=== PATIENT | female | born 1985 | race Caucasian/White ===

== ENCOUNTER → 2018-02-03 07:47 | Outpatient (CLI) | payer OTHER, SELFPAY ==
--- NOTE | 2018-02-03 07:51 | US_ITS ---
STUDY: THYROID ULTRASOUND REASON FOR EXAM: Female, 32 years old. Thyroid nodule. TECHNIQUE: Ultrasound evaluation of the thyroid was performed with real-time and static arreguin-scale imaging. COMPARISON: Prior thyroid ultrasound of October 20, 2016 FINDINGS: RIGHT LOBE: The right lobe of the thyroid gland measures 5.2 x 2.1 x 2.0 cm. There is a homogeneous echotexture. There is a 2.3 x 2.0 x 2.2 cm complex nodule of the mid to lower pole of the right thyroid with internodular and perinodular vascularity. There is also a solid hypoechoic ovoid nodule measuring 3 x 3 x 2 mm in the upper pole. LEFT LOBE: The left lobe of the thyroid gland measures 4.4 x 1.6 x 1.5 cm. There is a homogeneous echotexture. There is a 4 x 3 x 3 hypoechoic solid nodule of the mid left thyroid with perinodular vascularity. ISTHMUS: The isthmus measures 0.2 centimeter. The regional lymph nodes are normal. US/Thyroid IMPRESSION: Enlargement of the right thyroid primarily secondary to a complex nodule of the mid and inferior pole measuring 2.3 x 2.0 x 2.2 cm which is not substantially changed in size or appearance on [id number] comparison. 3 x 3 x 2 mm ovoid solid hypoechoic nodule of the upper right thyroid not formerly visualized. 4 x 3 x 3 mm ovoid solid hypoechoic nodule of the mid left thyroid not formerly visualized. Electronically Signed: Radha Perez MD at 20:56 EDT , Service support ,
--- NOTE | 2018-02-03 07:51 | US_ITS ---
STUDY: ABDOMINAL ULTRASOUND - RIGHT UPPER QUADRANT REASON FOR VISIT: Female, 32 years old. Right upper quadrant pain. TECHNIQUE: Ultrasound evaluation of the right upper quadrant was performed with real-time and static arreguin-scale imaging. TECHNICAL QUALITY: Adequate. COMPARISON: Comparison is made with prior study dated January 09, 2011. FINDINGS: Liver: The liver measures 17.0 cm. There is normal echogenicity of the liver. The bile ducts are within normal limits. There is hepatic color flow. The direction of portal flow is hepatopetal. There is no demonstrated mass lesion. Gallbladder: Normal distended gallbladder. The gallbladder wall measures 2.6 mm. There is a negative sonographic Fernandes's sign. There is no pericholecystic fluid. There are no gallstones. Common Bile Duct (C.B.D.): The common bile duct measures 2.5 mm. Pancreas: Normal size of the head, body and tail of the pancreas. There is normal echogenicity of the pancreas. There is no demonstrated pancreatic mass or cyst. Right Kidney: Normal size of the right kidney. The right kidney measures 11.5 cm x 4.9 cm x 5.0 cm. Normal renal cortex. The right cortex measures 1.3 cm. There is no demonstrated renal mass or cyst. There is no right hydronephrosis. US/Gallbladder IMPRESSION: Normal right upper quadrant ultrasound examination. Electronically Signed: Walter Bejarano MD at 14:34 EDT Tel [phone], Service support ,
== END ==
PROVIDERS: Family Provider Internal Medicine; PCP Internal Medicine; Visit Provider Internal Medicine
DX: E04.1 Nontoxic single thyroid nodule (principal); R10.11 Right upper quadrant pain
CPT/HCPCS: 76536; 76705

== ENCOUNTER → 2018-06-09 08:42 | Outpatient (CLI) | payer OTHER, SELFPAY ==
[2018-06-09 12:59] LABS: Hematocrit 33.2 % (37-47); Hemoglobin 11.2 g/dl (12.0-15.0); Mean Corp Hgb Conc 33.7 g/gl (32-36); Mean Corpuscular Hgb 29.4 pg (27.0-32.0); Mean Corpuscular Volume 87.1 fL (81-99); Mean Platelet Vol. 10.2 fl (6.2-12.0); Platelet Count 287 K/mm3 (150-450); RBC Distribution Width CV 13.6 % (11.6-14.6); RBC Distribution Width SD 41.8 fl (35.1-43.9); Red Blood Count 3.81 M/mm3 (4.2-5.4)
[2018-06-09 13:00] LABS: Scan Indicated on CBC? Y/N NO
[2018-06-09 13:29] LABS: Glucose Challenge Gest 1H 50g 157 mg/dL (70-140)
== END ==
PROVIDERS: Family Provider Internal Medicine; PCP Internal Medicine; Visit Provider Obstetrics & Gynecology
DX: Z34.83 Encounter for supervision of other normal pregnancy, third trimester (principal)
CPT/HCPCS: 36415; 82950; 85027

== ENCOUNTER → 2018-06-30 06:45 | Outpatient (CLI) | payer OTHER, SELFPAY ==
[2018-06-30 07:33] LABS: Glucose GTT-Gestation. Fasting 84 mg/dL (<105)
[2018-06-30 08:41] LABS: Glucose GTT-Gestational 1 Hr 166 mg/dL (<190)
[2018-06-30 09:32] LABS: Glucose GTT-Gestational 2 Hr 174 mg/dL (<165)
[2018-06-30 10:41] LABS: Glucose GTT-Gestational 3 Hr 144 L (<145)
--- OUTSIDE RECORDS SUMMARY | 2018-08-25 06:43 | XMS RPT_ITS | Continuity of Care Document ---
:1985 Author Organization [facility] Address [address] [place] [address] Phone Care Team Providers Name Role Phone Evy Larios DO Unavailable Dr. Gagandeep Polanco Unavailable Mehran Patten Unavailable Dr. Zeus North Unavailable Dr. Tomi Meade MD Unavailable Juana Nguyễn Unavailable Sindy Metz Unavailable Unavailable Jojo Grace Unavailable Unavailable Unavailable Unavailable Problems Name Dates Details Acute sinusitis (J01.90, 461.9) Status: Active Anxiety (F41.9, 300.00) Comments: chronic stable-continue present regimen Status: Active BMI 40.0-44.9, adult (Z68.41, V85.41) Comments: 41.27 Status: Active Cervical radiculopathy, acute (Renamed from Acute cervical radiculopathy) (M54.12, 723.4) Status: Active Cervical radiculopathy, chronic (M54.12, 723.4) Comments: chronic stable-continue present regimen Status: Active Deliveries (Parity) Comments: 1. Status: Active Dysthymic (F34.1, 300.4) Status: Active Elevated hemoglobin A1c (R73.09, 790.29) Comments: great control Status: Active Encounter for gynecological examination with abnormal finding (Z01.411, V72.31) Status: Active FAMILY HISTORY OF DIABETES MELLITUS (Z83.3, V18.0) Status: Active FAMILY HISTORY OF ISCHEMIC HEART DISEASE (Renamed from Fam hx-ischem heart disease) (Z82.49, V17.3) Status: Active Family history of melanoma (Z80.8, V16.8) Status: Active Fatigue (R53.83, 780.79) Status: Active Frequent infections (Z86.19, V12.00) Status: Active Gastroesophageal reflux disease without esophagitis (K21.9, 530.81) Status: Active Hiatal hernia (K44.9, 553.3) Comments: by egd in past Status: Active Insomnia (Renamed from Cannot sleep) (G47.00, 780.52) Comments: better Status: Active Joint pain (M25.50, 719.40) Status: Active [facility] WELLNESS EXAM Status: Active [facility] WELLNESS EXAM Status: Active Migraine (G43.909, 346.90) Status: Active Nausea (R11.0, 787.02) Status: Active Other hyperlipidemia (E78.49, 272.4) Status: Active Positive urine test (Z32.01, V72.42) Status: Active Pregnancies () Comments: 1. Status: Active Rash (R21, 782.1) Status: Active Right upper quadrant pain (R10.11, 789.01) Status: Active Sinusitis, acute (J01.90, 461.9) Comments: patient called in with sinus sx at work- send in antiobiotic - told take probiotic and appt not better add atypical coverage because on ceftin and want not bacgteriostatic but cidial and with frequent i nfecton through life check immunoglobulins once at steady state Status: Active Smoker (F17.200, 305.1) Comments: not smoking during preg Status: Active Spasm of cervical paraspinous muscle (M62.838, 728.85) Status: Active Tachycardia (R00.0, 785.0) Comments: chronic stable-continue present regimen Status: Active Thyroid nodule (E04.1, 241.0) Status: Active Unspecified Diagnosis Status: Active Upper respiratory infection (J06.9, 465.9) Status: Active Vertigo (R42, 780.4) Comments: get mri Status: Active Vitamin D deficiency (E55.9, 268.9) Status: Active Wheezing (R06.2, 786.07) Status: Active Medications Name Dates Details Augmentin 875-125 MG Oral Tablet 1 (one) Tablet two times daily for 14 days Quantity: 28 {Tablet} Refills: 0 Ordered:01-Jun-2018 Ric DODaniela AFandrew DO, Evy A Start : 01-Jun-2018 Active BuPROPion HCl ER (XL) 150 MG Oral Tablet Extended Release 24 Hour 1 (one) Tablet ER 24HR qd for 0 days Quantity: 30 {Tablet} Refills: 3 Ordered:13-Oct-2017 Sindy Metz Start : 13-Oct-2017 Active Fiorinal 50-325-40 MG Oral Capsule uad (50-325-40 MG) Active Comments:Dr. Davis Labetalol HCl 100 MG Oral Tablet 1 (one) Tablet bid for 0 days Quantity: 60 {Tablet} Refills: 3 Ordered:22-Mar-2018 Ric NEALDaniela Salo NEAL Evy A Start : 22-Mar-2018 Active Pepcid 20 MG Oral Tablet 1 (one) Tablet bid for 0 days Quantity: 60 {Tablet} Refills: 6 Ordered:25-Apr-2018 Ric NEALEvy DO Evy A Start : 25-Apr-2018 Active /Folic Acid Oral Tablet 1 qd Active Rizatriptan Benzoate 10 MG Oral Tablet 1 (one) Tablet Tablet daily, prn for 30 days Quantity: 30 {Tablet} Refills: 1 Ordered:09-Aug-2017 Sindy Metz Start : 09-Aug-2017 Active Singulair 10 MG Oral Tablet 1 (one) Tablet qd for 30 days Quantity: 30 {Tablet} Refills: 6 Ordered:31-Jan-2018 Ric NEALEvy DO, Debra A Start : 31-Jan-2018 Active Symbicort 80-4.5 MCG/ACT Inhalation Aerosol 2 (two) puffs qd for 0 days Quantity: 1 {Inhaler} Refills: 3 Ordered:06-Jun-2018 Ric NEALEvy DO, Debra A Start : 06-Jun-2018 End : 13-Jan-2018 Active Vitamin D3 2000 UNIT Oral Tablet 2 (two) Tablet Tablet qd for 0 days Quantity: 60 {Tablet} Refills: 4 Ordered:02-May-2018 FernandoSindy baez Start : 17-Jan-2018 Active Zofran 4 MG Oral Tablet 1 (one) Tablet bid prn for 0 days Quantity: 30 {Tablet} Refills: 1 Ordered:06-Nov-2017 Evy Larios DO AFEvy morales DO Start : 06-Nov-2017 Active Amitriptyline HCl 10 MG Oral Tablet 3 (three) Tablet qhs prn for 0 days Quantity: 90 {Tablet} Refills: 3 Ordered:30-Jun-2017 Sindy Metz Start : 23-Apr-2017 End : 30-Jun-2017 Inactive CeleBREX 200 MG Oral Capsule qd (200 MG) Inactive Comments:pain management Cyclobenzaprine HCl 10 MG Oral Tablet 1 (one) Tablet prn for 30 days Quantity: 30 {Tablet} Refills: 1 Ordered:19-Apr-2017 Sindy Metz Start : 03-Feb-2017 End : 19-Apr-2017 Inactive DULoxetine HCl 20 MG Oral Capsule Delayed Release Particles 1 (one) Capsule qd for 0 days Quantity: 30 {Capsule} Refills: 3 Ordered:13-Jan-2018 Jeanine Judd LPN Start : 13-Sep-2017 End : 13-Jan-2018 Inactive Levaquin 500 MG Oral Tablet 1 (one) Tablet Tablet qd for 0 days Quantity: 14 {Tablet} Refills: 0 Ordered:11-Jan-2018 ITZ Welch Start : 22-Jul-2017 End : 11-Jan-2018 Inactive Comments:she is not pregant LORazepam 0.5 MG Oral Tablet 1 (one) Tablet Tablet daily, prn for 30 days Quantity: 30 {Tablet} Refills: 0 Ordered:13-Jan-2018 Jeanine Judd LPN Start : 29-Oct-2015 End : 13-Jan-2018 Inactive Neurontin 100 MG Oral Capsule 1 (one) Capsule daily as directed for 30 days Quantity: 180 {Capsule} Refills: 0 Ordered:30-Mar-2016 Jojo Grace Start : 30-Mar-2016 End : 29-Apr-2016 Inactive Comments:100mg tid x3days, then 200mg tid x3days then 300mg tid Percocet 5-325 MG Oral Tablet 1 (one) Tablet tid, prn for 0 days Quantity: 75 {Tablet} Refills: 0 Ordered:13-Jan-2018 Evy Larios DO, DO Evy A Start : 09-Dec-2016 End : 13-Jan-2018 Inactive Comments:seventy five PredniSONE 10 MG Oral Tablet 1 (one) Tablet 3 pills for 3 dayes 2 pills for 3 days 1 pill for 3 days for 1 days Quantity: 18 {Tablet} Refills: 0 Ordered:04-May-2018 Evy Larios DO, DO, Evy A Start : 04-May-2018 End : 05-May-2018 Inactive Comments:take with food in am Skelaxin 400 MG Oral Tablet tid (400 MG) Inactive NexIUM 24HR 20 MG Oral Capsule Delayed Release 1 (one) Capsule DR qd prn for 30 days Quantity: 30 {Capsule} Refills: 6 Ordered:13-Jan-2018 Evy Larios DO, DO Evy A Start : 13-Jan-2018 End : 13-Jan-2018 Discontinued [place] 7.5-325 MG Oral Tablet 1-2 Tablet bid for 0 days Quantity: 60 {Tablet} Refills: 0 Ordered:30-Mar-2016 Jojo Grace Start : 24-Mar-2016 End : 30-Mar-2016 Discontinued Comments:sixty Nortriptyline HCl 75 MG Oral Capsule 1 (one) Capsule Capsule daiy, prn for 30 days Quantity: 30 {Capsule} Refills: 0 Ordered:13-Oct-2016 Evy Larios DO, DO, Evy A Start : 13-Oct-2016 End : 13-Oct-2016 Discontinued POLYTRIM, 07039-9.1UNIT/ML-% (Ophthalmic Solution) 1 (one) Solution 1 gtt q4-6 hours affected eye for 0 days Quantity: 1 {Bottle} Refills: 0 Ordered:29-Oct-2015 Jojo Grace Start : 20-Aug-2015 End : 29-Oct-2015 Discontinued Propranolol HCl 80 MG Oral Tablet 1 (one) Tablet qd for 0 days Quantity: 30 {Tablet} Refills: 6 Ordered:13-Jan-2018 Evy Larios DO, DO Evy A Start : 13-Jan-2018 End : 13-Jan-2018 Discontinued SERTRALINE HCL, 100MG (Oral Tablet) 1 (one) Tablet daily for 30 days Quantity: 30 {Tablet} Refills: 3 Ordered:29-Apr-2015 Jojo Grace Start : 22-Feb-2015 End : 29-Apr-2015 Discontinued Allergies and Adverse Reactions Name Dates Details Nabumetone *ANALGESICS - ANTI-INFLAMMATORY* (Allergy) Status: Active Comments: anaphylaxis Sulfa Drugs (Allergy) Status: Active Comments: anaphylaxis Past Medical History Name Dates Details Acute pain of left shoulder (M25.512, 719.41) Status: Resolved as of 11-Jan-2018 Allergic rhinitis (J30.9, 477.9) Status: Inactive as of 22-Sep-2017 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, 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) Status: Inactive as of 29-Sep-2016 Chronic pain of left knee (M25.562, 719.46) Status: Inactive as of 22-Sep-2017 CLEANING (headache) (R51, 784.0) Status: Inactive as of 22-Sep-2017 Pain in unspecified joint (Renamed from Joint pain) (M25.50, 719.40) Status: Inactive as of 17-Jan-2018 Red eye (H57.8, 379.93) Status: Resolved as of 29-Oct-2015 Sinus infection (J32.9, 473.9) Status: Resolved as of 29-Oct-2015 Tension headache (G44.209, 307.81) Status: Inactive as of 22-Sep-2017 Procedures Procedure Dates Details Appendectomy Completed Delivery Completed colposcopy 2010 Completed Tonsillectomy Completed Date Value Details 03-Feb-2018 Gallbladder Result: Comments: See Note; NOTES: [facility] Imaging Services [address] [place] [address] Gallbladder MR#: [id number] Acct: [id number] Name: CAREY MURPHY Rep #: [id number] : 1985 F 32 From: Walter Bejarano MD PCP: Evy Larios DO Status: REG CLI Study: Gallbladder Date of Exam: 02/03/18 Exam# [id number] Ordering Dr: Evy Larios DO STUDY: ABDOMINAL ULTRASOUND - RIGH T UPPER QUADRANT REASON FOR VISIT: Female, 32 years old. Right upper quadrant pain. TECHNIQUE: Ultrasound evaluation of the right upper quadrant was performed with real-time and static arreguin-scale imag ing. TECHNICAL QUALITY: Adequate. COMPARISON: Comparison is made with prior study dated January 09, 2011. FINDINGS: Liver: The liver measures 17.0 cm. There is teresa l echogenicity of the liver. The bile ducts are within normal limits. There is hepatic color flow. The direction of portal flow is hepatopetal. There is no demonstrated mass lesion. Gallbladder: Normal distended gallbladder. The gallbladder wall measures 2.6 mm. There is a negative sonographic Fernandes's sign. There is no pericholecystic fluid. There are no gallstones. Common Bile Duct (C.B.D.): The c ommon bile duct measures 2.5 mm. Pancreas: Normal size of the head, body and tail of the pancreas. There is normal echogenicity of the pancreas. There is no demonstrated pancreatic mass or cyst. Right Kidney: Normal size of the right kidney. The right kidney measures 11.5 cm x 4.9 cm x 5.0 cm. Normal renal cortex. The right cortex measures 1.3 cm. There is no demonstrated renal mass or cyst. There i s no right hydronephrosis. 0002 US/Gallbladder IMPRESSION: Normal right upper quadrant ultrasound examination. 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 Thyroid nodule. TECHNIQUE: Ultrasound evaluation of the thyroid was performed with real-time and static arreguin-scale imaging. COMPARISON: Prior thyroid ultrasound of October 20, 2016 _ FINDINGS: RIGHT LOBE: The right lobe of the thyroid gland measures 5.2 x 2.1 x 2.0 cm. There is a homogeneous echotexture. There is a 2.3 x 2.0 x 2.2 cm complex nodu le of the mid to lower pole of the right thyroid with internodular and perinodular vascularity. There is also a solid hypoechoic ovoid nodule measuring 3 x 3 x 2 mm in the upper pole. LEFT LOBE: The le ft lobe of the thyroid gland measures 4.4 x 1.6 x 1.5 cm. There is a homogeneous echotexture. There is a 4 x 3 x 3 hypoechoic solid nodule of the mid left thyroid with perinodular vascularity. ISTHMUS: The isthmus measures 0.2 centimeter. The regional lymph nodes are normal. US/Thyroid IMPRESSION: Enlargement of the right thyroid primarily se condary to a complex nodule of the mid and inferior pole measuring 2.3 x 2.0 x 2.2 cm which is not substantially changed in size or appearance on eaem-ej-flqh comparison. 3 x 3 x 2 mm ovoid solid hypoe choic nodule of the upper right thyroid not formerly visualized. 4 x 3 x 3 mm ovoid solid hypoechoic nodule of the mid left thyroid not formerly visualized. Electronically Signed: Lorrie Laboy at 20:56 EDT , Service support , CC: Evy Larios DO Bus And Rail Operator: Signed 28-Apr-2017 Brain W/WO Contrast Result: Comments: See Note; NOTES: [facility] Imaging Services [address] [place] [address] Brain W/WO Contrast MR#: [id number] Acct: [id number] Name: CAREY MURPHY Rep #: [id number] : 1985 F 31 From: Luis Sales MD PCP: Evy Larios DO Status: REG CLI Study: Brain W/WO Contrast Date of Exam: 04/28/17 Exam# [id number] Ordering Dr: Evy Larios DO STUDY: MRI BRAIN WITH AND W ITHOUT CONTRAST REASON FOR EXAM: Female, 31 years old. Vertigo. Worsening by drain with new dizziness nausea and confusion. TECHNIQUE: Standardized multiplanar fat and water weighted pulse sequences w ere obtained. 10 ml of Gadavist contrast material was administered intravenously for the contrast portion of the examination. COMPARISON: CT head without contrast 12/08/2013. FINDINGS: No restricted diffusion to suspect acute or subacute ischemic infarct. No focal signal abnormalities throughout the brain parenchyma. All of the pulse sequences are normal. The arreguin matter, white matter, ventricles and cisterns are normal. Following IV contrast administration, there are no enhancing lesions intraaxially or extra-axially. Normal size of the ventricles and extra-a xial spaces for the patient's age. Normal white matter tracts of the supratentorial brain. Normal bilateral basal ganglia. Normal thalami. There is no extra-axial fluid accumulation. Normal flow voids within the major intracranial circulation suggesting patency by spin echo criteria. Normal venous enhancement. There is no enhancing intra-axial or extra-axial abnormality. Normal sella turcica, pitui tary gland, infundibular stalk, optic chiasm and hypothalamus. Normal tectal plate and pineal gland. Normal midbrain, quyen and medulla. Normal cerebellum. Normal basal cisterns. Normal bilateral tempor al bones. Normal bilateral internal auditory canals. No demonstrated orbital abnormality, within the constraints of a routine brain study. Normal visualized paranasal sinuses. Normal calvarium and skul l base. Normal visualized soft tissue structures. Normal visualized upper cervical spine. MRI/Brain W/WO Contrast IMPRESSION: Normal unenhanced a nd enhanced MRI of the brain. Electronically Signed: Luis Sales MD at 15:53 EDT , Service support , CC: Evy Larios DO Bus And Rail Operator: Signed 23-Apr-2017 Echocardiogram Complete Result: Comments: See Note; NOTES: [facility] [address] [place] [address] Echo Complete 04/22/17 1026 MR#: [id number] Acct: [id number] Name: CAREY MURPHY Rep #: [id number] : 1985 31 From: Juan Sellers MD Attending Dr: Evy Larios DO Status: REG CLI Ordering Dr: Evy Larios DO Date: 04/22/17 Location: [facility] Sex: F C Admitted: Reason For Study: Tachycardia Procedure This was a 2D Doppler, Color Flow transthoracic echocardiogram. Exam performed in department. Left Ventricle Normal size and thickness. The estimated ejection fraction is 65 %. Normal diastology for age. No regional wall motion abnormalities noted. Right Ventricle Normal size and thickness. Normal systolic function. Atria Normal left atrium. Normal right atrium. Normal atria l septum. Mitral Valve The mitral valve is structurally normal. No prolapse or stenosis seen. Tricuspid Valve Normal tricuspid valve. Unable to estimate RV systolic pressure/pulmonary artery pressure due to technically difficult study. Aortic Valve Normal aortic valve. Trisinus/trileaflet aortic valve. Pulmonic Valve Normal pulmonic valve. Great Vessels Normal aortic root. Normal arch. Normal infe rior vena cava. Inferior vena cava collapse with sniff. Pericardium/Pleural No pericardial effusion. MMode/2D Measurements AND Calculations LVIDd: 4.1 cm IVSd: 1.1 cm LVOT diam: 2.0 cm LVIDs: 2.5 cm L VPWd: 0.91 cm LVOT area: 3.0 cm2 FS: 39.1 % Ao root diam: 2.9 cm LAV(MOD-bp): 34.5 ml LVAd ap4: 27.3 cm2 LAV(MOD-bp) Ind exed: 16.9 ml/m2 EDV(MOD-sp4): 75.2 ml LAV(MOD-sp2): 38.8 ml EDV(sp4-el): 76.0 ml LAV(MOD-sp4): 26.0 ml LVAs ap4: 15.5 cm2 ESV(MOD-sp4): 30.5 ml ESV(sp4-el): 29.4 ml EF(MOD-sp4): 59.4 % EF(sp4-el): 61.3 % SV(MOD-sp4): 44.7 ml SV(sp4-el): 46.6 ml LA A4 area: 13.6 cm2 RA A4 area: 13.1 cm2 Time Measurements MV dec time: 0.22 sec Doppler Measurements AND Calculations MV E max lucila: 81.5 cm/sec Lat Peak E' Lucila: 11.4 cm/sec Med Peak E' Lucila: 13 .3 cm/sec MV A max lucila: 63.4 cm/sec E/E' lat: 7.1 E/E' med: 6.1 MV E/A: 1.3 MV V2 max: 87.4 cm/sec MV P1/2t max lucila: 86. 8 cm/sec Ao V2 max: 130.0 cm/sec MV max P.1 mmHg MV P1/2t: 77.7 msec Ao max P.8 mmHg MV V2 mean: 58.3 cm/sec MV dec slope: 327.2 cm/sec2 MADAY(V,D): 2.7 cm2 MV mean P.5 mmHg MVA(P1/2t): 2.8 cm 2 MV V2 VTI: 17.6 cm LV V1 max: 115.6 cm/sec PA V2 max: 95.4 cm/sec LV V1 max P.3 mmHg Interpretation Summary The e stimated ejection fraction is 65 %. Normal diastology for age. Unable to estimate RV systolic pressure/pulmonary artery pressure due to technically difficult study. There is no comparison study availabl e. Ordering Physician: Evy Larios Referring Physician: Evy Larios, DhavalO. Performed By: Christi LIN, KRISTIN, Ivone and Student 04/23/17 1632 Date Juan Sellers MD CC: Evy Padilla O Date Dictated: 04/22/17 1026 Date Transcribed: 04/23/17 1632 Bus And Rail Operator: Signed 20-Oct-2016 Knee 4 or More Views Result: Comments: See Note; NOTES: [facility] Imaging Services [address] [place] [address] Verdana 4d Knee 4 or More Views MR#: [id number] Acct: [id number] Name: CAREY EVANS p #: [id number] : 1985 F 30 From: Walter Bejarano MD PCP: Evy Larios DO Status: REG CLI Study: Knee 4 or More Views Date of Exam: 10/20/16 Exam# [id number] Ordering Dr: Evy Larios DO STUDY : X-RAY - LEFT KNEE REASON FOR EXAM: Female, 30 years old. Chronic knee pain. TECHNIQUE: 4 view(s) of the knee. COMPARISON: None. FINDINGS: Normal visualized dist al femur. Normal visualized proximal tibia and fibula. Normal proximal tibiofibular articulation. Normal medial femorotibial compartment. Normal lateral femorotibial compartment. Normal patellofemoral articulation. The soft tissue structures are unremarkable. RAD/Knee 4 or More Views IMPRESSION: Normal x-ray examination of the knee. Electroni kristie Signed: Walter Bejarano MD at 9:10 EDT Tel [phone], Service support [phone], CC: Evy Larios DO Bus And Rail Operator: Signed 20-Oct-2016 Thyroid Result: Comments: See Note; NOTES: [facility] Imaging Services [address] [place] [address] Gabidaronan 4d Thyroid MR#: [id number] Acct: [id number] Name: CAREY EVANS Rep #: [id number] : 1985 F 30 From: Walter Bejarano MD PCP: Evy Larios DO Status: REG CLI Study: Thyroid Date of Exam: 10/20/16 Exam# [id number] Ordering Dr: Evy Larios DO STUDY: THYROID ULTRASOUND REAS ON FOR EXAM: Female, 30 years old. History of thyroid nodule. TECHNIQUE: Ultrasound evaluation of the thyroid was performed with real-time and static arreguin-scale imaging. COMPARISON: None. FINDINGS: RIGHT LOBE: The right lobe of the thyroid gland measures 5.5 cm x 1.8 cm x 2.5 cm. There is a homogeneous echotexture. There is a 2.2 cm x 2.1 cm x 2.3 cm complex rosa id and cystic nodule in the inferior pole of the right lobe of the thyroid. A biopsy is recommended for further evaluation. LEFT LOBE: The left lobe of the thyroid gland measures 4.8 cm x 1.4 cm x 1.2 cm. There is a homogeneous echotexture. There are no demonstrated solid, cystic or complex lesions. ISTHMUS: The isthmus measures 2.0 mm. The regional lymph nodes are normal. US/Thyroid IMPRESSION: 2.2 cm x 2.1 cm x 2.3 cm complex nodule in the lower pole of the right lobe of the thyroid as described. A biopsy is recommended. Electronically Signed: Walter Bejarano MD at 9:08 EDT Tel [phone], Service support [phone], CC: Evy Larios DO Bus And Rail Operator: Signed 01-Oct-2016 Spine Cervical (Routine) Result: Comments: See Note; NOTES: [facility] Imaging Services [address] [place] [address] Verdana 4d Spine Cervical (Routine) MR#: [id number] Acct: [id number] Name: CAREY EVANS Rep #: [id number] : 1985 F 30 From: Kamran Anderson MD PCP: Evy Larios DO Status: REG CLI Study: Spine Cervical (Routine) Date of Exam: 10/01/16 Exam# [id number] Ordering Dr: Evy Larios DO STUDY: MRI CERVICAL SPINE WITHOUT CONTRAST REASON FOR EXAM: Female, 30 years old. Radiculopathy TECHNIQUE: Standardized fat and water weighted pulse sequences were obtained in the sagittal and axial p lanes. COMPARISON: X-ray cervical spine 03/24/16 FINDINGS: Normal foramen magnum and brainstem-cervical cord junction. Normal craniovertebral junction. Normal anteri or atlantoaxial articulation. Normal odontoid process. Normal cervical lordosis. Normal vertebral bodies and posterior osseous elements. C2-3: Normal endplates. Normal disc height, signal and morpholo gy. Normal central canal and intervertebral neural foramina. C3-4: There is disc bulge with posterior annular tear (image 8/15, 9 sagittal T2, inversion recovery). C4-5: Normal endplates. Normal disc height, signal and morphology. Normal central canal and intervertebral neural foramina. C5-6: Normal endplates. Normal disc height, signal and morphology. Normal central canal and intervertebral neural foramina. C6-7: Normal endplates. Normal disc height, signal and morphology. Normal central canal and intervertebral neural foramina. C7-T1: Normal endplates. Normal disc height, signal and morpholog y. Normal central canal and intervertebral neural foramina. Normal cervical cord. There is mucoperiosteal thickening at the sphenoid sinus (image 9/15 sagittal T2). MRI/Spine Cervical (Routine) IMPRESSION: No disc herniation or spinal stenosis Disc bulge with posterior annular tear, C3-C4 Evidence of sphenoid sinusitis Electronically Signed : Kamran Anderson MD at 22:22 EST Tel , Service support [phone], CC: Evy Larios DO Bus And Rail Operator: Signed 21-May-2016 PT D/C of Non Returning Pt (1) Result: Comments: See Note; NOTES: [facility] [address] [place], [place] [address] Fax REHABILITATION SERVICES DISCHA RGE SUMMARY MR#: [id number] Acct: [id number] Name: CAREY EVANS Rep #: [id number] : 1985 30 From: Tate Pennington PT, Cert. T, OCS Referring Dr.: Evy Larios DO Status: REG RCR Insurance : [facility] - Discharge Summary (1) - Patient Information CAREY EVANS was seen in my office for initial evaluation on 03/27/16. The following Plan of Care was established for this patient: Initial Frequency: 2x /Week Initial Duration: 6 Weeks - Anticipated Interventions Patient/Client Instruction: Educate patient on: Condition, Plan of Care For the Purpose of:: To reduce risk of recurre nce Therapeutic Exercise to Include: Strength training, Neuromotor development, Active ROM For the Purpose of:: To decrease pain, To decrease swelling/inflammation Manual Therapy Techniques to Include: Massage, Mobilization, Manipulation, Passive ROM For the Purpose of:: To decrease pain, To decrease swelling/inflammation Thermo therapy (hot pack): Yes Ultrasound (thermal/non thermal): Yes For the Pur pose of:: To improve nutrient delivery to tissue This patient was last seen in our office 04/17/16. Pertinent comments regarding their Physical therapy will appear below: Patient was seen for PT for sh oulder pain focusing on posture,strength which patient was showing improvement.Thus was not seen for follow -up for D/C . Patient is d/c from PT . At this point I will be discontinuing this patient fr om physical therapy. I would be happy to see this patient again in the future if found appropriate by the physician. Thank you! Tate Pennington, PT, <Electronically signed by Tate Dior, Cert. T, OCS> 05/21/1628 CC: Evy Larios DO ANANTH Signed 13-Apr-2016 Emergency Department Summary Result: Comments: See Note; NOTES: [facility] Medical Records Department [address] [place] [address] Emergency Department Summary MR#: [id number] Acct: [id number] Name: JULIAN EVANS Rep #: [id number] : 1985 30 From: Jojo Jack MD PCP: Evy Larios DO Status: DEP ER DATE OF SERVICE: 04/12/2016 CHIEF COMPLAINT: Migraine. LOCK HISTORY: The patient is a 30-year-old female who states she woke this morning with a migraine. She has had nausea and vomiting with this. She also has light sensitivity. She states her migraines are typically unilateral and does not have v omiting, so this is a different pattern for her. She did try her Maxalt this morning without improvement. She denies any recent head trauma, no URI symptoms. PHYSICAL EXAMINATION: VITAL SIGNS: Unremark able. GENERAL: The patient is lying in a darkened room. She is in no acute distress. NECK: She has no meningismus. HEART: Regular. LUNGS: Clear. ABDOMEN: Soft, nontender. NEUROLOGIC: She has normal neur o exam. HOSPITAL COURSE: The patient was given IV fluids, Toradol, Reglan and Benadryl. On repeat evaluation, she is significantly improved. She will be discharged home with her family. DISPOSITION: D ischarge. IMPRESSION: Migraine, improved. Jojo Jack MD T: NTS JOB: [id number] 04/13/16 0803 <Electronically signed by Jojo Jack MD> Date Jojo Jack MD Cosigner Signature (If Indicated): Date CC: Evy Fast DO Date Dictated: 04/12/161734 Date Transcribed: 04/12/161734 Bus And Rail Operator: Signed 12-Apr-2016 Discharge Instruction Result: Comments: See Note; NOTES: [facility] Medical Records Department [address] [address] Discharge Instruction 04/12/16 1503 MR#: [id number] Acct: [id number] Name: CAREY EVANS Rep #: [id number] : 1985 30 From: Jojo Jack MD PCP: Evy Larios DO Status: REG ER ED Disposition - Plan for ED Patient: Disposition: Home or Assisted Living Chief Complaint: Nausea/Vomiting Instructions: ED Headache, Migraine (Classic) Referrals: Evy Larios DO [Primary Care Provider] - As Needed What to do if you have Problems For any increased pain, shortness of estrada th, bleeding, nausea or vomiting, chest pain, or any unexpected problems, contact your doctor. Call [facility] ([phone]) or report to the closest Emergency Room. Call 911 if necessary. 04/02 08/17 1503 <Electronically signed by Jojo Jack MD> Date Jojo Jack MD Cosigner Signature (If Indicated): Date ___ CC: Evy Fast DO 27-Mar-2016 Inital Evaluation (1) - PT Result: Comments: See Note; NOTES: [facility] [place] [address] [facility]. [address] [place] [address] Fax REHABILITATION SERVICES INITIA L EVALUATION MR#: [id number] Acct: [id number] Name: CAREY EVANS Rep #: [id number] : 1985 30 From: Tate Cat Referring Dr.: Evy Larios DO Status: REG RCR Insurance: LORNE Suzie ent's Visit Information CAREY EVANS is a 30 year old F referred to Physical Therapy by Evy Larios DO with a diagnosis of Left shoulder pain/tendinitis. Date of Evaluation: 03/27/16 Physical Thera pist: Tate Cat - Visit Plan Frequency: 2x /Week Duration: 6 Weeks - Subjective Subjective: Patient reports progressively increasing left sided neck and shoulder pain over the past several weeks. Patient states that she has been treated at [facility] for neck pain years ago, but now she is having occasional shooting pain and tingling down the LUE. Patient states that lifting a milk jug and tracey gutierrez overhead are the most aggravating activities with the LUE. - Pain Left Shoulder Pain Intensity (Out of 10): 6 Pain Intensity Range: 5, 7 Comment: Sharp pain from the left side of the neck down the LUE - Objective Observation: mild forward head and shoulders bilaterally, accentuated TL junction lordotic curve, mildly elevated left scapula. Palpation: moderate tenderness to palpation and incr eased tone in the left upper trapezius and levator scapulae. Tenderness to palpation along the left acromion and glenohumeral joint space. Cervical AROM: Flexion: WNL. Extension: 25% limitation. Rotatio n: 25% limitation bilaterally. Left shoulder strength on MMT: Flexion: 4/ 5. ER: 4+/5. IR: 4+/5. Scaption: 4-/5. Empty Can Test (+) for pain. Nursing Support Worker Dynamometer: L: 30 lbs. R: 62 lbs (patient is R handed) - Goals Goal 1:: Patient will achieve at least 4+/5 L shoulder strength on MMT in all planes of motion with minimal pain. Goal Time Frame: 2-4 Weeks Goal 2:: Patient will demonstrate normal cervical A ROM in all planes of motion. Goal Time Frame: 4-6 Weeks Goal 3:: Patient will tolerate ADLs involving LUE reaching and lifting objects with no more than 1/10 left shoulder discomfort. Goal Time Frame: 4 -6 Weeks - Rehabilitation Potential Physical Therapy Diagnosis: Left upper trapezius hypertonicitiy and postural abnormalities Rehabilitation Potential: Excellent - Anticipated Interventions Patient/C lient Instruction: Educate patient on: Condition, Plan of Care For the Purpose of:: To reduce risk of recurrence Therapeutic Exercise to Include: Strength training, Neuromotor development, Active ROM Fo r the Purpose of:: To decrease pain, To decrease swelling/inflammation Manual Therapy Techniques to Include: Massage, Mobilization, Manipulation, Passive ROM For the Purpose of:: To decrease pain, To de crease swelling/inflammation Thermo therapy (hot pack): Yes Ultrasound (thermal/non thermal): Yes For the Purpose of:: To improve nutrient delivery to tissue Thank you for the opportunity to evaluat e your patient. For Medicare and Medicare HMO plans, please review the plan of care and approve it. It will need to be FAXED BACK to us at [phone] for Medicare purposes. Please let me know if th ere are questions or concerns regarding this plan of care. Physician Signature: Date: <Electronically signed by Tate Cat &amp ;#62; 03/27/16 1702 CC: Evy Larios DO EMILIE Signed For Medicare only, by signing this I certify the plan of care. Physicians Signature Date 24-Mar-2016 Cerv Spine 4 or 5 Views Result: Comments: See Note; NOTES: [facility] Imaging Services [address] [place] [address] [place] 4d Cerv Spine 4 or 5 Views MR#: [id number] Acct: [id number] Name: CAREY EVANS Rep #: [id number] : 1985 F 30 From: Walter Bejarano MD PCP: Evy Larios DO Status: REG CLI Study: Cerv Spine 4 or 5 Views Date of Exam: 03/24/16 Exam# [id number] Ordering Dr: Evy Larios DO STUDY: X-RAY - CERVICAL SPINE REASON FOR EXAM: Female, 30 years old. Neck pain. TECHNIQUE: 6 view(s) of the cervical spine were obtained including oblique views. COMPARISON: None FINDINGS: Normal anterior atlantoaxial articulation. Normal odontoid process. There is straightening of the normal cervical lordosis. Normal vertebral bodies and endplates. Normal d isc space heights. Normal visualized intervertebral neuroforamina. The soft tissue structures are unremarkable. RAD/Cerv Spine 4 or 5 Views IMP RESSION: There is straightening of the normal cervical lordosis most likely secondary to muscle spasm. Electronically Signed: Walter Bejarano MD at 15:12 EDT Tel [phone], Service supp ort [phone], CC: Evy Larios DO Bus And Rail Operator: Signed 24-Mar-2016 Shoulder min 2 Views Result: Comments: See Note; NOTES: [facility] Imaging Services [address] [place] [address] [place] [address] Shoulder min 2 Views MR#: [id number] Acct: [id number] Name: CAREY EVANS Lorrie Zamora #: [id number] : 1985 F 30 From: Walter Bejarano MD PCP: Evy Larios DO Status: REG CLI Study: Shoulder min 2 Views Date of Exam: 03/24/16 Exam# [id number] Ordering Dr: Evy Larios DO ERNIE DY: X-RAY - LEFT SHOULDER REASON FOR EXAM: Female, 30 years old. Acute pain. No known injury. TECHNIQUE: 4 view(s) of the shoulder. COMPARISON: None. FINDINGS: No rmal glenohumeral articulation. Normal acromioclavicular joint. Normal acromion. Normal humeral head and visualized proximal humerus. The soft tissue structures are unremarkable. Normal visualized pu lmonary apex. RAD/Shoulder min 2 Views IMPRESSION: Normal x-ray examination of the shoulder. Electronically Signed: Walter Bejarano MD 2015 at 15:11 EDT Tel [phone], Service support [phone], CC: Evy Larios DO Bus And Rail Operator: Signed 23-Jul-2015 Chest PA and Lateral Result: Comments: See Note; NOTES: [facility] Imaging Services [address] [place] [address] [place] 4d Chest PA and Lateral MR#: [id number] Acct: [id number] Name: CAREY EVANS Lorrie Rep #: [id number] : 1985 F 29 From: Oscar Dickens MD PCP: Evy Larios DO Status: REG CLI Study: Chest PA and Lateral Date of Exam: 07/23/15 Exam# [id number] Ordering Dr: Kyle Romeo STUDY: X-RAY CHEST REASON FOR EXAM: Female, 29 years old. sinus infection Cough. TECHNIQUE: AP and lateral views of the chest. COMPARISON: CR - Chest - 09:51 FINDINGS: The lungs are clear and expanded. There is no demonstrated pleural abnormality. Normal size heart. Normal mediastinum and dustin. Normal visualized pulmonary arteries. Normal visualized aortic arch and descending thoracic aorta. Normal visualized thoracic spine. Normal visualized ribs, clavicles, and shoulders. There is no demonstrated abnormality of the visual ized soft tissue structures of the upper abdomen. IMPRESSION: Normal x-ray examination of the chest. Electronically Signed: Ansley Dickens MD at 11 :33 EST Tel , Service support [phone], RAD/Chest PA and Lateral IMPRESSION: Normal x-ray examination of the chest. Electronically Signed: Ansley Dickens MD at 11:33 EST Tel , Service support [phone], CC: Evy Larios DO; Rohan Romeo Bus And Rail Operator: Signed 23-Jul-2015 EKG ([id number]) Result: [MEASUREMENTS ANALYSIS] Date of Test: 07/23/2015 13:23:17; Heart Rate: 97; WA Interval: 122; QRS: 102; QT Interval: 344; Corrected QT Interval (QTc): 408; P Wave Kenner: 28; QRS Wave Kenner: 23; T Wave Kenner : 28; Blood Pressure: 128/78 [ECG DIAGNOSTIC STATEMENTS] Date of Test: 07/23/2015 13:23:17; Summary: Sinus Rhythm Low voltage in precordial leads. -Poor R-wave progression -may be secondary to pulmona ry disease. - Negative precordial T-waves. ABNORMAL Family History Unknown Family Member Name Dates Details Father Comments: htn and high chol Status: Active Maternal Grandfather Comments: prostate cancer- heart disease- quad bypass Status: Active moms sister with breast cancer- diagnosed age 56 Comments: age 58- triple negative breast cancer Status: Active Mother Comments: living - obesity and htn and mood disorder /anxiety Status: Active Sister 1 Comments: melanoma and anorexia Status: Active Social History Name Dates Details Alcohol Use: Occasional alcohol use. 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 Comments: 1-5 cigs daily for 10 years Status: Active Smoking Status Name Dates Details Light tobacco smoker Vital Signs Date Test Result Details [id number]:12 Temperature 97.3 f Pulse 88 /min Comments: Pattern: Regular Respiration Rate 16 /min Comments: Pattern: Unlabored O2 SAT 98 % Comments: Room air BP Systolic 126 mm[Hg] Comments: Patient Position: Sitting; Cuff Location: Left Arm; Cuff Size: Standard BP Diastolic 70 mm[Hg] Comments: Patient Position: Sitting; Cuff Location: Left Arm; Cuff Size: Standard Weight 227 lb Height 63 in Body Mass Index Calculated 40.21 kg/m2 Body Surface Area Calculated 2.04 m2 :50 Temperature 96.8 f Comments: Method: Axillary Pulse 109 /min Comments: Pattern: Regular Respiration Rate 16 /min Comments: Pattern: Unlabored O2 SAT 98 % Comments: Room air BP Systolic 122 mm[Hg] Comments: Patient Position: Sitting; Cuff Location: Left Arm; Cuff Size: Standard BP Diastolic 72 mm[Hg] Comments: Patient Position: Sitting; Cuff Location: Left Arm; Cuff Size: Standard Weight 227 lb Height 63 in Body Mass Index Calculated 40.21 kg/m2 Body Surface Area Calculated 2.04 m2 :23 Temperature 97.1 f Comments: Method: Temporal Pulse 109 /min Comments: Pattern: Regular Respiration Rate 16 /min Comments: Pattern: Unlabored BP Systolic 130 mm[Hg] Comments: Patient Position: Sitting; Cuff Location: Left Arm; Cuff Size: Standard BP Diastolic 68 mm[Hg] Comments: Patient Position: Sitting; Cuff Location: Left Arm; Cuff Size: Standard Weight 227 lb Height 63 in Body Mass Index Calculated 40.21 kg/m2 Body Surface Area Calculated 2.04 m2 :53 Temperature 98.5 f Comments: Method: Temporal Pulse 91 /min Comments: Pattern: Regular Respiration Rate 16 /min Comments: Pattern: Unlabored O2 SAT 98 % Comments: Room air BP Systolic 124 mm[Hg] Comments: Patient Position: Sitting; Cuff Location: Left Arm; Cuff Size: Standard BP Diastolic 72 mm[Hg] Comments: Patient Position: Sitting; Cuff Location: Left Arm; Cuff Size: Standard Weight 223 lb Height 63 in Body Mass Index Calculated 39.5 kg/m2 Body Surface Area Calculated 2.03 m2 :06 Temperature 96.6 f Comments: Method: Temporal Pulse 100 /min Comments: Pattern: Regular Respiration Rate 16 /min Comments: Pattern: Unlabored BP Systolic 122 mm[Hg] Comments: Patient Position: Sitting; Cuff Location: Left Arm; Cuff Size: Standard BP Diastolic 70 mm[Hg] Comments: Patient Position: Sitting; Cuff Location: Left Arm; Cuff Size: Standard Weight 233 lb Height 63 in Body Mass Index Calculated 41.27 kg/m2 Body Surface Area Calculated 2.06 m2 :57 Temperature 97.6 f Comments: Method: Temporal Pulse 99 /min Comments: Pattern: Regular Respiration Rate 20 /min Comments: Pattern: Unlabored O2 SAT 97 % Comments: Room air BP Systolic 120 mm[Hg] Comments: Patient Position: Sitting; Cuff Location: Left Arm; Cuff Size: Standard BP Diastolic 80 mm[Hg] Comments: Patient Position: Sitting; Cuff Location: Left Arm; Cuff Size: Standard Weight 233 lb Height 63 in Body Mass Index Calculated 41.27 kg/m2 Body Surface Area Calculated 2.06 m2 :29 Pulse 87 /min Comments: Pattern: Regular Respiration Rate 16 /min Comments: Pattern: Unlabored O2 SAT 98 % Comments: Room air BP Systolic 124 mm[Hg] Comments: Patient Position: Sitting; Cuff Location: Left Arm; Cuff Size: Standard BP Diastolic 74 mm[Hg] Comments: Patient Position: Sitting; Cuff Location: Left Arm; Cuff Size: Standard Weight 233 lb Height 63 in Body Mass Index Calculated 41.27 kg/m2 Body Surface Area Calculated 2.06 m2 :06 Temperature 97 f Comments: Method: Temporal Pulse 111 /min Comments: Pattern: Regular Respiration Rate 16 /min Comments: Pattern: Unlabored BP Systolic 136 mm[Hg] Comments: Patient Position: Sitting; Cuff Location: Left Arm; Cuff Size: Standard BP Diastolic 88 mm[Hg] Comments: Patient Position: Sitting; Cuff Location: Left Arm; Cuff Size: Standard Weight 228 lb Height 63 in Body Mass Index Calculated 40.39 kg/m2 Body Surface Area Calculated 2.04 m2 :28 Temperature 98.3 f Comments: Method: Temporal Pulse 110 /min Comments: Pattern: Regular Respiration Rate 16 /min Comments: Pattern: Unlabored BP Systolic 142 mm[Hg] Comments: Patient Position: Sitting; Cuff Location: Left Arm; Cuff Size: Standard BP Diastolic 82 mm[Hg] Comments: Patient Position: Sitting; Cuff Location: Left Arm; Cuff Size: Standard Weight 228 lb Height 63 in Body Mass Index Calculated 40.39 kg/m2 Body Surface Area Calculated 2.04 m2 :42 Temperature 96.8 f Comments: Method: Temporal Pulse 110 /min Comments: Pattern: Regular Respiration Rate 16 /min Comments: Pattern: Unlabored O2 SAT 97 % Comments: Room air BP Systolic 124 mm[Hg] Comments: Patient Position: Sitting; Cuff Location: Left Arm; Cuff Size: Large BP Diastolic 90 mm[Hg] Comments: Patient Position: Sitting; Cuff Location: Left Arm; Cuff Size: Large Weight 228 lb Height 63 in Body Mass Index Calculated 40.39 kg/m2 Body Surface Area Calculated 2.04 m2 :06 Temperature 98.2 f Comments: Method: Temporal Pulse 100 /min Comments: Pattern: Regular Respiration Rate 16 /min Comments: Pattern: Unlabored BP Systolic 118 mm[Hg] Comments: Patient Position: Sitting; Cuff Location: Left Arm; Cuff Size: Standard BP Diastolic 78 mm[Hg] Comments: Patient Position: Sitting; Cuff Location: Left Arm; Cuff Size: Standard Weight 233 lb Height 63 in Body Mass Index Calculated 41.27 kg/m2 Body Surface Area Calculated 2.06 m2 :32 Temperature 97.2 f Comments: Method: Temporal Pulse 112 /min Comments: Pattern: Regular Respiration Rate 16 /min Comments: Pattern: Unlabored O2 SAT 96 % Comments: Room air BP Systolic 136 mm[Hg] Comments: Patient Position: Sitting; Cuff Location: Left Arm; Cuff Size: Large BP Diastolic 86 mm[Hg] Comments: Patient Position: Sitting; Cuff Location: Left Arm; Cuff Size: Large Weight 234 lb Height 63 in Body Mass Index Calculated 41.45 kg/m2 Body Surface Area Calculated 2.07 m2 :39 Temperature 97.5 f Comments: Method: Temporal Pulse 112 /min Comments: Pattern: Regular Respiration Rate 16 /min Comments: Pattern: Unlabored O2 SAT 97 % Comments: Room air BP Systolic 132 mm[Hg] Comments: Patient Position: Sitting; Cuff Location: Right Arm; Cuff Size: Large BP Diastolic 72 mm[Hg] Comments: Patient Position: Sitting; Cuff Location: Right Arm; Cuff Size: Large Weight 234 lb Height 63 in Body Mass Index Calculated 41.45 kg/m2 Body Surface Area Calculated 2.07 m2 :10 Temperature 97.9 f Comments: Method: Temporal Pulse 108 /min Comments: Pattern: Regular Respiration Rate 15 /min Comments: Pattern: Unlabored O2 SAT 97 % Comments: Room air BP Systolic 124 mm[Hg] Comments: Patient Position: Sitting; Cuff Location: Left Arm; Cuff Size: Large BP Diastolic 82 mm[Hg] Comments: Patient Position: Sitting; Cuff Location: Left Arm; Cuff Size: Large Weight 221 lb Height 63 in Body Mass Index Calculated 39.15 kg/m2 Body Surface Area Calculated 2.02 m2 :55 Temperature 96.7 f Comments: Method: Tympanic Pulse 112 /min Comments: Pattern: Regular Respiration Rate 18 /min Comments: Pattern: Unlabored O2 SAT 97 % Comments: Room air BP Systolic 112 mm[Hg] Comments: Patient Position: Sitting; Cuff Location: Left Arm; Cuff Size: Standard BP Diastolic 78 mm[Hg] Comments: Patient Position: Sitting; Cuff Location: Left Arm; Cuff Size: Standard Weight 219.375 lb Height 63 in Body Mass Index Calculated 38.86 kg/m2 Body Surface Area Calculated 2.01 m2 :17 Temperature 98 f Comments: Method: Oral Pulse 106 /min Comments: Pattern: Regular Respiration Rate 16 /min O2 SAT 98 % Comments: Room air BP Systolic 128 mm[Hg] Comments: Patient Position: Sitting; Cuff Location: Left Arm; Cuff Size: Standard BP Diastolic 78 mm[Hg] Comments: Patient Position: Sitting; Cuff Location: Left Arm; Cuff Size: Standard Weight 224.375 lb Height 63 in Body Mass Index Calculated 39.75 kg/m2 Body Surface Area Calculated 2.03 m2 :58 Temperature 97.8 f Comments: Method: Temporal Pulse 110 /min Comments: Pattern: Regular Respiration Rate 16 /min Comments: Pattern: Unlabored O2 SAT 97 % Comments: Room air BP Systolic 120 mm[Hg] Comments: Patient Position: Sitting; Cuff Location: Left Arm; Cuff Size: Large BP Diastolic 80 mm[Hg] Comments: Patient Position: Sitting; Cuff Location: Left Arm; Cuff Size: Large Weight 216 lb Height 63 in Body Mass Index Calculated 38.26 kg/m2 Body Surface Area Calculated 2 m2 :49 Temperature 97.2 f Comments: Method: Temporal Pulse 92 /min Comments: Pattern: Regular Respiration Rate 16 /min Comments: Pattern: Unlabored BP Systolic 120 mm[Hg] Comments: Patient Position: Sitting; Cuff Location: Left Arm; Cuff Size: Large BP Diastolic 84 mm[Hg] Comments: Patient Position: Sitting; Cuff Location: Left Arm; Cuff Size: Large Weight 208 lb Height 63 in Body Mass Index Calculated 36.85 kg/m2 Body Surface Area Calculated 1.97 m2 Results Date Description Value Details :12 Vitamin D Hydroxy (50299) Comments: PATIENT WAS FASTINGPERFORMED BY: [facility] [id number] [facility] [place] [id number] Vitamin D, 25-Hydroxy 21.5 ng/mL (Abnormal) Range: 30.0-100.0 Comments: Vitamin D deficiency has been defined by the [place] of[facility] and an Endocrine Society practice guideline as alevel of serum 25-OH vitamin D less than 20 ng/mL (1,2).The Endocrine Society went on to further define vitamin Dinsufficiency as a level between 21 and 29 ng/mL (2).1. IOM ([place] of Medicine). 2010. Dietary reference intakes for calcium and D. [place]: The National Academies Press.2. Dave MF, Jil WU, Kaci CLEANING, et al. Evaluation, treatment, and prevention of vitamin D deficiency: an Endocrine Society clinical practice guideline. JCEM. 2010; 96(7):1911-30. :12 TSH (THYROID STIMULATING Comments: PATIENT WAS FASTINGPERFORMED BY: [facility] [id number] [facility] [place] [id number] HORMONE) (49589) TSH 1.490 {uIU/mL} (Normal) Range: 0.450-4.500 :12 METABOLIC PANEL, COMPREHENSIVE Comments: PATIENT WAS FASTINGPERFORMED BY: Contently [id number] [facility] [id number]; appt 06/01 (06511) ALT (SGPT) 13 [iU]/L (Normal) Range: 0-32 AST (SGOT) 12 [iU]/L (Normal) Range: 0-40 Alkaline Phosphatase 115 [iU]/L (Normal) Range: 39-117 Bilirubin, Total <0.2 mg/dL (Normal) Range: 0.0-1.2 A/G Ratio 1.3 (Normal) Range: 1.2-2.2 Globulin, Total 2.8 g/dL (Normal) Range: 1.5-4.5 Albumin 3.6 g/dL (Normal) Range: 3.5-5.5 Protein, Total 6.4 g/dL (Normal) Range: 6.0-8.5 Calcium 8.9 mg/dL (Normal) Range: 8.7-10.2 Carbon Dioxide, Total 21 mmol/L (Normal) Range: 20-29 Chloride 104 mmol/L (Normal) Range: 96-106 Potassium 4.8 mmol/L (Normal) Range: 3.5-5.2 Sodium 139 mmol/L (Normal) Range: 134-144 BUN/Creatinine Ratio 9 (Normal) Range: 9-23 eGFR If Africn Am 139 mL/min/1.73 (Normal) eGFR If NonAfricn Am 121 mL/min/1.73 (Normal) Creatinine 0.58 mg/dL (Normal) Range: 0.57-1.00 BUN 5 mg/dL (Abnormal) Range: 6-20 Glucose 76 mg/dL (Normal) Range: 65-99 31-Fjr-28640:12 HGB A1C (85167) Comments: PATIENT WAS FASTINGPERFORMED BY: [employer] [facility] [id number] Hemoglobin A1c 5.2 % (Normal) Range: 4.8-5.6 Comments: . Prediabetes: 5.7 - 6.4 Diabetes: >6.4 Glycemic control for adults with diabetes: <7.0 46-Hdd-627116:02 hCG,Beta Subunit, Qnt, Serum Comments: PATIENT NOT FASTINGPERFORMED BY: [facility] [id number] hCG,Beta Subunit,Qnt,Serum 27479 m[iU]/mL (Normal) Comments: Female (Non-) 0 - 5 (Postmenopausal) 0 - 8 . Female () Weeks of Gestation 3 6 - 71 4 10 - 750 5 852 - 1170 6 385 - 51478 7 1107 -596427 8 89546 -724379 9 82673 -081326 10 25679 -962430 12 89349 -424395 14 35383 - 63948 15 62635 - 70306 16 3670 - 25552 17 9183 - 05994 18 6088 - 91876Wsfnr ECLIA methodology 21-Kcj-025598:02 FERRITIN (89138) Comments: PATIENT NOT FASTINGPERFORMED BY: [employer] [facility] [place] [id number] Ferritin, Serum 58 ng/mL (Normal) Range: 15-150 93-Epb-312414:02 IRON (87593) Comments: PATIENT NOT FASTINGPERFORMED BY: [facility] [id number] Iron 93 ug/dL (Normal) Range: 27-159 98-Uhc-924249:02 CBC W/AUTO DIFF WBC (15958) Comments: PATIENT NOT FASTINGPERFORMED BY: [facility] [id number] Immature Grans (Abs) 0.0 {x10E3/uL} (Normal) Range: 0.0-0.1 Immature Granulocytes 0 % (Normal) Baso (Absolute) 0.0 {x10E3/uL} (Normal) Range: 0.0-0.2 Eos (Absolute) 0.1 {x10E3/uL} (Normal) Range: 0.0-0.4 Monocytes(Absolute) 0.5 {x10E3/uL} (Normal) Range: 0.1-0.9 Lymphs (Absolute) 2.1 {x10E3/uL} (Normal) Range: 0.7-3.1 Neutrophils (Absolute) 6.7 {x10E3/uL} (Normal) Range: 1.4-7.0 Basos 0 % (Normal) Eos 1 % (Normal) Monocytes 6 % (Normal) Lymphs 22 % (Normal) Neutrophils 71 % (Normal) Platelets 286 {x10E3/uL} (Normal) Range: 150-379 RDW 13.8 % (Normal) Range: 12.3-15.4 MCHC 33.6 g/dL (Normal) Range: 31.5-35.7 MCH 29.3 pg (Normal) Range: 26.6-33.0 MCV 87 fL (Normal) Range: 79-97 Hematocrit 38.4 % (Normal) Range: 34.0-46.6 Hemoglobin 12.9 g/dL (Normal) Range: 11.1-15.9 RBC 4.40 {x10E6/uL} (Normal) Range: 3.77-5.28 WBC 9.4 {x10E3/uL} (Normal) Range: 3.4-10.8 10-Xbz-017293:41 MICROALBUMIN: CREATININE RATIO Comments: PATIENT NOT FASTINGPERFORMED BY: [employer] USACoPalisades Medical CenterEmihzv9443 [facility] [id number]; can review on 01/07 (10329) AND (70884) Alb/Creat Ratio 2.7 {mg/g_creat} (Normal) Range: 0.0-30.0 Albumin, Urine 3.5 ug/mL (Normal) Creatinine, Urine 130.7 mg/dL (Normal) 73-Khk-272436:41 CBC W/AUTO DIFF WBC (63213) Comments: PATIENT NOT FASTINGPERFORMED BY: [facility] Ktgumb0926 [facility] [id number] Immature Grans (Abs) 0.0 {x10E3/uL} (Normal) Range: 0.0-0.1 Immature Granulocytes 0 % (Normal) Baso (Absolute) 0.0 {x10E3/uL} (Normal) Range: 0.0-0.2 Eos (Absolute) 0.1 {x10E3/uL} (Normal) Range: 0.0-0.4 Monocytes(Absolute) 0.3 {x10E3/uL} (Normal) Range: 0.1-0.9 Lymphs (Absolute) 1.9 {x10E3/uL} (Normal) Range: 0.7-3.1 Neutrophils (Absolute) 2.2 {x10E3/uL} (Normal) Range: 1.4-7.0 Basos 0 % (Normal) Eos 1 % (Normal) Monocytes 7 % (Normal) Lymphs 43 % (Normal) Neutrophils 49 % (Normal) Platelets 286 {x10E3/uL} (Normal) Range: 150-379 RDW 14.1 % (Normal) Range: 12.3-15.4 MCHC 33.8 g/dL (Normal) Range: 31.5-35.7 MCH 29.1 pg (Normal) Range: 26.6-33.0 MCV 86 fL (Normal) Range: 79-97 Hematocrit 36.7 % (Normal) Range: 34.0-46.6 Hemoglobin 12.4 g/dL (Normal) Range: 11.1-15.9 RBC 4.26 {x10E6/uL} (Normal) Range: 3.77-5.28 WBC 4.5 {x10E3/uL} (Normal) Range: 3.4-10.8 61-Zoq-710249:41 METABOLIC PANEL, COMPREHENSIVE Comments: PATIENT NOT FASTINGPERFORMED BY: ContentlyDavid Ville 6777870 [facility] [id number] ([id number]) ALT (SGPT) 27 [iU]/L (Normal) Range: 0-32 AST (SGOT) 29 [iU]/L (Normal) Range: 0-40 Alkaline Phosphatase 49 [iU]/L (Normal) Range: 39-117 Bilirubin, Total 0.2 mg/dL (Normal) Range: 0.0-1.2 A/G Ratio 1.8 (Normal) Range: 1.2-2.2 Globulin, Total 2.4 g/dL (Normal) Range: 1.5-4.5 Albumin 4.2 g/dL (Normal) Range: 3.5-5.5 Protein, Total 6.6 g/dL (Normal) Range: 6.0-8.5 Calcium 9.3 mg/dL (Normal) Range: 8.7-10.2 Carbon Dioxide, Total 22 mmol/L (Normal) Range: 18-29 Chloride 104 mmol/L (Normal) Range: 96-106 Potassium 4.3 mmol/L (Normal) Range: 3.5-5.2 Sodium 143 mmol/L (Normal) Range: 134-144 BUN/Creatinine Ratio 10 (Normal) Range: 9-23 eGFR If Africn Am 105 mL/min/1.73 (Normal) eGFR If NonAfricn Am 91 mL/min/1.73 (Normal) Creatinine 0.84 mg/dL (Normal) Range: 0.57-1.00 BUN 8 mg/dL (Normal) Range: 6-20 Glucose 81 mg/dL (Normal) Range: 65-99 38-Qmz-044047:51 COXSACKIE A AB PROFILE Comments: PATIENT NOT FASTINGPERFORMED BY: [facility]Formerly [facility]6370 [facility] [id number] BY: [address] [id number] ([id number]) [place] A24 IgM Negative {titer} (Normal) [place] A16 IgM Negative {titer} (Normal) [place] A9 IgM Negative {titer} (Normal) [place] A7 IgM Negative {titer} (Normal) [place] A24 IgG 1:1600 {titer} (Abnormal) [place] A16 IgG 1:1600 {titer} (Abnormal) [place] A9 IgG 1:1600 {titer} (Abnormal) [place] A7 IgG 1:1600 {titer} (Abnormal) 48-Uti-603472:51 CMV ANTIBODY (59618) Comments: PATIENT NOT FASTINGPERFORMED BY: [place] [facility] [place]6370 [facility] [id number] BY: [employer] [id number] Cytomegalovirus (CMV) Ab, IgG >10.00 U/mL (Abnormal) Range: 0.00-0.59 Comments: Negative <0.60 Equivocal 0.60 - 0.69 Positive >0.69 65-Hhk-810597:51 CMV IGM ANTBDY (64638) Comments: PATIENT NOT FASTINGPERFORMED BY: Systems Integrationlin6370 [facility] [id number] BY: [employer] [address] [id number] Cytomegalovirus (CMV) Ab, IgM 36.0 AU/mL (Abnormal) Range: 0.0-29.9 Comments: Negative <30.0 Equivocal 30.0 - 34.9 Positive >34.9 A positive result is generally indicative of acute infection, reactivation or persistent IgM production. 59-Dfx-236510:51 URINALYSIS (28870) Comments: PATIENT NOT FASTINGPERFORMED BY: [employer] [address] [id number] BY: Contently[address] [id number] Microscopic Examination MICNIP (Normal) Comments: Microscopic not indicated and not performed. Nitrite, Urine Negative (Normal) Urobilinogen,Semi-Qn 0.2 mg/dL (Normal) Range: 0.2-1.0 Bilirubin Negative (Normal) Occult Blood Negative (Normal) Ketones Negative (Normal) Glucose Negative (Normal) Protein Negative (Normal) WBC Esterase Negative (Normal) Appearance Turbid (Abnormal) Urine-Color Yellow (Normal) pH 5.0 (Normal) Range: 5.0-7.5 Specific [place] 1.022 (Normal) Range: 1.005-1.030 64-Sdk-665097:51 EBV Panel (66985) Comments: PATIENT NOT FASTINGPERFORMED BY: ContentlyPalisades Medical CenterSclgbn14[address] [place] [address] [id number] BY: [employer] [place] [id number] Interpretation: SPRCS (Normal) Comments: EBV Interpretation Chart . Interpretation EBV-IgM EA(D)-IgG VCA-IgG EBNA-IgG . EBV Seronegative - - - - Early Phase + - - - Acute Primary + +or- + - Infection Convalescence/Past - +or- + + Infection Reactivated +or- + + + Infection + Antibody Present - Antibody Absent EBV Nuclear Antigen Ab, IgG 69.7 U/mL (Abnormal) Range: 0.0-17.9 Comments: Negative <18.0 Equivocal 18.0 - 21.9 Positive >21.9 EBV Ab VCA, IgG 77.5 U/mL (Abnormal) Range: 0.0-17.9 Comments: Negative <18.0 Equivocal 18.0 - 21.9 Positive >21.9 EBV Early Antigen Ab, IgG 34.2 U/mL (Abnormal) Range: 0.0-8.9 Comments: Hepatitis A, Hepatitis C and HIV antibodies may cross-reactwith this assay. Negative < 9.0 Equivoc al 9.0 - 10.9 Positive >10.9 EBV Ab VCA, IgM 103.0 U/mL (Abnormal) Range: 0.0-35.9 Comments: Negative <36.0 Equivocal 36.0 - 43.9 Positive >43.9 66-Nei-313162:51 URINE PAPI CULTURE-SELENA COL Comments: PATIENT NOT FASTINGPERFORMED BY: [employer] USA[address] [id number] BY: [address] [id number] ([id number]) Result 1 MUG (Normal) Comments: Mixed urogenital flora10,000-25,000 colony forming units per mL Urine Final report (Normal) Culture,Comprehensive :51 CBC WITH MANUAL DIFF Comments: PATIENT NOT FASTINGPERFORMED BY: CB [facility] Xapndj2561 [place] [id number] BY: BN [facility] Hsfyamiqok0001 [facility] [id number] Inf ormation: SRC:KAREN (98198) Hematology Comments: Note: (Normal) Comments: Verified by microscopic examination. Immature Grans (Abs) 0.0 {x10E3/uL} (Normal) Range: 0.0-0.1 Immature Granulocytes 0 % (Normal) Baso (Absolute) 0.1 {x10E3/uL} (Normal) Range: 0.0-0.2 Eos (Absolute) 0.2 {x10E3/uL} (Normal) Range: 0.0-0.4 Monocytes(Absolute) 0.4 {x10E3/uL} (Normal) Range: 0.1-0.9 Lymphs (Absolute) 1.6 {x10E3/uL} (Normal) Range: 0.7-3.1 Neutrophils (Absolute) 3.7 {x10E3/uL} (Normal) Range: 1.4-7.0 Basos 1 % (Normal) Eos 3 % (Normal) Monocytes 7 % (Normal) Lymphs 27 % (Normal) Neutrophils 62 % (Normal) Platelets 365 {x10E3/uL} (Normal) Range: 150-379 RDW 13.4 % (Normal) Range: 12.3-15.4 MCHC 33.3 g/dL (Normal) Range: 31.5-35.7 MCH 28.1 pg (Normal) Range: 26.6-33.0 MCV 84 fL (Normal) Range: 79-97 Hematocrit 36.9 % (Normal) Range: 34.0-46.6 Hemoglobin 12.3 g/dL (Normal) Range: 11.1-15.9 RBC 4.37 {x10E6/uL} (Normal) Range: 3.77-5.28 WBC 6.0 {x10E3/uL} (Normal) Range: 3.4-10.8 06-Vot-988939:51 ANGTENSIN 1-CONVRT ENZYM Comments: PATIENT NOT FASTINGPERFORMED BY: [address] [id number] BY: [address] [id number] ([id number]) CLEO 35 U/L (Normal) Range: 14-82 91-Lvm-944425:51 Lyme Disease Antibody W/ Comments: PATIENT NOT FASTINGPERFORMED BY: [address] [id number] BY: [address] [id number] Reflex (61480) Lyme IgG/IgM Ab <0.91 {ISR} (Normal) Range: 0.00-0.90 Comments: Negative <0.91 Equivocal 0.91 - 1.09 Positive >1.09 :51 CCP ANTIBODY (94976) Comments: PATIENT NOT FASTINGPERFORMED BY: [address] [id number] BY: [address] [id number] CCP Antibodies IgG/IgA 5 {units} (Normal) Range: 0-19 Comments: Negative <20 Weak positive 20 - 39 Moderate positive 40 - 59 Strong positive >59 :51 SED RATE ERYTHROCYTE Comments: PATIENT NOT FASTINGPERFORMED BY: [address] [id number] BY: [address] [id number] (80114) Sedimentation Rate-Westergren 21 mm/h (Normal) Range: 0-32 :51 C-REACTIVE PROTEIN Comments: PATIENT NOT FASTINGPERFORMED BY: [address] [id number] BY: [address] [id number] (72614) C-Reactive Protein, Quant 15.3 mg/L (Abnormal) Range: 0.0-4.9 :51 RHEUMATOID FACTOR-QUANT Comments: PATIENT NOT FASTINGPERFORMED BY: [employer] USARachel [place] 8587970 [facility] [id number] BY: [address] [id number] (31511) RA Latex Turbid. <10.0 {IU/mL} (Normal) Range: 0.0-13.9 :51 KAYLEEN (ANTINUCLEAR ANTIBODY) Comments: PATIENT NOT FASTINGPERFORMED BY: ContentlyDavid [place] 6777870 [facility] [id number] BY: [address] [id number] (66060) KAYLEEN Direct Negative (Normal) :51 METABOLIC PANEL, Comments: PATIENT NOT FASTINGPERFORMED BY: Contently[address] [id number] BY: [address] [id number] COMPREHENSIVE (69733) ALT (SGPT) 43 [iU]/L (Abnormal) Range: 0-32 AST (SGOT) 24 [iU]/L (Normal) Range: 0-40 Alkaline Phosphatase, S 51 [iU]/L (Normal) Range: 39-117 Bilirubin, Total <0.2 mg/dL (Normal) Range: 0.0-1.2 A/G Ratio 1.4 (Normal) Range: 1.2-2.2 Globulin, Total 2.8 g/dL (Normal) Range: 1.5-4.5 Albumin, Serum 3.9 g/dL (Normal) Range: 3.5-5.5 Protein, Total, Serum 6.7 g/dL (Normal) Range: 6.0-8.5 Calcium, Serum 9.1 mg/dL (Normal) Range: 8.7-10.2 Carbon Dioxide, Total 24 mmol/L (Normal) Range: 18-29 Chloride, Serum 102 mmol/L (Normal) Range: 96-106 Potassium, Serum 4.3 mmol/L (Normal) Range: 3.5-5.2 Sodium, Serum 141 mmol/L (Normal) Range: 134-144 BUN/Creatinine Ratio 13 (Normal) Range: 9-23 eGFR If Africn Am 112 mL/min/1.73 (Normal) eGFR If NonAfricn Am 97 mL/min/1.73 (Normal) Creatinine, Serum 0.80 mg/dL (Normal) Range: 0.57-1.00 BUN 10 mg/dL (Normal) Range: 6-20 Glucose, Serum 77 mg/dL (Normal) Range: 65-99 :39 MICROALBUMIN: CREATININE RATIO Comments: PATIENT WAS FASTINGPERFORMED BY: [facility] Medical DevicesAt[facility] Health University City [id number] (25885) AND (54802) Microalb/Creat Ratio 4.2 {mg/g_creat} (Normal) Range: 0.0-30.0 Microalbumin, Urine 8.7 ug/mL (Normal) Creatinine, Urine 206.4 mg/dL (Normal) :39 HGB A1C (23513) Comments: PATIENT WAS FASTINGPERFORMED BY: [employer] [facility] [id number] Hemoglobin A1c 5.9 % (Abnormal) Range: 4.8-5.6 Comments: . Pre-diabetes: 5.7 - 6.4 Diabetes: >6.4 Glycemic control for adults with diabetes: <7.0 :39 CBC W/AUTO DIFF WBC (65160) Comments: PATIENT WAS FASTINGPERFORMED BY: [employer] [facility] PharmaceuticalAt[facility] [id number] Immature Grans (Abs) 0.0 {x10E3/uL} (Normal) Range: 0.0-0.1 Immature Granulocytes 0 % (Normal) Baso (Absolute) 0.0 {x10E3/uL} (Normal) Range: 0.0-0.2 Eos (Absolute) 0.2 {x10E3/uL} (Normal) Range: 0.0-0.4 Monocytes(Absolute) 0.6 {x10E3/uL} (Normal) Range: 0.1-0.9 Lymphs (Absolute) 3.3 {x10E3/uL} (Abnormal) Range: 0.7-3.1 Neutrophils (Absolute) 5.9 {x10E3/uL} (Normal) Range: 1.4-7.0 Basos 0 % (Normal) Eos 2 % (Normal) Monocytes 6 % (Normal) Lymphs 33 % (Normal) Neutrophils 59 % (Normal) Platelets 310 {x10E3/uL} (Normal) Range: 150-379 RDW 14.1 % (Normal) Range: 12.3-15.4 MCHC 33.1 g/dL (Normal) Range: 31.5-35.7 MCH 28.4 pg (Normal) Range: 26.6-33.0 MCV 86 fL (Normal) Range: 79-97 Hematocrit 39.6 % (Normal) Range: 34.0-46.6 Hemoglobin 13.1 g/dL (Normal) Range: 11.1-15.9 RBC 4.62 {x10E6/uL} (Normal) Range: 3.77-5.28 WBC 10.0 {x10E3/uL} (Normal) Range: 3.4-10.8 8-Ttg-358834:39 METABOLIC PANEL, COMPREHENSIVE Comments: PATIENT WAS FASTINGPERFORMED BY: LabCoPalisades Medical CenterSjkoft6952 [facility] [id number] (25779) ALT (SGPT) 18 [iU]/L (Normal) Range: 0-32 AST (SGOT) 17 [iU]/L (Normal) Range: 0-40 Alkaline Phosphatase, S 69 [iU]/L (Normal) Range: 39-117 Bilirubin, Total <0.2 mg/dL (Normal) Range: 0.0-1.2 A/G Ratio 1.4 (Normal) Range: 1.2-2.2 Globulin, Total 2.7 g/dL (Normal) Range: 1.5-4.5 Albumin, Serum 3.9 g/dL (Normal) Range: 3.5-5.5 Protein, Total, Serum 6.6 g/dL (Normal) Range: 6.0-8.5 Calcium, Serum 9.1 mg/dL (Normal) Range: 8.7-10.2 Carbon Dioxide, Total 26 mmol/L (Normal) Range: 18-29 Chloride, Serum 100 mmol/L (Normal) Range: 96-106 Potassium, Serum 4.5 mmol/L (Normal) Range: 3.5-5.2 Sodium, Serum 142 mmol/L (Normal) Range: 134-144 BUN/Creatinine Ratio 13 (Normal) Range: 9-23 eGFR If Africn Am 109 mL/min/1.73 (Normal) eGFR If NonAfricn Am 94 mL/min/1.73 (Normal) Creatinine, Serum 0.82 mg/dL (Normal) Range: 0.57-1.00 BUN 11 mg/dL (Normal) Range: 6-20 Glucose, Serum 69 mg/dL (Normal) Range: 65-99 6-Etq-102037:39 LIPID PANEL (37159) Comments: PATIENT WAS FASTINGPERFORMED BY: [employer] Dbfqet0483 [facility] [id number] LDL/HDL Ratio 2.7 {ratio_units} (Normal) Range: 0.0-3.2 Comments: LDL/HDL Ratio Men Women 1/2 Avg.Risk 1.0 1.5 Av g.Risk 3.6 3.2 2X Avg.Risk 6.2 5.0 3X Avg.Risk 8.0 6.1 LDL Cholesterol Calc 114 mg/dL (Abnormal) Range: 0-99 VLDL Cholesterol Cesar 26 mg/dL (Normal) Range: 5-40 HDL Cholesterol 43 mg/dL (Normal) Triglycerides 130 mg/dL (Normal) Range: 0-149 Cholesterol, Total 183 mg/dL (Normal) Range: 100-199 :39 TSH (61561) Comments: PATIENT WAS FASTINGPERFORMED BY: LabNaiku Tddnbk5955 [facility] [id number] TSH 2.320 {uIU/mL} Range: 0.450-4.500 (Normal) :1 ASPIRATION (SLIDES ONLY) See Note (Normal) Comments: [facility] Dbiesnwtpr[address] [place], [place], [id number] 5 Comments: Patient: CAREY EVANS : 1985 (31/F) Acct Num: [id number] Phys: Juan Brown MD Unit Num: [id number] Loc: LABSPEC Specimen: [id number] Received: 11/12/16 - 1602 Spec Typ e: ASPIRATION TISSUES TISSUES: COMMENT Correlation with clinical, radiologic findings and appropriate follow up are necessary. CYTOLOGY GROSS Received are 12 smears labeled with the patient's name and designated per the requisition as fine needle aspiration right thyroid. Submitted for staining. / 11/13/16 TC:5 CPT: 28115 CYTOLOGY STUDY Slides are reviewed. The sp ecimen is adequate for evaluation. The specimen consists of abundant colloid, benign follicular cells and macrophages. DIAGNOSIS CYTOLOGY Right thyroid, ultrasound-guided FNA (smears): Con sistent with benign colloid nodule. See cytology study and comment. SJ:mile 11/16/16 HEADER OPERATION: Ultrasound-guided fine needle aspiration, right thyroid PRE-OP DIAGNOSIS: Uninodul ar goiter E04.1 TISSUE SUBMITTED: Fine needle aspiration right thyroid (12 slides) Signed Quentin Davis 11/16/16 <signature on file> 04-Nja-272555:49 CBC with auto diff Comments: PATIENT NOT FASTINGPERFORMED BY: [facility] Gztyvs0178 [facility] [id number] Information: NURSE DRAW (73285) Immature Grans (Abs) 0.0 {x10E3/uL} (Normal) Range: 0.0-0.1 Immature Granulocytes 0 % (Normal) Baso (Absolute) 0.1 {x10E3/uL} (Normal) Range: 0.0-0.2 Eos (Absolute) 0.5 {x10E3/uL} (Abnormal) Range: 0.0-0.4 Monocytes(Absolute) 0.6 {x10E3/uL} (Normal) Range: 0.1-0.9 Lymphs (Absolute) 3.7 {x10E3/uL} (Abnormal) Range: 0.7-3.1 Neutrophils (Absolute) 5.1 {x10E3/uL} (Normal) Range: 1.4-7.0 Basos 1 % (Normal) Eos 5 % (Normal) Monocytes 6 % (Normal) Lymphs 37 % (Normal) Neutrophils 51 % (Normal) Platelets 317 {x10E3/uL} (Normal) Range: 150-379 RDW 13.8 % (Normal) Range: 12.3-15.4 MCHC 33.6 g/dL (Normal) Range: 31.5-35.7 MCH 28.7 pg (Normal) Range: 26.6-33.0 MCV 86 fL (Normal) Range: 79-97 Hematocrit 42.0 % (Normal) Range: 34.0-46.6 Hemoglobin 14.1 g/dL (Normal) Range: 11.1-15.9 RBC 4.91 {x10E6/uL} (Normal) Range: 3.77-5.28 WBC 9.9 {x10E3/uL} (Normal) Range: 3.4-10.8 73-Pod-922269:49 METABOLIC PANEL, COMPREHENSIVE Comments: PATIENT NOT FASTINGPERFORMED BY: LabCoPalisades Medical CenterIlorop3582 [facility] [id number] ([id number]) ALT (SGPT) 51 [iU]/L (Abnormal) Range: 0-32 AST (SGOT) 29 [iU]/L (Normal) Range: 0-40 Alkaline Phosphatase, S 60 [iU]/L (Normal) Range: 39-117 Bilirubin, Total 0.2 mg/dL (Normal) Range: 0.0-1.2 A/G Ratio 1.4 (Normal) Range: 1.1-2.5 Comments: Effective October 12, 2016 the reference interval for A/G Ratio will be changing to: Age Male Female 0 - 7 d ays 1.1 - 2.3 1.1 - 2.3 8 - 30 days 1.2 - 2.8 1.2 - 2.8 1 - 6 months 1.3 - 3.6 1.3 - 3.6 7 months - 5 years 1.5 - 2.6 1.5 - 2.6 > 5 years 1.2 - 2.2 1.2 - 2.2 Globulin, Total 2.8 g/dL (Normal) Range: 1.5-4.5 Albumin, Serum 3.8 g/dL (Normal) Range: 3.5-5.5 Protein, Total, Serum 6.6 g/dL (Normal) Range: 6.0-8.5 Calcium, Serum 9.1 mg/dL (Normal) Range: 8.7-10.2 Carbon Dioxide, Total 24 mmol/L (Normal) Range: 18-29 Chloride, Serum 100 mmol/L (Normal) Range: 96-106 Potassium, Serum 4.0 mmol/L (Normal) Range: 3.5-5.2 Sodium, Serum 139 mmol/L (Normal) Range: 134-144 BUN/Creatinine Ratio 8 (Normal) Range: 8-20 eGFR If Africn Am 120 mL/min/1.73 (Normal) eGFR If NonAfricn Am 104 mL/min/1.73 (Normal) Creatinine, Serum 0.76 mg/dL (Normal) Range: 0.57-1.00 BUN 6 mg/dL (Normal) Range: 6-20 Glucose, Serum 86 mg/dL (Normal) Range: 65-99 72-Stm-34905:32 CBC W/AUTO DIFF WBC Comments: PATIENT WAS FASTINGPERFORMED BY: LabCoPalisades Medical CenterCyslsd9491 [facility] [id number] Information: [id number] (00765) Immature Grans (Abs) 0.0 {x10E3/uL} (Normal) Range: 0.0-0.1 Immature Granulocytes 0 % (Normal) Baso (Absolute) 0.0 {x10E3/uL} (Normal) Range: 0.0-0.2 Eos (Absolute) 0.1 {x10E3/uL} (Normal) Range: 0.0-0.4 Monocytes(Absolute) 0.5 {x10E3/uL} (Normal) Range: 0.1-0.9 Lymphs (Absolute) 2.9 {x10E3/uL} (Normal) Range: 0.7-3.1 Neutrophils (Absolute) 5.1 {x10E3/uL} (Normal) Range: 1.4-7.0 Basos 0 % (Normal) Eos 2 % (Normal) Monocytes 5 % (Normal) Lymphs 34 % (Normal) Neutrophils 59 % (Normal) Platelets 331 {x10E3/uL} (Normal) Range: 150-379 RDW 14.5 % (Normal) Range: 12.3-15.4 MCHC 33.1 g/dL (Normal) Range: 31.5-35.7 MCH 27.2 pg (Normal) Range: 26.6-33.0 MCV 82 fL (Normal) Range: 79-97 Hematocrit 41.1 % (Normal) Range: 34.0-46.6 Hemoglobin 13.6 g/dL (Normal) Range: 11.1-15.9 RBC 5.00 {x10E6/uL} (Normal) Range: 3.77-5.28 WBC 8.7 {x10E3/uL} (Normal) Range: 3.4-10.8 :32 TSH (64310) Comments: PATIENT WAS FASTINGPERFORMED BY: ContentlyPalisades Medical CenterVwubxy8923 [facility] [id number] TSH 1.350 {uIU/mL} (Normal) Range: 0.450-4.500 :32 METABOLIC PANEL, COMPREHENSIVE Comments: PATIENT WAS FASTINGPERFORMED BY: ContentlyPalisades Medical CenterCnhark8830 [facility] [id number] ([id number]) ALT (SGPT) 20 [iU]/L (Normal) Range: 0-32 AST (SGOT) 17 [iU]/L (Normal) Range: 0-40 Alkaline Phosphatase, S 59 [iU]/L (Normal) Range: 39-117 Bilirubin, Total 0.4 mg/dL (Normal) Range: 0.0-1.2 A/G Ratio 1.6 (Normal) Range: 1.1-2.5 Globulin, Total 2.9 g/dL (Normal) Range: 1.5-4.5 Albumin, Serum 4.6 g/dL (Normal) Range: 3.5-5.5 Protein, Total, Serum 7.5 g/dL (Normal) Range: 6.0-8.5 Calcium, Serum 9.5 mg/dL (Normal) Range: 8.7-10.2 Carbon Dioxide, Total 24 mmol/L (Normal) Range: 18-29 Chloride, Serum 98 mmol/L (Normal) Range: 97-108 Potassium, Serum 4.7 mmol/L (Normal) Range: 3.5-5.2 Sodium, Serum 139 mmol/L (Normal) Range: 134-144 BUN/Creatinine Ratio 13 (Normal) Range: 8-20 eGFR If Africn Am 95 mL/min/1.73 (Normal) eGFR If NonAfricn Am 82 mL/min/1.73 (Normal) Creatinine, Serum 0.93 mg/dL (Normal) Range: 0.57-1.00 BUN 12 mg/dL (Normal) Range: 6-20 Glucose, Serum 81 mg/dL (Normal) Range: 65-99 52-Boi-94480:32 LIPID PANEL (36821) Comments: PATIENT WAS FASTINGPERFORMED BY: CAMMIE [facility] Uubwkm8725 [facility] [id number]; non-emergent till apt LDL/HDL Ratio 3.5 {ratio_units} (Abnormal) Range: 0.0-3.2 Comments: LDL/HDL Ratio Men Women 1/2 Avg.Risk 1.0 1.5 Av g.Risk 3.6 3.2 2X Avg.Risk 6.2 5.0 3X Avg.Risk 8.0 6.1 LDL Cholesterol Calc 144 mg/dL (Abnormal) Range: 0-99 VLDL Cholesterol Cesar 27 mg/dL (Normal) Range: 5-40 HDL Cholesterol 41 mg/dL (Normal) Comments: According to ATP-III Guidelines, HDL-C >59 mg/dL is considered anegative risk factor for CHD. Triglycerides 137 mg/dL (Normal) Range: 0-149 Cholesterol, Total 212 mg/dL (Abnormal) Range: 100-199 Plan of Care Name Dates Details Instructions Upper respiratory infection : Eprescribed prescriptions (G8553) Indication: Upper respiratory infection BMI 40.0-44.9, adult : Eprescribed prescriptions (G8553) Indication: BMI 40.0-44.9, adult Positive urine test : Eprescribed prescriptions (G8553) Indication: Positive urine test BMI 40.0-44.9, adult : Eprescribed prescriptions (G8553) Indication: BMI 40.0-44.9, adult Elevated hemoglobin A1c : Eprescribed prescriptions (G8553) Indication: Elevated hemoglobin A1c CLEANING (headache) : Eprescribed prescriptions (G8553) Indication: CLEANING (headache) BMI 40.0-44.9, adult : Eprescribed prescriptions (G8553) Indication: BMI 40.0-44.9, adult Dysthymic : Eprescribed prescriptions (G8553) Indication: Dysthymic [facility] WELLNESS EXAM : Eprescribed prescriptions (G8553) Indication: [facility] WELLNESS EXAM Acute pain of left shoulder : Eprescribed prescriptions (G8553) Indication: Acute pain of left shoulder Cervical radiculopathy, acute (Renamed from Acute cervical radiculopathy) : Eprescribed prescriptions (G8553) Indication: Cervical radiculopathy, acute (Renamed from Acute cervical radiculopathy) Dysthymic : Eprescribed prescriptions (G8553) Indication: Dysthymic Sinus infection : Eprescribed prescriptions (G8553) Indication: Sinus infection Sinus infection : *URI Treatment Indication: Sinus infection Sinus infection : *URI Symptoms Indication: Sinus infection Sinus infection : *Antibiotic Usage Education - Female Indication: Sinus infection Sinus infection : Eprescribed prescriptions (G8553) Indication: Sinus infection Sinus infection : Sinusitis *: sinus infection Indication: Sinus infection Other hyperlipidemia : Diet, Exercise, and Wt loss Indication: Other hyperlipidemia Dysthymic : Anxiety: anxiety Indication: Dysthymic Planned Observations CBC W/AUTO DIFF WBC ([id number])Indication: Elevated hemoglobin A1c On: 07-Xto-931392:52 Request METABOLIC PANEL, COMPREHENSIVE (84783)Indication: Elevated hemoglobin A1c On: 47-Mes-958305:52 Request LIPID PANEL ([id number])Indication: Other hyperlipidemia On: 82-Sqr-948881:51 Request Vitamin D Hydroxy (56489)Indication: Vitamin D deficiency On: 55-Eoj-660245:51 Request HGB A1C (65100)Indication: Elevated hemoglobin A1c On: 85-Eyz-331855:50 Request TEST - SERUM QUANTITATIVE (HCG) (77575)Indication: Positive urine test On: 46-Czt-651167:31 Request CBC, Platelets & Auto Diff (42132)Indication: Sinusitis, acute On: 68-Ysx-725646:34 Request IGA/IGD/IGG/IGM-EACH (03998)Indication: Frequent infections On: 21-Urh-553817:29 Request HGB A1C (25749)Indication: Elevated hemoglobin A1c On: 23-Nee-561461:33 Request CBC W/AUTO DIFF WBC (25457)Indication: Elevated hemoglobin A1c On: :06 Request METABOLIC PANEL, COMPREHENSIVE (23535)Indication: Elevated hemoglobin A1c On: 6-Thq-097179:06 Request LIPID PANEL (70386)Indication: Other hyperlipidemia On: : Request HGB A1C (19207)Indication: Elevated hemoglobin A1c On: 0-Jvt-731689:06 Request TSH (32458)Indication: Dysthymic On: 1-Ree-478574:20 Request LIPID PANEL (24234)Indication: Other hyperlipidemia On: 9-Brv-964186:20 Request HEPATIC FUNCTION PANEL (81065)Indication: Other hyperlipidemia On: 66-Stg-062532:33 Request LIPID PANEL ([id number])Indication: Other hyperlipidemia On: 08-Dif-165577:30 Request Planned Encounters Medical; [facility] 3 Month FU - On: 27-Sep-2018 13:30 [facility] Fast DO, Evy A Fast DO, Evy A Planned Procedures Ultrasound - GallbladderBy: Fast DO, On: 17-Jan-2018 Intent Evy A Fast DO, Evy A ELECTROCARDIOGRAM, COMPLETE (ECG) On: 17-Jan-2018 Intent ([id number])By: Fast DO, Evy A Fast DO, Comments: sinus/atrial tach no acute st twave changes old anterior t wave inv no change Evy A Ultrasound - ThyroidBy: Fast DO, On: 17-Jan-2018 Intent Evy A Fast DO, Evy A MRI OF BRAIN WITH AND WITHOUT On: 19-Apr-2017 Intent CONTRAST ([id number])By: Fast DO, Evy A Comments: headache and vertigo attention- cerebellum Fast DO, Evy A Holter Monitor 24 hrsBy: Fast DO, On: 07-Apr-2017 Intent Evy A Fast DO, Evy A Echo CompleteBy: Fast DO, Evy A On: 07-Apr-2017 Intent Fast DO, Evy A Nerve ConductionBy: Fast DO, Evy A On: 24-Nov-2016 Intent Fast DO, Evy A Comments: left arm EMGBy: Fast DO, Evy A Fast DO, On: 24-Nov-2016 Intent Evy A Comments: left arm Radiology - Knee - Left - Weight On: 13-Oct-2016 Intent BearingBy: Fast DO, Evy A Fast DO, Comments: with sunrise view Evy A Ultrasound - ThyroidBy: Fast DO, On: 13-Oct-2016 Intent Evy A Fast DO, Evy A ELECTROCARDIOGRAM, COMPLETE (ECG) On: 13-Oct-2016 Intent ([id number])By: Fast DO, Evy A Fast DO, Evy A MRI OF CERVICAL SPINE WITHOUT On: 29-Sep-2016 Intent CONTRAST ([id number])By: Fast DO, Evy A Fast DO, Evy A Radiology - Cervical SpineBy: Fast On: 24-Mar-2016 Intent DO, Evy A Fast DO, Evy A Radiology - Shoulder - LeftBy: Fast On: 24-Mar-2016 Intent DO, Evy A Fast DO, Evy A CHEST XRAY, PA & LATERAL ([id number])By: On: 23-Jul-2015 Intent Ousmane GAGE, Rohan Instructions Name Dates Details Upper respiratory infection : How to access health information online Indication: Upper respiratory infection Upper respiratory infection : How to access health information online - Detail Indication: Upper respiratory infection Upper respiratory infection : Patient Instructions Indication: Upper respiratory infection BMI 40.0-44.9, adult : How to access health information online Indication: BMI 40.0-44.9, adult BMI 40.0-44.9, adult : How to access health information online - Detail Indication: BMI 40.0-44.9, adult BMI 40.0-44.9, adult : Patient Instructions Indication: BMI 40.0-44.9, adult Thyroid nodule : How to access health information online Indication: Thyroid nodule Thyroid nodule : How to access health information online - Detail Indication: Thyroid nodule Thyroid nodule : Patient Instructions Indication: Thyroid nodule Positive urine test : How to access health information online Indication: Positive urine test Positive urine test : How to access health information online - Detail Indication: Positive urine test Positive urine test : Patient Instructions Indication: Positive urine test BMI 40.0-44.9, adult : How to access health information online Indication: BMI 40.0-44.9, adult BMI 40.0-44.9, adult : How to access health information online - Detail Indication: BMI 40.0-44.9, adult BMI 40.0-44.9, adult : Patient Instructions Indication: BMI 40.0-44.9, adult Sinusitis, acute : How to access health information online Indication: Sinusitis, acute Sinusitis, acute : How to access health information online - Detail Indication: Sinusitis, acute Sinusitis, acute : Patient Instructions Indication: Sinusitis, acute Elevated hemoglobin A1c : How to access health information online Indication: Elevated hemoglobin A1c Elevated hemoglobin A1c : How to access health information online - Detail Indication: Elevated hemoglobin A1c Elevated hemoglobin A1c : Patient Instructions Indication: Elevated hemoglobin A1c CLEANING (headache) : How to access health information online Indication: CLEANING (headache) CLEANING (headache) : How to access health information online - Detail Indication: CLEANING (headache) CLEANING (headache) : Patient Instructions Indication: CLEANING (headache) BMI 40.0-44.9, adult : How to access health information online Indication: BMI 40.0-44.9, adult BMI 40.0-44.9, adult : How to access health information online - Detail Indication: BMI 40.0-44.9, adult BMI 40.0-44.9, adult : Patient Instructions Indication: BMI 40.0-44.9, adult Dysthymic : How to access health information online Indication: Dysthymic Dysthymic : How to access health information online - Detail Indication: Dysthymic Dysthymic : Patient Instructions Indication: Dysthymic [facility] EX[facility] : How to access health information online Indication: [facility] EX[facility] EX[facility] : How to access health information online - Detail Indication: [facility] EXAM [facility] EX[facility] : Patient Instructions Indication: [facility] EXAM Acute pain of left shoulder : How to access health information online Indication: Acute pain of left shoulder Acute pain of left shoulder : How to access health information online - Detail Indication: Acute pain of left shoulder Acute pain of left shoulder : Patient Instructions Indication: Acute pain of left shoulder Cervical radiculopathy, acute (Renamed from Acute cervical radiculopathy) : How to access health information online Indication: Cervical radiculopathy, acute (Renamed from Acute cervical radiculopathy) Cervical radiculopathy, acute (Renamed from Acute cervical radiculopathy) : How to access health information online - Detail Indication: Cervical radiculopathy, acute (Renamed from Acute cervical radiculopathy) Cervical radiculopathy, acute (Renamed from Acute cervical radiculopathy) : Patient Instructions Indication: Cervical radiculopathy, acute (Renamed from Acute cervical radiculopathy) Dysthymic : How to access health information online Indication: Dysthymic Dysthymic : How to access health information online - Detail Indication: Dysthymic Dysthymic : Patient Instructions Indication: Dysthymic Sinus infection : How to access health information online Indication: Sinus infection Sinus infection : How to access health information online - Detail Indication: Sinus infection Sinus infection : Patient Instructions Indication: Sinus infection Sinus infection : Patient Instructions Indication: Sinus infection Dysthymic : How to access health information online Indication: Dysthymic Dysthymic : How to access health information online - Detail Indication: Dysthymic Dysthymic : Patient Instructions Indication: Dysthymic Dysthymic : Patient Instructions Indication: Dysthymic Dysthymic : How to access health information online Indication: Dysthymic Dysthymic : How to access health information online - Detail Indication: Dysthymic Encounters Office Visit On: 01-Jun-2018 10:09 Encounter Reason: Follow up tests - Date: (05/30 blood work)., [ADDITIONAL REASON] Follow up for chronic medical issues - The patient does not feel well (finished End: 01-Jun-2018 21:51 her antibiotic but still feels like she is sick...blowing out thick mucus. Still coughing, sinus pressure, burning.), has decreased energy level and is sleeping poorly. Patient has been compliant with i nstructions. Current medication use: no side effects and compliant with dosing regimen. Patient sleeps 7 hours per night. Impact of disease: emotional impact-moderate. Nutrition: inappropriate diet and supplemental vitamins. The medical issues the patient is following up for include All identified problems below, depression (anxiety), gastric reflux and other (migraines, insomnia). Note for Follow up for chronic medical issues: she is due sep 01- she hasnt gained weight they are ok with that- and she is doing better with headaches and bp is great-no right upper quad pain and joint pain ok and neck ok- not wheezing or chest tight now just blowing out gook in am she wonders if allergies but very thick Encounter Diagnosis: Smoker, BMI 40.0-44.9, adult, Upper respiratory infection, Vitamin D deficiency, Elevated hemoglobin A1c, Other hyperlipidemia, Cervical radiculopathy, chronic, Anxiety, Tachycardia [facility] Office Visit On: 04-May-2018 10:23 Encounter Diagnosis: Wheezing End: 04-May-2018 10:24 [facility] Office Visit On: 02-May-2018 12:48 Encounter Reason: Cold Symptoms - Symptoms include nasal congestion, postnasal drainage, scratchy throat, dry cough, facial pressure and headache. Onset was 11 day(s) ago. Associated symptoms include ear pain, shortness End: 02-May-2018 20:26 of breath and chills, while associated symptoms do not include wheezing, nausea, vomiting or fever. Current treatment includes non-prescription cold medication and oral decongestants. Note for Cold sym ptoms: no fever at home but feels feverish but chills highest temp 99- getting coughing fits- due sep 01Encounter Diagnosis: BMI 40.0-44.9, adult, Smoker, Acute sinusitis [facility] Office Visit On: 17-Jan-2018 8:22 Encounter Reason: Physical female exam - Last seen less than 1 month ago. General health: feels well with minor complaints (feels like the nodule on her thyroid is getting bigger. Has been having twinges on R side for End: 27-Feb-2018 22:15 e past 6 months that comes and goes randomly.), has decreased energy level and is sleeping well. The patient's appetite is normal. Nutrition: normal/adequate. Exercises 3 (walks) days per week. Sleeps o n average 5 hours per night. Elimination problems include urinary frequency (). Current emotional problems include depression. screening, colonoscopy (never), screening, mammography (never) and screening, Pap smear (Dr. Ojeda, july 2017). Note for Physical exam: had tetanus in last 10 years- SKIN CHECK IN OCTOBER AND wearing sunscreen rotunelyEncounter Diagnosis: BMI 40.0-44.9, adult, Smoker, Thyroid nodule, [facility] EX[facility], Right upper quadrant pain, Tachycardia, Vitamin D deficiency, Joint pain, Elevated hemoglobin A1c [facility] Office Visit On: 13-Jan-2018 9:51 Encounter Reason: Medication Review - pos test -- taking vitaminsHas not had a serial quant doneNon-smoker -- quit smokingno bleeding Encounter Diagnosis: Positive urine test, End: 13-Jan-2018 20:52 Gastroesophageal reflux disease without esophagitis, Migraine, Dysthymic [facility] Office Visit On: 22-Sep-2017 14:38 Encounter Reason: Rash - Symptoms include pain (felt like sunburn) and skin redness. The skin rash is located on the left arm, left leg and right arm. Onset was 3 day(s) ago. The patient describes this as improving. Note End: 23-Sep-2017 16:36 for Rash: the rash came wednesday morning then joint pain came yesterday- rash getting bit better- arms legs abdomen- little itch more felt like sunburn--shoulders elbows wrists and all fingers- knees a nkles toes and feel like bruised- feet and hands swollen and sore - was sick with stomach bug on wednesday and wednesday had temp 100.5 - no abdominal pain no blood in stool no cough no sob- ??no sinus sx no headache - no sore throat- more fatigue than usual- no travel- no hot tub- no tick bites- great grandma lupus- no new meds nothing otc, [ADDITIONAL REASON] Joint Pain - Symptoms include joint pain, joint redness, joint swelling, joint s tiffness and decreased range of motion, while symptoms do not include joint warmth. Symptoms are located in the left elbow, left wrist, left knee, left foot, right elbow, right wrist, right knee, right ankle and right foot. The patient describes the pain as aching. Onset was 1 day(s) ago. There is no known event that preceded symptom onset. The symptoms occur constantly. Associated symptoms include rash. Encounter Diagnosis: Smoker, BMI 40.0-44.9, adult, Pain in unspecified joint (Renamed from Joint pain), Fatigue, Rash [facility] Office Visit On: 22-Jul-2017 11:56 Encounter Reason: Follow up acute care visit - The patient does not feel well and worsening. Patient has been compliant with instructions. Current medication use: no side effects and compliant with dosing regimen. Patien End: 22-Jul-2017 12:46 t sleeps 7 hours per night. Impact of disease: emotional impact-mild. Nutrition: balanced diet and supplemental vitamins. The medical issues the patient is following up for include URI.Encounter Diagnosis: BMI 40.0-44.9, adult, Sinusitis, acute, Smoker, Frequent infections [facility] Office Visit On: 30-Jun-2017 11:26 Encounter Reason: Follow up for chronic medical issues - The patient feels well with no complaints, has good energy level and is sleeping well. Patient has been compliant with instructions. Current medication use: no corry End: 01-Jul-2017 22:36 e effects (weened self off of amitriptyline) and compliant with dosing regimen. Patient sleeps 7 hours per night. Impact of disease: emotional impact-moderate. Nutrition: inappropriate diet and suppleme ntal vitamins. The medical issues the patient is following up for include All identified problems below, depression (anxiety), gastric reflux and other (migraines, insomnia). Note for Follow up for chr onic medical issues: bp is great and pulse is good and off amitryptyline and migraines much improved- her neck has been pretty good- sheis doing pretty good on exercise and activity and working on diet - her energy better mood good too- sleeping good-she wants to have another child and getting iud out next month and so wants to try to wean off cymbaltaEncounter Diagnosis: Smoker, BMI 40.0-44.9, adult, Hiatal hernia, Tachycardia, Cervical radiculopathy, chronic, Elevated hemoglobin A1c, Other hyperlipidemia, Dysthymic, Migraine [facility] Office Visit On: 04-Jun-2017 10:18 Encounter Diagnosis: Sinusitis, acute End: 04-Jun-2017 10:21 [facility] Phone Encounter On: 30-Apr-2017 15:04 Encounter Diagnosis: Tachycardia End: 30-Apr-2017 15:07 [facility] Office Visit On: 23-Apr-2017 12:17 Encounter Diagnosis: Tension headache End: 23-Apr-2017 12:19 [facility] Office Visit On: 19-Apr-2017 7:59 Encounter Reason: Headache - Symptoms include different headache features. The aura is described as visual disturbance. The headache is located in the right frontal area, in the right temporal area and in the right parie End: 19-Apr-2017 8:34 arsenio area. Onset was year(s) ago. The patient describes this as worsening. Symptoms are exacerbated by movement and light. Symptoms are relieved by rest. Associated symptoms include vertigo. Note for He adache: Samuel said has cervicogenic headaches but migraines becoming more frequent- and now they have vertigo and nausea with them which is new - was so bad th am she almost went to er- took ma xalt and ibuprofen and took all day to make go away- and was calling her son her sisters name- no vision change with thtat cleaning- is having waving lines and will get black spots- no slurred speech and no weak or numbEncounter Diagnosis: Smoker, BMI 40.0-44.9, adult, CLEANING (headache), Vertigo [facility] Phone Encounter On: 12-Apr-2017 16:23 Encounter Diagnosis: Nausea End: 12-Apr-2017 16:24 [facility] Office Visit On: 07-Apr-2017 11:13 Encounter Reason: Follow up for chronic medical issues - The patient feels well with no complaints, has good energy level (about the same) and is sleeping well. Patient has been compliant with instructions. Current medic End: 07-Apr-2017 13:04 ation use: no side effects and compliant with dosing regimen. Patient sleeps 7 hours per night. Impact of disease: emotional impact-moderate. Nutrition: inappropriate diet and supplemental vitamins. The medical issues the patient is following up for include All identified problems below, depression (anxiety), gastric reflux and other (migraines, insomnia). 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 and has had several injections- the last epidural has stopped her daily headaches-only 2 migraines in last few months- she talked to Samuel about occipital nerve block- which is what Vijaya had suggested- she has not been great on diet and ex like was still not doing [place]w and not skipping meals like was - not back to feeling bad like she was other than the neck stuff- the welbutrin is helping moodEncounter Diagnosis: Smoker, BMI 40.0-44.9, adult, Cervical radiculopathy, chronic, Tension headache, Other hyperlipidemia, Tachycardia, Elevated hemoglobin A1c, Dysthymic [facility] Office Visit On: 24-Nov-2016 11:36 Encounter Reason: Follow up Meds - The patient feels well with minor complaints (little more anxiety than before but the depression is better), has good energy level and is sleeping poorly. Patient has been compliant wit End: 26-Nov-2016 21:03 h instructions. Current medication use: no side effects and compliant with dosing regimen. Patient sleeps 5 (wakes up a lot at hs) hours per night. Note for Follow up Meds: thyroid nodule benign ultra sound- recheck one year ultrasound=- she working on diet her weight down she off the pop- knee better never saw Samuel appt not made would like to not wanting to take more for anxietyknowsits workand c an manage and working on diet and feeling better- she cut out the pop completely and has more enrgy and not skipping meals like she was Encounter Diagnosis: Allergic rhinitis, Spasm of cervical paraspinous muscle, Dysthymic, Cervical radiculopathy, chronic, Tension headache, Other hyperlipidemia, Thyroid nodule, Elevated hemoglobin A1c [facility] Office Visit On: 13-Oct-2016 9:01 Encounter Reason: Physical female exam - Last seen less than 1 month ago. General health: feels well with minor complaints (shoulder), has decreased energy level and has good energy level. The patient's appetite is teresa End: 01-Nov-2016 20:14 l. Nutrition: normal/adequate. Exercises 0 (physical at work) days per week. Sleeps on average 5 hours per night. Normal bowel and bladder habits. Current emotional problems include depression. screenin g, colonoscopy (never), screening, mammography (never) and screening, Pap smear (Dr. Ojeda, roughly 1 yr ago). Note for Physical exam: no anxiety at this point but mood low no side effects with cymb hugh- no motivation- took allergy tests with sanur[facility] and had lots of allergies now on singulair and no sinus infections and taking symbicort for allergies as well - no asthma on pfts, [ADDITIONAL REASON] Follow up tests - Diagnostic tests include other (blood work). Note for Discuss procedure results: her pain not a whole lot better- less radicular pain- using one percocet at a time at work and managing- Encounter Diagnosis: BMI 40.0-44.9, adult, Smoker, Cervical radiculopathy, acute (Renamed from Acute cervical radiculopathy), [facility] EX[facility], Dysthymic, Gastroesophageal reflux disease without esophagitis, Other hyperlipidemia, Family history of melanoma, Allergic rhinitis, Thyroid nodule, Chronic pain of left knee [facility] Office Visit On: 29-Sep-2016 13:31 [facility] End: 29-Sep-2016 13:33 Office Visit On: 29-Sep-2016 12:53 Encounter Diagnosis: Cervical radiculopathy, acute (Renamed from Acute cervical radiculopathy) End: 29-Sep-2016 12:57 [facility] Office Visit On: 18-Sep-2016 10:28 Encounter Reason: Shoulder Problem - Symptoms include shoulder pain, tenderness and decreased range of motion, while symptoms do not include clicking or shoulder stiffness. Symptoms are located in the left shoulder. The End: 20-Sep-2016 16:27 pain radiates to the left upper arm and left neck. Onset was gradual month(s) ago. The symptoms occur constantly. The patient describes symptoms as moderate in severity (to severe) and worsening. Associ ated symptoms include numbness in the arm, pain in the arm and pain in the neck, while associated symptoms do not include weakness in the arm, chest pain or fever. Current treatment includes nonsteroida l anti-inflammatory drugs (and tried some flexeril which didnt work.). Note for Shoulder problem: worsended again since moved a [employer] couple ??weeks ago had really gotten much better- now wak ing her up and really bad again- elbow sore and going all the way to hand- sometimes weak and numbness comes and goes- trying to do pt exercises at home- prednisone helped in past Encounter Diagnosis: Acute pain of left shoulder, Smoker, BMI 40.0-44.9, adult, Cervical radiculopathy, acute (Renamed from Acute cervical radiculopathy) [facility] Office Visit On: 08-Jun-2016 10:19 Encounter Diagnosis: Other hyperlipidemia, Gastroesophageal reflux disease without esophagitis, Dysthymic End: 08-Jun-2016 10:20 [facility] Historical Summary On: 30-Mar-2016 9:01 Encounter Diagnosis: Cervical radiculopathy, acute (Renamed from Acute cervical radiculopathy) End: 30-Mar-2016 11:07 [facility] Office Visit On: 24-Mar-2016 11:29 Encounter Reason: Shoulder Problem - Symptoms include shoulder pain and decreased range of motion, while symptoms do not include shoulder stiffness. Symptoms are located in the left shoulder. The pain radiates to the lef End: 24-Mar-2016 12:41 t upper arm and left neck. Onset was sudden 4 day(s) ago. The symptoms occur constantly. The patient describes symptoms as moderate in severity (to severe) and worsening. Associated symptoms include wea kness in the arm, pain in the arm and pain in the neck, while associated symptoms do not include numbness in the arm, chest pain or fever. Current treatment includes nonsteroidal anti-inflammatory drugs (and tried some flexeril which didnt work.). Note for Shoulder problem: no trauma- right handed left side- getting worse- taking ibuprofen 800 mg and meloxicam and salonpas and nothing helps- pain ra diates to left elbow and left arm weak not numb- deep ache- radiates from neckEncounter Diagnosis: Acute pain of left shoulder, Cervical radiculopathy, acute (Renamed from Acute cervical radiculopathy) [facility] Office Visit On: 29-Oct-2015 9:56 Encounter Reason: Follow up for chronic medical issues - The patient feels well with minor complaints (a lot of anxiety issues which is flaring up her headaches and nerves), has good energy level and is sleeping well. Pa End: 29-Oct-2015 22:53 tietobi has been compliant with instructions. Current medication use: no side effects and compliant with dosing regimen. Patient sleeps 7 hours per night. Impact of disease: emotional impact-moderate. Nut rition: inappropriate diet and supplemental vitamins. The medical issues the patient is following up for include All identified problems below, depression (anxiety), gastric reflux and other (migraines, insomnia). 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 Onset was gradual month(s) ago. Symptoms are relieved by oral antibiotic (augmentin 875mg End: 20-Aug-2015 22:41 bid x14 days). Note for Sinusitis: no eye pain but goopy this am- blurring her vision as is irritated- got better with this augmnt then got sick again- last week sore throat- had sinus ct couple year s ago ok- always sinus in winter and never allergy testingEncounter Diagnosis: Sinus infection, Red eye [facility] Office Visit On: 23-Jul-2015 11:09 Encounter Reason: Sinusitis/ - The duration of the symptoms are 4 days The course has been worsening. The sinusitis/ has no relieving factors. Associated features include The symptoms have been associated with nasal disc End: 23-Jul-2015 17:47 harge/stuffy nose and sinus pain. No previous evaluations were reported. tobacco abuse.Encounter Diagnosis: Sinus infection, Tachycardia [facility] Office Visit On: 29-Apr-2015 14:58 Encounter Reason: Follow up Meds - The patient feels well with no complaints, has good energy level and is sleeping well. Patient has been compliant with instructions. Current medication use: no side effects and complian End: 29-Apr-2015 21:42 t with dosing regimen. Patient sleeps 7 hours per night. Note for Follow up Meds: Duloxitine is working as well as the sertraline was, no s/e from it either.- she is not noticing much changes in aches or pains is seeing vijaya for migraines in jun, [ADDITIONAL REASON] Follow up tests - Diagnostic tests include other (labs). Date: (04/18/15). Encounter Diagnosis: Depression/Anxiety (300.4), Migraine (346.80), Hyperlipidemia (272.4) [facility] Office Visit On: 22-Feb-2015 13:48 Encounter Reason: Transition into care - The patient is transitioning into care from another physician (Dr. brown) and a summary of care was reviewed ., End: 25-Feb-2015 20:45 [ADDITIONAL REASON] new patient female physical - Last seen between 1-3 months ago. General health: feels well with minor complaints (muscle pain/cramps), has good energy level and is sleeping well. e patient's appetite is normal. Nutrition: appropriate balanced diet. Exercises 0 days per week. Sleeps on average 6 hours per night. Normal bowel and bladder habits. Safety measures include appropriate use of safety belts and home smoke detectors. Current emotional problems include anxiety and depression. screening, Pap smear (december/2014) and screening, visual acuity (spring). Note for Physic al exam: on nortyrpytyline for 9 months for migraine prevention and maybe some help with mood and so does sertraline- gerd better molly did uppper and had hiatal hernia - she keepingup on female - pap , [ADDITIONAL REASON] Muscle pain - The onset of the muscle pain has been gradual and has been occurring in a persistent pattern for years. The course has been constant. The muscle pain is described as a moderate cramping. The muscle pain is located in the shoulder (right/ back and neck). The symptoms have been associated with fatigue, insomnia and muscle cramps, while the symptoms have not been associ ated with arthralgia, cough, fever or headache. Note for Muscle pain: neck and shoulders and in between shouldr blades gets alot of tension and knots and trigger cleaning - they did mri her neck and had bra in scan ok- vijaya wants her to have nerve shot- migraines better - ongoing for last year or more= on and off in high school- she has done her ergonomic look at work computer- she does massage once every 1-2 weeks- had pt in past and they said it was job related Encounter Diagnosis: Depression/Anxiety (300.4), GERD (530.81), FAMILY HISTORY OF DIABETES MELLITUS, FAMILY HISTORY OF ISCHEMIC HEART DISEASE (Renamed from Fam hx-ischem heart disease), Cervical Spasm (728.85), Atypical Nevus(238.2), Migraine (346.80) [facility] Payers [facility]OF[facility] MUR[facility]; a guarantor
--- OUTSIDE RECORDS SUMMARY | 2018-08-25 06:43 | XMS RPT_ITS | Continuity of Care Document ---
:1985 Author Organization [facility] Address [address] [place] [address] Phone Care Team Providers Name Role Phone Evy Larios DO Unavailable Dr. Gagandeep Polanco Unavailable Mehran Patten Unavailable Dr. Zeus North Unavailable Dr. Tomi Meade MD Unavailable Juana Nguyễn Unavailable Sindy Metz Unavailable Unavailable Jojo Grace Unavailable Unavailable Unavailable Unavailable Problems Name Dates Details Acute sinusitis (J01.90, 461.9) Status: Active Anxiety (F41.9, 300.00) Status: Active BMI 40.0-44.9, adult (Z68.41, V85.41) Comments: 41.27 Status: Active Cervical radiculopathy, acute (Renamed from Acute cervical radiculopathy) (M54.12, 723.4) Status: Active Cervical radiculopathy, chronic (M54.12, 723.4) Comments: doing well now Status: Active Deliveries (Parity) Comments: 1. Status: Active Dysthymic (F34.1, 300.4) Status: Active Elevated hemoglobin A1c (R73.09, 790.29) Status: Active Encounter for gynecological examination with [...] 787.02) Status: Active Other hyperlipidemia (E78.49, 272.4) Comments: improving Status: Active Positive urine test (Z32.01, V72.42) [...] (M62.838, 728.85) Status: Active Tachycardia (R00.0, 785.0) Status: Active Thyroid nodule (E04.1, 241.0) Status: Active Unspecified Diagnosis Status: Active Vertigo (R42, 780.4) Comments: get mri Status: Active Vitamin D deficiency (E55.9, 268.9) Status: Active Wheezing (R06.2, 786.07) Status: Active Medications Name Dates Details Augmentin 875-125 MG Oral Tablet 1 (one) Tablet two times daily for 14 days Quantity: 28 {Tablet} Refills: 0 Ordered:02-May-2018 DO, Evy AFandrew DO, Evy A Start : 02-May-2018 Active BuPROPion HCl ER (XL) 150 MG Oral Tablet Extended Release 24 Hour 1 (one) Tablet ER 24HR qd for 0 days Quantity: 30 {Tablet} Refills: 3 Ordered:13-Oct-2017 Sindy Metz Start : 13-Oct-2017 Active Labetalol HCl 100 MG Oral Tablet 1 (one) Tablet bid for 0 days Quantity: 60 {Tablet} Refills: 3 Ordered:22-Mar-2018 Evy AFandrew DO, Evy A Start : 22-Mar-2018 Active Pepcid 20 MG Oral Tablet 1 (one) Tablet bid for 0 days Quantity: 60 {Tablet} Refills: 6 Ordered:25-Apr-2018 Daniela AFandrew DO, Evy A Start : 25-Apr-2018 Active PredniSONE 10 MG Oral Tablet 1 (one) Tablet 3 pills for 3 dayes 2 pills for 3 days 1 pill for 3 days for 1 days Quantity: 18 {Tablet} Refills: 0 Ordered:04-May-2018 Evy AFandrew DO, Evy A Start : 04-May-2018 Active Comments:take with food in am /Folic Acid Oral Tablet 1 qd Active Rizatriptan Benzoate 10 MG Oral Tablet 1 (one) Tablet Tablet daily, prn for 30 days Quantity: 30 {Tablet} Refills: 1 Ordered:09-Aug-2017 Sindy Metz Start : 09-Aug-2017 Active Singulair 10 MG Oral Tablet 1 (one) Tablet qd for 30 days Quantity: 30 {Tablet} Refills: 6 Ordered:31-Jan-2018 Evy AFast DO, Evy A Start : 31-Jan-2018 Active Vitamin D3 2000 UNIT Oral Tablet 2 (two) Tablet Tablet qd for 0 days Quantity: 60 {Tablet} Refills: 4 Ordered:02-May-2018 Sindy Metz Start : 17-Jan-2018 Active Zofran 4 MG Oral Tablet 1 (one) Tablet bid prn for 0 days Quantity: 30 {Tablet} Refills: 1 Ordered:06-Nov-2017 Fast DO, Evy AFandrew DOEvy A Start : 06-Nov-2017 Active Amitriptyline HCl 10 [...] days Quantity: 75 {Tablet} Refills: 0 Ordered:13-Jan-2018 Fast DO, Evy AFast DO, Evy A Start : 09-Dec-2016 End : 13-Jan-2018 Inactive Comments:seventy five Skelaxin 400 MG Oral Tablet tid (400 MG) Inactive Symbicort 80-4.5 MCG/ACT Inhalation Aerosol 2 (two) Aerosol Aerosol puffs qd for 0 days Quantity: 1 {Inhaler} Refills: 0 Ordered:13-Jan-2018 Long [employer] SHAPER, Jeanine L Start : 13-Oct-2016 End : 13-Jan-2018 Inactive NexIUM 24HR 20 MG Oral Capsule Delayed Release 1 (one) Capsule DR qd prn for 30 days Quantity: 30 {Capsule} Refills: 6 Ordered:13-Jan-2018 DO, Evy AFast DO, Evy A Start : 13-Jan-2018 End : 13-Jan-2018 Discontinued Terry 7.5-325 MG Oral Tablet 1-2 Tablet bid for 0 days Quantity: 60 {Tablet} Refills: 0 Ordered:30-Mar-2016 Jojo Grace Start : 24-Mar-2016 End : 30-Mar-2016 Discontinued Comments:sixty Nortriptyline HCl 75 MG Oral Capsule 1 (one) Capsule Capsule daiy, prn for 30 days Quantity: 30 {Capsule} Refills: 0 Ordered:13-Oct-2016 DO, Evy AFast DO, Evy A Start : 13-Oct-2016 End : 13-Oct-2016 Discontinued POLYTRIM, 83487-0.1UNIT/ML-% (Ophthalmic Solution) 1 (one) Solution 1 gtt q4-6 hours affected eye for 0 days Quantity: 1 {Bottle} Refills: 0 Ordered:29-Oct-2015 Jojo Grace Start : 20-Aug-2015 End : 29-Oct-2015 Discontinued Propranolol HCl 80 MG Oral Tablet 1 (one) Tablet qd for 0 days Quantity: 30 {Tablet} Refills: 6 Ordered:13-Jan-2018 Fast DO, Evy AFast DO, Evy A Start : 13-Jan-2018 End : [...] 03-Feb-2018 Gallbladder Result: Comments: See Note; NOTES: [facility] Imaging Services [address] [place] [address] Gallbladder MR#: [id number] Acct: [id number] Name: CAREY MURPHY Rep #: [id number] : 1985 F 32 From: Walter Bejarano MD PCP: Evy Larios DO Status: REG CLI Study: Gallbladder Date of Exam: 02/03/18 Exam# [id number] Ordering Dr: Evy Larios DO STUDY: ABDOMINAL [...] Walter edward MD at 14:34 EDT Tel [phone], Service support , CC: Evy Larios DO Bluing Oven Tender: Signed 03-Feb-2018 Thyroid Result: Comments: See Note; NOTES: [facility] Imaging Services [address] [place] [address] Thyroid MR#: [id number] Acct: [id number] Name: JULIAN MURPHYSCOTT Andrew Rep #: [id number] : 12/1985 F 32 From: Radha Perez MD PCP: Evy Larios DO Status: REG CLI Study: Thyroid Date of Exam: 02/03/18 Exam# [id number] Ordering Dr: Evy Larios DO STUDY: THYROID [...] substantially changed in size or appearance on hwoa-jg-jwct comparison. 3 x 3 x 2 mm ovoid solid hypoe choic nodule of the upper right thyroid not formerly visualized. 4 x 3 x 3 mm ovoid solid hypoechoic nodule of the mid left thyroid not formerly visualized. Electronically Signed: Lorrie Laboy at 20:56 EDT , Service support , CC: Evy Larios DO Bluing Oven Tender: Signed 28-Apr-2017 Brain W/WO Contrast Result: Comments: See Note; NOTES: [facility] Imaging Services [address] [place] [address] Brain W/WO Contrast MR#: [id number] Acct: [id number] Name: CAREY MURPHY Rep #: [id number] : 1985 F 31 From: Luis Sales MD PCP: Evy Larios DO Status: REG CLI Study: Brain W/WO Contrast Date of Exam: 04/28/17 Exam# [id number] Ordering Dr: Evy Larios DO STUDY: MRI [...] MRI of the brain. Electronically Signed: Luis aSles MD at 15:53 EDT , Service support , CC: Evy Larios DO Bluing Oven Tender: Signed 23-Apr-2017 Echocardiogram Complete Result: Comments: See Note; NOTES: [facility] Cardiovascular Services [address] [place] [address] Echo Complete 04/22/17 1026 MR#: [id number] Acct: [id number] Name: CAREY MURPHY Rep #: [id number] : 1985 31 From: Juan Sellers MD Attending Dr: Evy Larios DO Status: REG CLI Ordering Dr: Evy Larios DO Date: 04/22/17 Location: [facility] Sex: F C Admitted: Reason For Study: [...] Doppler Measurements AND Calculations MV E max moe: 81.5 cm/sec Lat Peak E' Moe: 11.4 cm/sec Med Peak E' Moe: 13 .3 cm/sec MV A max moe: 63.4 cm/sec E/E' lat: 7.1 E/E' med: 6.1 MV E/A: 1.3 MV V2 max: 87.4 cm/sec MV P1/2t max moe: 86. 8 cm/sec Ao V2 max: 130.0 [...] Ordering Physician: Evy Larios Referring Physician: Evy Larios D.O. Performed By: Christi LIN, Ivone FOSTER and Student 04/23/17 1632 Date Juan Sellers MD CC: Evy Senior Date Dictated: 04/22/17 1026 Date Transcribed: 04/23/17 1632 Bluing Oven Tender: Signed 20-Oct-2016 Knee 4 or More Views Result: Comments: See Note; NOTES: [facility] Imaging Services [address] [place] [address] Verdana 4d Knee 4 or More Views MR#: [id number] Acct: [id number] Name: CAREY EVANS Re p #: [id number] : 1985 F 30 From: Walter Bejarano MD PCP: Evy Larios DO Status: REG CLI Study: Knee 4 or More Views Date of Exam: 10/20/16 Exam# [id number] Ordering Dr: Evy Larios DO STUDY : [...] IMPRESSION: Normal x-ray examination of the knee. Kristoferi kristie Signed: Walter Bejarano MD at 9:10 EDT Tel [phone], Service support [phone], CC: Evy Larios DO Bluing Oven Tender: Signed 20-Oct-2016 Thyroid Result: Comments: See Note; NOTES: [facility] Imaging Services [address] [place] [address] Verdana 4d Thyroid MR#: [id number] Acct: [id number] Name: CAREY EVANS Rep #: [id number] : 1985 F 30 From: Walter Bejarano MD PCP: Evy Larios DO Status: REG CLI Study: Thyroid Date of Exam: 10/20/16 Exam# [id number] Ordering Dr: Evy Larios DO STUDY: THYROID ULTRASOUND REAS ON FOR EXAM: Female, 30 years old. History of thyroid nodule. TECHNIQUE: Ultrasound evaluation of the thyroid was performed with real-time and static rareguin-scale imaging. COMPARISON: None. FINDINGS: RIGHT LOBE: The [...] Walter Bejarano MD at 9:08 EDT Tel [phone], Service support [phone], CC: Evy Larios DO Bluing Oven Tender: Signed 01-Oct-2016 Spine Cervical (Routine) Result: Comments: See Note; NOTES: [facility] Imaging Services [address] [place] [address] Verdana 4d Spine Cervical (Routine) MR#: [id number] Acct: [id number] Name: CAREY EVANS Lorrie Rep #: [id number] : 1985 F 30 From: Kamran Anderson MD PCP: Evy Larios DO Status: REG CLI Study: Spine Cervical (Routine) Date of Exam: 10/01/16 Exam# [id number] Ordering Dr: Evy Larios DO STUDY: MRI [...] at 22:22 EST Tel , Service support [phone], CC: Evy Larios DO Bluing Oven Tender: Signed 21-May-2016 PT D/C of Non Returning Pt (1) Result: Comments: See Note; NOTES: [facility] Physical Therapy [facility] [address] [place] [address] Fax REHABILITATION SERVICES DISCHA RGE SUMMARY MR#: [id number] Acct: [id number] Name: CAREY EVANS Rep #: [id number] : 1985 30 From: Tate Pennington PT, Cert. AVENDANO, OCS Referring Dr.: Evy Larios DO Status: REG RCR Insurance : [employer] - Discharge Summary (1) - Patient Information [...] you! Tate Pennington, PT, <Electronically signed by Cert. ROMANA Schwab, OCS> 05/21/16 0928 CC: Evy Larios DO ANANTH Signed 13-Apr-2016 Emergency Department Summary Result: Comments: See Note; NOTES: [facility] Medical Records Department [address] [place] [address] Emergency Department Summary MR#: [id number] Acct: [id number] Name: JULIAN EVANS Rep #: [id number] : 1985 30 From: Jojo Jack MD [...] improved. Jojo Jack MD T: NTS JOB: [id number] 04/13/16 0803 <Electronically signed by Jojo Jack MD> Date Jojo Jack MD Cosigner Signature (If Indicated): Date CC: Evy Larios DO Date Dictated: 04/12/16 1735 Date Transcribed: 04/12/161734 Bluing Oven Tender: Signed 12-Apr-2016 Discharge Instruction Result: Comments: See Note; NOTES: [facility] Medical Records Department [address] [place] [address] Discharge Instruction 04/12/16 1503 MR#: [id number] Acct: [id number] Name: CAREY EVANS Rep #: [id number] : 1985 30 From: Jojo Jack MD [...] problems, contact your doctor. Call [facility] ([phone]) or report to the closest Emergency Room. Call 911 if necessary. 04/02 08/17 1503 <Electronically signed by Jojo Jack MD> Date Jojo Jack MD Cosigner Signature (If Indicated): Date ___ CC: Evy Larios DO 27-Mar-2016 Inital Evaluation (1) - PT Result: Comments: See Note; NOTES: [facility] Physical Therapy [address] [place] [address] Fax REHABILITATION SERVICES INITIA L EVALUATION MR#: [id number] Acct: [id number] Name: CAREY EVANS Rep #: [id number] : 1985 30 From: Tate Cat Referring DrHayder: Evy Larios DO Status: REG R Insurance: LORNE Larsen ent's Visit Information CAREY EVANS is a 30 year old F referred to Physical Therapy by Evy Larios DO with a diagnosis of Left shoulder pain/tendinitis. Date of Evaluation: 08/26/16 Physical Thera pist: Tate Cat - Visit Plan Frequency: 2x /Week Duration: 6 Weeks - Subjective Subjective: Patient reports progressively increasing left sided neck and shoulder pain over the past several weeks. Patient states that she has been treated at [facility] for neck pain years ago, but now [...] 4-/5. Empty Can Test (+) for pain. [employer] Dynamometer: L: 30 lbs. R: 62 lbs [...] to be FAXED BACK to us at [phone] for Medicare purposes. Please let me know if th ere are questions or concerns regarding this plan of care. Physician Signature: Date: <Electronically signed by Tate Cat &amp ;#62; 03/27/16 1702 CC: Evy Larios DO JSKimberly Signed For Medicare only, by signing this I certify the plan of care. Physicians Signature Date 24-Mar-2016 Cerv Spine 4 or 5 Views Result: Comments: See Note; NOTES: [facility] Imaging Services [address] [place] [address] Verdana 4d Cerv Spine 4 or 5 Views MR#: [id number] Acct: [id number] Name: CAREY EVANS Rep #: [id number] : 1985 F 30 From: Walter Bejarano MD PCP: Evy Larios DO Status: REG CLI Study: Cerv Spine 4 or 5 Views Date of Exam: 03/24/16 Exam# [id number] Ordering Dr: Evy Larios DO STUDY: X-RAY [...] Walter Bejarano MD at 15:12 EDT Tel [phone], Service supp ort [phone], CC: Evy Larios DO Bluing Oven Tender: Signed 24-Mar-2016 Shoulder min 2 Views Result: Comments: See Note; NOTES: [facility] Imaging Services [address] [place] [address] Verda 4d Shoulder min 2 Views MR#: [id number] Acct: [id number] Name: CAREY EVANS Lorrie Zamora #: [id number] : 1985 F 30 From: Walter Bejarano MD PCP: Evy Larios DO Status: REG CLI Study: Shoulder min 2 Views Date of Exam: 03/24/16 Exam# [id number] Ordering Dr: Evy Larios DO ERNIE DY: [...] Bejarano MD 2015 at 15:11 EDT Tel [phone], Service support [phone], CC: Evy Larios DO Bluing Oven Tender: Signed 23-Jul-2015 Chest PA and Lateral Result: Comments: See Note; NOTES: [facility] Imaging Services [address] [place] [address] Verdana 4d Chest PA and Lateral MR#: [id number] Acct: [id number] Name: CAREY EVANS Rep #: [id number] : 1985 F 29 From: Oscar Dickens MD PCP: Evy Larios DO Status: REG CLI Study: Chest PA and Lateral Date of Exam: 07/23/15 Exam# [id number] Ordering Dr: Kyle Romeo STUDY: X-RAY CHEST [...] 11 :33 EST Tel , Service support [phone], RAD/Chest PA and Lateral IMPRESSION: Normal x-ray examination of the chest. 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 Comments: 1-5 cigs daily for 10 years Status: Active Smoking Status Name Dates Details Light tobacco smoker Vital Signs Date Test Result Details 8-Qhs-717725:50 Temperature 96.8 f Comments: Method: Axillary Pulse [...] kg/m2 Body Surface Area Calculated 2.04 m2 15-Ttc-76737:23 Temperature 97.1 f Comments: Method: Temporal Pulse [...] 1.97 m2 Results Date Description Value Details 45-Uqq-169397:02 hCG,Beta Subunit, Qnt, Serum Comments: PATIENT NOT FASTINGPERFORMED BY: LabCoSaint James HospitalEucphg5331 [facility] [id number] hCG,Beta Subunit,Qnt,Serum 17694 m[iU]/mL (Normal) Comments: Female (Non-) 0 - 5 (Postmenopausal) 0 - 8 . Female () Weeks of Gestation 3 6 - 71 4 10 - 750 5 339 - 0926 6 486 - 60048 7 4152 -344771 8 62349 -319215 9 34318 -678730 10 64634 -309730 12 40388 -341612 14 54395 - 19422 15 96091 - 88696 16 0044 - 74839 17 7944 - 23970 18 7262 - 67845Roche ECLIA methodology 48-Vbn-950985:02 FERRITIN (48386) Comments: PATIENT NOT FASTINGPERFORMED BY: LabCoSaint James HospitalTlxxru9555 [facility] [id number] Ferritin, Serum 58 ng/mL (Normal) Range: 15-150 90-Ljh-426528:02 IRON (53411) Comments: PATIENT NOT FASTINGPERFORMED BY: LabCoSaint James HospitalHblcfl3873 [facility] [id number] Iron 93 ug/dL (Normal) Range: 27-159 83-Gdi-809067:02 CBC W/AUTO DIFF WBC (45331) Comments: PATIENT NOT FASTINGPERFORMED BY: LabCoSaint James HospitalAekbnk6365 [facility] [id number] Immature Grans (Abs) 0.0 {x10E3/uL} (Normal) Range: [...] 3.77-5.28 WBC 9.4 {x10E3/uL} (Normal) Range: 3.4-10.8 64-Fkr-426921:41 MICROALBUMIN: CREATININE RATIO Comments: PATIENT NOT FASTINGPERFORMED BY: [employer] Software ProductionsSaint James HospitalFuvvgc1350 [facility] [id number]; can review on 01/07 (49927) AND (55172) Alb/Creat Ratio 2.7 {mg/g_creat} (Normal) Range: 0.0-30.0 Albumin, Urine 3.5 ug/mL (Normal) Creatinine, Urine 130.7 mg/dL (Normal) 63-Gbl-559591:41 CBC W/AUTO DIFF WBC (57756) Comments: PATIENT NOT FASTINGPERFORMED BY: LabCoSaint James HospitalTkmeiy7835 [facility] [id number] Immature Grans (Abs) 0.0 {x10E3/uL} (Normal) Range: [...] 3.77-5.28 WBC 4.5 {x10E3/uL} (Normal) Range: 3.4-10.8 02-Eeo-267143:41 METABOLIC PANEL, COMPREHENSIVE Comments: PATIENT NOT FASTINGPERFORMED BY: [employer] Qitqmm2899 [facility] [id number] (18923) ALT (SGPT) 27 [iU]/L (Normal) Range: 0-32 [...] 6-20 Glucose 81 mg/dL (Normal) Range: 65-99 05-Lcv-878299:51 [place] A AB PROFILE Comments: PATIENT NOT FASTINGPERFORMED BY: [employer] ProductionsGallup Indian Medical CenterSeereb1913 [facility] [id number] BY: BN LabCo[address] [id number] (32393) [place] A24 IgM Negative {titer} (Normal) [place] A16 IgM Negative {titer} (Normal) [place] A9 IgM Negative {titer} (Normal) [place] A7 IgM Negative {titer} (Normal) [place] A24 IgG 1:1600 {titer} (Abnormal) [place] A16 IgG 1:1600 {titer} (Abnormal) [place] A9 IgG 1:1600 {titer} (Abnormal) [place] A7 IgG 1:1600 {titer} (Abnormal) 26-Xqe-048340:51 CMV ANTIBODY (69751) Comments: PATIENT NOT FASTINGPERFORMED BY: LAFASOlin6370 [facility] [id number] BY: [employer] [address] [id number] Cytomegalovirus (CMV) Ab, IgG >10.00 U/mL (Abnormal) Range: 0.00-0.59 Comments: Negative <0.60 Equivocal 0.60 - 0.69 Positive >0.69 68-Udg-248553:51 CMV IGM ANTBDY (82167) Comments: PATIENT NOT FASTINGPERFORMED BY: MultiplicomSaint James HospitalUmmiph0626 [facility] [id number] BY: [employer] [id number] Cytomegalovirus (CMV) Ab, IgM 36.0 AU/mL (Abnormal) Range: 0.0-29.9 Comments: Negative <30.0 Equivocal 30.0 - 34.9 Positive >34.9 A positive result is generally indicative of acute infection, reactivation or persistent IgM production. 60-Fha-629367:51 URINALYSIS (59402) Comments: PATIENT NOT FASTINGPERFORMED BY: MultiplicomStephanie V[place] 8764470 [facility] [id number] BY: [employer] [id number] Microscopic Examination MICNIP (Normal) Comments: Microscopic not indicated and not performed. Nitrite, Urine Negative (Normal) Urobilinogen,Semi-Qn 0.2 mg/dL (Normal) Range: 0.2-1.0 Bilirubin Negative (Normal) Occult Blood Negative (Normal) Ketones Negative (Normal) Glucose Negative (Normal) Protein Negative (Normal) WBC Esterase Negative (Normal) Appearance Turbid (Abnormal) Urine-Color Yellow (Normal) pH 5.0 (Normal) Range: 5.0-7.5 Specific [place] 1.022 (Normal) Range: 1.005-1.030 22-Bmv-693990:51 EBV Panel (22233) Comments: PATIENT NOT FASTINGPERFORMED BY: [employer] [facility] [id number] BY: [employer] [address] [id number] Interpretation: SPRCS (Normal) Comments: EBV Interpretation Chart [...] <36.0 Equivocal 36.0 - 43.9 Positive >43.9 :51 URINE PAPI CULTURE-SELENA COL Comments: PATIENT NOT FASTINGPERFORMED BY: [employer] Ihueis8162 [facility] [id number] BY: Sconce SolutionsSaint Clare's Hospital at DenvilleTnadcxdnck4902 [facility] [id number] COUNT (76010) Result 1 MUG (Normal) Comments: Mixed urogenital flora10,000-25,000 colony forming units per mL Urine Final report (Normal) Culture,Comprehensive 50-Jkp-784919:51 CBC WITH MANUAL DIFF Comments: PATIENT NOT FASTINGPERFORMED BY: [facility] Hyltos9284 Thorne RoadDublin [place] [id number] BY: LabCoPamela Ville 665997 [facility] [id number] Inf ormation: SRC:KAREN (51922) Hematology Comments: Note: (Normal) Comments: Verified by [...] 3.77-5.28 WBC 6.0 {x10E3/uL} (Normal) Range: 3.4-10.8 :51 ANGTENSIN 1-CONVRT ENZYM Comments: PATIENT NOT FASTINGPERFORMED BY: LabNational Technical Institute for the DeafStephanie [place] 8764470 [facility] [id number] BY: [address] [id number] (07130) CLEO 35 U/L (Normal) Range: 14-82 13-Dyw-641942:51 Lyme Disease Antibody W/ Comments: PATIENT NOT FASTINGPERFORMED BY: [employer] [id number] BY: [address] [id number] Reflex (51035) Lyme IgG/IgM Ab <0.91 {ISR} (Normal) Range: 0.00-0.90 Comments: Negative <0.91 Equivocal 0.91 - 1.09 Positive >1.09 :51 CCP ANTIBODY (52286) Comments: PATIENT NOT FASTINGPERFORMED BY: [employer] Software ProductionsStephanie Ville 8764470 [facility] [id number] BY: [address] [id number] CCP Antibodies IgG/IgA 5 {units} (Normal) Range: 0-19 Comments: Negative <20 Weak positive 20 - 39 Moderate positive 40 - 59 Strong positive >59 :51 SED RATE ERYTHROCYTE Comments: PATIENT NOT FASTINGPERFORMED BY: GlycoVaxynScott V[place] 7567070 [facility] [id number] BY: [address] [id number] (18851) Sedimentation Rate-Westergren 21 mm/h (Normal) Range: 0-32 :51 C-REACTIVE PROTEIN Comments: PATIENT NOT FASTINGPERFORMED BY: [place] 0970470 [facility] [id number] BY: [address] [id number] (34291) C-Reactive Protein, Quant 15.3 mg/L (Abnormal) Range: 0.0-4.9 :51 RHEUMATOID FACTOR-QUANT Comments: PATIENT NOT FASTINGPERFORMED BY: [address] [id number] BY: [address] [id number] (21057) RA Latex Turbid. <10.0 {IU/mL} (Normal) Range: 0.0-13.9 :51 KAYLEEN (ANTINUCLEAR ANTIBODY) Comments: PATIENT NOT FASTINGPERFORMED BY: [address] [id number] BY: [address] [id number] (09946) KAYLEEN Direct Negative (Normal) :51 METABOLIC PANEL, Comments: PATIENT NOT FASTINGPERFORMED BY: [address] [id number] BY: [address] [id number] COMPREHENSIVE (65972) ALT (SGPT) 43 [iU]/L (Abnormal) Range: 0-32 [...] CREATININE RATIO Comments: PATIENT WAS FASTINGPERFORMED BY: [facility] [id number] (98656) AND (72901) Microalb/Creat Ratio 4.2 {mg/g_creat} (Normal) Range: 0.0-30.0 Microalbumin, Urine 8.7 ug/mL (Normal) Creatinine, Urine 206.4 mg/dL (Normal) :39 HGB A1C (35882) Comments: PATIENT WAS FASTINGPERFORMED BY: [employer] [facility] [id number] Hemoglobin A1c 5.9 % (Abnormal) Range: 4.8-5.6 Comments: . Pre-diabetes: 5.7 - 6.4 Diabetes: >6.4 Glycemic control for adults with diabetes: <7.0 :39 CBC W/AUTO DIFF WBC (67868) Comments: PATIENT WAS FASTINGPERFORMED BY: [employer]70 [facility] [id number] Immature Grans (Abs) 0.0 {x10E3/uL} (Normal) Range: [...] 3.77-5.28 WBC 10.0 {x10E3/uL} (Normal) Range: 3.4-10.8 5-Ryl-950841:39 METABOLIC PANEL, COMPREHENSIVE Comments: PATIENT WAS FASTINGPERFORMED BY: LabCoSaint James HospitalVdebvg7918 [facility] [id number] (25125) ALT (SGPT) 18 [iU]/L (Normal) Range: 0-32 [...] Glucose, Serum 69 mg/dL (Normal) Range: 65-99 1-Hva-065196:39 LIPID PANEL ([id number]) Comments: PATIENT WAS FASTINGPERFORMED BY: [employer] [employer] Ndtqna1357 [facility] [id number] LDL/HDL Ratio 2.7 {ratio_units} (Normal) Range: 0.0-3.2 Comments: LDL/HDL Ratio Men Women 1/2 Avg.Risk 1.0 1.5 Av g.Risk 3.6 3.2 2X Avg.Risk 6.2 5.0 3X Avg.Risk 8.0 6.1 LDL Cholesterol Calc 114 mg/dL (Abnormal) Range: 0-99 VLDL Cholesterol Cesar 26 mg/dL (Normal) Range: 5-40 HDL Cholesterol 43 mg/dL (Normal) Triglycerides 130 mg/dL (Normal) Range: 0-149 Cholesterol, Total 183 mg/dL (Normal) Range: 100-199 8-Puj-422822:39 TSH ([id number]) Comments: PATIENT WAS FASTINGPERFORMED BY: [facility] Vvpibf5422 [facility] [id number] TSH 2.320 {uIU/mL} Range: 0.450-4.500 (Normal) :1 ASPIRATION (SLIDES ONLY) See Note (Normal) Comments: [facility] [address] [place], [address] 5 Comments: Patient: CAREY EVANS : 1985 (31/F) Acct Num: [id number] Phys: Stephanie GAGE,Juan Unit Num: [id number] Loc: LABSPEC Specimen: [id number] Received: 11/12/16 - 1602 Spec Typ e: ASPIRATION TISSUES TISSUES: COMMENT Correlation with clinical, radiologic findings and appropriate follow up are necessary. CYTOLOGY GROSS Received are 12 smears labeled with the patient's name and designated per the requisition as fine needle aspiration right thyroid. Submitted for staining. / 11/13/16 TC:5 CPT: 18334 CYTOLOGY STUDY Slides are reviewed. The sp [...] Signed Quentin Davis 11/16/16 <signature on file> 75-Iud-630082:49 CBC with auto diff Comments: PATIENT NOT FASTINGPERFORMED BY: [facility] Ducxnf6938 [facility] [id number] Information: NURSE DRAW ([id number]) Immature Grans (Abs) 0.0 {x10E3/uL} (Normal) Range: [...] 3.77-5.28 WBC 9.9 {x10E3/uL} (Normal) Range: 3.4-10.8 67-Fhj-655714:49 METABOLIC PANEL, COMPREHENSIVE Comments: PATIENT NOT FASTINGPERFORMED BY: [facility]CoSaint [facility] HospitalTotgib7335 [facility] [id number] ([id number]) ALT (SGPT) 51 [iU]/L (Abnormal) Range: 0-32 [...] Glucose, Serum 86 mg/dL (Normal) Range: 65-99 40-Ovk-48392:32 CBC W/AUTO DIFF WBC Comments: PATIENT WAS FASTINGPERFORMED BY: [facility]6370 [facility] [id number] Information: [id number] ([id number]) Immature Grans (Abs) 0.0 {x10E3/uL} (Normal) Range: [...] 8.7 {x10E3/uL} (Normal) Range: 3.4-10.8 :32 TSH ([id number]) Comments: PATIENT WAS FASTINGPERFORMED BY: [employer] ProductionsGallup Indian Medical CenterJgwlil9046 [facility] [id number] TSH 1.350 {uIU/mL} (Normal) Range: 0.450-4.500 :32 METABOLIC PANEL, COMPREHENSIVE Comments: PATIENT WAS FASTINGPERFORMED BY: [employer] ProductionsSaint James HospitalVdwjod3711 [facility] [id number] ([id number]) ALT (SGPT) 20 [iU]/L (Normal) Range: 0-32 [...] Glucose, Serum 81 mg/dL (Normal) Range: 65-99 05-Pld-51396:32 LIPID PANEL (11744) Comments: PATIENT WAS FASTINGPERFORMED BY: [facility] Fqzper1181 [facility] [id number]; non-emergent till apt LDL/HDL Ratio 3.5 {ratio_units} [...] Plan of Care Name Dates Details Instructions BMI 40.0-44.9, adult : Eprescribed prescriptions (G8553) [...] : Anxiety: anxiety Indication: Dysthymic Planned Observations Vitamin D Hydroxy (86406)Indication: Vitamin D deficiency On: 16-Jpq-791342:11 Request TSH (THYROID STIMULATING HORMONE) (82981)Indication: Tachycardia On: 21-Vjl-113533:11 Request METABOLIC PANEL, COMPREHENSIVE (42402)Indication: Elevated hemoglobin A1c On: 48-Utq-621716:10 Request HGB A1C (94000)Indication: Elevated hemoglobin A1c On: 85-Iqo-398162:10 Request TEST - SERUM QUANTITATIVE (HCG) (21587)Indication: Positive urine test On: 72-Iac-520701:31 Request CBC, Platelets & Auto Diff (04092)Indication: Sinusitis, acute On: 90-Dcz-752291:34 Request IGA/IGD/IGG/IGM-EACH (78692)Indication: Frequent infections On: 05-Mbx-678026:29 Request HGB A1C (99002)Indication: Elevated hemoglobin A1c On: 84-Vdr-418290:33 Request CBC W/AUTO DIFF WBC (96687)Indication: Elevated hemoglobin A1c On: 5-Yfd-279645:06 Request METABOLIC PANEL, COMPREHENSIVE (45548)Indication: Elevated hemoglobin A1c On: 4-Daz-081926:06 Request LIPID PANEL (14717)Indication: Other hyperlipidemia On: 1-Daj-050222:06 Request HGB A1C (45157)Indication: Elevated hemoglobin A1c On: 9-Tns-238493:06 Request TSH (50966)Indication: Dysthymic On: 9-Ymw-810214:20 Request LIPID PANEL (26038)Indication: Other hyperlipidemia On: 2-Pas-067322:20 Request HEPATIC FUNCTION PANEL (44528)Indication: Other hyperlipidemia On: 41-Mdm-682694:33 Request LIPID PANEL (78916)Indication: Other hyperlipidemia On: 25-Uvl-303296:30 Request Planned Encounters Medical; [facility] 3 Month FU - On: 11-May-2018 9:15 [facility] Fast DO, Evy A Fast DO, Evy A Planned Procedures Ultrasound - GallbladderBy: Fast DO, On: 17-Jan-2018 Intent Evy A Fast DO, Evy A ELECTROCARDIOGRAM, COMPLETE (ECG) On: 17-Jan-2018 Intent (66420)By: Fast DO, Evy A Fast DO, Comments: sinus/atrial tach no acute st twave changes old anterior t wave inv no change Evy A Ultrasound - ThyroidBy: Fast DO, On: 17-Jan-2018 Intent Evy A Fast DO, Evy A MRI OF BRAIN WITH AND WITHOUT On: 19-Apr-2017 Intent CONTRAST (80979)By: Fast DO, Evy A Comments: headache and [...] A ELECTROCARDIOGRAM, COMPLETE (ECG) On: 13-Oct-2016 Intent (62700)By: Fast DO, Evy A Fast DO, Evy A MRI OF CERVICAL SPINE WITHOUT On: 29-Sep-2016 Intent CONTRAST (04459)By: Fast DO, Evy A Fast DO, Evy A Radiology - Cervical SpineBy: Fast On: 24-Mar-2016 Intent DO, Evy A Fast DO, Evy A Radiology - Shoulder - LeftBy: Fast On: 24-Mar-2016 Intent DO, Evy A Fast DO, Evy A CHEST XRAY, PA & LATERAL ([id number])By: On: 23-Jul-2015 Intent Ousmane GAGE, Rohan Instructions Name Dates Details BMI 40.0-44.9, adult : How to access [...] Detail Indication: Dysthymic Encounters Office Visit On: 04-May-2018 10:23 Encounter Diagnosis: [...] been having twinges on R side for th End: 27-Feb-2018 22:15 e past 6 months [...] medical issue s: she is still see Knitting Inspector at Dr Grayson office and has had several injections- the last epidural has stopped her daily headaches-only 2 migraines in last few months- she talked to Samuel about occipital nerve block- which is what Jose L had suggested- she has not been great [...] Shoulder problem: worsended again since moved a bunch of books couple ??weeks ago had really [...] is sleeping well. Pa End: 29-Oct-2015 22:53 stephanie has been compliant with instructions. 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- getting tension cleaning above ba ck of neck- tramadol has helped- binge eating from stress getting nausea - she has appt in october with Dr Lilly and [facility] Encounter Diagnosis: Dysthymic, Anxiety, Other hyperlipidemia, [...] changes in aches or pains [facility], [ADDITIONAL REASON] Follow up tests - Diagnostic [...] neck and had bra in scan ok- jose l wants her to have nerve shot- migraines [...] Nevus(238.2), Migraine (346.80) [facility] Payers [facility] HospitalCAREY MURPHY; a guarantor
--- OUTSIDE RECORDS SUMMARY | 2018-08-25 06:44 | XMS RPT_ITS | Continuity of Care Document ---
:1985 Author Organization [facility] Address [address] [place] [address] Phone Care Team Providers Name Role Phone [...] Quantity: 28 {Tablet} Refills: 0 Ordered:01-Jun-2018 Ric NEALDaniela Salo NEAL, Evy A Start : 01-Jun-2018 Active BuPROPion [...] Quantity: 60 {Tablet} Refills: 3 Ordered:22-Mar-2018 Ric NEAL Evy PALMandrew NEAL, Evy A Start : 22-Mar-2018 Active Pepcid 20 MG Oral Tablet 1 (one) Tablet bid for 0 days Quantity: 60 {Tablet} Refills: 6 Ordered:25-Apr-2018 Ric NEAL Evy PALMandrew NEAL, Evy A Start : 25-Apr-2018 Active /Folic Acid Oral Tablet 1 qd Active Rizatriptan Benzoate 10 MG Oral Tablet 1 (one) Tablet Tablet daily, prn for 30 days Quantity: 30 {Tablet} Refills: 1 Ordered:09-Aug-2017 Sindy Metz Start : 09-Aug-2017 Active Singulair 10 MG Oral Tablet 1 (one) Tablet qd for 30 days Quantity: 30 {Tablet} Refills: 6 Ordered:31-Jan-2018 Ric NEALDanielelijah PALMandrew NEAL, Evy A Start : 31-Jan-2018 Active Vitamin D3 2000 UNIT Oral Tablet 2 (two) Tablet Tablet qd for 0 days Quantity: 60 {Tablet} Refills: 4 Ordered:02-May-2018 Sindy Metz Start : 17-Jan-2018 Active Zofran 4 MG Oral Tablet 1 (one) Tablet bid prn for 0 days Quantity: 30 {Tablet} Refills: 1 Ordered:06-Nov-2017 Fast DO, Evy AFandrew DO, Evy A Start : 06-Nov-2017 Active Amitriptyline HCl 10 MG Oral Tablet 3 (three) Tablet qhs prn for 0 days Quantity: 90 {Tablet} Refills: 3 Ordered:30-Jun-2017 FernandoSindy baez Start : 23-Apr-2017 End : 30-Jun-2017 Inactive [...] days Quantity: 18 {Tablet} Refills: 0 Ordered:04-May-2018 Ric NEALEvy ARPITAandrew NEAL, Evy A Start : 04-May-2018 End : 05-May-2018 Inactive Comments:take with food in am Skelaxin 400 MG Oral Tablet tid (400 MG) Inactive Symbicort 80-4.5 MCG/ACT Inhalation Aerosol 2 (two) Aerosol Aerosol puffs qd for 0 days Quantity: 1 {Inhaler} Refills: 0 Ordered:13-Jan-2018 Long Jeanine STEPHENS Start : 13-Oct-2016 End : 13-Jan-2018 Inactive NexIUM 24HR 20 MG Oral Capsule Delayed Release 1 (one) Capsule DR qd prn for 30 days Quantity: 30 {Capsule} Refills: 6 Ordered:13-Jan-2018 Evy ARPITADaniel morales DOa A Start : 13-Jan-2018 End : 13-Jan-2018 Discontinued Kemp 7.5-325 MG Oral Tablet 1-2 Tablet bid for 0 days Quantity: 60 {Tablet} Refills: 0 Ordered:30-Mar-2016 Jojo Grace Start : 24-Mar-2016 End : 30-Mar-2016 Discontinued Comments:sixty Nortriptyline HCl 75 MG Oral Capsule 1 (one) Capsule Capsule rylee, prn for 30 days Quantity: 30 {Capsule} Refills: 0 Ordered:13-Oct-2016 Danielelijah PALMDaniel morales DOa A Start : 13-Oct-2016 End : 13-Oct-2016 Discontinued POLYTRIM, 58286-1.1UNIT/ML-% (Ophthalmic Solution) 1 (one) Solution 1 gtt q4-6 hours affected eye for 0 days Quantity: 1 {Bottle} Refills: 0 Ordered:29-Oct-2015 Jojo Grace Start : 20-Aug-2015 End : 29-Oct-2015 Discontinued Propranolol HCl 80 MG Oral Tablet 1 (one) Tablet qd for 0 days Quantity: 30 {Tablet} Refills: 6 Ordered:13-Jan-2018 Evy ARPITAandrew NEAL Evy A Start : 13-Jan-2018 End : [...] 03-Feb-2018 Gallbladder Result: Comments: See Note; NOTES: [facility] Imaging Services [address] [place] [address] Gallbladder MR#: [id number] Acct: [id number] Name: CAREY MURPHY Rep #: [id number] : 1985 F 32 From: Walter Bejarano MD PCP: Evy Larios DO Status: REG CLI Study: Gallbladder Date of Exam: 02/03/18 Exam# [id number] Ordering Dr: Evy Larios DO STUDY: ABDOMINAL [...] Walter edward MD at 14:34 EDT Tel [phone], Service support , CC: Evy Larios DO Wad Printing Machine Operator: Signed 03-Feb-2018 Thyroid Result: Comments: See Note; NOTES: [facility] Imaging Services [address] [place] [address] Thyroid MR#: [id number] Acct: [id number] Name: CAREY MURPHY Rep #: [id number] : 12/1985 F 32 From: Radha Perez MD PCP: Evy Larios DO Status: REG CLI Study: Thyroid Date of Exam: 02/03/18 Exam# [id number] Ordering Dr: Evy Larios DO STUDY: THYROID [...] substantially changed in size or appearance on bnny-kh-zhws comparison. 3 x 3 x 2 mm ovoid solid hypoe choic nodule of the upper right thyroid not formerly visualized. 4 x 3 x 3 mm ovoid solid hypoechoic nodule of the mid left thyroid not formerly visualized. Electronically Signed: Lorrie Laboy at 20:56 EDT , Service support , CC: Evy Larios DO W[employer] Printing Machine Operator: Signed 28-Apr-2017 Brain W/WO Contrast Result: Comments: See Note; NOTES: [facility] Imaging Services [address] [place] [address] Brain W/WO Contrast MR#: [id number] Acct: [id number] Name: CAREY MURPHY Rep #: [id number] : 1985 F 31 From: Luis Sales MD PCP: Evy Larios DO Status: REG CLI Study: Brain W/WO Contrast Date of Exam: 04/28/17 Exam# [id number] Ordering Dr: Evy Larios DO STUDY: MRI [...] Service support , CC: Evy Larios DO Wad Printing Machine Operator: Signed 23-Apr-2017 Echocardiogram Complete Result: Comments: See Note; NOTES: [facility] Cardiovascular Services [address] [place] [address] Echo Complete 04/22/17 1026 MR#: [id number] Acct: [id number] Name: CAREY MURPHY Rep #: [id number] : 1985 31 From: Juan Sellers MD Attending Dr: Evy Larios DO Status: REG CLI Ordering Dr: Evy Larios DO Date: 04/22/17 Location: [facility] Sex: F C Admitted: Reason For [...] Evy Larios D.O. Performed By: Christi LIN, KRISTIN, Ivone and Student 04/23/17 1632 Date Juan Sellers MD CC: Evy Senior Date Dictated: 04/22/17 1026 Date Transcribed: 04/23/17 1632 [employer] Printing Machine Operator: Signed 20-Oct-2016 Knee 4 or More Views Result: Comments: See Note; NOTES: [facility] Imaging Services [address] [place] [address] Verdana 4d Knee 4 or More Views MR#: [id number] Acct: [id number] Name: CAREY EVANS Lorrie Nuñez p #: [id number] : 1985 F 30 From: Walter Bejarano MD PCP: Evy Larios DO Status: REG CLI Study: Knee 4 or More Views Date of Exam: 10/20/16 Exam# [id number] Ordering Dr: Evy Larios DO STUDY : [...] Walter Bejarano MD at 9:10 EDT Tel [phone], Service support [phone], CC: Evy Larios DO Wad Printing Machine Operator: Signed 20-Oct-2016 Thyroid Result: Comments: See Note; NOTES: [facility] Imaging Services [address] [place] [address] Verdana 4d Thyroid MR#: [id number] Acct: [id number] Name: CAREY EVANS Rep #: [id number] : 1985 F 30 From: Walter Bejarano MD PCP: Evy Larios DO Status: REG CLI Study: Thyroid Date of Exam: 10/20/16 Exam# [id number] Ordering Dr: Evy Larios DO STUDY: THYROID [...] Walter Bejarano MD at 9:08 EDT Tel [phone], Service support [phone], CC: Evy Larios DO Wad Printing Machine Operator: Signed 01-Oct-2016 Spine Cervical (Routine) Result: Comments: See Note; NOTES: [facility] Imaging Services [address] [place] [address] Verdana 4d Spine Cervical (Routine) MR#: [id number] Acct: [id number] Name: CAREY EVANS Rep #: [id number] : 1985 F 30 From: Kamran Anderson MD PCP: Evy Larios DO Status: REG CLI Study: Spine Cervical (Routine) Date of Exam: 10/01/16 Exam# [id number] Ordering Dr: Evy Larios DO STUDY: MRI [...] at 22:22 EST Tel , Service support [phone], CC: Evy Larios DO Wad Printing Machine Operator: Signed 21-May-2016 PT D/C of Non Returning Pt (1) Result: Comments: See Note; NOTES: [facility] Physical Therapy [facility] [address] [place] [address] Fax REHABILITATION SERVICES DISCHA RGE SUMMARY MR#: [id number] Acct: [id number] Name: CAREY EVANS Rep #: [id number] : 1985 30 From: Tate Pennington PT, Cert. MDT, OCS Referring Dr.: Evy Larios DO Status: REG RCR Insurance : [facility] - Discharge Summary (1) - Patient [...] appropriate by the physician. Thank you! Tate Androsik, PT, <Electronically signed by Tate Dior Cert. T, OCS> 05/21/1628 CC: Evy Larios DO ANANTH Signed 13-Apr-2016 Emergency Department Summary Result: Comments: See Note; NOTES: [facility] Medical Records Department [address] [place] [address] Emergency Department Summary MR#: [id number] Acct: [id number] Name: JULIAN EVANS Rep #: [id number] : 1985 30 From: Jojo Jack MD [...] improved. Jojo Jack MD T: NTS JOB: [id number] 04/13/16 0803 <Electronically signed by Jojo Jack MD> Date Jojo Jack MD Cosigner Signature (If Indicated): Date CC: Evy Fast DO Date Dictated: 04/12/161734 Date Transcribed: 04/12/161734 W[employer] Printing Machine Operator: Signed 12-Apr-2016 Discharge Instruction Result: Comments: See Note; NOTES: [facility] Medical Records Department [address] [place] [address] Discharge Instruction 04/12/16 1503 MR#: [id number] Acct: [id number] Name: CAREY EVANS Rep #: [id number] : 1985 30 From: Jojo Jack MD [...] problems, contact your doctor. Call [facility] ([phone]) or report to the closest Emergency Room. Call 911 if necessary. 04/02 08/17 1503 <Electronically signed by Jojo Jack MD> Date Jojo Jack MD Cosigner Signature (If Indicated): Date ___ CC: Evy Fast DO 27-Mar-2016 Inital Evaluation (1) - PT Result: Comments: See Note; NOTES: [facility] [place] [address] [place] [address] Fax REHABILITATION SERVICES INITIA L EVALUATION MR#: [id number] Acct: [id number] Name: CAREY EVANS Rep #: [id number] : 1985 30 From: Tate Cat Referring Dr.: Evy Larios DO Status: REG RCR Insurance: LORNE Larsen ent's Visit Information CAREY [...] states that she has been treated at [facility] for neck pain years ago, but now [...] 4-/5. Empty Can Test (+) for pain. Claim Benefit Specialist Dynamometer: L: 30 lbs. R: 62 lbs [...] to be FAXED BACK to us at [phone] for Medicare purposes. Please let me know if th ere are questions or concerns regarding this plan of care. Physician Signature: Date: <Electronically signed by Tate Cat &amp ;#62; 03/27/16 1702 CC: vEy Larios DO EMILIE Signed For Medicare only, by signing this I certify the plan of care. Physicians Signature Date 24-Mar-2016 Cerv Spine 4 or 5 Views Result: Comments: See Note; NOTES: [facility] Imaging Services [address] [place] [address] Verdana 4d Cerv Spine 4 or 5 Views MR#: [id number] Acct: [id number] Name: CAREY EVANS Lorrie Rep #: [id number] : 1985 F 30 From: Walter Bejarano MD PCP: Evy Larios DO Status: REG CLI Study: Cerv Spine 4 or 5 Views Date of Exam: 03/24/16 Exam# [id number] Ordering Dr: Evy Larios DO STUDY: X-RAY [...] Walter Bejarano MD at 15:12 EDT Tel [phone], Service supp ort [phone], CC: Evy Larios DO Wad Printing Machine Operator: Signed 24-Mar-2016 Shoulder min 2 Views Result: Comments: See Note; NOTES: [facility] Imaging Services [address] [place] [address] [place] [address] 4d Shoulder min 2 Views MR#: [id number] Acct: [id number] Name: CAREY EVANS Noah #: [id number] : 1985 F 30 From: Walter Bejarano MD PCP: Evy Larios DO Status: REG CLI Study: Shoulder min 2 Views Date of Exam: 03/24/16 Exam# [id number] Ordering Dr: Evy Larios DO ERNIE DY: [...] Bejarano MD 2015 at 15:11 EDT Tel [phone], Service support [phone], CC: Evy Larios DO Wad Printing Machine Operator: Signed 23-Jul-2015 Chest PA and Lateral Result: Comments: See Note; NOTES: [facility] Imaging Services [address] [place] [address] Verdana 4d Chest PA and Lateral MR#: [id number] Acct: [id number] Name: CAREY EVANS Rep #: [id number] : 1985 F 29 From: Oscar Dickens MD PCP: Evy Larios DO Status: REG CLI Study: Chest PA and Lateral Date of Exam: 07/23/15 Exam# [id number] Ordering Dr: Kyle Romeo STUDY: X-RAY CHEST [...] 11 :33 EST Tel , Service support [phone], RAD/Chest PA and Lateral IMPRESSION: Normal x-ray examination of the chest. 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 Comments: 1-5 cigs daily for 10 years Status: Active Smoking Status Name Dates Details Light tobacco smoker Vital Signs Date Test Result Details 97-Lrf-099536:12 Temperature 97.3 f Pulse 88 /min Comments: [...] 1.97 m2 Results Date Description Value Details 10-Pzp-29876:12 Vitamin D Hydroxy (92641) Comments: PATIENT WAS FASTINGPERFORMED BY: [employer] Innlgi0112 [facility] [id number] Vitamin D, 25-Hydroxy 21.5 ng/mL (Abnormal) Range: 30.0-100.0 Comments: Vitamin D deficiency has been defined by the [place] ofMedicine and an Endocrine Society practice guideline as alevel of serum 25-OH vitamin D less than 20 ng/mL (1,2).The Endocrine Society went on to further define vitamin Dinsufficiency as a level between 21 and 29 ng/mL (2).1. IOM ([place] of Medicine). 2010. Dietary reference intakes for calcium and D. [place]: The National Academies Press.2. Dave MF, Jil WU, Kaci CLEANING, et al. Evaluation, treatment, and prevention of vitamin D deficiency: an Endocrine Society clinical practice guideline. JCEM. 2010; 96(7):1911-30. :12 TSH (THYROID STIMULATING Comments: PATIENT WAS FASTINGPERFORMED BY: [employer] Jhpaod7181 [facility] [id number] HORMONE) (84312) TSH 1.490 {uIU/mL} (Normal) Range: 0.450-4.500 :12 METABOLIC PANEL, COMPREHENSIVE Comments: PATIENT WAS FASTINGPERFORMED BY: LabReaMetrixRobert Wood [facility] SomersetQibfrw1660 [facility] [id number]; appt 06/01 (87011) ALT (SGPT) 13 [iU]/L (Normal) Range: 0-32 [...] 6-20 Glucose 76 mg/dL (Normal) Range: 65-99 74-Kyp-41008:12 HGB A1C (41100) Comments: PATIENT WAS FASTINGPERFORMED BY: [employer] [facility] [id number] Hemoglobin A1c 5.2 % (Normal) Range: 4.8-5.6 Comments: . Prediabetes: 5.7 - 6.4 Diabetes: >6.4 Glycemic control for adults with diabetes: <7.0 65-Mdp-052759:02 hCG,Beta Subunit, Qnt, Serum Comments: PATIENT NOT FASTINGPERFORMED BY: [employer]70 [facility] [id number] hCG,Beta Subunit,Qnt,Serum 20395 m[iU]/mL (Normal) Comments: Female (Non-) 0 - 5 (Postmenopausal) 0 - 8 . Female () Weeks of Gestation 3 6 - 71 4 10 - 750 5 078 - 6625 6 691 - 02923 7 3122 -683957 8 30848 -121786 9 01027 -858568 10 62889 -762770 12 08364 -507240 14 86383 - 49470 15 97288 - 84499 16 7801 - 81286 17 5792 - 26381 18 2515 - 36538Roche ECLIA methodology 51-Aar-130661:02 FERRITIN (32511) Comments: PATIENT NOT FASTINGPERFORMED BY: [employer] [facility] [id number] Ferritin, Serum 58 ng/mL (Normal) Range: 15-150 94-Jlm-190387:02 IRON (35703) Comments: PATIENT NOT FASTINGPERFORMED BY: LabCoRobert Wood Johnson [facility] Hospital SomersetMorfqa9276 [facility] [id number] Iron 93 ug/dL (Normal) Range: 27-159 59-Nmf-036165:02 CBC W/AUTO DIFF WBC (16713) Comments: PATIENT NOT FASTINGPERFORMED BY: LabCoRobert Wood Johnson [facility] Hospital SomersetDcfthi7365 [facility] [id number] Immature Grans (Abs) 0.0 {x10E3/uL} (Normal) Range: [...] 3.77-5.28 WBC 9.4 {x10E3/uL} (Normal) Range: 3.4-10.8 27-Pwu-286250:41 MICROALBUMIN: CREATININE RATIO Comments: PATIENT NOT FASTINGPERFORMED BY: LabCoRobert [facility] Hospital SomersetFtzaoq6538 [facility] [id number]; can review on 01/07 (64597) AND (55477) Alb/Creat Ratio 2.7 {mg/g_creat} (Normal) Range: 0.0-30.0 Albumin, Urine 3.5 ug/mL (Normal) Creatinine, Urine 130.7 mg/dL (Normal) 24-Xfr-014903:41 CBC W/AUTO DIFF WBC (21954) Comments: PATIENT NOT FASTINGPERFORMED BY: LabCoRobert [facility] SomersetBwfvhh7786 [facility] [id number] Immature Grans (Abs) 0.0 {x10E3/uL} (Normal) Range: [...] 3.77-5.28 WBC 4.5 {x10E3/uL} (Normal) Range: 3.4-10.8 80-Qph-772995:41 METABOLIC PANEL, COMPREHENSIVE Comments: PATIENT NOT FASTINGPERFORMED BY: AnavexRobert Wood Johnson [facility] Hospital SomersetDkusnu2285 [facility] [id number] (08217) ALT (SGPT) 27 [iU]/L (Normal) Range: 0-32 [...] 6-20 Glucose 81 mg/dL (Normal) Range: 65-99 66-Xuc-811530:51 [place] A AB PROFILE Comments: PATIENT NOT FASTINGPERFORMED BY: LabCorewell [facility]6370 [facility] [id number] BY: Lab[address] [id number] (00095) [place] A24 IgM Negative {titer} (Normal) [place] A16 IgM Negative {titer} (Normal) [place] A9 IgM Negative {titer} (Normal) [place] A7 IgM Negative {titer} (Normal) [place] A24 IgG 1:1600 {titer} (Abnormal) [place] A16 IgG 1:1600 {titer} (Abnormal) [place] A9 IgG 1:1600 {titer} (Abnormal) [place] A7 IgG 1:1600 {titer} (Abnormal) 89-Tpu-286792:51 CMV ANTIBODY (80077) Comments: PATIENT NOT FASTINGPERFORMED BY: [employer] Lxnmbd8767 [facility] [id number] BY: [employer] [id number] Cytomegalovirus (CMV) Ab, IgG >10.00 U/mL (Abnormal) Range: 0.00-0.59 Comments: Negative <0.60 Equivocal 0.60 - 0.69 Positive >0.69 11-Xgh-273228:51 CMV IGM ANTBDY (46396) Comments: PATIENT NOT FASTINGPERFORMED BY: [employer] Athcgy1712 [facility] [id number] BY: [employer] [id number] Cytomegalovirus (CMV) Ab, IgM 36.0 AU/mL (Abnormal) Range: 0.0-29.9 Comments: Negative <30.0 Equivocal 30.0 - 34.9 Positive >34.9 A positive result is generally indicative of acute infection, reactivation or persistent IgM production. 04-Wio-020382:51 URINALYSIS (19975) Comments: PATIENT NOT FASTINGPERFORMED BY: [employer] Icjjdz2428 [facility] [id number] BY: [employer] [id number] Microscopic Examination MICNIP (Normal) Comments: Microscopic not indicated and not performed. Nitrite, Urine Negative (Normal) Urobilinogen,Semi-Qn 0.2 mg/dL (Normal) Range: 0.2-1.0 Bilirubin Negative (Normal) Occult Blood Negative (Normal) Ketones Negative (Normal) Glucose Negative (Normal) Protein Negative (Normal) WBC Esterase Negative (Normal) Appearance Turbid (Abnormal) Urine-Color Yellow (Normal) pH 5.0 (Normal) Range: 5.0-7.5 Specific [place] 1.022 (Normal) Range: 1.005-1.030 81-Mlo-973482:51 EBV Panel (72940) Comments: PATIENT NOT FASTINGPERFORMED BY: [employer] Yvwwsk[address] [place] [address] [id number] BY: Trip[employer]real[address] [id number] Interpretation: SPRCS (Normal) Comments: EBV Interpretation Chart [...] <36.0 Equivocal 36.0 - 43.9 Positive >43.9 59-Khq-341774:51 URINE PAPI CULTURE-SELENA COL Comments: PATIENT NOT FASTINGPERFORMED BY: Anavex[address] [id number] BY: [address] [id number] COUNT (23314) Result 1 MUG (Normal) Comments: Mixed urogenital flora10,000-25,000 colony forming units per mL Urine Final report (Normal) Culture,Comprehensive :51 CBC WITH MANUAL DIFF Comments: PATIENT NOT FASTINGPERFORMED BY: CAMMIE [facility] Kqpqsi4709 [place] [id number] BY: AVTAR [facility] Xycxbetoyk2391 [facility] [id number] Inf ormation: SRC:KAREN (21225) Hematology Comments: Note: (Normal) Comments: Verified by [...] 3.77-5.28 WBC 6.0 {x10E3/uL} (Normal) Range: 3.4-10.8 37-Hos-656666:51 ANGTENSIN 1-CONVRT ENZYM Comments: PATIENT NOT FASTINGPERFORMED BY: [place] 0380970 [facility] [id number] BY: [address] [id number] (98025) CLEO 35 U/L (Normal) Range: 14-82 00-Dwj-039579:51 Lyme Disease Antibody W/ Comments: PATIENT NOT FASTINGPERFORMED BY: [address] [id number] BY: [address] [id number] Reflex (71899) Lyme IgG/IgM Ab <0.91 {ISR} (Normal) Range: 0.00-0.90 Comments: Negative <0.91 Equivocal 0.91 - 1.09 Positive >1.09 :51 CCP ANTIBODY (82912) Comments: PATIENT NOT FASTINGPERFORMED BY: [place] [id number] [facility] [id number] BY: [address] [id number] CCP Antibodies IgG/IgA 5 {units} (Normal) Range: 0-19 Comments: Negative <20 Weak positive 20 - 39 Moderate positive 40 - 59 Strong positive >59 :51 SED RATE ERYTHROCYTE Comments: PATIENT NOT FASTINGPERFORMED BY: [place] [id number] [facility] [id number] BY: [address] [id number] (52628) Sedimentation Rate-Westergren 21 mm/h (Normal) Range: 0-32 :51 C-REACTIVE PROTEIN Comments: PATIENT NOT FASTINGPERFORMED BY: [address] [id number] BY: [address] [id number] (81142) C-Reactive Protein, Quant 15.3 mg/L (Abnormal) Range: 0.0-4.9 :51 RHEUMATOID FACTOR-QUANT Comments: PATIENT NOT FASTINGPERFORMED BY: [place] [id number] [facility] [id number] BY: [address] [id number] (53721) RA Latex Turbid. <10.0 {IU/mL} (Normal) Range: 0.0-13.9 :51 KAYLEEN (ANTINUCLEAR ANTIBODY) Comments: PATIENT NOT FASTINGPERFORMED BY: [place] [id number] [facility] [id number] BY: [address] [id number] (10928) KAYLEEN Direct Negative (Normal) :51 METABOLIC PANEL, Comments: PATIENT NOT FASTINGPERFORMED BY: [address] [id number] BY: [address] [id number] COMPREHENSIVE (59178) ALT (SGPT) 43 [iU]/L (Abnormal) Range: 0-32 [...] CREATININE RATIO Comments: PATIENT WAS FASTINGPERFORMED BY: [employer] [facility] [id number] (43901) AND (15425) Microalb/Creat Ratio 4.2 {mg/g_creat} (Normal) Range: 0.0-30.0 Microalbumin, Urine 8.7 ug/mL (Normal) Creatinine, Urine 206.4 mg/dL (Normal) :39 HGB A1C (50199) Comments: PATIENT WAS FASTINGPERFORMED BY: [employer]70 [facility] [id number] Hemoglobin A1c 5.9 % (Abnormal) Range: 4.8-5.6 Comments: . Pre-diabetes: 5.7 - 6.4 Diabetes: >6.4 Glycemic control for adults with diabetes: <7.0 :39 CBC W/AUTO DIFF WBC (99374) Comments: PATIENT WAS FASTINGPERFORMED BY: [employer] [facility] [id number] Immature Grans (Abs) 0.0 {x10E3/uL} (Normal) Range: [...] 3.77-5.28 WBC 10.0 {x10E3/uL} (Normal) Range: 3.4-10.8 9-Uno-706722:39 METABOLIC PANEL, COMPREHENSIVE Comments: PATIENT WAS FASTINGPERFORMED BY: [facility] Bzscvf3115 [facility] [id number] (89496) ALT (SGPT) 18 [iU]/L (Normal) Range: 0-32 [...] Glucose, Serum 69 mg/dL (Normal) Range: 65-99 2-Kdr-428624:39 LIPID PANEL (74901) Comments: PATIENT WAS FASTINGPERFORMED BY: Trip4realCorewell [facility]6370 [facility] [id number] LDL/HDL Ratio 2.7 {ratio_units} (Normal) Range: 0.0-3.2 [...] 183 mg/dL (Normal) Range: 100-199 :39 TSH (51431) Comments: PATIENT WAS FASTINGPERFORMED BY: [facility]xRobert [facility] SomersetTsdzrm8876 [facility] [id number] TSH 2.320 {uIU/mL} Range: 0.450-4.500 (Normal) :1 ASPIRATION (SLIDES ONLY) See Note (Normal) Comments: [facility] Fbegdpzvbh[address] [place], [place], [address] 5 Comments: Patient: CAREY EVANS : 1985 (31/F) Acct Num: [id number] Phys: Juan Brown MD Unit Num: [id number] Loc: LABSPEC Specimen: [id number] Received: 11/12/161601 Spec Typ e: ASPIRATION TISSUES TISSUES: COMMENT Correlation with clinical, radiologic findings and appropriate follow up are necessary. CYTOLOGY GROSS Received are 12 smears labeled with the patient's name and designated per the requisition as fine needle aspiration right thyroid. Submitted for staining. / 11/13/16 TC:5 CPT: 35002 CYTOLOGY STUDY Slides are reviewed. The sp [...] Signed Quentin Davis 11/16/16 <signature on file> 45-Qik-041180:49 CBC with auto diff Comments: PATIENT NOT FASTINGPERFORMED BY: [facility] [id number] [facility] [id number] Information: NURSE DRAW ([id number]) Immature Grans (Abs) 0.0 {x10E3/uL} (Normal) Range: [...] 3.77-5.28 WBC 9.9 {x10E3/uL} (Normal) Range: 3.4-10.8 16-Izt-539909:49 METABOLIC PANEL, COMPREHENSIVE Comments: PATIENT NOT FASTINGPERFORMED BY: [facility] [id number] [facility] [id number] ([id number]) ALT (SGPT) 51 [iU]/L (Abnormal) Range: 0-32 [...] Glucose, Serum 86 mg/dL (Normal) Range: 65-99 95-Slx-88527:32 CBC W/AUTO DIFF WBC Comments: PATIENT WAS FASTINGPERFORMED BY: [facility] SomersetYolkbu1872 [facility] [id number] Information: [id number] ([id number]) Immature Grans (Abs) 0.0 {x10E3/uL} (Normal) Range: [...] 8.7 {x10E3/uL} (Normal) Range: 3.4-10.8 :32 TSH ([id number]) Comments: PATIENT WAS FASTINGPERFORMED BY: [facility]aMetrixRobert [facility] [id number] [facility] [id number] TSH 1.350 {uIU/mL} (Normal) Range: 0.450-4.500 :32 METABOLIC PANEL, COMPREHENSIVE Comments: PATIENT WAS FASTINGPERFORMED BY: [facility]MetrixRobert [facility] [id number] [facility] [id number] ([id number]) ALT (SGPT) 20 [iU]/L (Normal) Range: 0-32 [...] Glucose, Serum 81 mg/dL (Normal) Range: 65-99 19-Xqj-65923:32 LIPID PANEL ([id number]) Comments: PATIENT WAS FASTINGPERFORMED BY: CAMMIE [facility] [id number] [facility] [id number]; non-emergent till apt LDL/HDL Ratio 3.5 {ratio_units} [...] Dysthymic Planned Observations CBC W/AUTO DIFF WBC ([id number])Indication: Elevated hemoglobin A1c On: 77-Fxs-158916:52 Request METABOLIC PANEL, COMPREHENSIVE ([id number])Indication: Elevated hemoglobin A1c On: 71-Qmk-689439:52 Request LIPID PANEL ([id number])Indication: Other hyperlipidemia On: 80-Tmf-885082:51 Request Vitamin D Hydroxy (04209)Indication: Vitamin D deficiency On: 17-Fbs-797457:51 Request HGB A1C (39590)Indication: Elevated hemoglobin A1c On: 32-Tdn-427267:50 Request TEST - SERUM QUANTITATIVE (HCG) ([id number])Indication: Positive urine test On: 12-Cdx-058072:31 Request CBC, Platelets & Auto Diff ([id number])Indication: Sinusitis, acute On: 63-Ppb-882965:34 Request IGA/IGD/IGG/IGM-EACH (12054)Indication: Frequent infections On: 39-Npl-579400:29 Request HGB A1C (86376)Indication: Elevated hemoglobin A1c On: 05-Upu-497770:33 Request CBC W/AUTO DIFF WBC ([id number])Indication: Elevated hemoglobin A1c On: :06 Request METABOLIC PANEL, COMPREHENSIVE ([id number])Indication: Elevated hemoglobin A1c On: 0-Mvl-710478:06 Request LIPID PANEL ([id number])Indication: Other hyperlipidemia On: 0-Rmi-634729: Request HGB A1C (04653)Indication: Elevated hemoglobin A1c On: 2-Iyu-463327:06 Request TSH ([id number])Indication: Dysthymic On: 9-Ixe-086452:20 Request LIPID PANEL ([id number])Indication: Other hyperlipidemia On: 7-Tae-732670:20 Request HEPATIC FUNCTION PANEL (01249)Indication: Other hyperlipidemia On: 69-Rop-471927:33 Request LIPID PANEL ([id number])Indication: Other hyperlipidemia On: 55-Ivn-432986:30 Request Planned Encounters Medical; [facility] 3 Month FU - On: 27-Sep-2018 13:30 [facility] Fast DO, Evy A Fast DO, Evy A Planned Procedures Ultrasound - GallbladderBy: Fast DO, On: 17-Jan-2018 Intent Evy A Fast DO, Evy A ELECTROCARDIOGRAM, COMPLETE (ECG) On: 17-Jan-2018 Intent ([id number])By: Fast DO, Evy A Fast DO, Comments: sinus/atrial tach no acute st twave changes old anterior t wave inv no change Evy A Ultrasound - ThyroidBy: Fast DO, On: 17-Jan-2018 Intent Evy A Fast DO, Evy A MRI OF BRAIN WITH AND WITHOUT On: 19-Apr-2017 Intent CONTRAST ([id number])By: Fast DO, Evy A Comments: headache and [...] A ELECTROCARDIOGRAM, COMPLETE (ECG) On: 13-Oct-2016 Intent ([id number])By: Fast DO, Evy A Fast DO, Evy A MRI OF CERVICAL SPINE WITHOUT On: 29-Sep-2016 Intent CONTRAST ([id number])By: Fast DO, Evy A Fast DO, Evy A Radiology - Cervical SpineBy: Fast On: 24-Mar-2016 Intent DO, Evy A Fast DO, Evy A Radiology - Shoulder - LeftBy: Fast On: 24-Mar-2016 Intent DO, Evy A Fast DO, Evy A CHEST XRAY, PA & LATERAL ([id number])By: On: 23-Jul-2015 Intent Ousmane GAGE, Rohan Instructions [...] medical issue s: she is still see Machine Etcher at Dr Grayson office and has had [...] Shoulder problem: worsended again since moved a [place] couple ??weeks ago had really [...] is sleeping well. Pa End: 29-Oct-2015 22:53 tient has been compliant with instructions. 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 yet Encounter Diagnosis: Dysthymic, Anxiety, Other hyperlipidemia, [...] Nevus(238.2), Migraine (346.80) [facility] Payers [facility] Seton HospitalCANOFELIA MURPHY; a guarantor
--- OUTSIDE RECORDS SUMMARY | 2018-08-25 06:44 | XMS RPT_ITS | Continuity of Care Document ---
:1985 Author Organization [facility] Address [address] [place] [address] Phone Care Team Providers Name Role Phone [...] Start : 13-Jan-2018 End : 13-Jan-2018 Discontinued [place] 7.5-325 MG Oral Tablet 1-2 Tablet bid for 0 days Quantity: 60 {Tablet} Refills: 0 Ordered:30-Mar-2016 Jojo Grace Start : 24-Mar-2016 End : 30-Mar-2016 Discontinued Comments:sixty Nortriptyline HCl 75 MG Oral Capsule 1 (one) Capsule Capsule daiy, prn for 30 days Quantity: 30 {Capsule} Refills: 0 Ordered:13-Oct-2016 Evy Larios DO, DO, Evy A Start : 13-Oct-2016 End : 13-Oct-2016 Discontinued POLYTRIM, 91654-4.1UNIT/ML-% (Ophthalmic Solution) 1 (one) Solution 1 gtt [...] 03-Feb-2018 Gallbladder Result: Comments: See Note; NOTES: [facility] Imaging Services [address] [place] [address] Gallbladder MR#: [id number] Acct: [id number] Name: CAREY MURPHY Rep #: [id number] : 1985 F 32 From: Walter Bejarano MD PCP: Evy Larios DO Status: REG CLI Study: Gallbladder Date of Exam: 02/03/18 Exam# [id number] Ordering Dr: Evy Larios DO STUDY: ABDOMINAL [...] Walter edward MD at 14:34 EDT Tel [phone], Service support , CC: Evy Larios DO Drive Worker: Signed 03-Feb-2018 Thyroid Result: Comments: See Note; NOTES: [facility] Imaging Services [address] [place] [address] Thyroid MR#: [id number] Acct: [id number] Name: CAREY MURPHY Rep #: [id number] : 12/1985 F 32 From: Radha Perez MD PCP: Evy Larios DO Status: REG CLI Study: Thyroid Date of Exam: 02/03/18 Exam# [id number] Ordering Dr: Evy Larios DO STUDY: THYROID [...] substantially changed in size or appearance on kyzj-ne-ewck comparison. 3 x 3 x 2 mm ovoid solid hypoe choic nodule of the upper right thyroid not formerly visualized. 4 x 3 x 3 mm ovoid solid hypoechoic nodule of the mid left thyroid not formerly visualized. Electronically Signed: Lorrie Laboy at 20:56 EDT , Service support , CC: Evy Larios DO Drive Worker: Signed 28-Apr-2017 Brain W/WO Contrast Result: Comments: See Note; NOTES: [facility] Imaging Services [address] [place] [address] Brain W/WO Contrast MR#: [id number] Acct: [id number] Name: CAREY MURPHY Rep #: [id number] : 1985 F 31 From: Luis Sales MD PCP: Evy Larios DO Status: REG CLI Study: Brain W/WO Contrast Date of Exam: 04/28/17 Exam# [id number] Ordering Dr: Evy Larios DO STUDY: MRI [...] Service support , CC: Evy Larios DO Drive Worker: Signed 23-Apr-2017 Echocardiogram Complete Result: Comments: See Note; NOTES: [facility] Cardiovascular Services [address] [place] [address] Echo Complete 04/22/17 1026 MR#: [id number] Acct: [id number] Name: CAREY MURPHY Rep #: [id number] : 1985 31 From: Juan Sellers MD Attending Dr: Evy Larios DO Status: REG CLI Ordering Dr: Evy Larios DO Date: 04/22/17 Location: [facility] Sex: F C Admitted: Reason For Study: [...] Dictated: 04/22/17 1026 Date Transcribed: 04/23/[address] Worker: Signed 20-Oct-2016 Knee 4 or More Views Result: Comments: See Note; NOTES: [facility] Imaging Services [address] [place] [address] Verdana 4d Knee 4 or More Views MR#: [id number] Acct: [id number] Name: CAREY EVANS p #: [id number] : 1985 F 30 From: Walter Bejarano MD PCP: Evy Larios DO Status: REG CLI Study: Knee 4 or More Views Date of Exam: 10/20/16 Exam# [id number] Ordering Dr: Evy Larios DO STUDY : [...] Walter Bejarano MD at 9:10 EDT Tel [phone], Service support [phone], CC: Evy Larios DO Drive Worker: Signed 20-Oct-2016 Thyroid Result: Comments: See Note; NOTES: [facility] Imaging Services [address] [facility] [address] Gabidaronan 4d Thyroid MR#: [id number] Acct: [id number] Name: CAREY EVANS Rep #: [id number] : 1985 F 30 From: Walter Bejarano MD PCP: Evy Larios DO Status: REG CLI Study: Thyroid Date of Exam: 10/20/16 Exam# [id number] Ordering Dr: Evy Larios DO STUDY: THYROID [...] Walter Bejarano MD at 9:08 EDT Tel [phone], Service support [phone], CC: Evy Larios DO Drive Worker: Signed 01-Oct-2016 Spine Cervical (Routine) Result: Comments: See Note; NOTES: [facility] Imaging Services [address] [place] [address] Verdana 4d Spine Cervical (Routine) MR#: [id number] Acct: [id number] Name: CAREY EVANS Rep #: [id number] : 1985 F 30 From: Kamran Anderson MD PCP: Evy Larios DO Status: REG CLI Study: Spine Cervical (Routine) Date of Exam: 10/01/16 Exam# [id number] Ordering Dr: Evy Larios DO STUDY: MRI [...] at 22:22 EST Tel , Service support [phone], CC: Evy Larios DO Drive Worker: Signed 21-May-2016 PT D/C of Non Returning Pt (1) Result: Comments: See Note; NOTES: [facility] Physical Therapy [facility] [address] [place], [place] [address] Fax REHABILITATION SERVICES DISCHA RGE SUMMARY MR#: [id number] Acct: [id number] Name: CAREY EVANS Rep #: [id number] : 1985 30 From: Tate Pennington PT, Cert. T, OCS Referring Dr.: Evy Larios DO Status: REG RCR Insurance : [facility] - Discharge Summary (1) - Patient [...] Department Summary Result: Comments: See Note; NOTES: [facility] Medical Records Department [address] [place] [address] Emergency Department Summary MR#: [id number] Acct: [id number] Name: JULIAN EVANS Rep #: [id number] : 1985 30 From: Jojo Jack MD [...] improved. Jojo Jack MD T: NTS JOB: [id number] 04/13/16 0803 <Electronically signed by Jojo Jack MD> Date Jojo Jack MD Cosigner Signature (If Indicated): Date CC: Evy Fast DO Date Dictated: 04/12/161734 Date Transcribed: 04/12/161734 Drive Worker: Signed 12-Apr-2016 Discharge Instruction Result: Comments: See Note; NOTES: [facility] Medical Records Department [address] [place] [place] [address] Discharge Instruction 04/12/16 1503 MR#: [id number] Acct: [id number] Name: CAREY EVANS Rep #: [id number] : 1985 30 From: Jojo Jack MD [...] problems, contact your doctor. Call [facility] ([phone]) or report to the closest Emergency Room. Call 911 if necessary. 04/02 08/17 1503 <Electronically signed by Jojo Jack MD> Date Jojo Jack MD Cosigner Signature (If Indicated): Date ___ CC: Evy Fast DO 27-Mar-2016 Inital Evaluation (1) - PT Result: Comments: See Note; NOTES: [facility] [place] [address] [facility] [place] [address] Fax REHABILITATION SERVICES INITIA L EVALUATION MR#: [id number] Acct: [id number] Name: CAREY EVANS Rep #: [id number] : 1985 30 From: Tate Cat Referring [...] states that she has been treated at [facility] for neck pain years ago, but now [...] 4-/5. Empty Can Test (+) for pain. 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 R: 62 lbs [...] to be FAXED BACK to us at [phone] for Medicare purposes. Please let me know [...] 5 Views Result: Comments: See Note; NOTES: [facility] Imaging Services [address] [place] [address] Verdana 4d Cerv Spine 4 or 5 Views MR#: [id number] Acct: [id number] Name: CAREY EVANS Rep #: [id number] : 1985 F 30 From: Walter Bejarano MD PCP: Evy Larios DO Status: REG CLI Study: Cerv Spine 4 or 5 Views Date of Exam: 03/24/16 Exam# [id number] Ordering Dr: Evy Larios DO STUDY: X-RAY [...] Walter Bejarano MD at 15:12 EDT Tel [phone], Service supp ort [phone], CC: Evy Larios DO Drive Worker: Signed 24-Mar-2016 Shoulder min 2 Views Result: Comments: See Note; NOTES: [facility] Imaging Services [address] [place] [address] [place] 4d Shoulder min 2 Views MR#: [id number] Acct: [id number] Name: CAREY EVANS Lorrie Zamora #: [id number] : 1985 F 30 From: Walter Bejarano MD PCP: Evy Larios DO Status: REG CLI Study: Shoulder min 2 Views Date of Exam: 03/24/16 Exam# [id number] Ordering Dr: Evy Larios DO ERNIE DY: [...] Bejarano MD 2015 at 15:11 EDT Tel [phone], Service support [phone], CC: Evy Larios DO Drive Worker: Signed 23-Jul-2015 Chest PA and Lateral Result: Comments: See Note; NOTES: [facility] Imaging Services [address] [place] [address] Verdana 4d Chest PA and Lateral MR#: [id number] Acct: [id number] Name: CAREY EVANS Lorrie Rep #: [id number] : 1985 F 29 From: Oscar Dickens MD PCP: Evy Larios DO Status: REG CLI Study: Chest PA and Lateral Date of Exam: 07/23/15 Exam# [id number] Ordering Dr: Kyle Romeo STUDY: X-RAY CHEST [...] 11 :33 EST Tel , Service support [phone], RAD/Chest PA and Lateral IMPRESSION: Normal x-ray examination of the chest. 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 Comments: 1-5 cigs daily for 10 years Status: Active Smoking Status Name Dates Details Light tobacco smoker Vital Signs Date Test Result Details 24-Psp-144840:12 Temperature 97.3 f Pulse 88 /min Comments: [...] Description Value Details :12 Vitamin D Hydroxy (67119) Comments: PATIENT WAS FASTINGPERFORMED BY: [employer] Hueuwu2152 [facility] [place] [id number] Vitamin D, 25-Hydroxy 21.5 ng/mL (Abnormal) Range: 30.0-100.0 Comments: Vitamin D deficiency has been defined by the [place] [facility] and an Endocrine Society practice guideline as alevel of serum 25-OH vitamin D less than 20 ng/mL (1,2).The Endocrine Society went on to further define vitamin Dinsufficiency as a level between 21 and 29 ng/mL (2).1. IOM ([place] of Medicine). 2010. Dietary reference intakes for calcium and D. [place]: The National Academies Press.2. Dave MF, Jil WU, Kaci CLEANING, et al. Evaluation, treatment, and prevention of vitamin D deficiency: an Endocrine Society clinical practice guideline. JCEM. 2010; 96(7):1911-30. :12 TSH (THYROID STIMULATING Comments: PATIENT WAS FASTINGPERFORMED BY: [employer] Jafmdl1623 [facility] [place] [id number] HORMONE) (97824) TSH 1.490 {uIU/mL} (Normal) Range: 0.450-4.500 :12 METABOLIC PANEL, COMPREHENSIVE Comments: PATIENT WAS FASTINGPERFORMED BY: [employer] Srwvpn8682 [facility] [id number]; appt 06/01 (84209) ALT (SGPT) 13 [iU]/L (Normal) Range: 0-32 [...] 6-20 Glucose 76 mg/dL (Normal) Range: 65-99 98-Yjk-33045:12 HGB A1C (44325) Comments: PATIENT WAS FASTINGPERFORMED BY: Appier Thorne [facility] [id number] Hemoglobin A1c 5.2 % (Normal) Range: 4.8-5.6 Comments: . Prediabetes: 5.7 - 6.4 Diabetes: >6.4 Glycemic control for adults with diabetes: <7.0 80-Lbb-109505:02 hCG,Beta Subunit, Qnt, Serum Comments: PATIENT NOT FASTINGPERFORMED BY: [employer]70 [facility] [id number] hCG,Beta Subunit,Qnt,Serum 94192 m[iU]/mL (Normal) Comments: Female (Non-) 0 - 5 (Postmenopausal) 0 - 8 . Female () Weeks of Gestation 3 6 - 71 4 10 - 750 5 950 - 5833 6 026 - 23226 7 2083 -236060 8 15649 -412159 9 25836 -742177 10 69562 -130695 12 95850 -804966 14 05322 - 63724 15 83647 - 88555 16 9588 - 97219 17 1496 - 29474 18 3730 - 07491Mdbzt ECLIA methodology 47-Ssr-061889:02 FERRITIN (79569) Comments: PATIENT NOT FASTINGPERFORMED BY: [place] EXTEND[employer] [facility] HospitalFloorPrep Solutionsin [place] [id number] Ferritin, Serum 58 ng/mL (Normal) Range: 15-150 41-Rok-416943:02 IRON (51044) Comments: PATIENT NOT FASTINGPERFORMED BY: [facility]6370 [facility] [id number] Iron 93 ug/dL (Normal) Range: 27-159 01-Kmo-786787:02 CBC W/AUTO DIFF WBC (62154) Comments: PATIENT NOT FASTINGPERFORMED BY: [facility]6370 [facility] [id number] Immature Grans (Abs) 0.0 {x10E3/uL} (Normal) Range: [...] 3.77-5.28 WBC 9.4 {x10E3/uL} (Normal) Range: 3.4-10.8 23-Ffs-771205:41 MICROALBUMIN: CREATININE RATIO Comments: PATIENT NOT FASTINGPERFORMED BY: Fashion MovementCoHealthSouth - Rehabilitation Hospital of Toms RiverUgbsfl1430 [facility] [id number]; can review on 01/07 (41013) AND (86395) Alb/Creat Ratio 2.7 {mg/g_creat} (Normal) Range: 0.0-30.0 Albumin, Urine 3.5 ug/mL (Normal) Creatinine, Urine 130.7 mg/dL (Normal) 61-Hjg-773850:41 CBC W/AUTO DIFF WBC (44233) Comments: PATIENT NOT FASTINGPERFORMED BY: [employer] Ldrqay2045 [facility] [id number] Immature Grans (Abs) 0.0 {x10E3/uL} (Normal) Range: [...] 3.77-5.28 WBC 4.5 {x10E3/uL} (Normal) Range: 3.4-10.8 87-Skk-819743:41 METABOLIC PANEL, COMPREHENSIVE Comments: PATIENT NOT FASTINGPERFORMED BY: [employer] [address] [facility] [id number] (20922) ALT (SGPT) 27 [iU]/L (Normal) Range: 0-32 [...] 6-20 Glucose 81 mg/dL (Normal) Range: 65-99 99-Tpr-422839:51 COX[place] A AB PROFILE Comments: PATIENT NOT FASTINGPERFORMED BY: [facility]6370 [facility] [id number] BY: [address] [id number] (67245) [place] A24 IgM Negative {titer} (Normal) [place] A16 IgM Negative {titer} (Normal) [place] A9 IgM Negative {titer} (Normal) [place] A7 IgM Negative {titer} (Normal) [place] A24 IgG 1:1600 {titer} (Abnormal) [place] A16 IgG 1:1600 {titer} (Abnormal) [place] A9 IgG 1:1600 {titer} (Abnormal) [place] A7 IgG 1:1600 {titer} (Abnormal) 45-Dmx-847263:51 CMV ANTIBODY (57263) Comments: PATIENT NOT FASTINGPERFORMED BY: [employer]6370 [facility] [id number] BY: CLARED[address] [id number] Cytomegalovirus (CMV) Ab, IgG >10.00 U/mL (Abnormal) Range: 0.00-0.59 Comments: Negative <0.60 Equivocal 0.60 - 0.69 Positive >0.69 50-Urn-252686:51 CMV IGM ANTBDY (93451) Comments: PATIENT NOT FASTINGPERFORMED BY: [employer]elin6370 [facility] [id number] BY: [employer] [address] [id number] Cytomegalovirus (CMV) Ab, IgM 36.0 AU/mL (Abnormal) Range: 0.0-29.9 Comments: Negative <30.0 Equivocal 30.0 - 34.9 Positive >34.9 A positive result is generally indicative of acute infection, reactivation or persistent IgM production. 45-Gfb-143184:51 URINALYSIS (32166) Comments: PATIENT NOT FASTINGPERFORMED BY: [employer] [address] [id number] BY: [employer] [id number] Microscopic Examination MICNIP (Normal) Comments: Microscopic not indicated and not performed. Nitrite, Urine Negative (Normal) Urobilinogen,Semi-Qn 0.2 mg/dL (Normal) Range: 0.2-1.0 Bilirubin Negative (Normal) Occult Blood Negative (Normal) Ketones Negative (Normal) Glucose Negative (Normal) Protein Negative (Normal) WBC Esterase Negative (Normal) Appearance Turbid (Abnormal) Urine-Color Yellow (Normal) pH 5.0 (Normal) Range: 5.0-7.5 Specific [place] 1.022 (Normal) Range: 1.005-1.030 20-Hfd-453477:51 EBV Panel (78162) Comments: PATIENT NOT FASTINGPERFORMED BY: [employer].[facility] Toms RiverOjlohd47[address] [place] [address] [id number] BY: [employer] [id number] Interpretation: SPRCS (Normal) Comments: EBV Interpretation Chart [...] <36.0 Equivocal 36.0 - 43.9 Positive >43.9 40-Mgs-388224:51 URINE PAPI CULTURE-SELENA COL Comments: PATIENT NOT FASTINGPERFORMED BY: [employer] [id number] BY: [address] [id number] COUNT (98586) Result 1 MUG (Normal) Comments: Mixed urogenital flora10,000-25,000 colony forming units per mL Urine Final report (Normal) Culture,Comprehensive :51 CBC WITH MANUAL DIFF Comments: PATIENT NOT FASTINGPERFORMED BY: CB [facility] Wlqugf6581 [place] [id number] BY: BN [facility] Dzrlfbqzhm3534 [facility] [id number] Inf ormation: SRC:KAREN (99677) Hematology Comments: Note: (Normal) Comments: Verified by [...] 3.77-5.28 WBC 6.0 {x10E3/uL} (Normal) Range: 3.4-10.8 63-Aja-266392:51 ANGTENSIN 1-CONVRT ENZYM Comments: PATIENT NOT FASTINGPERFORMED BY: [address] [id number] BY: [address] [id number] (69392) CLEO 35 U/L (Normal) Range: 14-82 38-Qmw-887447:51 Lyme Disease Antibody W/ Comments: PATIENT NOT FASTINGPERFORMED BY: [address] [id number] BY: [address] [id number] Reflex (73899) Lyme IgG/IgM Ab <0.91 {ISR} (Normal) Range: 0.00-0.90 Comments: Negative <0.91 Equivocal 0.91 - 1.09 Positive >1.09 :51 CCP ANTIBODY (20433) Comments: PATIENT NOT FASTINGPERFORMED BY: [address] [id number] BY: [address] [id number] CCP Antibodies IgG/IgA 5 {units} (Normal) Range: 0-19 Comments: Negative <20 Weak positive 20 - 39 Moderate positive 40 - 59 Strong positive >59 :51 SED RATE ERYTHROCYTE Comments: PATIENT NOT FASTINGPERFORMED BY: [address] [id number] BY: [address] [id number] (23619) Sedimentation Rate-Westergren 21 mm/h (Normal) Range: 0-32 :51 C-REACTIVE PROTEIN Comments: PATIENT NOT FASTINGPERFORMED BY: [address] [id number] BY: [address] [id number] (82119) C-Reactive Protein, Quant 15.3 mg/L (Abnormal) Range: 0.0-4.9 :51 RHEUMATOID FACTOR-QUANT Comments: PATIENT NOT FASTINGPERFORMED BY: Fashion MovementSav[place] 8480570 [facility] [id number] BY: [address] [id number] (33093) RA Latex Turbid. <10.0 {IU/mL} (Normal) Range: 0.0-13.9 :51 KAYLEEN (ANTINUCLEAR ANTIBODY) Comments: PATIENT NOT FASTINGPERFORMED BY: [employer] [address] [facility] [id number] BY: [address] [id number] (85931) KAYLEEN Direct Negative (Normal) :51 METABOLIC PANEL, Comments: PATIENT NOT FASTINGPERFORMED BY: [employer] [id number] BY: [address] [id number] COMPREHENSIVE (82694) ALT (SGPT) 43 [iU]/L (Abnormal) Range: 0-32 [...] CREATININE RATIO Comments: PATIENT WAS FASTINGPERFORMED BY: [facility]onationAt[facility]son [id number] (25464) AND (77405) Microalb/Creat Ratio 4.2 {mg/g_creat} (Normal) Range: 0.0-30.0 Microalbumin, Urine 8.7 ug/mL (Normal) Creatinine, Urine 206.4 mg/dL (Normal) :39 HGB A1C (83252) Comments: PATIENT WAS FASTINGPERFORMED BY: [employer]70 [facility] [id number] Hemoglobin A1c 5.9 % (Abnormal) Range: 4.8-5.6 Comments: . Pre-diabetes: 5.7 - 6.4 Diabetes: >6.4 Glycemic control for adults with diabetes: <7.0 :39 CBC W/AUTO DIFF WBC (60156) Comments: PATIENT WAS FASTINGPERFORMED BY: Appier Thorne FetchBackCounts include 234 beds at the [facility] [id number] Immature Grans (Abs) 0.0 {x10E3/uL} (Normal) Range: [...] 3.77-5.28 WBC 10.0 {x10E3/uL} (Normal) Range: 3.4-10.8 9-Kee-736766:39 METABOLIC PANEL, COMPREHENSIVE Comments: PATIENT WAS FASTINGPERFORMED BY: LabCoHealthSouth - Rehabilitation Hospital of Toms RiverSnmyjq1732 [facility] [id number] (41555) ALT (SGPT) 18 [iU]/L (Normal) Range: 0-32 [...] Glucose, Serum 69 mg/dL (Normal) Range: 65-99 7-Uvs-126394:39 LIPID PANEL (18655) Comments: PATIENT WAS FASTINGPERFORMED BY: [employer] Jkkspv1051 [facility] [id number] LDL/HDL Ratio 2.7 {ratio_units} (Normal) Range: 0.0-3.2 [...] 183 mg/dL (Normal) Range: 100-199 :39 TSH (76533) Comments: PATIENT WAS FASTINGPERFORMED BY: [employer] Pxgepi6074 [facility] [id number] TSH 2.320 {uIU/mL} Range: 0.450-4.500 (Normal) :1 ASPIRATION (SLIDES ONLY) See Note (Normal) Comments: [facility] Omwxfznaov[address] [place], [place], [address] 5 Comments: Patient: CAREY EVANS : 1985 (31/F) Acct Num: [id number] Phys: Juan Brown MD Unit Num: [id number] Loc: [facility] Specimen: [id number] Received: 11/12/16 - 1602 Spec Typ e: ASPIRATION TISSUES TISSUES: COMMENT Correlation with clinical, radiologic findings and appropriate follow up are necessary. CYTOLOGY GROSS Received are 12 smears labeled with the patient's name and designated per the requisition as fine needle aspiration right thyroid. Submitted for staining. / 11/13/16 TC:5 CPT: 48927 CYTOLOGY STUDY Slides are reviewed. The sp [...] Signed Quentin Davis 11/16/16 <signature on file> 24-Pfi-579429:49 CBC with auto diff Comments: PATIENT NOT FASTINGPERFORMED BY: [facility] Wnfmbv8077 [facility] [id number] Information: NURSE DRAW (15226) Immature Grans (Abs) 0.0 {x10E3/uL} (Normal) Range: [...] 3.77-5.28 WBC 9.9 {x10E3/uL} (Normal) Range: 3.4-10.8 04-Npc-278650:49 METABOLIC PANEL, COMPREHENSIVE Comments: PATIENT NOT FASTINGPERFORMED BY: LabCoHealthSouth - [facility] Hospital of Toms RiverEmhbxz7077 [facility] [id number] (67813) ALT (SGPT) 51 [iU]/L (Abnormal) Range: 0-32 [...] Glucose, Serum 86 mg/dL (Normal) Range: 65-99 40-Mnc-55576:32 CBC W/AUTO DIFF WBC Comments: PATIENT WAS FASTINGPERFORMED BY: LabCoHealthSouth - [facility] of Toms RiverZyoxfc1417 [facility] [id number] Information: 134376,R68389 (38534) Immature Grans (Abs) 0.0 {x10E3/uL} (Normal) Range: [...] 8.7 {x10E3/uL} (Normal) Range: 3.4-10.8 :32 TSH (62493) Comments: PATIENT WAS FASTINGPERFORMED BY: [employer] Toms RiverWbnjxi8104 [facility] [id number] TSH 1.350 {uIU/mL} (Normal) Range: 0.450-4.500 :32 METABOLIC PANEL, COMPREHENSIVE Comments: PATIENT WAS FASTINGPERFORMED BY: [employer] Toms RiverQotumr0109 [facility] [id number] (55226) ALT (SGPT) 20 [iU]/L (Normal) Range: 0-32 [...] Glucose, Serum 81 mg/dL (Normal) Range: 65-99 77-Qxl-64597:32 LIPID PANEL (98847) Comments: PATIENT WAS FASTINGPERFORMED BY: CAMMIE [facility] Vfgcwf5868 [facility] [id number]; non-emergent till apt LDL/HDL Ratio 3.5 {ratio_units} [...] Dysthymic Planned Observations CBC W/AUTO DIFF WBC (24523)Indication: Elevated hemoglobin A1c On: 66-Nfy-938713:52 Request METABOLIC PANEL, COMPREHENSIVE (01960)Indication: Elevated hemoglobin A1c On: 46-Fqb-428982:52 Request LIPID PANEL (07087)Indication: Other hyperlipidemia On: 65-Vvq-897369:51 Request Vitamin D Hydroxy (07907)Indication: Vitamin D deficiency On: 56-Xgg-216502:51 Request HGB A1C (53905)Indication: Elevated hemoglobin A1c On: 28-Vjm-236844:50 Request TEST - SERUM QUANTITATIVE (HCG) (54137)Indication: Positive urine test On: 20-Rxc-469319:31 Request CBC, Platelets & Auto Diff (79489)Indication: Sinusitis, acute On: 16-Aed-675805:34 Request IGA/IGD/IGG/IGM-EACH (77874)Indication: Frequent infections On: 30-Mfq-083221:29 Request HGB A1C (73380)Indication: Elevated hemoglobin A1c On: 69-Hwr-846259:33 Request CBC W/AUTO DIFF WBC (57976)Indication: Elevated hemoglobin A1c On: :06 Request METABOLIC PANEL, COMPREHENSIVE (08932)Indication: Elevated hemoglobin A1c On: 5-Lkm-904081:06 Request LIPID PANEL (07892)Indication: Other hyperlipidemia On: : Request HGB A1C (22052)Indication: Elevated hemoglobin A1c On: 6-Whs-531167:06 Request TSH (82265)Indication: Dysthymic On: 2-Awu-153861:20 Request LIPID PANEL (41444)Indication: Other hyperlipidemia On: 8-Cfa-187525:20 Request HEPATIC FUNCTION PANEL (37502)Indication: Other hyperlipidemia On: 04-Bvp-592942:33 Request LIPID PANEL (84643)Indication: Other hyperlipidemia On: 67-Yzx-611792:30 Request Planned Encounters Medical; [facility] 3 Month FU - On: 27-Sep-2018 13:30 Comprehensive Internal Medicine Fast DO, Evy A Fast DO, Evy A Planned Procedures Ultrasound - GallbladderBy: Fast DO, On: 17-Jan-2018 Intent Evy A Fast DO, Evy A ELECTROCARDIOGRAM, COMPLETE (ECG) On: 17-Jan-2018 Intent ([id number])By: Fast DO, Evy A Fast DO, Comments: sinus/atrial tach no acute st twave changes old anterior t wave inv no change Evy A Ultrasound - ThyroidBy: Fast DO, On: 17-Jan-2018 Intent Evy A Fast DO, Evy A MRI OF BRAIN WITH AND WITHOUT On: 19-Apr-2017 Intent CONTRAST ([id number])By: Fast DO, Evy A Comments: headache and [...] A ELECTROCARDIOGRAM, COMPLETE (ECG) On: 13-Oct-2016 Intent ([id number])By: Fast DO, Evy A Fast DO, Evy A MRI OF CERVICAL SPINE WITHOUT On: 29-Sep-2016 Intent CONTRAST ([id number])By: Fast DO, Evy A Fast DO, Evy A Radiology - Cervical SpineBy: Fast On: 24-Mar-2016 Intent DO, Evy A Fast DO, Evy A Radiology - Shoulder - LeftBy: Fast On: 24-Mar-2016 Intent DO, Evy A Fast DO, Evy A CHEST XRAY, PA & LATERAL ([id number])By: On: 23-Jul-2015 Intent Ousmane GAGE, Rohan Instructions [...] medical issue s: she is still see Absorption Plant Operator at Dr Grayson office and has [...] Shoulder problem: worsended again since moved a [place] of books couple ??weeks ago had really [...] issues: having panic attacks at 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 PartnersCANOFELIA MURPHY; a guarantor
--- OUTSIDE RECORDS SUMMARY | 2018-08-25 06:45 | XMS RPT_ITS | Continuity of Care Document ---
:1985 Author Organization [facility] Address [address] [place] [address] Phone Care Team Providers Name Role Phone [...] 0 Ordered:13-Jan-2018 Fast DO, Evy AFast DO, Vey A Start : 09-Dec-2016 End : 13-Jan-2018 [...] Start : 13-Jan-2018 End : 13-Jan-2018 Discontinued Gustine 7.5-325 MG Oral Tablet 1-2 Tablet bid for 0 days Quantity: 60 {Tablet} Refills: 0 Ordered:30-Mar-2016 Jojo Grace Start : 24-Mar-2016 End : 30-Mar-2016 Discontinued Comments:sixty Nortriptyline HCl 75 MG Oral Capsule 1 (one) Capsule Capsule rylee, prn for 30 days Quantity: 30 {Capsule} Refills: 0 Ordered:13-Oct-2016 Danielelijah PALMDaniel morales DOa A Start : 13-Oct-2016 End : 13-Oct-2016 Discontinued POLYTRIM, 92077-3.1UNIT/ML-% (Ophthalmic Solution) 1 (one) Solution 1 gtt [...] 03-Feb-2018 Gallbladder Result: Comments: See Note; NOTES: [facility] Imaging Services [address] [place] [address] Gallbladder MR#: [id number] Acct: [id number] Name: CAREY MURPHY Rep #: [id number] : 1985 F 32 From: Walter Bejarano MD PCP: Evy Larios DO Status: REG CLI Study: Gallbladder Date of Exam: 02/03/18 Exam# [id number] Ordering Dr: Evy Larios DO STUDY: ABDOMINAL [...] Walter edward MD at 14:34 EDT Tel [phone], Service support , CC: Evy Larios DO Mechanical Meter Tester: Signed 03-Feb-2018 Thyroid Result: Comments: See Note; NOTES: [facility] Imaging Services [address] [place] [address] Thyroid MR#: [id number] Acct: [id number] Name: CAREY MURPHY Rep #: [id number] : 12/1985 F 32 From: Radha Perez MD PCP: Evy Larios DO Status: REG CLI Study: Thyroid Date of Exam: 02/03/18 Exam# [id number] Ordering Dr: Evy Larios DO STUDY: THYROID [...] substantially changed in size or appearance on qbsl-tj-spmz comparison. 3 x 3 x 2 mm ovoid solid hypoe choic nodule of the upper right thyroid not formerly visualized. 4 x 3 x 3 mm ovoid solid hypoechoic nodule of the mid left thyroid not formerly visualized. Electronically Signed: Lorrie Laboy at 20:56 EDT , Service support , CC: Evy Larios DO Mechanical Meter Tester: Signed 28-Apr-2017 Brain W/WO Contrast Result: Comments: See Note; NOTES: [facility] Imaging Services [address] [place] [address] Brain W/WO Contrast MR#: [id number] Acct: [id number] Name: CAREY MURPHY Rep #: [id number] : 1985 F 31 From: Luis Sales MD PCP: Evy Larios DO Status: REG CLI Study: Brain W/WO Contrast Date of Exam: 04/28/17 Exam# [id number] Ordering Dr: Evy Larios DO STUDY: MRI [...] Service support , CC: Evy Larios DO Mechanical Meter Tester: Signed 23-Apr-2017 Echocardiogram Complete Result: Comments: See Note; NOTES: [facility] Cardiovascular Services [address] [place] [address] Echo Complete 04/22/17 1026 MR#: [id number] Acct: [id number] Name: CAREY MURPHY Rep #: [id number] : 1985 31 From: Juan Sellers MD Attending Dr: Evy Larios DO Status: REG CLI Ordering Dr: Evy Larios DO Date: 04/22/17 Location: [facility] Sex: F C Admitted: Reason For Study: [...] Dictated: 04/22/17 1026 Date Transcribed: 04/23/17 1632 Mechanical Meter Tester: Signed 20-Oct-2016 Knee 4 or More Views Result: Comments: See Note; NOTES: [facility] Imaging Services [address] [place] [address] Verdana 4d Knee 4 or More Views MR#: [id number] Acct: [id number] Name: CAREY EVANS Lorrie Nuñez p #: [id number] : 1985 F 30 From: Walter Bejarano MD PCP: Evy Larios DO Status: REG CLI Study: Knee 4 or More Views Date of Exam: 10/20/16 Exam# [id number] Ordering Dr: Evy Larios DO STUDY : [...] Walter Bejarano MD at 9:10 EDT Tel [phone], Service support [phone], CC: Evy Larios DO Mechanical Meter Tester: Signed 20-Oct-2016 Thyroid Result: Comments: See Note; NOTES: [facility] Imaging Services [address] [place] [address] Verdana 4d Thyroid MR#: [id number] Acct: [id number] Name: CAREY EVANS Rep #: [id number] : 1985 F 30 From: Walter Bejarano MD PCP: Evy Larios DO Status: REG CLI Study: Thyroid Date of Exam: 10/20/16 Exam# [id number] Ordering Dr: Evy Larios DO STUDY: THYROID [...] Walter Bejarano MD at 9:08 EDT Tel [phone], Service support [phone], CC: Evy Larios DO Mechanical Meter Tester: Signed 01-Oct-2016 Spine Cervical (Routine) Result: Comments: See Note; NOTES: [facility] Imaging Services [address] [place] [address] Verdana 4d Spine Cervical (Routine) MR#: [id number] Acct: [id number] Name: CAREY EVANS Rep #: [id number] : 1985 F 30 From: Kamran Anderson MD PCP: Evy Larios DO Status: REG CLI Study: Spine Cervical (Routine) Date of Exam: 10/01/16 Exam# [id number] Ordering Dr: Evy Larios DO STUDY: MRI [...] at 22:22 EST Tel , Service support [phone], CC: Evy Larios DO Mechanical Meter Tester: Signed 21-May-2016 PT D/C of Non Returning Pt (1) Result: Comments: See Note; NOTES: [facility] Physical Therapy [facility] [address] [place] [address] Fax REHABILITATION SERVICES DISCHA RGE SUMMARY MR#: [id number] Acct: [id number] Name: CAREY EVANS Rep #: [id number] : 1985 30 From: Tate Pennington PT, Cert. MDT, OCS Referring Dr.: Evy Larios DO Status: REG RCR Insurance : [facility] - Discharge Summary (1) - [...] Department Summary Result: Comments: See Note; NOTES: [facility] Medical Records Department [address] [place] [address] Emergency Department Summary MR#: [id number] Acct: [id number] Name: JULIAN EVANS Rep #: [id number] : 1985 30 From: Jojo Jack MD [...] improved. Jojo Jack MD T: NTS JOB: [id number] 04/13/16 0803 <Electronically signed by Jojo Jack MD> Date Jojo Jack MD Cosigner Signature (If Indicated): Date CC: Evy Fast DO Date Dictated: 04/12/161734 Date Transcribed: 04/12/161734 Mechanical Meter Tester: Signed 12-Apr-2016 Discharge Instruction Result: Comments: See Note; NOTES: [facility] Medical Records Department [address] [place] [address] Discharge Instruction 04/12/16 1503 MR#: [id number] Acct: [id number] Name: CAREY EVANS Rep #: [id number] : 1985 30 From: Jojo Jack MD [...] problems, contact your doctor. Call [facility] ([phone]) or report to the closest Emergency Room. Call 911 if necessary. 04/02 08/17 1503 <Electronically signed by Jojo Jack MD> Date Jojo Jack MD Cosigner Signature (If Indicated): Date ___ CC: Evy Fast DO 27-Mar-2016 Inital Evaluation (1) - PT Result: Comments: See Note; NOTES: [facility] Physical [place] [address] [place] [address] Fax REHABILITATION SERVICES INITIA L EVALUATION MR#: [id number] Acct: [id number] Name: CAREY EVANS Rep #: [id number] : 1985 30 From: Tate Cat Referring [...] that she has been treated at [facility] for neck pain years ago, but now [...] 4-/5. Empty Can Test (+) for pain. Counter Maker Dynamometer: L: 30 lbs. R: 62 lbs [...] to be FAXED BACK to us at [phone] for Medicare purposes. Please let me know [...] 5 Views Result: Comments: See Note; NOTES: [facility] Imaging Services [address] [place] [address] Verdana 4d Cerv Spine 4 or 5 Views MR#: [id number] Acct: [id number] Name: CAREY EVANS Lorrie Rep #: [id number] : 1985 F 30 From: Walter Bejarano MD PCP: Evy Larios DO Status: REG CLI Study: Cerv Spine 4 or 5 Views Date of Exam: 03/24/16 Exam# [id number] Ordering Dr: Evy Larios DO STUDY: X-RAY [...] Walter Bejarano MD at 15:12 EDT Tel [phone], Service supp ort [phone], CC: Evy Larios DO Mechanical Meter Tester: Signed 24-Mar-2016 Shoulder min 2 Views Result: Comments: See Note; NOTES: [facility] Imaging Services [address] [place] [id number] [place] [address] 4d Shoulder min 2 Views MR#: [id number] Acct: [id number] Name: CAREY EVANS Noah #: [id number] : 1985 F 30 From: Walter Bejarano MD PCP: Evy Larios DO Status: REG CLI Study: Shoulder min 2 Views Date of Exam: 03/24/16 Exam# [id number] Ordering Dr: Evy Larios DO ERNIE DY: [...] Bejarano MD 2015 at 15:11 EDT Tel [phone], Service support [phone], CC: Evy Larios DO Mechanical Meter Tester: Signed 23-Jul-2015 Chest PA and Lateral Result: Comments: See Note; NOTES: [facility] Imaging Services [address] [place] [address] Verdana 4d Chest PA and Lateral MR#: [id number] Acct: [id number] Name: CAREY EVANS Rep #: [id number] : 1985 F 29 From: Oscar Dickens MD PCP: Evy Larios DO Status: REG CLI Study: Chest PA and Lateral Date of Exam: 07/23/15 Exam# [id number] Ordering Dr: Kyle Romeo STUDY: X-RAY CHEST [...] 11 :33 EST Tel , Service support [phone], RAD/Chest PA and Lateral IMPRESSION: Normal x-ray examination of the chest. 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 Comments: 1-5 cigs daily for 10 years Status: Active Smoking Status Name Dates Details Light tobacco smoker Vital Signs Date Test Result Details 08-Bpf-619052:12 Temperature 97.3 f Pulse 88 /min Comments: [...] 1.97 m2 Results Date Description Value Details 49-Mxo-46718:12 Vitamin D Hydroxy (92380) Comments: PATIENT WAS FASTINGPERFORMED BY: [employer] Qrrgjc9562 [facility] [id number] Vitamin D, 25-Hydroxy 21.5 ng/mL (Abnormal) Range: 30.0-100.0 Comments: Vitamin D deficiency has been defined by the Nichols ofMedicine and an Endocrine Society practice guideline as alevel of serum 25-OH vitamin D less than 20 ng/mL (1,2).The Endocrine Society went on to further define vitamin Dinsufficiency as a level between 21 and 29 ng/mL (2).1. IOM ([place]ichols of Medicine). 2010. Dietary reference intakes for calcium and D. [place]: The National Academies Press.2. Dave MF, Jil WU, Kaci CLEANING, et al. Evaluation, treatment, and prevention of vitamin D deficiency: an Endocrine Society clinical practice guideline. JCEM. 2010; 96(7):1911-30. :12 TSH (THYROID STIMULATING Comments: PATIENT WAS FASTINGPERFORMED BY: [employer] Fookly1270 [facility] [id number] HORMONE) (79055) TSH 1.490 {uIU/mL} (Normal) Range: 0.450-4.500 :12 METABOLIC PANEL, COMPREHENSIVE Comments: PATIENT WAS FASTINGPERFORMED BY: LabAdesto TechnologiesMatheny Medical and Educational CenterZprgwf9048 [facility] [id number]; appt 06/01 (73434) ALT (SGPT) 13 [iU]/L (Normal) Range: 0-32 [...] 6-20 Glucose 76 mg/dL (Normal) Range: 65-99 93-Cjy-49471:12 HGB A1C (19096) Comments: PATIENT WAS FASTINGPERFORMED BY: [employer] [facility] [id number] Hemoglobin A1c 5.2 % (Normal) Range: 4.8-5.6 Comments: . Prediabetes: 5.7 - 6.4 Diabetes: >6.4 Glycemic control for adults with diabetes: <7.0 58-Hqm-909482:02 hCG,Beta Subunit, Qnt, Serum Comments: PATIENT NOT FASTINGPERFORMED BY: [employer]70 [facility] [id number] hCG,Beta Subunit,Qnt,Serum 02642 m[iU]/mL (Normal) Comments: Female (Non-) 0 - 5 (Postmenopausal) 0 - 8 . Female () Weeks of Gestation 3 6 - 71 4 10 - 750 5 257 - 6202 6 794 - 96121 7 7253 -521386 8 99828 -456507 9 01098 -386558 10 85173 -346905 12 31224 -230719 14 38732 - 52235 15 75989 - 92300 16 5014 - 80675 17 2545 - 44512 18 4797 - 45261Roche ECLIA methodology 37-Wvz-509801:02 FERRITIN (65889) Comments: PATIENT NOT FASTINGPERFORMED BY: [employer] [facility] [id number] Ferritin, Serum 58 ng/mL (Normal) Range: 15-150 94-Jpc-472332:02 IRON (51475) Comments: PATIENT NOT FASTINGPERFORMED BY: LabCoMatheny Medical and Educational CenterSkhjxu5069 [facility] [id number] Iron 93 ug/dL (Normal) Range: 27-159 61-Cvx-235287:02 CBC W/AUTO DIFF WBC (60413) Comments: PATIENT NOT FASTINGPERFORMED BY: LabCoMatheny Medical and Educational CenterCrtcbi5309 [facility] [id number] Immature Grans (Abs) 0.0 {x10E3/uL} (Normal) Range: [...] 3.77-5.28 WBC 9.4 {x10E3/uL} (Normal) Range: 3.4-10.8 28-Cjd-462780:41 MICROALBUMIN: CREATININE RATIO Comments: PATIENT NOT FASTINGPERFORMED BY: LabCoMatheny Medical and Educational CenterNjuich1102 [facility] [id number]; can review on 01/07 (15901) AND (54189) Alb/Creat Ratio 2.7 {mg/g_creat} (Normal) Range: 0.0-30.0 Albumin, Urine 3.5 ug/mL (Normal) Creatinine, Urine 130.7 mg/dL (Normal) 94-Xam-240674:41 CBC W/AUTO DIFF WBC (62610) Comments: PATIENT NOT FASTINGPERFORMED BY: LabCoMatheny Medical and Educational CenterHnvpxs7468 [facility] [id number] Immature Grans (Abs) 0.0 {x10E3/uL} (Normal) Range: [...] 3.77-5.28 WBC 4.5 {x10E3/uL} (Normal) Range: 3.4-10.8 85-Uru-080387:41 METABOLIC PANEL, COMPREHENSIVE Comments: PATIENT NOT FASTINGPERFORMED BY: On The Run TechMatheny Medical and Educational CenterTozvha9910 [facility] [id number] (91823) ALT (SGPT) 27 [iU]/L (Normal) Range: 0-32 [...] 6-20 Glucose 81 mg/dL (Normal) Range: 65-99 71-Knn-218164:51 [place] A AB PROFILE Comments: PATIENT NOT FASTINGPERFORMED BY: LabSturgis Hospital6370 [facility] [id number] BY: Lab[address] [id number] (26097) [place] A24 IgM Negative {titer} (Normal) [place] A16 IgM Negative {titer} (Normal) [place] A9 IgM Negative {titer} (Normal) [place] A7 IgM Negative {titer} (Normal) [place] A24 IgG 1:1600 {titer} (Abnormal) [place] A16 IgG 1:1600 {titer} (Abnormal) [place] A9 IgG 1:1600 {titer} (Abnormal) [place] A7 IgG 1:1600 {titer} (Abnormal) 91-Whh-652833:51 CMV ANTIBODY (19369) Comments: PATIENT NOT FASTINGPERFORMED BY: [employer]ura[employer] Nhimgo1976 [facility] [id number] BY: MaxCDN[address] [id number] Cytomegalovirus (CMV) Ab, IgG >10.00 U/mL (Abnormal) Range: 0.00-0.59 Comments: Negative <0.60 Equivocal 0.60 - 0.69 Positive >0.69 09-Jwn-706643:51 CMV IGM ANTBDY (20100) Comments: PATIENT NOT FASTINGPERFORMED BY: D[employer]eper Qfzovs6475 [facility] [id number] BY: MaxCDN[address] [id number] Cytomegalovirus (CMV) Ab, IgM 36.0 AU/mL (Abnormal) Range: 0.0-29.9 Comments: Negative <30.0 Equivocal 30.0 - 34.9 Positive >34.9 A positive result is generally indicative of acute infection, reactivation or persistent IgM production. 97-Vgn-880612:51 URINALYSIS (07218) Comments: PATIENT NOT FASTINGPERFORMED BY: D[employer]eper Nftdcf3529 [facility] [id number] BY: [employer] Tech[address] [id number] Microscopic Examination MICNIP (Normal) Comments: Microscopic not indicated and not performed. Nitrite, Urine Negative (Normal) Urobilinogen,Semi-Qn 0.2 mg/dL (Normal) Range: 0.2-1.0 Bilirubin Negative (Normal) Occult Blood Negative (Normal) Ketones Negative (Normal) Glucose Negative (Normal) Protein Negative (Normal) WBC Esterase Negative (Normal) Appearance Turbid (Abnormal) Urine-Color Yellow (Normal) pH 5.0 (Normal) Range: 5.0-7.5 Specific [place] 1.022 (Normal) Range: 1.005-1.030 38-Vag-571262:51 EBV Panel (69071) Comments: PATIENT NOT FASTINGPERFORMED BY: [employer] [address] [place] [address] [id number] BY: [employer] [id number] Interpretation: SPRCS (Normal) Comments: EBV Interpretation Chart [...] <36.0 Equivocal 36.0 - 43.9 Positive >43.9 22-Kjk-198445:51 URINE PAPI CULTURE-SELENA COL Comments: PATIENT NOT FASTINGPERFORMED BY: [employer] Tech[address] [id number] BY: [address] [id number] COUNT (25439) Result 1 MUG (Normal) Comments: Mixed urogenital flora10,000-25,000 colony forming units per mL Urine Final report (Normal) Culture,Comprehensive :51 CBC WITH MANUAL DIFF Comments: PATIENT NOT FASTINGPERFORMED BY: CAMMIE [facility] Cpkgda7497 [place] [place] [id number] BY: AVTAR [facility] Jqyachqeob4238 [facility] [id number] Inf ormation: SRC:KAREN (84995) Hematology Comments: Note: (Normal) Comments: Verified by [...] 3.77-5.28 WBC 6.0 {x10E3/uL} (Normal) Range: 3.4-10.8 28-Kri-888741:51 ANGTENSIN 1-CONVRT ENZYM Comments: PATIENT NOT FASTINGPERFORMED BY: [place] 9094870 [facility] [id number] BY: [address] [id number] (04516) CLEO 35 U/L (Normal) Range: 14-82 79-Pet-171961:51 Lyme Disease Antibody W/ Comments: PATIENT NOT FASTINGPERFORMED BY: [address] [id number] BY: [address] [id number] Reflex (68022) Lyme IgG/IgM Ab <0.91 {ISR} (Normal) Range: 0.00-0.90 Comments: Negative <0.91 Equivocal 0.91 - 1.09 Positive >1.09 :51 CCP ANTIBODY (80767) Comments: PATIENT NOT FASTINGPERFORMED BY: [place] 9094870 [facility] [id number] BY: [address] [id number] CCP Antibodies IgG/IgA 5 {units} (Normal) Range: 0-19 Comments: Negative <20 Weak positive 20 - 39 Moderate positive 40 - 59 Strong positive >59 :51 SED RATE ERYTHROCYTE Comments: PATIENT NOT FASTINGPERFORMED BY: [place] 9094870 [facility] [id number] BY: [address] [id number] (65145) Sedimentation Rate-Westergren 21 mm/h (Normal) Range: 0-32 :51 C-REACTIVE PROTEIN Comments: PATIENT NOT FASTINGPERFORMED BY: [address] [id number] BY: [address] [id number] (73061) C-Reactive Protein, Quant 15.3 mg/L (Abnormal) Range: 0.0-4.9 :51 RHEUMATOID FACTOR-QUANT Comments: PATIENT NOT FASTINGPERFORMED BY: [place] 9094870 [facility] [id number] BY: [address] [id number] (04494) RA Latex Turbid. <10.0 {IU/mL} (Normal) Range: 0.0-13.9 :51 KAYLEEN (ANTINUCLEAR ANTIBODY) Comments: PATIENT NOT FASTINGPERFORMED BY: [place] 9094870 [facility] [id number] BY: [address] [id number] (09341) KAYLEEN Direct Negative (Normal) :51 METABOLIC PANEL, Comments: PATIENT NOT FASTINGPERFORMED BY: [address] [id number] BY: [address] [id number] COMPREHENSIVE (27405) ALT (SGPT) 43 [iU]/L (Abnormal) Range: 0-32 [...] CREATININE RATIO Comments: PATIENT WAS FASTINGPERFORMED BY: [employer] [facility] [id number] (42129) AND (54809) Microalb/Creat Ratio 4.2 {mg/g_creat} (Normal) Range: 0.0-30.0 Microalbumin, Urine 8.7 ug/mL (Normal) Creatinine, Urine 206.4 mg/dL (Normal) :39 HGB A1C (22290) Comments: PATIENT WAS FASTINGPERFORMED BY: [employer]70 [facility] [id number] Hemoglobin A1c 5.9 % (Abnormal) Range: 4.8-5.6 Comments: . Pre-diabetes: 5.7 - 6.4 Diabetes: >6.4 Glycemic control for adults with diabetes: <7.0 :39 CBC W/AUTO DIFF WBC (95725) Comments: PATIENT WAS FASTINGPERFORMED BY: [employer] [facility] [id number] Immature Grans (Abs) 0.0 {x10E3/uL} (Normal) Range: [...] 3.77-5.28 WBC 10.0 {x10E3/uL} (Normal) Range: 3.4-10.8 3-Gze-883807:39 METABOLIC PANEL, COMPREHENSIVE Comments: PATIENT WAS FASTINGPERFORMED BY: [facility] Osiydh1812 [facility] [id number] (78518) ALT (SGPT) 18 [iU]/L (Normal) Range: 0-32 [...] Glucose, Serum 69 mg/dL (Normal) Range: 65-99 2-Ayj-910432:39 LIPID PANEL (79992) Comments: PATIENT WAS FASTINGPERFORMED BY: Sent[facility] EnergySturgis Hospital6370 [facility] [id number] LDL/HDL Ratio 2.7 {ratio_units} (Normal) Range: 0.0-3.2 [...] 183 mg/dL (Normal) Range: 100-199 :39 TSH (22855) Comments: PATIENT WAS FASTINGPERFORMED BY: On The Run TechMatheny Medical and Educational CenterFaspmb7522 [facility] [id number] TSH 2.320 {uIU/mL} Range: 0.450-4.500 (Normal) :1 ASPIRATION (SLIDES ONLY) See Note (Normal) Comments: [facility] Kavismbzxe[address] [place], [place], [address] 5 Comments: Patient: CAREY EVANS : 1985 (31/F) Acct Num: [id number] Phys: Juan Brown MD Unit Num: [id number] Loc: [facility] Specimen: [id number] Received: 11/12/161601 Spec Typ e: ASPIRATION TISSUES TISSUES: COMMENT Correlation with clinical, radiologic findings and appropriate follow up are necessary. CYTOLOGY GROSS Received are 12 smears labeled with the patient's name and designated per the requisition as fine needle aspiration right thyroid. Submitted for staining. / 11/13/16 TC:5 CPT: 50671 CYTOLOGY STUDY Slides are reviewed. The sp [...] Signed Quentin Davis 11/16/16 <signature on file> 82-Zdn-473608:49 CBC with auto diff Comments: PATIENT NOT FASTINGPERFORMED BY: [facility] Azbuti3234 [facility] [id number] Information: NURSE DRAW (49906) Immature Grans (Abs) 0.0 {x10E3/uL} (Normal) Range: [...] 3.77-5.28 WBC 9.9 {x10E3/uL} (Normal) Range: 3.4-10.8 68-Cae-768054:49 METABOLIC PANEL, COMPREHENSIVE Comments: PATIENT NOT FASTINGPERFORMED BY: [facility] Uabuns4616 [facility] [id number] (55716) ALT (SGPT) 51 [iU]/L (Abnormal) Range: 0-32 [...] Glucose, Serum 86 mg/dL (Normal) Range: 65-99 68-Pnu-04411:32 CBC W/AUTO DIFF WBC Comments: PATIENT WAS FASTINGPERFORMED BY: LabCoMatheny Medical and Educational CenterYhycnw6071 [facility] [id number] Information: 404324,K67748 (62553) Immature Grans (Abs) 0.0 {x10E3/uL} (Normal) Range: [...] 8.7 {x10E3/uL} (Normal) Range: 3.4-10.8 :32 TSH (95883) Comments: PATIENT WAS FASTINGPERFORMED BY: LabAdesto TechnologiesMatheny Medical and Educational CenterMmlbjk4450 [facility] [id number] TSH 1.350 {uIU/mL} (Normal) Range: 0.450-4.500 :32 METABOLIC PANEL, COMPREHENSIVE Comments: PATIENT WAS FASTINGPERFORMED BY: LabAdesto TechnologiesMatheny Medical and Educational CenterMjklzu9825 [facility] [id number] (94638) ALT (SGPT) 20 [iU]/L (Normal) Range: 0-32 [...] Glucose, Serum 81 mg/dL (Normal) Range: 65-99 70-Bkh-98473:32 LIPID PANEL (19296) Comments: PATIENT WAS FASTINGPERFORMED BY: CAMMIE [facility] Aculyf3828 [facility] [id number]; non-emergent till apt LDL/HDL Ratio 3.5 {ratio_units} [...] Dysthymic Planned Observations CBC W/AUTO DIFF WBC (09413)Indication: Elevated hemoglobin A1c On: 70-Jfd-768111:52 Request METABOLIC PANEL, COMPREHENSIVE (95814)Indication: Elevated hemoglobin A1c On: 22-Tzw-041586:52 Request LIPID PANEL (65881)Indication: Other hyperlipidemia On: 74-Fic-298224:51 Request Vitamin D Hydroxy (10598)Indication: Vitamin D deficiency On: 31-Qkb-159817:51 Request HGB A1C (14144)Indication: Elevated hemoglobin A1c On: 03-Ydp-996985:50 Request TEST - SERUM QUANTITATIVE (HCG) (55290)Indication: Positive urine test On: 14-Tlg-525900:31 Request CBC, Platelets & Auto Diff (22063)Indication: Sinusitis, acute On: 11-Bbq-203102:34 Request IGA/IGD/IGG/IGM-EACH (74557)Indication: Frequent infections On: 09-Xqw-120167:29 Request HGB A1C (98314)Indication: Elevated hemoglobin A1c On: 39-Gbq-[id number] Request CBC W/AUTO DIFF WBC ([id number])Indication: Elevated hemoglobin A1c On: :06 Request METABOLIC PANEL, COMPREHENSIVE ([id number])Indication: Elevated hemoglobin A1c On: 5-Anl-377628:06 Request LIPID PANEL ([id number])Indication: Other hyperlipidemia On: 1-Edo-708098: Request HGB A1C ([id number])Indication: Elevated hemoglobin A1c On: 5-Xwj-871755:06 Request TSH ([id number])Indication: Dysthymic On: 2-Pjy-142771:20 Request LIPID PANEL ([id number])Indication: Other hyperlipidemia On: 1-Ezm-944606:20 Request HEPATIC FUNCTION PANEL ([id number])Indication: Other hyperlipidemia On: 84-Wmz-547865:33 Request LIPID PANEL ([id number])Indication: Other hyperlipidemia On: 56-Cvd-387663:30 Request Planned Encounters Medical; [facility] 3 Month FU - On: 27-Sep-2018 13:30 [facility] Fast DO, Evy A Fast DO, Evy A Planned Procedures Ultrasound - GallbladderBy: Fast DO, On: 17-Jan-2018 Intent Evy A Fast DO, Evy A ELECTROCARDIOGRAM, COMPLETE (ECG) On: 17-Jan-2018 Intent ([id number])By: Fast DO, Evy A Fast DO, Comments: sinus/atrial tach no acute st twave changes old anterior t wave inv no change Evy A Ultrasound - ThyroidBy: Fast DO, On: 17-Jan-2018 Intent Evy A Fast DO, Evy A MRI OF BRAIN WITH AND WITHOUT On: 19-Apr-2017 Intent CONTRAST ([id number])By: Fast DO, Evy A Comments: headache and vertigo attention- cerebellum Fast DO, Evy A Holter Monitor 24 hrsBy: Fast DO, On: 07-Apr-2017 Intent Eyv A Fast DO, Evy A Echo CompleteBy: [...] A ELECTROCARDIOGRAM, COMPLETE (ECG) On: 13-Oct-2016 Intent ([id number])By: Fast DO, Evy A Fast DO, Evy A MRI OF CERVICAL SPINE WITHOUT On: 29-Sep-2016 Intent CONTRAST ([id number])By: Fast DO, Evy A Fast DO, Evy A Radiology - Cervical SpineBy: Fast On: 24-Mar-2016 Intent DO, Evy A Fast DO, Evy A Radiology - Shoulder - LeftBy: Fast On: 24-Mar-2016 Intent DO, Evy A Fast DO, Evy A CHEST XRAY, PA & LATERAL ([id number])By: On: 23-Jul-2015 Intent Ousmane GAGE, Rohan Instructions [...] medical issue s: she is still see [employer] Operator at Dr Grayson office and has [...] Shoulder problem: worsended again since moved a [employer] of books couple ??weeks ago had really [...] issues: having panic attacks at work- 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 yet Encounter Diagnosis: Dysthymic, Anxiety, Other hyperlipidemia, [...] Nevus(238.2), Migraine (346.80) [facility]ayers [facility] CenterCANOFELIA MURPHY; a guarantor
--- OUTSIDE RECORDS SUMMARY | 2018-08-25 06:45 | XMS RPT_ITS | Continuity of Care Document ---
:1985 Author Organization [facility] Address [address] [place] [address] Phone Care Team Providers Name Role Phone [...] Vitamin D deficiency (E55.9, 268.9) Status: Active Medications Name Dates Details Augmentin 875-125 MG Oral Tablet 1 (one) Tablet two times daily for 14 days Quantity: 28 {Tablet} Refills: 0 Ordered:02-May-2018 Ric NEALEvy DO, Debra A Start : 02-May-2018 Active BuPROPion HCl ER (XL) 150 MG Oral Tablet Extended Release 24 Hour 1 (one) Tablet ER 24HR qd for 0 days Quantity: 30 {Tablet} Refills: 3 Ordered:13-Oct-2017 Sindy Metz Start : 13-Oct-2017 Active Labetalol HCl 100 MG Oral Tablet 1 (one) Tablet bid for 0 days Quantity: 60 {Tablet} Refills: 3 Ordered:22-Mar-2018 Ric NEALEvy DO, Debra A Start : 22-Mar-2018 Active Pepcid 20 MG Oral Tablet 1 (one) Tablet bid for 0 days Quantity: 60 {Tablet} Refills: 6 Ordered:25-Apr-2018 Ric NEALEvy DO, Debra A Start : 25-Apr-2018 Active /Folic Acid [...] DO, Debra A Start : 31-Jan-2018 Active Vitamin D3 2000 UNIT Oral Tablet 2 (two) Tablet Tablet qd for 0 days Quantity: 60 {Tablet} Refills: 4 Ordered:02-May-2018 Sindy Metz Start : 17-Jan-2018 Active Zofran 4 MG Oral Tablet 1 (one) Tablet bid prn for 0 days Quantity: 30 {Tablet} Refills: 1 Ordered:06-Nov-2017 Ric NEALDaniela Daniel Leong DOa A Start : 06-Nov-2017 Active Amitriptyline HCl [...] days Quantity: 30 {Capsule} Refills: 3 Ordered:13-Jan-2018 Long BURIAL AGENTJonan L Start : 13-Sep-2017 End : 13-Jan-2018 Inactive Levaquin 500 MG Oral Tablet 1 (one) Tablet Tablet qd for 0 days Quantity: 14 {Tablet} Refills: 0 Ordered:11-Jan-2018 TIZ Welch Start : 22-Jul-2017 End : 11-Jan-2018 Inactive Comments:she is not pregant LORazepam 0.5 MG Oral Tablet 1 (one) Tablet Tablet daily, prn for 30 days Quantity: 30 {Tablet} Refills: 0 Ordered:13-Jan-2018 Long BURIAL AGENT, Jeanine L Start : 29-Oct-2015 End : 13-Jan-2018 Inactive [...] Quantity: 75 {Tablet} Refills: 0 Ordered:13-Jan-2018 Fast Evy NEAL DO, Debra A Start : 09-Dec-2016 End : 13-Jan-2018 Inactive Comments:seventy five PredniSONE 10 MG Oral Tablet 1 (one) Tablet 4 pills x 3 days 3 pills x 3 days 2 pills x3 days 1 pill x 3 days for 1 days Quantity: 30 {Tablet} Refills: 0 Ordered:29-Sep-2016 Fast Evy NEAL DO, Debra A Start : 29-Sep-2016 End : 30-Sep-2016 Inactive Comments:take with food in am Skelaxin 400 MG Oral Tablet tid (400 MG) Inactive Symbicort 80-4.5 MCG/ACT Inhalation Aerosol 2 (two) Aerosol Aerosol puffs qd for 0 days Quantity: 1 {Inhaler} Refills: 0 Ordered:13-Jan-2018 Long BURIAL AGENT, Jeanine L Start : 13-Oct-2016 End : 13-Jan-2018 Inactive NexIUM 24HR 20 MG Oral Capsule Delayed Release 1 (one) Capsule DR qd prn for 30 days Quantity: 30 {Capsule} Refills: 6 Ordered:13-Jan-2018 Ric NEALEvy DO, Debra A Start : 13-Jan-2018 End : 13-Jan-2018 Discontinued [place] 7.5-325 MG Oral Tablet 1-2 Tablet bid for 0 days Quantity: 60 {Tablet} Refills: 0 Ordered:30-Mar-2016 Jojo Grace Start : 24-Mar-2016 End : 30-Mar-2016 Discontinued Comments:sixty Nortriptyline HCl 75 MG Oral Capsule 1 (one) Capsule Capsule daiaarti, prn for 30 days Quantity: 30 {Capsule} Refills: 0 Ordered:13-Oct-2016 Ric NEALEvy DO, Debra A Start : 13-Oct-2016 End : 13-Oct-2016 Discontinued POLYTRIM, 59887-6.1UNIT/ML-% (Ophthalmic Solution) 1 (one) Solution 1 gtt q4-6 hours affected eye for 0 days Quantity: 1 {Bottle} Refills: 0 Ordered:29-Oct-2015 Jojo Grace Start : 20-Aug-2015 End : 29-Oct-2015 Discontinued Propranolol HCl 80 MG Oral Tablet 1 (one) Tablet qd for 0 days Quantity: 30 {Tablet} Refills: 6 Ordered:13-Jan-2018 Ric NEALEvy DO, Debra A Start : 13-Jan-2018 End : 13-Jan-2018 [...] 03-Feb-2018 Gallbladder Result: Comments: See Note; NOTES: [facility] Imaging Services [address] [place] [address] Gallbladder MR#: [id number] Acct: [id number] Name: PUJACAREY M Rep #: [id number] : 1985 F 32 From: Walter Bejarano MD PCP: Evy Larios DO Status: REG CLI Study: Gallbladder Date of Exam: 02/03/18 Exam# [id number] Ordering Dr: Evy Larios DO STUDY: ABDOMINAL [...] Walter edward MD at 14:34 EDT Tel [phone], Service support , CC: Evy Larios DO Boiler Out: Signed 03-Feb-2018 Thyroid Result: Comments: See Note; NOTES: [facility] Imaging Services [address] [place] [address] Thyroid MR#: [id number] Acct: [id number] Name: CAREY MURPHY Lorrie Rep #: [id number] : 12/1985 F 32 From: Radha Perez MD PCP: Evy Larios DO Status: REG CLI Study: Thyroid Date of Exam: 02/03/18 Exam# [id number] Ordering Dr: Evy Larios DO STUDY: THYROID [...] substantially changed in size or appearance on ubon-cz-lbbn comparison. 3 x 3 x 2 mm ovoid solid hypoe choic nodule of the upper right thyroid not formerly visualized. 4 x 3 x 3 mm ovoid solid hypoechoic nodule of the mid left thyroid not formerly visualized. Electronically Signed: Lorrie Laboy at 20:56 EDT , Service support , CC: Evy Larios DO Boiler Out: Signed 28-Apr-2017 Brain W/WO Contrast Result: Comments: See Note; NOTES: [facility] Imaging Services [address] [place] [address] Brain W/WO Contrast MR#: [id number] Acct: [id number] Name: CAREY MURPHY Rep #: [id number] : 1985 F 31 From: Luis Sales MD PCP: Evy Larios DO Status: REG CLI Study: Brain W/WO Contrast Date of Exam: 04/28/17 Exam# [id number] Ordering Dr: Evy Larios DO STUDY: MRI [...] Service support , CC: Evy Larios DO Boiler Out: Signed 23-Apr-2017 Echocardiogram Complete Result: Comments: See Note; NOTES: [facility] Cardiovascular Services [address] [place] [address] Echo Complete 04/22/17 1026 MR#: [id number] Acct: [id number] Name: CAREY MURPHY Rep #: [id number] : 1985 31 From: Juan Sellers MD Attending Dr: Evy Larios DO Status: REG CLI Ordering Dr: Evy Larios DO Date: 04/22/17 Location: [facility] Sex: F C Admitted: Reason For [...] Dictated: 04/22/17 1026 Date Transcribed: 04/23/17 1632 Boiler Out: Signed 20-Oct-2016 Knee 4 or More Views Result: Comments: See Note; NOTES: [facility] Imaging Services [address] [place] [address] Verdana 4d Knee 4 or More Views MR#: [id number] Acct: [id number] Name: JULIAN EVANSICE Lorrie Re p #: [id number] : 1985 F 30 From: Walter Bejarano MD PCP: Evy Larios DO Status: REG CLI Study: Knee 4 or More Views Date of Exam: 10/20/16 Exam# [id number] Ordering Dr: Evy Larios DO STUDY : [...] Walter Bejarano MD at 9:10 EDT Tel [phone], Service support [phone], CC: Evy Larios DO Boiler Out: Signed 20-Oct-2016 Thyroid Result: Comments: See Note; NOTES: [facility] Imaging Services [address] [place] [address] Verdana 4d Thyroid MR#: [id number] Acct: [id number] Name: CAREY EVANS Rep #: [id number] : 1985 F 30 From: Walter Bejarano MD PCP: Evy Larios DO Status: REG CLI Study: Thyroid Date of Exam: 10/20/16 Exam# [id number] Ordering Dr: Evy Larios DO STUDY: THYROID [...] Walter Bejarano MD at 9:08 EDT Tel [phone], Service support [phone], CC: Evy Larios DO Boiler Out: Signed 01-Oct-2016 Spine Cervical (Routine) Result: Comments: See Note; NOTES: [facility] Imaging Services [address] [place] [address] Verdana 4d Spine Cervical (Routine) MR#: [id number] Acct: [id number] Name: CAREY EVANS Rep #: [id number] : 1985 F 30 From: Kamran Anderson MD PCP: Evy Larios DO Status: REG CLI Study: Spine Cervical (Routine) Date of Exam: 10/01/16 Exam# [id number] Ordering Dr: Evy Larios DO STUDY: MRI [...] at 22:22 EST Tel , Service support [phone], CC: Evy Larios DO Boiler Out: Signed 21-May-2016 PT D/C of Non Returning Pt (1) Result: Comments: See Note; NOTES: [facility] Physical Therapy [facility] [address] [place] [address] Fax REHABILITATION SERVICES DISCHA RGE SUMMARY MR#: [id number] Acct: [id number] Name: CAREY EVANS Rep #: [id number] : 1985 30 From: Tate Pennington PT, Cert. AVENDANO, OCS Referring Dr.: Evy Larios DO Status: REG RCR Insurance : [employer] - Discharge Summary (1) - Patient Information [...] appropriate by the physician. Thank you! Tate Pennington PT, <Electronically signed by Cert. ROMANA Schwab, OCS> 05/21/16 0928 CC: Evy Larios DO ANANTH Signed 13-Apr-2016 Emergency Department Summary Result: Comments: See Note; NOTES: [facility] Medical Records Department [address] [place] [address] Emergency Department Summary MR#: [id number] Acct: [id number] Name: JULIAN EVANS Rep #: [id number] : 1985 30 From: Jojo Jack MD [...] improved. Jojo Jack MD T: NTS JOB: [id number] 04/13/16 0803 <Electronically signed by Jojo Jack MD> Date Jojo Jack MD Cosigner Signature (If Indicated): Date CC: Evy Larios DO Date Dictated: 04/12/16 1735 Date Transcribed: 04/12/161734 Boiler Out: Signed 12-Apr-2016 Discharge Instruction Result: Comments: See Note; NOTES: [facility] Medical Records Department [address] [place] [address] Discharge Instruction 04/12/16 1503 MR#: [id number] Acct: [id number] Name: CAREY EVANS Rep #: [id number] : 1985 30 From: Jojo Jack MD [...] problems, contact your doctor. Call [facility] ([phone]) or report to the closest Emergency Room. Call 911 if necessary. 04/02 08/17 1503 <Electronically signed by Jojo Jack MD> Date Jojo Jack MD Cosigner Signature (If Indicated): Date ___ CC: Evy Larios DO 27-Mar-2016 Inital Evaluation (1) - PT Result: Comments: See Note; NOTES: [facility] Physical Therapy [address] [place] [address] Fax REHABILITATION SERVICES INITIA L EVALUATION MR#: [id number] Acct: [id number] Name: CAREY EVANS Rep #: [id number] : 1985 30 From: Tate Cat Referring [...] that she has been treated at [facility] for neck pain years ago, but now [...] 4-/5. Empty Can Test (+) for pain. 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 R: 62 lbs [...] to be FAXED BACK to us at [phone] for Medicare purposes. Please let me know if th ere are questions or concerns regarding this plan of care. Physician Signature: Date: <Electronically signed by Tate Cat &amp ;#62; 03/27/16 1702 CC: Evy Larios DO JSAarti Signed For Medicare only, by signing this I certify the plan of care. Physicians Signature Date 24-Mar-2016 Cerv Spine 4 or 5 Views Result: Comments: See Note; NOTES: [facility] Imaging Services [address] [place] [address] Verdana 4d Cerv Spine 4 or 5 Views MR#: [id number] Acct: [id number] Name: CAREY EVANS Rep #: [id number] : 1985 F 30 From: Walter Bejarano MD PCP: Evy Larios DO Status: REG CLI Study: Cerv Spine 4 or 5 Views Date of Exam: 03/24/16 Exam# [id number] Ordering Dr: Evy Larios DO STUDY: X-RAY [...] Walter Bejarano MD at 15:12 EDT Tel [phone], Service supp ort [phone], CC: Evy Larios DO Boiler Out: Signed 24-Mar-2016 Shoulder min 2 Views Result: Comments: See Note; NOTES: [facility] Imaging Services [address] [place] [address] Verda 4d Shoulder min 2 Views MR#: [id number] Acct: [id number] Name: CAREY EVANS Lorrie Zamora #: [id number] : 1985 F 30 From: Walter Bejarano MD PCP: Evy Larios DO Status: REG CLI Study: Shoulder min 2 Views Date of Exam: 03/24/16 Exam# [id number] Ordering Dr: Evy Larios DO ERNIE DY: [...] Bejarano MD 2015 at 15:11 EDT Tel [phone], Service support [phone], CC: Evy Larios DO Boiler Out: Signed 23-Jul-2015 Chest PA and Lateral Result: Comments: See Note; NOTES: [facility] Imaging Services [address] [place] [address] Verdana 4d Chest PA and Lateral MR#: [id number] Acct: [id number] Name: CAREY EVANS Rep #: [id number] : 1985 F 29 From: Oscar Dickens MD PCP: Evy Larios DO Status: REG CLI Study: Chest PA and Lateral Date of Exam: 07/23/15 Exam# [id number] Ordering Dr: Kyle Romeo STUDY: X-RAY CHEST [...] 11 :33 EST Tel , Service support [phone], RAD/Chest PA and Lateral IMPRESSION: Normal x-ray examination of the chest. 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 Comments: 1-5 cigs daily for 10 years Status: Active Smoking Status Name Dates Details Light tobacco smoker Vital Signs Date Test Result Details 2-Xih-977954:50 Temperature 96.8 f Comments: Method: Axillary Pulse [...] kg/m2 Body Surface Area Calculated 2.04 m2 08-Xfu-94941:23 Temperature 97.1 f Comments: Method: Temporal Pulse [...] kg/m2 Body Surface Area Calculated 2.04 m2 74-Wgs-536391:42 Temperature 96.8 f Comments: Method: Temporal Pulse [...] 1.97 m2 Results Date Description Value Details 64-Idu-980464:02 hCG,Beta Subunit, Qnt, Serum Comments: PATIENT NOT FASTINGPERFORMED BY: [facility]CoTrenton Psychiatric HospitalOusvdc3762 [facility] [id number] hCG,Beta Subunit,Qnt,Serum 30306 m[iU]/mL (Normal) Comments: Female (Non-) 0 - 5 (Postmenopausal) 0 - 8 . Female () Weeks of Gestation 3 6 - 71 4 10 - 750 5 480 - 5253 6 734 - 84857 7 4675 -785975 8 68334 -125751 9 01577 -885676 10 02331 -727647 12 91736 -560351 14 29738 - 41895 15 66111 - 81436 16 5293 - 07078 17 3513 - 39854 18 7955 - 52217Roche ECLIA methodology 73-Ptf-451264:02 FERRITIN (08020) Comments: PATIENT NOT FASTINGPERFORMED BY: LabCoT[facility] Psych[facility] HospitalPwoicv6398 [facility] [id number] Ferritin, Serum 58 ng/mL (Normal) Range: 15-150 21-Oef-307797:02 IRON (70780) Comments: PATIENT NOT FASTINGPERFORMED BY: [facility] Djczod9847 [facility] [id number] Iron 93 ug/dL (Normal) Range: 27-159 90-Liu-078947:02 CBC W/AUTO DIFF WBC (32500) Comments: PATIENT NOT FASTINGPERFORMED BY: [facility] Jxlyzp5512 [facility] [id number] Immature Grans (Abs) 0.0 {x10E3/uL} (Normal) Range: [...] 3.77-5.28 WBC 9.4 {x10E3/uL} (Normal) Range: 3.4-10.8 49-Luk-602399:41 MICROALBUMIN: CREATININE RATIO Comments: PATIENT NOT FASTINGPERFORMED BY: [employer] Football Social ClubCoTrenton Psychiatric HospitalXpwdtc1050 [facility] [id number]; can review on 01/07 (03031) AND (13960) Alb/Creat Ratio 2.7 {mg/g_creat} (Normal) Range: 0.0-30.0 Albumin, Urine 3.5 ug/mL (Normal) Creatinine, Urine 130.7 mg/dL (Normal) 67-Slb-869600:41 CBC W/AUTO DIFF WBC (74874) Comments: PATIENT NOT FASTINGPERFORMED BY: LabCoT[facility] Psych[facility] HospitalRztuvb2328 [facility] [id number] Immature Grans (Abs) 0.0 {x10E3/uL} (Normal) Range: [...] 3.77-5.28 WBC 4.5 {x10E3/uL} (Normal) Range: 3.4-10.8 65-Jzg-183467:41 METABOLIC PANEL, COMPREHENSIVE Comments: PATIENT NOT FASTINGPERFORMED BY: [employer] Xbnqeg0342 [facility] [id number] (59442) ALT (SGPT) 27 [iU]/L (Normal) Range: 0-32 [...] 6-20 Glucose 81 mg/dL (Normal) Range: 65-99 05-Nxp-902790:51 [place] Charlie AB PROFILE Comments: PATIENT NOT FASTINGPERFORMED BY: Digital VaultTrenton Psychiatric HospitalIpgplv1495 [facility] [id number] BY: BN LabCo[address] [id number] (00604) [place] A24 IgM Negative {titer} (Normal) [place] A16 IgM Negative {titer} (Normal) [place] A9 IgM Negative {titer} (Normal) [place] A7 IgM Negative {titer} (Normal) [place] A24 IgG 1:1600 {titer} (Abnormal) [place] A16 IgG 1:1600 {titer} (Abnormal) [place] A9 IgG 1:1600 {titer} (Abnormal) [place] A7 IgG 1:1600 {titer} (Abnormal) 69-Rlz-187155:51 CMV ANTIBODY (33184) Comments: PATIENT NOT FASTINGPERFORMED BY: [employer]6370 [facility] [id number] BY: Food [employer] [address] [id number] Cytomegalovirus (CMV) Ab, IgG >10.00 U/mL (Abnormal) Range: 0.00-0.59 Comments: Negative <0.60 Equivocal 0.60 - 0.69 Positive >0.69 00-Xfk-017732:51 CMV IGM ANTBDY (55831) Comments: PATIENT NOT FASTINGPERFORMED BY: BuzzFeedAdam [place] [address] [facility] [id number] BY: [employer] [id number] Cytomegalovirus (CMV) Ab, IgM 36.0 AU/mL (Abnormal) Range: 0.0-29.9 Comments: Negative <30.0 Equivocal 30.0 - 34.9 Positive >34.9 A positive result is generally indicative of acute infection, reactivation or persistent IgM production. 82-Cgs-041025:51 URINALYSIS (60483) Comments: PATIENT NOT FASTINGPERFORMED BY: [employer] Ftoooc2423 [facility] [id number] BY: [employer] [id number] Microscopic Examination MICNIP (Normal) Comments: Microscopic not indicated and not performed. Nitrite, Urine Negative (Normal) Urobilinogen,Semi-Qn 0.2 mg/dL (Normal) Range: 0.2-1.0 Bilirubin Negative (Normal) Occult Blood Negative (Normal) Ketones Negative (Normal) Glucose Negative (Normal) Protein Negative (Normal) WBC Esterase Negative (Normal) Appearance Turbid (Abnormal) Urine-Color Yellow (Normal) pH 5.0 (Normal) Range: 5.0-7.5 Specific [place] 1.022 (Normal) Range: 1.005-1.030 39-Ghf-355684:51 EBV Panel (40554) Comments: PATIENT NOT FASTINGPERFORMED BY: [employer] PartnershipUNC Health App[facility] [id number] BY: [employer] [id number] Interpretation: SPRCS (Normal) Comments: EBV Interpretation Chart [...] - 43.9 Positive >43.9 :51 URINE PAPI CULTURE-SELNEA COL Comments: PATIENT NOT FASTINGPERFORMED BY: [employer] [facility] [id number] BY: CircuitLabton1447 [facility] [id number] COUNT (91266) Result 1 MUG (Normal) Comments: Mixed urogenital flora10,000-25,000 colony forming units per mL Urine Final report (Normal) Culture,Comprehensive 04-How-835482:51 CBC WITH MANUAL DIFF Comments: PATIENT NOT FASTINGPERFORMED BY: [facility] Jemkbx5479 Thorne RoadDublin [place] [id number] BY: LabCoDan [place] 797577 [facility] [id number] Inf ormation: SRC:KAREN (39177) Hematology Comments: Note: (Normal) Comments: Verified by [...] 1-CONVRT ENZYM Comments: PATIENT NOT FASTINGPERFORMED BY: [place] [address]2270 [facility] [id number] BY: [address] [id number] (10060) CLEO 35 U/L (Normal) Range: 14-82 89-Pph-927894:51 Lyme Disease Antibody W/ Comments: PATIENT NOT FASTINGPERFORMED BY: The Football Social ClubFrank Ville 8[address]3270 [facility] [id number] BY: [address] [id number] Reflex (97564) Lyme IgG/IgM Ab <0.91 {ISR} (Normal) Range: 0.00-0.90 Comments: Negative <0.91 Equivocal 0.91 - 1.09 Positive >1.09 :51 CCP ANTIBODY (72464) Comments: PATIENT NOT FASTINGPERFORMED BY: The Football Social ClubFrank [place] 8[address]3270 [facility] [id number] BY: [address] [id number] CCP Antibodies IgG/IgA 5 {units} (Normal) Range: 0-19 Comments: Negative <20 Weak positive 20 - 39 Moderate positive 40 - 59 Strong positive >59 :51 SED RATE ERYTHROCYTE Comments: PATIENT NOT FASTINGPERFORMED BY: The Football Social ClubFrank [place] 8[address]3270 [facility] [id number] BY: [address] [id number] (20653) Sedimentation Rate-Westergren 21 mm/h (Normal) Range: 0-32 :51 C-REACTIVE PROTEIN Comments: PATIENT NOT FASTINGPERFORMED BY: [place] [address]2270 [facility] [id number] BY: [address] [id number] (95589) C-Reactive Protein, Quant 15.3 mg/L (Abnormal) Range: 0.0-4.9 :51 RHEUMATOID FACTOR-QUANT Comments: PATIENT NOT FASTINGPERFORMED BY: [address] [id number] BY: [address] [id number] (32060) RA Latex Turbid. <10.0 {IU/mL} (Normal) Range: 0.0-13.9 :51 KAYLEEN (ANTINUCLEAR ANTIBODY) Comments: PATIENT NOT FASTINGPERFORMED BY: [address] [id number] BY: [address] [id number] (01984) KAYLEEN Direct Negative (Normal) :51 METABOLIC PANEL, Comments: PATIENT NOT FASTINGPERFORMED BY: [address] [id number] BY: [address] [id number] COMPREHENSIVE (87836) ALT (SGPT) 43 [iU]/L (Abnormal) Range: 0-32 [...] CREATININE RATIO Comments: PATIENT WAS FASTINGPERFORMED BY: [employer] [facility] [id number] (90354) AND (14484) Microalb/Creat Ratio 4.2 {mg/g_creat} (Normal) Range: 0.0-30.0 Microalbumin, Urine 8.7 ug/mL (Normal) Creatinine, Urine 206.4 mg/dL (Normal) :39 HGB A1C (60109) Comments: PATIENT WAS FASTINGPERFORMED BY: [employer] [facility] [id number] Hemoglobin A1c 5.9 % (Abnormal) Range: 4.8-5.6 Comments: . Pre-diabetes: 5.7 - 6.4 Diabetes: >6.4 Glycemic control for adults with diabetes: <7.0 :39 CBC W/AUTO DIFF WBC (26047) Comments: PATIENT WAS FASTINGPERFORMED BY: [employer] [facility] [id number] Immature Grans (Abs) 0.0 {x10E3/uL} (Normal) Range: [...] 3.77-5.28 WBC 10.0 {x10E3/uL} (Normal) Range: 3.4-10.8 7-Sqf-935898:39 METABOLIC PANEL, COMPREHENSIVE Comments: PATIENT WAS FASTINGPERFORMED BY: LabCoTrenton Psychiatric HospitalRsycph4921 [facility] [id number] (83682) ALT (SGPT) 18 [iU]/L (Normal) Range: 0-32 [...] Glucose, Serum 69 mg/dL (Normal) Range: 65-99 3-Iux-890393:39 LIPID PANEL (04136) Comments: PATIENT WAS FASTINGPERFORMED BY: [employer] LabCoSPIRIT Navigation Vvdkxe8594 [facility] [id number] LDL/HDL Ratio 2.7 {ratio_units} (Normal) Range: 0.0-3.2 Comments: LDL/HDL Ratio Men Women 1/2 Avg.Risk 1.0 1.5 Av g.Risk 3.6 3.2 2X Avg.Risk 6.2 5.0 3X Avg.Risk 8.0 6.1 LDL Cholesterol Calc 114 mg/dL (Abnormal) Range: 0-99 VLDL Cholesterol Cesar 26 mg/dL (Normal) Range: 5-40 HDL Cholesterol 43 mg/dL (Normal) Triglycerides 130 mg/dL (Normal) Range: 0-149 Cholesterol, Total 183 mg/dL (Normal) Range: 100-199 8-Lme-301795:39 TSH (14237) Comments: PATIENT WAS FASTINGPERFORMED BY: [facility] Ychgwz3433 [facility] [id number] TSH 2.320 {uIU/mL} Range: 0.450-4.500 (Normal) :1 ASPIRATION (SLIDES ONLY) See Note (Normal) Comments: [facility] [address] [place], [place], [address] 5 Comments: Patient: CAREY EVANS : 1985 (31/F) Acct Num: [id number] Phys: Stephanie GAGE,Juan Unit Num: [id number] Loc: [facility] Specimen: [id number] Received: 11/12/16 - 1602 Spec Typ e: ASPIRATION TISSUES TISSUES: COMMENT Correlation with clinical, radiologic findings and appropriate follow up are necessary. CYTOLOGY GROSS Received are 12 smears labeled with the patient's name and designated per the requisition as fine needle aspiration right thyroid. Submitted for staining. / 11/13/16 TC:5 CPT: 93295 CYTOLOGY STUDY Slides are reviewed. The sp [...] Signed Quentin Davis 11/16/16 <signature on file> 57-Vyg-280822:49 CBC with auto diff Comments: PATIENT NOT FASTINGPERFORMED BY: [facility] Qobjij7946 [facility] [id number] Information: NURSE DRAW (81001) Immature Grans (Abs) 0.0 {x10E3/uL} (Normal) Range: [...] 3.77-5.28 WBC 9.9 {x10E3/uL} (Normal) Range: 3.4-10.8 39-Fwp-254632:49 METABOLIC PANEL, COMPREHENSIVE Comments: PATIENT NOT FASTINGPERFORMED BY: [facility] [id number] (00277) ALT (SGPT) 51 [iU]/L (Abnormal) Range: 0-32 [...] Glucose, Serum 86 mg/dL (Normal) Range: 65-99 45-Pcs-84398:32 CBC W/AUTO DIFF WBC Comments: PATIENT WAS FASTINGPERFORMED BY: [facility] [id number] Information: [id number] (85980) Immature Grans (Abs) 0.0 {x10E3/uL} (Normal) Range: [...] 8.7 {x10E3/uL} (Normal) Range: 3.4-10.8 :32 TSH (61600) Comments: PATIENT WAS FASTINGPERFORMED BY: Digital VaultEastern New Mexico Medical CenterZpdbdn2895 [facility] [facility] [id number] TSH 1.350 {uIU/mL} (Normal) Range: 0.450-4.500 :32 METABOLIC PANEL, COMPREHENSIVE Comments: PATIENT WAS FASTINGPERFORMED BY: [id number] [facility] [id number] ([id number]) ALT (SGPT) 20 [iU]/L (Normal) Range: 0-32 [...] Glucose, Serum 81 mg/dL (Normal) Range: 65-99 80-Xbg-17800:32 LIPID PANEL (81304) Comments: PATIENT WAS FASTINGPERFORMED BY: [facility] [id number] [facility] [id number]; non-emergent till apt LDL/HDL Ratio 3.5 {ratio_units} [...] Indication: Dysthymic Planned Observations Vitamin D Hydroxy (66517)Indication: Vitamin D deficiency On: 66-Nij-801340:11 Request TSH (THYROID STIMULATING HORMONE) (77226)Indication: Tachycardia On: 09-Baa-512877:11 Request METABOLIC PANEL, COMPREHENSIVE (68053)Indication: Elevated hemoglobin A1c On: 84-Vbd-601011:10 Request HGB A1C (61594)Indication: Elevated hemoglobin A1c On: 38-Ush-529272:10 Request TEST - SERUM QUANTITATIVE (HCG) (84602)Indication: Positive urine test On: 79-Ffn-876570:31 Request CBC, Platelets & Auto Diff (98418)Indication: Sinusitis, acute On: 78-Rfw-730373:34 Request IGA/IGD/IGG/IGM-EACH (41694)Indication: Frequent infections On: 02-Jhp-487563:29 Request HGB A1C (56713)Indication: Elevated hemoglobin A1c On: 92-Mgf-508207:33 Request CBC W/AUTO DIFF WBC (37044)Indication: Elevated hemoglobin A1c On: 6-Fwx-355068:06 Request METABOLIC PANEL, COMPREHENSIVE (03024)Indication: Elevated hemoglobin A1c On: 9-Qqe-255830:06 Request LIPID PANEL (36178)Indication: Other hyperlipidemia On: 6-Bno-735696:06 Request HGB A1C (75143)Indication: Elevated hemoglobin A1c On: 6-Kba-507784:06 Request TSH (70287)Indication: Dysthymic On: 6-Sov-064158:20 Request LIPID PANEL (75488)Indication: Other hyperlipidemia On: 0-Xpn-978317:20 Request HEPATIC FUNCTION PANEL (07138)Indication: Other hyperlipidemia On: 06-Nue-729488:33 Request LIPID PANEL (07182)Indication: Other hyperlipidemia On: 50-Dte-383730:30 Request Planned Encounters Medical; [facility] 3 Month FU - On: 11-May-2018 9:15 [facility] Fast DO, Evy A Fast DO, Evy A Planned Procedures Ultrasound - GallbladderBy: Fast DO, On: 17-Jan-2018 Intent Evy A Fast DO, Evy A ELECTROCARDIOGRAM, COMPLETE (ECG) On: 17-Jan-2018 Intent ([id number])By: Fast DO, Evy A Fast DO, Comments: sinus/atrial tach no acute st twave changes old anterior t wave inv no change Evy A Ultrasound - ThyroidBy: Fast DO, On: 17-Jan-2018 Intent Evy A Fast DO, Evy A MRI OF BRAIN WITH AND WITHOUT On: 19-Apr-2017 Intent CONTRAST ([id number])By: Fast DO, Evy A Comments: headache and [...] A ELECTROCARDIOGRAM, COMPLETE (ECG) On: 13-Oct-2016 Intent (21834)By: Fast DO, Evy A Fast DO, Evy A MRI OF CERVICAL SPINE WITHOUT On: 29-Sep-2016 Intent CONTRAST ([id number])By: Fast DO, Evy A Fast DO, Evy A Radiology - Cervical SpineBy: Fast On: 24-Mar-2016 Intent DO, Evy A Fast DO, Evy A Radiology - Shoulder - LeftBy: Fast On: 24-Mar-2016 Intent DO, Evy A Fast DO, Evy A CHEST XRAY, PA & LATERAL (76338)By: On: 23-Jul-2015 Intent Rohan Romeo MD Instructions Name Dates Details BMI 40.0-44.9, adult [...] Detail Indication: Dysthymic Encounters Office Visit On: 02-May-2018 12:48 Encounter Reason: [...] side effects and compliant with dosing regimen. 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 Th e patient's appetite is normal. Nutrition: appropriate [...] Nevus(238.2), Migraine (346.80) [facility] Payers [facility] CenterCANOFELIA MURPHY; a guarantor
--- OUTSIDE RECORDS SUMMARY | 2018-08-25 06:46 | XMS RPT_ITS ---
:1985 Author Organization OHIP Care Team Providers Name Role Phone Gavi Davis Attending Unavailable Gavi Davis Referring Unavailable Fast, Evy Primary Care Unavailable Fast, Evy Attending Unavailable Fast, Evy Referring Unavailable Fast, Evy Primary Care Unavailable Fast, Evy Primary Care Unavailable Gavi Davis Attending Unavailable Gavi Davis Attending Unavailable Fast, Evy Referring Unavailable Fast, Evy Primary Care Unavailable PROBLEMS PROBLEMS No Problem Records FoundPROCEDURES PROCEDURES No Procedure Records FoundRESULTS RESULTS BEDSIDE GLUCOSE Collected: 07/15/2018 Status: F Source: YANNA 2:15 PM [facility] REPOSITORY TYPE CODE TESTS RESULT OUT OF REFERENCE UNITS RANGE LAB L501.080 70-110 mg/dL High BEDSIDE GLU 144 Result Comment: MANAGEMENT OF PATIENT CARE PER NURSING PROTOCOL Performed By: #### L501.080 #### [facility] Point of Care [address] [place] [address] URINALYSIS, COMPLETE Collected: 07/15/2018 Status: F Source: YANNA 2:00 PM [facility] REPOSITORY Order Comment: How was Urine Obtained? DENTAL HYGIENE TEACHER TO SPECIFY TYPE CODE TESTS RESULT OUT OF RANGE REFERENCE UNITS LAB L400.3000 Yellow COLOR Normal Yellow LAB L400.3050 Clear Normal CLARITY Clear LAB L400.3200 Normal mg/dl Normal GLUCOSE, UR Normal LAB L400.3300 Negative mg/dL Normal BILIRUBIN URINE Negative LAB L400.3400 Negative mg/dl Normal KETONE UR Negative LAB L400.3465 1.002-1.030 Normal SP.GR. DIPSTX 1.015 LAB L400.3550 5.0 - 8.0 pH UR Normal 6.0 LAB L400.3600 Negative mg/dl PROT Normal DIPSTX Negative LAB L400.3700 Normal mg/dl Normal UROBILI Normal LAB L400.3750 Negative Normal NITRITE UR Negative LAB L400.3780 Negative /ul Normal OCCULT BLOOD-UR Negative LAB L400.3800 Negative /ul LEUK Normal ESTERASE Negative LAB L400.4050 0-5 /hpf WBC 0 Normal SEEN LAB L400.4100 0-5 /hpf 0 Normal RBC-UA SEEN LAB L400.4150 5-10 /hpf SQUAM Normal EPI 0-5 SEEN LAB L400.4300 None Seen /hpf 0 Normal BACTERIA SEEN LAB L400.4350 <or=2+ /hpf 0 Normal MUCUS, URINE SEEN Performed By: #### L400.0001 #### [facility] [address] [place], [place], [id number] CBC-COMPLETE BLOOD CNT Collected: 07/15/2018 Status: F Source: YANNA NO DIFF 2:00 PM [facility] REPOSITORY TYPE CODE TESTS RESULT OUT OF RANGE REFERENCE UNITS LAB L100.1000 4.4-11.0 K/mm3 Normal WBC 8.9 LAB L100.1200 4.2-5.4 M/mm3 Low RBC 4.14 LAB L100.1300 12.0-15.0 g/dl Low HGB 11.6 LAB L100.1400 37-47 % Low HCT 34.7 LAB L100.1500 81-99 fL Normal MCV 83.8 LAB L100.1600 27.0-32.0 pg Normal MCH 28.0 LAB L100.1700 32-36 g/gl Normal MCHC 33.4 LAB L100.1810 11.6-14.6 % Normal RDW CV 13.5 LAB L100.1820 35.1-43.9 fl Normal RDW SD 40.8 LAB L100.1900 150-450 K/mm3 Normal PLT 287 LAB L100.2000 6.2-12.0 fl Normal MPV 9.7 Performed By: #### L100.0500 #### [facility] [address] [facility] [place], [place], [id number] GESTATIONAL GTT 3HR Collected: 06/30/2018 Status: F Source: YANNA 100G 7:00 AM [facility] REPOSITORY Order Comment: Is Patient Fasting? Y TYPE CODE TESTS RESULT OUT OF RANGE REFERENCE UNITS LAB L501.0650 <105 mg/dL Normal GLU 84 GTT-FASTING Result Comment: GLUCOSE TOLERANCE TEST FOR Reference Interval GESTATIONAL DIABETES Fasting <105 mg/dL 1 hour <190 mg/dl 2 hour <165 mg/dl 3 hour <145 mg/dl LAB L501.0660 <190 mg/dL Normal GLU GTT- 1HR 166 LAB L501.0670 <165 mg/dL High GLU GTT- 2HR 174 LAB L501.0680 <145 L Normal GLU GTT- 3HR 144 Performed By: #### L500.4710 #### [facility] [address] [place], [place], [id number] CBC-COMPLETE BLOOD CNT Collected: 06/09/2018 Status: F Source: YANNA NO DIFF 8:46 AM [facility] REPOSITORY TYPE CODE TESTS RESULT OUT OF RANGE REFERENCE UNITS LAB L100.1000 4.4-11.0 K/mm3 Normal WBC 7.0 LAB L100.1200 4.2-5.4 M/mm3 Low RBC 3.81 LAB L100.1300 12.0-15.0 g/dl Low HGB 11.2 LAB L100.1400 37-47 % Low HCT 33.2 LAB L100.1500 81-99 fL Normal MCV 87.1 LAB L100.1600 27.0-32.0 pg Normal MCH 29.4 LAB L100.1700 32-36 g/gl Normal MCHC 33.7 LAB L100.1810 11.6-14.6 % Normal RDW CV 13.6 LAB L100.1820 35.1-43.9 fl Normal RDW SD 41.8 LAB L100.1900 150-450 K/mm3 Normal PLT 287 LAB L100.2000 6.2-12.0 fl Normal MPV 10.2 Performed By: #### L100.0500 #### [facility] [address] [place], [address] GLUCOSE CHALLENGE GEST Collected: 06/09/2018 Status: F Source: YANNA 1H 50G 8:46 AM [facility] REPOSITORY TYPE CODE TESTS RESULT OUT OF RANGE REFERENCE UNITS LAB L501.0250 70-140 mg/dL High GLU GEST 157 50g 1H Performed By: #### L501.0250 #### [facility] [address] [facility] [place], [address] GALLBLADDER Observed: 02/03/2018 Status: F Source: YANNA 7:51 AM [facility] REPOSITORY [facility] Services [address] [place] [address] Gallbladder MR#: [id number] Acct: [id number] Name: REBEKAH LUO Rep #: [id number] : 1985 F 32 From: Walter Bejarano MD PCP: Evy Larios DO Status: REG CLI Study: Gallbladder Date of Exam: 02/03/18 Exam# [id number] Ordering Dr: Evy Larios DO STUDY: ABDOMINAL ULTRASOUND - RIGHT UPPER QUADRANT REASON FOR VISIT: Female, 32 years old. Right upper quadrant pain. TECHNIQUE: Ultrasound evaluation of the right upper quadrant was performed with real-time and static arreguin-scale imaging. TECHNICAL QUALITY: Adequate. COMPARISON: Comparison is made with prior study dated January 09, 2011. FINDINGS: Liver: The liver measures 17.0 cm. There is normal echogenicity of the liver. The bile ducts are within normal limits. There is hepatic color flow. The direction of portal flow is hepatopetal. There is no demonstrated mass lesion. Gallbladder: Normal distended gallbladder. The gallbladder wall measures 2.6 mm. There is a negative sonographic Fernandes's sign. There is no pericholecystic fluid. There are no gallstones. Common Bile Duct (C.B.D.): The common bile duct measures 2.5 mm. Pancreas: Normal [...] no demonstrated renal mass or cyst. There is no right hydronephrosis. US/Gallbladder IMPRESSION: Normal right upper quadrant ultrasound examination. Electronically Signed: Walter Bejarano MD at 14:34 EDT Tel [phone], Service support , CC: Evy Larios DO Workforce Management Manager: Signed THYROID Observed: 02/03/2018 Status: F Source: [place] 7:51 AM [facility] REPOSITORY [facility] Imaging Services [address] [place] [address] Thyroid MR#: [id number] Acct: [id number] Name: REBEKAH LUO Rep #: [id number] : 1985 F 32 From: Radha Perez MD PCP: Evy Larios DO Status: REG CLI Study: Thyroid Date of Exam: 02/03/18 Exam# [id number] Ordering Dr: Evy Larios DO STUDY: THYROID ULTRASOUND REASON FOR EXAM: Female, 32 years old. Thyroid nodule. TECHNIQUE: Ultrasound evaluation of the thyroid was performed with real-time and static arreguin-scale imaging. COMPARISON: Prior thyroid ultrasound of October 20, 2016 FINDINGS: RIGHT LOBE: The right lobe of the thyroid gland measures 5.2 x 2.1 x 2.0 cm. There is a homogeneous echotexture. There is a 2.3 x 2.0 x 2.2 cm complex nodule of the mid to lower pole of the right thyroid with internodular and perinodular vascularity. There is also a solid hypoechoic ovoid nodule measuring 3 x 3 x 2 mm in the upper pole. LEFT LOBE: The left lobe of the thyroid gland measures 4.4 x 1.6 x 1.5 cm. There is a homogeneous echotexture. There is a 4 x 3 x 3 hypoechoic solid nodule of the mid left thyroid with perinodular vascularity. ISTHMUS: The isthmus measures 0.2 centimeter. The regional lymph nodes are normal. US/Thyroid IMPRESSION: Enlargement of the right thyroid primarily secondary to a complex nodule of the mid and inferior pole measuring 2.3 x 2.0 x 2.2 cm which is not substantially changed in size or appearance on ftka-oa-[id number] comparison. 3 x 3 x 2 mm ovoid solid hypoechoic nodule of the upper right thyroid not formerly visualized. 4 x 3 x 3 mm ovoid solid hypoechoic nodule of the mid left thyroid not formerly visualized. Electronically Signed: Radha Perez MD at 20:56 EDT , Service support , CC: Evy Larios DO Workforce Management Manager: Signed ALLERGIES ALLERGIES DATE TYPE / CODE NAME / CODE REACTION SEVERITY SOURCE 04/12/2016 Drug Sulfa Hives Unknown [facility] Allergy/4160 (Sulfonamide [facility] 39033(SNOMED Antibiotics)/ Repository CT) [id number](RX NORM) 04/12/2016 Drug nabumetone/F0 Hives Unknown [facility] All[facility]/4160 93480211(RXNO [facility] 17977(SNOMED RM) Repository CT) ENCOUNTERS ENCOUNTERS ADMIT/DISCHARGE ACCOUNT ADMITTING ENCOUNTER LOCATION SOURCE NUMBER CLASS 07/15/2018/ [id number] Ambulatory [facility] 8 1 [facility] ing:WPOUTRoom Repository : [id number] 06/30/2018 [id number] Ambulatory [facility] 4 [facility] ing:LAB Repository 06/09/2018 [id number] Ambulatory Yanna Yanna 3 [facility] ing:WOBLAB Repository 02/03/2018 [id number] Ambulatory Yanna Yanna 9 [facility] ing:US Repository PAYERS PAYERS ENCOUNTER GUARANTOR PAYER SUBSCRIBER SOURCE 07/15/2018 REBEKAH Andrew Primary REBEKAH Andrew [facility] [id number] Insurance:[facility] [address] [place] [address] [id number] Number: Repository [id number]: 330 [id number] [phone] () Date:[id number] [address]GL: 07/15/2018 Secondary NOT GIVENUNK God[facility] Insurance:SELF PAY [facility] Number: Effective Repository Date:2018-07-15 06/30/2018 REBEKAH Andrew Primary REBEKAH [place] [id number] Insurance:[facility] KEENERDOB: [facility] [id number] Number: Repository [id number]: 330 [id number] [phone] () Date:[id number] [facility] [id number] [place] [address]BR: 06/30/2018 Secondary NOT GIVENUNK Yanna Insurance:SELF PAY [facility] Number: Effective Repository Date:2018-06-20 06/09/2018 Rebekah Andrew Primary REBEKAH [place] [id number] Insurance:[facility] KE[facility]DOB: [facility] [address] [place] [address] [id number] [place] Number: Repository [id number]: 330 [id number] [phone] () Date:[id number] [facility] [id number] [address]TD: 06/09/2018 Secondary NOT GIVENUNK Godfrey Insurance:SELF PAY [facility]: Effective Repository Date:2018-06-09 02/03/2018 Rebekah M Primary REBEKAH Andrew Yanna [id number] [facility] [place] [facility] [id number] Number: Repository [address]Wjn: 330 [id number] [phone] () Date:[id number] [facility] [address], [place] [address]SK: 02/03/2018 Secondary NOT GIVENUNK Yanna Insurance:SELF PAY [facility] Number: Effective Repository Date:2018-01-17
== END ==
PROVIDERS: Family Provider Internal Medicine; PCP Internal Medicine; Referring Provider Internal Medicine; Visit Provider Obstetrics & Gynecology
DX: O24.912 Unspecified diabetes mellitus in pregnancy, second trimester (principal)
CPT/HCPCS: 36415; 82951; 82952

== ENCOUNTER 2018-07-15 13:30 | Outpatient (CLI) | payer OTHER, SELFPAY ==
[2018-07-15 13:58] VITALS: BMI 38.4
[2018-07-15 14:21] LABS: Bedside Glucose 144 mg/dL (70-110)
[2018-07-15 14:23] LABS: Bacteria 0 SEEN /hpf (None Seen); Mucous, Urine 0 SEEN /hpf (<or=2+); Red Blood Cells-Urine 0 SEEN /hpf (0-5); White Blood Cells 0 SEEN /hpf (0-5)
[2018-07-15 14:24] LABS: Color, Urine Yellow (Yellow); Glucose, Dipstick Normal (Normal); Ketone-Dipstick Negative (Negative); Leukocyte Esterase-Dipstick Negative /ul (Negative); Nitrite-Dipstick Negative (Negative); Occult Blood-Urine Negative /ul (Negative); Protein-Dipstick Negative (Negative); Specific Gravity, Urine 1.015 (1.002-1.030); Urine Bilirubin Dipstick Negative (Negative); Urine Clarity Clear (Clear); Urine Urobilinogen Normal (Normal)
[2018-07-15 14:27] LABS: Hematocrit 34.7 % (37-47); Hemoglobin 11.6 g/dl (12.0-15.0); Mean Corp Hgb Conc 33.4 g/gl (32-36); Mean Corpuscular Volume 83.8 fL (81-99); Mean Platelet Vol. 9.7 fl (6.2-12.0); Platelet Count 287 K/mm3 (150-450); RBC Distribution Width CV 13.5 % (11.6-14.6); RBC Distribution Width SD 40.8 fl (35.1-43.9); Red Blood Count 4.14 M/mm3 (4.2-5.4); White Blood Count 8.9 K/mm3 (4.4-11.0)
[2018-07-15 14:38] LABS: Scan Indicated on CBC? Y/N NO
[2018-07-15 14:47] LABS: Squamous Epithelial Cells - UA 0-5 SEEN /hpf (5-10)
--- NOTE | 2018-07-18 07:38 | OB.TRI.NOTE ---
History of Present Illness Date of Service: 07/15/18 Was patient seen by the physician?: No Reason For Visit: GENERAL DISCOMFORT Date of Service: 07/15/18 Final CAITLIN: 09/01/18 Final CAITLIN Source: US <20 weeks Gestational age: 33 Weeks and 1 Days History of Present Illness: 32 yo female presents with CC of lighteheded, N/V, jittyery. She is borderline diabetes with abn glucola and ONE abnormal value on 3 hr GTT but one value JUST WITHIN the normal range. She has been counseled to avoid simple sugars and to eat right with this . Admits to RN that she had cookies and Mt Dew as food prior to presentation. Allergies nabumetone [From Relafen] Allergy (Verified 04/12/16 13:14) Hives Sulfa (Sulfonamide Antibiotics) Allergy (Verified 04/12/16 13:14) Hives Laboratory Studies: Laboratory Tests 07/15/18 07/15/18 07/15/18 Range/Units 14:15 14:00 14:00 WBC 8.9 (4.4-11.0) K/mm3 RBC 4.14 L (4.2-5.4) M/mm3 Hgb 11.6 L (12.0-15.0) g/dl Hct 34.7 L (37-47) % MCV 83.8 (81-99) fL MCH 28.0 (27.0-32.0) pg MCHC 33.4 (32-36) g/gl RDW 13.5 (11.6-14.6) % RDW Differential 40.8 (35.1-43.9) fl Plt Count 287 (150-450) K/mm3 MPV 9.7 (6.2-12.0) fl Urine Color Yellow (Yellow) Urine Clarity Clear (Clear) Urine pH 6.0 (5.0 - 8.0) Ur Specific Rochert 1.015 (1.002-1.030) Urine Protein Negative (Negative) mg/dl Urine Glucose (UA) Normal (Normal) mg/dl Urine Ketones Negative (Negative) mg/dl Urine Occult Blood Negative (Negative) /ul Urine Nitrite Negative (Negative) Urine Bilirubin Negative (Negative) mg/dL Urine Urobilinogen Normal (Normal) mg/dl Ur Leukocyte Esterase Negative (Negative) /ul Urine RBC 0 SEEN (0-5) /hpf Urine WBC 0 SEEN (0-5) /hpf Ur Squamous Epith Cells 0-5 SEEN (5-10) /hpf Urine Bacteria 0 SEEN (None Seen) /hpf Urine Mucus 0 SEEN (<or=2+) /hpf POC Glucose 144 H (70-110) mg/dL Review of Systems Constitutional: Reports: - - lightheaded, jittery. N/V Gastrointestinal: Reports: Nausea, Vomiting NST - FHR Rate Baby A Baseline: 120-130s with accels to 150s Variability:: Moderate Accelerations:: 15 x 15 Decelerations:: Variable - to 100 bpm with quick return, less than 10 sec duration NST Reactive:: Yes FHR Category:: Category I Uterine Activity:: No regular UCs Impression/Plan 33 1/7 wk borderline diabetes , with poor diet as cause of N/V/lightheaded/jittery Protein recommended Cut down on simple sugars as recommended prior. (3 hr with one abn value and one JUST within normal range-- she should not be eating a lot of sugar) RTO as scheduled for next pnv
--- OUTSIDE RECORDS SUMMARY | 2018-10-19 04:06 | XMS RPT_ITS ---
[...] 07/15/2018 Status: F Source: YANNA 2:15 PM [facility] REPOSITORY TYPE CODE TESTS RESULT OUT OF REFERENCE UNITS RANGE LAB L501.080 70-110 mg/dL High BEDSIDE GLU 144 Result Comment: MANAGEMENT OF PATIENT CARE PER NURSING PROTOCOL Performed By: #### L501.080 #### [facility] Point of Care [address] [place] [address] URINALYSIS, COMPLETE Collected: 07/15/2018 Status: F Source: YANNA 2:00 PM [facility] REPOSITORY Order Comment: How was Urine Obtained? MACHINE CLOTHING REPLACER TO SPECIFY TYPE CODE TESTS RESULT OUT [...] URINE SEEN Performed By: #### L400.0001 #### [facility] [address] [place], [place], [id number] CBC-COMPLETE BLOOD CNT Collected: 07/15/2018 Status: F Source: YANNA NO DIFF 2:00 PM [facility] REPOSITORY TYPE CODE TESTS RESULT OUT OF [...] MPV 9.7 Performed By: #### L100.0500 #### [facility] [address] [facility] [place], [place], [id number] GESTATIONAL GTT 3HR Collected: 06/30/2018 Status: F Source: YANNA 100G 7:00 AM [facility] REPOSITORY Order Comment: Is Patient Fasting? Y [...] 3HR 144 Performed By: #### L500.4710 #### [facility] [address] [place], [place], [id number] CBC-COMPLETE BLOOD CNT Collected: 06/09/2018 Status: F Source: YANNA NO DIFF 8:46 AM [facility] REPOSITORY TYPE CODE TESTS RESULT OUT OF [...] MPV 10.2 Performed By: #### L100.0500 #### [facility] [address] [facility], [address] GLUCOSE CHALLENGE GEST Collected: 06/09/2018 Status: F Source: YANNA 1H 50G 8:46 AM [facility] REPOSITORY TYPE CODE TESTS RESULT OUT OF RANGE REFERENCE UNITS LAB L501.0250 70-140 mg/dL High GLU GEST 157 50g 1H Performed By: #### L501.0250 #### [facility] [address] [facility] [place], [address] GALLBLADDER Observed: 02/03/2018 Status: F Source: YANNA 7:51 AM [facility] REPOSITORY [facility] [address] [place] [address] Gallbladder MR#: [id number] Acct: [id number] Name: REBEKAH LUO Rep #: [id number] : 1985 F 32 From: Walter Bejarano MD PCP: Evy Larios DO Status: REG CLI Study: Gallbladder Date of Exam: 02/03/18 Exam# [id number] Ordering Dr: Evy Larios DO STUDY: ABDOMINAL [...] Walter Bejarano MD at 14:34 EDT Tel [phone], Service support , CC: Evy Larios DO Retail Marketing Coordinator: Signed THYROID Observed: 02/03/2018 Status: F Source: [place] 7:51 AM [facility] REPOSITORY [facility] [address] [place] [address] Thyroid MR#: [id number] Acct: [id number] Name: REBEKAH LUO Rep #: [id number] : 1985 F 32 From: Radha Perez MD PCP: Evy Larios DO Status: REG CLI Study: Thyroid Date of Exam: 02/03/18 Exam# [id number] Ordering Dr: Evy Larios DO STUDY: THYROID [...] substantially changed in size or appearance on rhci-og-olxa comparison. 3 x 3 x 2 mm ovoid solid hypoechoic nodule of the upper right thyroid not formerly visualized. 4 x 3 x 3 mm ovoid solid hypoechoic nodule of the mid left thyroid not formerly visualized. Electronically Signed: Radha Perez MD at 20:56 EDT , Service support , CC: Evy Larios DO Retail Marketing Coordinator: Signed ALLERGIES ALLERGIES DATE TYPE / CODE NAME / CODE REACTION SEVERITY SOURCE 04/12/2016 Drug Sulfa Hives Unknown [facility] ([facility]ulf[facility] 00413(SNOMED Antibiotics)/ Repository CT) [id number](RX NORM) 04/12/2016 Drug nabumetone/F0 Hives Unknown [facility]4160 [id number](RXNO [facility] 34202(SNOMED RM) Repository CT) ENCOUNTERS ENCOUNTERS ADMIT/DISCHARGE ACCOUNT ADMITTING ENCOUNTER LOCATION SOURCE NUMBER CLASS 07/15/2018/ [id number] Ambulatory [facility] [place] 8 1 [facility] ing:WPOUTRoom Repository : [id number] 06/30/2018 [id number] [place] [facility] ing:LAB Repository 06/09/2018 [id number] Ambulatory [facility] [place] 3 [facility] ing:WOBLAB Repository 02/03/2018 [id number] Ambulatory [place] 9 [facility] ing:US Repository PAYERS PAYERS ENCOUNTER GUARANTOR PAYER SUBSCRIBER SOURCE 07/15/2018 REBEKAH [facility] Primary REBEKAH [place] [id number] Insurance:[facility] [address] [place] [address] [id number] Number: Repository [id number]: 330 [id number] [phone] () Date:[id number] [address]NI: 07/15/2018 Secondary NOT GIVENUNK [place] Insurance:SELF PAY [facility] Number: Effective Repository Date:2018-07-15 06/30/2018 REBEKAH Andrew Primary [place]BE[place] [id number] Insurance:[facility] KEENERDOB: [facility] [id number] Number: Repository [id number]: 330 [id number] [phone] () Date:[id number] [facility] [id number] [place] [id number]: 06/30/2018 Secondary NOT GIVENUNK [place] Insurance:SELF PAY [facility] Number: Effective Repository Date:2018-06-20 06/09/2018 Rebekah Andrew Primary REBEKAH [place] [id number] Insurance:[facility] KEENERDOB: [facility] PARMENTOR CARE [address] [place] [address] [id number] [place] Number: Repository [id number]: 330 [id number] [phone] () Date:[id number] [facility] [id number], [place] [address]GU: 06/09/2018 Secondary NOT GIVENUNK [place] Insurance:SELF PAY [facility] Effective Repository Date:2018-06-09 02/03/2018 Rebekah M Primary REBEKAH Andrew [place] [id number] Insurance:[facility] MANSFIELDB: [facility] PARCRAB [facility] [facility] [id number] [id number]: Repository [id number]: 330 [id number] [phone] () Date:3637-10-85SG [facility] [id number], [place] [address]VQ: 02/03/2018 Secondary NOT GIVENUNK [place] Insurance:SELF PAY [facility] Number: Effective Repository Date:2018-01-17
== END 2018-07-15 14:52 | disposition home or self-care (01) ==
LOC: WPOUT 13:37 → WP 13:38
PROVIDERS: Family Provider Internal Medicine; PCP Internal Medicine; Referring Provider Obstetrics & Gynecology; Visit Provider Obstetrics & Gynecology
DX: O99.814 Abnormal glucose complicating childbirth (principal); Z3A.33 33 weeks gestation of pregnancy
CPT/HCPCS: 36415; 59050; 81001; 82962; 85027; 99218; G0378

== ENCOUNTER 2018-08-25 05:00 | Inpatient (IN) | payer OTHER, SELFPAY ==
[2018-08-25] VITALS (23 sets, daily range): BP systolic 110–140; BP diastolic 63–90; PULSE 86–107; RESP 14–18; TEMP 36.1–36.4; O2SAT 92–99; BMI 39.1
[2018-08-25 05:56] LABS: Absolute Lymphocyte Count 2.23 X10^3/ul (0.83-4.51); Absolute Neutrophil Count 5.7 X10^3/uL (2.0-7.7); Basophil# 0.01 X10^3/uL; Basophil% 0.1 % (0-1); Eosinophil# 0.03 X10^3/uL; Eosinophils% 0.4 % (0-5); Hematocrit 36.1 % (37-47); Hemoglobin 11.8 g/dl (12.0-15.0); Lymphocyte # 2.23 X10^3/ul (4.0); Lymphocyte % 26.2 % (19-41); Mean Corp Hgb Conc 32.7 g/gl (32-36); Mean Corpuscular Hgb 27.5 pg (27.0-32.0); Mean Corpuscular Volume 84.1 fL (81-99); Monocyte# 0.53 X10^3/uL; Monocyte% 6.2 % (0-10); Neutrophil # 5.66 X10^3/uL (2.7-7.7); Neutrophil % 66.6 % (47-70); Platelet Count 252 K/mm3 (150-450); RBC Distribution Width SD 42.3 fl (35.1-43.9); Red Blood Count 4.29 M/mm3 (4.2-5.4); White Blood Count 8.5 K/mm3 (4.4-11.0)
[2018-08-25] MEDS: Lactated Ringers 1,000 ML 999 ML IV (06:00)
[2018-08-25 06:06] LABS: POSITIVE COUNT NO; POSITIVE DIFFERENTIAL NO; POSITIVE MORPHOLOGY NO
[2018-08-25 06:23] LABS: International Normalized Ratio 0.9; Partial Thromboplast Time 27.5 Seconds (24.1-36.2); Prothrombin Time (Protime)PT. 12.6 SECONDS (11.7-14.9)
[2018-08-25] MEDS: Lactated Ringers 1,000 ML 150 ML IV (06:54)
[2018-08-25] MEDS: Sodium Citrate/Citric Acid 30 ML UDC PO (06:54)
--- NOTE | 2018-08-25 07:22 | PCM.DCCSEC ---
Discharge Diet: No Restrictions Discharge Activity: May not drive while taking narcotic pain medications., May Shower, May Take a Tub Bath May resume sexual activity in: 4-6 weeks Lifting Restrictions: 20 pounds Additional Activity Instructions:: Nothing in the vagina for 4-6 weeks. You may return to work/school in 6 weeks. Additional Instructions: If you experience any of the following, contact your healthcare provider. Bleeding that soaks a pad every hour for 2 hours Fever 100.4 or higher Unrelieved incision or abdominal pain Swelling, redness, discharge or bleeding from your incision or episiotomy site Your incision begins to separate Problems urinating (including inability to urinate or burning while urinating). Visual changes Severe headache Flu-like symptoms Pain or redness in one of both of your breasts Pain, warmth, tenderness or swelling in your legs, especially the calf area Frequent nausea and vomiting Symptoms of depression or anxiety If you experience any of the following, call 911 or go to the nearest Emergency Room. Chest pain Problems breathing Seizure activity Partial or complete paralysis of a body part, slurred speech, weakness or drooping of the face, or a sudden inability to walk or hold your balance Allergies/Adverse Reactions: Allergies nabumetone [From Relafen] Allergy (Verified 08/25/18 05:34) Hives Sulfa (Sulfonamide Antibiotics) Allergy (Verified 08/25/18 05:34) Hives Medications to take at Discharge Docusate Sodium [Colace] 100 mg PO BID #30 capsule 08/25/18 Naproxen [Naprosyn] 250 - 500 mg PO TID PRN PRN #30 tablet 08/25/18 Oxycodone [Oxyir] 5 mg PO Q6H PRN PRN 7 Days #20 tablet 08/25/18 Polyethylene Glycol 3350 [Miralax] 17 gm PO DAILY PRN #14 packet 08/25/18 The following prescriptions were given: Oxycodone [Oxyir] 5 mg PO Q6H PRN PRN 7 Days #20 tablet PRN Reason: Mod-Severe Pain (4-1010) Naproxen [Naprosyn] 250 - 500 mg PO TID PRN PRN #30 tablet PRN Reason: Mild-Mod Pain (1-12/09) Polyethylene Glycol 3350 [Miralax] 17 gm PO DAILY PRN #14 packet PRN Reason: Constipation Docusate Sodium [Colace] 100 mg PO BID #30 capsule Follow-Up: Call to make an appointment with your doctor for an incision check in 1-2 weeks. You will also need a 6 week post- follow up appointment. Test results from this visit will be discussed in further detail at your follow-up appointment, if applicable. Please Follow Up With: Gavi Davis MD - [phone] When: Call to make an appointment for an incision check in 2 weeks. Primary Care Physician: Evy Larios DO [Primary Care Provider] - Proposed Discharge Date: 08/27/18
[2018-08-25] MEDS: Cefazolin 2 GM in 0.9% Normal Saline 100 ML IV (07:24)
--- NOTE | 2018-08-25 07:25 | DCINST_ITS ---
Discharge Diet: No Restrictions Discharge Activity: May not drive while taking narcotic pain medications., May Shower, May Take a Tub Bath May resume sexual activity in: 4-6 weeks Lifting Restrictions: 20 pounds Additional Activity Instructions:: Nothing in the vagina for 4-6 weeks. You may return to work/school in 6 weeks. Additional Instructions: If you experience any of the following, contact your healthcare provider. * Bleeding that soaks a pad every hour for 2 hours * Fever 100.4 or higher * Unrelieved incision or abdominal pain * Swelling, redness, discharge or bleeding from your incision or episiotomy site * Your incision begins to separate * Problems urinating (including inability to urinate or burning while urinating). * Visual changes * Severe headache * Flu-like symptoms * Pain or redness in one of both of your breasts * Pain, warmth, tenderness or swelling in your legs, especially the calf area * Frequent nausea and vomiting * Symptoms of depression or anxiety If you experience any of the following, call 911 or go to the nearest Emergency Room. * Chest pain * Problems breathing * Seizure activity * Partial or complete paralysis of a body part, slurred speech, weakness or drooping of the face, or a sudden inability to walk or hold your balance Allergies/Adverse Reactions: Allergies nabumetone [From Relafen] Allergy (Verified 08/25/18 05:34) Hives Sulfa (Sulfonamide Antibiotics) Allergy (Verified 08/25/18 05:34) Hives Medications to take at Discharge Docusate Sodium [Colace] 100 mg PO BID #30 capsule 08/25/18 Naproxen [Naprosyn] 250 - 500 mg PO TID PRN PRN #30 tablet 08/25/18 Oxycodone [Oxyir] 5 mg PO Q6H PRN PRN 7 Days #20 tablet 08/25/18 Polyethylene Glycol 3350 [Miralax] 17 gm PO DAILY PRN #14 packet 08/25/18 The following prescriptions were given: Oxycodone [Oxyir] 5 mg PO Q6H PRN PRN 7 Days #20 tablet PRN Reason: Mod-Severe Pain (4-10/10) Naproxen [Naprosyn] 250 - 500 mg PO TID PRN PRN #30 tablet PRN Reason: Mild-Mod Pain (1-5/10) Polyethylene Glycol 3350 [Miralax] 17 gm PO DAILY PRN #14 packet PRN Reason: Constipation Docusate Sodium [Colace] 100 mg PO BID #30 capsule Follow-Up: Call to make an appointment with your doctor for an incision check in 1-2 weeks. You will also need a 6 week post- follow up appointment. Test results from this visit will be discussed in further detail at your follow- up appointment, if applicable. Please Follow Up With: Gavi Davis MD - [phone] When: Call to make an appointment for an incision check in 2 weeks. Primary Care Physician: Evy Larios DO [Primary Care Provider] - Proposed Discharge Date: 08/27/18
[2018-08-25] MEDS: Oxytocin 30 units/NS 500 ml 30 UNITS/500 ML IV.SOLN 167 UNITS IV (07:58)
--- NOTE | 2018-08-25 08:21 | PCM.OP.BLANK ---
Operative Report Date of Procedure: 08/25/18 PROCEDURE: Repeat C section. Preoperative diagnosis: 39 wk EGA Prior C section, planned repeat C section Postop diagnosis: 39 wk EGA Prior C section, planned repeat C section Anesthesia: Spinal, Bunny De Los Santos MD Surgeon: Gavi Davis MD Photoengraving Etcher Apprentice: BRITTANY Craig EBL 600 cc Complications: none Drains: Berry draining clear yellow appearing urine Fluids: replacement LR Findings: At amniotomy, clear fluid was noted. Pena viable male in vertex presentation. Apgars 8/9, Baby weight: 8# 6 oz There was a normal appearing uterus, fallopian tubes and ovaries bilaterally. There were minimal filmy adhesions between the bladder and lower uterine segment. PATH: None Narrative account: After the risks, benefits and alternatives of the procedure were reviewed with the patient, informed consent was obtained. The patient was taken to the Operating room with an IV running, and placed in a seated position on the operating table for placement of the spinal. Once the spinal had been administered, she was briefly frog-legged for Berry catheter placement, and then repositioned to dorsal supine position with leftward displacement of the uterus, and prepped and draped in the usual sterile fashion. Once the spinal was deemed adequate, a Pfannenstiel skin incision was created using the knife (through the prior skin incision scar). The incision was carried down to the rectus fascia using the knife. The fascia was nicked in the midline. The fascial incision was extended bilaterally using curved Christopher scissors. The superior aspect of the fascial incision was grasped with Arsalan clamps and tented up and the underlying rectus abdominal muscles were dissected free. In a similar manner, the inferior aspect of the facial incision was grasped with Arsalan clamps tented up and the underlying rectus abdominal muscles were dissected free. The rectus abdominis muscles were in the midline and the peritoneum was identified and entered by blunt dissection high in the incision. The peritoneum was stretched laterally and a bladder blade was inserted. A bladder flap was created along the lower uterine segment with Metzenbaum scissors . The uterine incision was then created using Metzenbaum scissors. The operators fingertips were used to extend the uterine incision by blunt dissection in a caudad- cephalad orientation . Clear fluid was noted at amniotomy. The vertex was then delivered atraumatically through the incision with the aid of Kiwi vacuum extraction. The OP and nares were bulb suctioned on the abdomen. No nuchal cord was noted. The shoulders delivered easily. The cord clamped x two and cut. And the was handed off to the nurse awaiting delivery after briefly showing him to his parents. The baby had a spontaneous, vigorous cry. The placenta was then delivered. The uterus was exteriorized and cleared of clots and debris . The uterine incision was repaired with 1 Vicryl in a running locked fashion. A second imbricating layer was then placed, using 1 Monocryl in running nonlocked fashion. Bovie cautery was used to treat any bleeding areas . Excellent hemostasis was noted. At this point the uterus was returned to the abdominal cavity. The gutters were cleared of clots and debris and the incision at the uterus was inspected. Excellent hemostasis was noted. The peritoneal edges and rectus abdominis muscles were reapproximated in the midline with a series of vertical mattress stitches of 1 Vicryl. Excellent hemostasis was noted at the subfascial space The fascia was closed in a running nonlocked fashion with a Stratofix. The Subcutaneous fatty tissue was Bovie cauterized as needed for hemostasis. This layer was then reapproximated in a single layer closure of running 3-0 Vicryl to eliminate space. The skin edges were closed in a Subcuticular stitch of 4-0 Monocryl. The incision was cleansed. Cavilon, Steristrips, and Mepilex dressing were applied to the skin . The patient was then transferred to the recovery room bed in stable condition after tolerating the procedure well. Sponge, lap, needle and instrument counts correct times two. Medications given preop and intraoperatively included: Ancef 2 gm was given substation operator helper to the operating room. The patient also received Pitocin given IV after cord clamp, and Toradol 30 mg IV times one. For a complete listing of medications given preop and intraoperatively, please see the anesthesia record.
--- NOTE | 2018-08-25 08:25 | OP.PCM_ITS ---
Operative Report Date of Procedure: 08/25/18 PROCEDURE: Repeat C section. Preoperative diagnosis: 39 wk EGA Prior C section, planned repeat C section Postop diagnosis: 39 wk EGA Prior C section, planned repeat C section Anesthesia: Spinal, Bunny De Los Santos MD Surgeon: Gavi Davis MD Housekeeping Attendant: BRITTANY Craig EBL 600 cc Complications: none Drains: Berry draining clear yellow appearing urine Fluids: replacement LR Findings: At amniotomy, clear fluid was noted. Pena viable male in vertex presentati on. Apgars 8/9, Baby weight: 8# 6 oz There was a normal appearing uterus, fallopian tubes and ovaries bilaterally. There were minimal filmy adhesions between the bladder and lower uterine segment. PATH: None Narrative account: After the risks, benefits and alternatives of the procedure were reviewed with the patient, informed consent was obtained. The patient was taken to the Operating room with an IV running, and placed in a seated position on the operating table for placement of the spinal. Once the spinal had been administered, she was briefly frog-legged for Berry catheter placement, and then repositioned to dorsal supine position with leftward displacement of the uterus, and prepped and draped in the usual sterile fashion. Once the spinal was deemed adequate, a Pfannenstiel skin incision was created using the knife (through the prior skin incision scar). The incision was carried down to the rectus fascia using the knife. The fascia was nicked in the midline. The fascial incision was extended bilaterally using curved Christopher scissors. The superior aspect of the fascial incision was grasped with Arsalan clamps and tented up and the underlying rectus abdominal muscles were dissected free. In a similar manner, the inferior aspect of the facial incision was grasped with Arsalan clamps tented up and the underlying rectus abdominal muscles were dissected free. The rectus abdominis muscles were in the midline and the peritoneum was identified and entered by blunt dissection high in the incision. The peritoneum was stretched laterally and a bladder blade was inserted. A bladder flap was created along the lower uterine segment with Metzenbaum scissors . The uterine incision was then created using Metzenbaum scissors. The operators fingertips were used to extend the uterine incision by blunt dissection in a caudad- cephalad orientation . Clear fluid was noted at amniotomy. The vertex was then delivered atraumatically through the incision with the aid of Kiwi vacuum extraction. The OP and nares were bulb suctioned on the abdomen. No nuchal cord was noted. The shoulders delivered easily. The cord clamped x two and cut. And the infant was handed off to the nurse awaiting delivery after briefly showing him to his parents. The baby had a spontaneous, vigorous cry. The placenta was then delivered. The uterus was exteriorized and cleared of clots and debris . The uterine incision was repaired with 1 Vicryl in a running locked fashion. A second imbricating layer was then placed, using 1 Monocryl in running nonlocked fashion. Bovie cautery was used to treat any bleeding areas . Excellent hemostasis was noted. At this point the uterus was returned to the abdominal cavity. The gutters were cleared of clots and debris and the incision at the uterus was inspected. Excellent hemostasis was noted. The peritoneal edges and rectus abdominis muscles were reapproximated in the midline with a series of vertical mattress stitches of 1 Vicryl. Excellent hemostasis was noted at the subfascial space The fascia was closed in a running nonlocked fashion with a Stratofix. The Subcutaneous fatty tissue was Bovie cauterized as needed for hemostasis. This layer was then reapproximated in a single layer closure of running 3-0 Vicryl to eliminate space. The skin edges were closed in a Subcuticular stitch of 4-0 Monocryl. The incision was cleansed. Cavilon, Steristrips, and Mepilex dressing were applied to the skin . The patient was then transferred to the recovery room bed in stable condition after tolerating the procedure well. Sponge, lap, needle and instrument counts correct times two. Medications given preop and intraoperatively included: Ancef 2 gm was given management professional to the operating room. The patient also received Pitocin given IV after cord clamp, and Toradol 30 mg IV times one. For a complete listing of medications given preop and intraoperatively, please see the anesthesia record.
[2018-08-25] MEDS: Lactated Ringers 1,000 ML 100 ML IV ×2 (08:50→18:40)
[2018-08-25] MEDS: Ondansetron 4 MG/2 ML Vial IV (13:26)
[2018-08-25] MEDS: Nalbuphine 10 MG/ML Ampul 5 MG IV ×5 (13:26→21:12)
--- NOTE | 2018-08-25 13:43 | NURSING ---
1300 pt oob up to chair for 30 minutes; pt tolerated well
[2018-08-25] MEDS: Ketorolac 30 MG/ML Syringe IV ×2 (15:04→20:49)
--- NOTE | 2018-08-25 18:02 | NURSING ---
pt oob up to chair; tolerated well
[2018-08-26] VITALS (9 sets, daily range): BP systolic 95–129; BP diastolic 55–79; PULSE 78–105; RESP 16–18; TEMP 36.1–36.7; O2SAT 97–98
[2018-08-26] MEDS: 0.9% Saline Lock 10 ML Syringe IV ×6 (03:32→21:35)
[2018-08-26] MEDS: Ketorolac 30 MG/ML Syringe IV ×3 (03:32→14:47)
[2018-08-26] MEDS: Acetaminophen 500 MG Tablet 1000 MG PO ×2 (03:33→21:47)
[2018-08-26 06:22] LABS: Hemoglobin 9.6 g/dl (12.0-15.0); Mean Corp Hgb Conc 33.1 g/gl (32-36); Mean Corpuscular Hgb 27.8 pg (27.0-32.0); Mean Corpuscular Volume 84.1 fL (81-99); Mean Platelet Vol. 9.5 fl (6.2-12.0); Platelet Count 207 K/mm3 (150-450); RBC Distribution Width CV 13.9 % (11.6-14.6); RBC Distribution Width SD 42.7 fl (35.1-43.9); Red Blood Count 3.45 M/mm3 (4.2-5.4); White Blood Count 7.5 K/mm3 (4.4-11.0)
[2018-08-26 06:34] LABS: Scan Indicated on CBC? Y/N NO
--- NOTE | 2018-08-26 07:38 | PCM.PN.OB ---
Subjective: POD#1 Repeat C/S Doing well. Pain control adequate. Nursing. Berry out for voiding trial. SCDs off for now. Abdominal binder placed. Objective: Sitting up, semirecumbent in bed, holding sleeping baby. - Physical Exam General: Alert, Oriented x3, Cooperative, No apparent distress HEENT: Atraumatic Neck: Supple Abdomen: Soft - Fundus firm NT at 1-2 cm inferior to umbilicus Skin: Incision - CDI. Dressing in place, no shadow drainage noted Neurological: Cranial nerves II-XII grossly intact Psych/Mental Status: Normal Affect Vital Signs Temp Pulse Resp BP Pulse Ox 98.1 F 87 17 95/55 L 98 08/26/18 03:42 08/26/18 05:47 08/26/18 05:47 08/26/18 03:42 08/26/18 05:47 Oxygen Delivery Method Room Air Weight: 103.419 kg Body Mass Index (BMI) 39.1 Intake and Output for Last 24 Hours 08/24/18 08/25/18 08/26/18 23:59 23:59 23:59 Intake Total 6251 / 6251 850 / 850 Output Total 5300 / 5300 1250 / 1250 Balance 951 / 951 -400 / -400 Laboratory Tests Past 24 Hrs 08/25/18 08/26/18 05:30 05:46 WBC 7.5 RBC 3.45 L Hgb 9.6 L Hct 29.0 L MCV 84.1 MCH 27.8 MCHC 33.1 RDW 13.9 RDW Differential 42.7 Plt Count 207 MPV 9.5 Blood Type A POSITIVE Antibody Screen NEGATIVE Medical Necessity - Tobacco Use Smoking Status: Former smoker Assessment/Plan POD#1 Repeat C/S Stable postop Excellent urine output. Berry removed for voiding trial. Increase diet and activity as tolerated Begin po meds. Postop , acute blood loss anemia superimposed on mild anemia of ferrous sulfate 325 mg po daily for one month Continue care.
[2018-08-26] MEDS: Sertraline 50 MG Tablet PO (11:00)
[2018-08-26] MEDS: Famotidine 20 MG Tablet PO ×2 (11:00→21:35)
[2018-08-26] MEDS: Ferrous Sulfate 325 MG Tablet PO (11:02)
--- NOTE | 2018-08-26 13:38 | CASEMGMT ---
Social Work Assessment Labor and Delivery Unit Date of Referral: 08/26/18 Referred By: NURSE Date of Intervention: 08/26/18 Time of Intervention: 1:38P Reason for Referral: MOTHER OF BABY (MOB) WITH HX OF MENTAL HEALTH-DEPRESSION History obtained from: MOB AND MEDICAL CHART Living arrangements: MOB LIVES HOME WITH , GUILLERMINA LUO ( IS NOT BIOLOGICAL FATHER OF LYNDA) AND SON, LYNDA (7 Y/O) Educational Status: [employer] GRADUATED WITH HER DOCTORATE Financial Status: [employer] IS FINANCIALLY STABLE. Supplies: [employer] HAS ALL NEEDS MET FOR BABY. Childcare/Caregiver(s): [employer] WILL BE TAKING MATERNITY LEAVE AND HAS GOOD SUPPORT FROM FAMILY AND . Programs/Agencies Involved: [employer] HAS FOLLOWED WITH NATA PARSON AT [facility] FOR COUNSELING ON AND OFF FOR SEVERAL YEARS. Behavioral Health Issues: Mental Health History: MOB WITH HX OF MAJOR DEPRESSIVE DISORDER AND GENERALIZED ANXIETY. [employer] IS PRESCRIBED MEDICATION-ZOLOFT WHILE AND AND HOPES TO GO BACK ON WELLBUTRIN AND CYMBALTA AFTER DONE . Substance Use History: NONE Support Systems: [facility] REPORTS SUPPORT SYSTEM CONSISTS OF , FAMILY AND IN-LAWS. Depression/Shaken Baby/Safe Sleeping EDUCATION PROVIDED TO MOB AND FOB. PPD RESOURCES GIVEN. ASSESSMENT: MOB WITH HX OF DEPRESSION AND ANXIETY. MOB WAS OPEN TO SPEAKING WITH THIS WORKER AND WAS PLEASANT AND COOPERATIVE THROUGHOUT ASSESSMENT. [facility] STATES IS ALREADY CONNECTED WITH [facility] AND IF NEEDED WILL RETURN FOR COUNSELING SERVICES WITH COUNSELOR, NATA PARSON. MOB STATES RESUMED ZOLOFT THIS DAY SHE AND OBGYN DISCUSSED WEANING OFF DURING THE LAST 3-4 WEEKS OF . MOB DENIES ANY HX OF SUBSTANCE ABUSE. [employer] HAS ALL NEEDS MET FOR BABY. EDUCATION PROVIDED ON DEPRESSION AND PROVIDED MOB WITH INFORMATIVE PACKET. G[employer]IER[employer] STATES IS AND REPORTS NO ISSUES AT THIS TIME. PLAN: HOME WITH INFORMATION PROVIDED ON PPD. PT ALREADY ESTABLISHED WITH [facility]. No other services requested or indicated. -July Erickson, AGRICULTURAL EDUCATION PROFESSOR, WATER MECHANIC
[2018-08-26] MEDS: Ondansetron 4 MG/2 ML Vial IV (14:47)
[2018-08-26] MEDS: Senna/Docusate Sodium 1 Tablet PO (21:35)
[2018-08-26] MEDS: oxyCODONE 5 MG Tablet PO (21:46)
[2018-08-27 02:02] VITALS: BP 118/70; PULSE 83; RESP 16; TEMP 36.7; O2SAT 96
[2018-08-27] MEDS: Naproxen 250 MG Tablet PO ×3 (02:03→20:02)
[2018-08-27] MEDS: oxyCODONE 5 MG Tablet PO ×3 (04:47→15:40)
[2018-08-27 08:00] VITALS: BP 132/76; PULSE 79; RESP 18; TEMP 36.1
[2018-08-27] MEDS: Famotidine 20 MG Tablet PO ×2 (10:43→22:43)
[2018-08-27] MEDS: Sertraline 50 MG Tablet PO (10:44)
[2018-08-27] MEDS: Senna/Docusate Sodium 1 Tablet PO (10:44)
[2018-08-27] MEDS: Ferrous Sulfate 325 MG Tablet PO (10:46)
--- NOTE | 2018-08-27 12:59 | PCM.PN.OB ---
Subjective: POD#2 Repeat C/S Sleeping at rounding this am. More painful this am. Wants to stay. Also nauseated yesterday, thinks due to iron. Back on Pepcid BID yesterday as well as the Zoloft. Multiple family members / guests in rooms now for round, limited round performed. - Physical Exam General: Alert, Oriented x3, Cooperative, No apparent distress HEENT: Atraumatic Neck: Supple Abdomen: Soft - wearing over-sized abdominal binder. Fundus firm NT at 3 cm inferior to umbilicus Skin: Incision - mepilex CDI, no shadow drainage noted. Psych/Mental Status: Normal Affect Vital Signs Temp Pulse Resp BP Pulse Ox 97.0 F L 79 18 132/76 H 96 08/27/18 08:00 08/27/18 08:00 08/27/18 08:00 08/27/18 08:00 08/27/18 02:02 Oxygen Delivery Method Room Air Weight: 103.419 kg Body Mass Index (BMI) 39.1 Intake and Output for Last 24 Hours 08/25/18 08/26/18 08/27/18 23:59 23:59 23:59 Intake Total 6251 / 6251 850 / 850 Output Total 5300 / 5300 1900 / 1900 Balance 951 / 951 -1050 / -1050 Medical Necessity - Tobacco Use Smoking Status: Former smoker Assessment/Plan POD#2 Repeat C/S Stable postop Acute blood loss anemia superimposed on mild anemia of Unable to tolerate ferrous sulfate . Discontinue med. Continue care. Wants to stay.
[2018-08-27 14:00] VITALS: BP 139/90; PULSE 97; RESP 18; TEMP 36.1
[2018-08-27 15:50] VITALS: BP 123/67; PULSE 82; RESP 18
[2018-08-27 20:05] VITALS: BP 147/76; PULSE 88; RESP 16; TEMP 36.8; O2SAT 98
[2018-08-28 02:40] VITALS: BP 143/82; PULSE 72; RESP 16; TEMP 36.9; O2SAT 95
[2018-08-28] MEDS: oxyCODONE 5 MG Tablet PO ×2 (03:03→08:03)
[2018-08-28] MEDS: Naproxen 250 MG Tablet PO (06:32)
[2018-08-28 08:00] VITALS: BP 144/84; PULSE 83; RESP 18; TEMP 35.9
--- NOTE | 2018-08-28 08:14 | PCM.PN.OB ---
Subjective: POD#3 Doing well. Ready to go home today. Some concerns about baby spitting up but reassurance given by peds. Plans close f/u with Dr. Akins - Physical Exam General: Alert, Oriented x3, Cooperative, No apparent distress HEENT: Atraumatic Neck: Supple Abdomen: Soft - Fundus firm NT at 1-2 cm inferior to umbilicus Skin: Incision - CDI. Mepilex without shadow drainage Psych/Mental Status: Normal Affect Vital Signs Temp Pulse Resp BP Pulse Ox 98.4 F 72 16 143/82 H 95 08/28/18 02:40 08/28/18 02:40 08/28/18 02:40 08/28/18 02:40 08/28/18 02:40 Oxygen Delivery Method Room Air Weight: 103.419 kg Body Mass Index (BMI) 39.1 Intake and Output for Last 24 Hours 01//08/27/08/28/18 23:59 23:59 23:59 Intake Total 850 / 850 Output Total 1900 / 1900 Balance -1050 / -1050 Medical Necessity - Tobacco Use Smoking Status: Former smoker Assessment/Plan POD#3 Repeat C/S Stable postop Acute blood loss anemia superimposed on mild anemia of Unable to tolerate ferrous sulfate . Discontinue med. Dischg home today RTO in 2 wk for postop check.
[2018-08-28] MEDS: Famotidine 20 MG Tablet PO (10:30)
[2018-08-28] MEDS: Sertraline 50 MG Tablet PO (10:30)
[2018-08-28] MEDS: Senna/Docusate Sodium 1 Tablet PO (10:30)
[2018-08-28 13:08] VITALS: BP 156/81; PULSE 93; RESP 18; TEMP 36.2
== END 2018-08-28 13:00 | disposition home or self-care (01) | DRG 787 ==
PROVIDERS: Admitting Provider Obstetrics & Gynecology; Family Provider Internal Medicine; PCP Internal Medicine; Referring Provider Obstetrics & Gynecology; Visit Provider Obstetrics & Gynecology
PROC: 10D00Z1 Extraction of Products of Conception, Low, Open Approach (ICD-10-PCS; CPT 59514; principal; 2018-08-25 07:15)
DX: O34.219 Maternal care for unspecified type scar from previous cesarean delivery (principal); D62 Acute posthemorrhagic anemia; O99.354 Diseases of the nervous system complicating childbirth; O99.03 Anemia complicating the puerperium; O99.344 Other mental disorders complicating childbirth; F32.9 Major depressive disorder, single episode, unspecified; F41.9 Anxiety disorder, unspecified; Z87.891 Personal history of nicotine dependence; O99.613 Diseases of the digestive system complicating pregnancy, third trimester; K21.9 Gastro-esophageal reflux disease without esophagitis; G43.909 Migraine, unspecified, not intractable, without status migrainosus; O99.89 Other specified diseases and conditions complicating pregnancy, childbirth and the puerperium; M54.2 Cervicalgia; O99.283 Endocrine, nutritional and metabolic diseases complicating pregnancy, third trimester; E04.9 Nontoxic goiter, unspecified; Z3A.39 39 weeks gestation of pregnancy; Z37.0 Single live birth
CPT/HCPCS: 85025; 85027; 85610; 85730; 86850; 86900; 99218; J7120; A4216; G0378; J2405

== ENCOUNTER 2018-09-05 14:10 | Outpatient (CLI) | payer OTHER, SELFPAY ==
[2018-08-25 05:12] VITALS: BMI 39.1
== END 2018-09-05 14:25 | disposition home or self-care (01) ==
LOC: WPOUT 14:13 → WP 14:14
PROVIDERS: Family Provider Internal Medicine; PCP Internal Medicine; Referring Provider Obstetrics & Gynecology; Visit Provider Obstetrics & Gynecology
DX: Z39.1 Encounter for care and examination of lactating mother (principal)
CPT/HCPCS: 96152

== ENCOUNTER 2019-02-14 10:42 | Emergency (ER) | payer OTHER, SELFPAY ==
[2018-08-25 05:12] VITALS: BMI 39.1
[2019-02-14 10:43] VITALS: BP 156/88; PULSE 127; RESP 18; TEMP 37.1; O2SAT 96; BMI 38.6
[2019-02-14 10:51] VITALS: TEMP 37.1
--- NOTE | 2019-02-14 11:01 | EKG12_ITS ---
Test Reason : N/V Blood Pressure : / mmHG Vent. Rate : 112 BPM Atrial Rate : 112 BPM P-R Int : 144 ms QRS Dur : 084 ms QT Int : 320 ms P-R-T Axes : 051 028 026 degrees QTc Int : 436 ms Sinus tachycardia Nonspecific ST and T wave abnormality Abnormal ECG Confirmed by ELINOR GAGE, MEGHANA ([id number]), associate editor MARU VAZQUEZ ([id number]) on 02/16/2019 1:43:11 PM Referred By: JUANA Confirmed By:MEGHANA ALDRICH MD
--- NOTE | 2019-02-14 11:03 | ED.DCSUM_ITS ---
History of Present Illness Chief Complaint: General Illness Detail of Chief Complaint: vomiting Informant: Patient Onset: Hours - 2-3 Context: Gradual Onset Timing: Intermittent Quality: nausea, nonbilious nonbloody emesis Current Severity: Moderate Maximum Severity: Moderate Worsened by: nothing Relieved by: nothing Associated Symptoms: periumbilical cramping, arthralgias Narrative: Patient has had a couple hours of vomiting, communicated with her doctor this morning, was tachycardic and was advised to come to the ER. Patient states she had subjective fever this morning. She has had arthralgias for several months, she has seen her PCP Dr. peña and is having that worked up, she had an elevated CRP and as a result had some additional blood work drawn and has not received the results of any of that yet. She states those seem arthralgias, which never resolved, feel worse this morning since she has had subjective fever and vomiting. She has vomited 3 times. She had some diarrhea couple days ago but took some Imodium and has not had any more since. Some mild abdominal cramping but no serious abdominal pains. No recent travel out of the area or country. No suspicious food intake. Has been staying with 7 family members in a cabin in a different county of [place], none of the other family members are ill with any of the symptoms, she denies any recent mosquito or tick bites. Denies any headaches, hematemesis, vision changes, focal neurologic symptoms, chest discomfort, shortness of breath. She actually took 1 of her Celebrex this morning and kept it down for about an hour. 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 - Past Medical History (1) Depression Status: Chronic (2) Migraines Status: Chronic Past Medical History - Allergies and Home Meds Allergies/Adverse Reactions: Allergies nabumetone [From Relafen] Allergy (Verified 02/14/19 10:49) Hives Sulfa (Sulfonamide Antibiotics) Allergy (Verified 02/14/19 10:49) Willie Primary Care Physician: Evy Peña DO [Primary Care Provider] - Surgical History: appendectomy, - - c-sections Smoking Status: Former smoker Drugs: None Review of Systems General: Reports: Fever, Malaise, Subjective Eyes: Denies: Visual changes - bilaterally, Diplopia ENT: Denies: Rhinorrhea, Sore throat Cardiovascular: Denies: Chest pain, Palpitations Respiratory: Denies: Dyspnea, Cough, Dyspnea on exertion Gastrointestinal: Reports: Abdominal pain, Nausea, Vomiting. Denies: Diarrhea, Melena, Hematochezia Genitourinary: Denies: Dysuria, Hematuria, Frequency Musculoskeletal: Reports: Arthralgias. Denies: Myalgias, Back pain, Swelling, Extremity Pain Skin: Denies: Rash, Abscess, Wounds Neurological: Denies: Headache, Weakness, Numbness Physical Exam Vital Signs/Narrative: Vital Signs Temp Pulse Resp BP Pulse Ox 02/14/19 10:51 98.8 F 02/14/19 10:43 98.8 F 127 H 18 156/88 H 96 Inital Vital Signs reviewed: Yes General: Well nourished, Well developed, No Acute Distress - well-appearing Head: Normocephalic, Atraumatic Eyes: Perrl, EOMI ENT: Moist mucous membranes, No rhinorrhea. Negative for: Nasal congestion Neck: Supple, Nontender, No lymphadenopathy Cardiovascular: Regular rate, Regular rhythm, No murmurs, Tachycardia Respiratory: No distress, CTA bilaterally, Chest nontender Abdomen: Soft, Nontender, Nondistended, Normal bowel sounds Back: Nontender, Normal Inspection Extremities: Nontender, No edema. Negative for: Calf Tenderness Skin: Normal color, No rash, No Trauma Neurological: Alert, Oriented x3, Cranial nerves II-XII grossly intact, Normal Strength, Normal Sensation, Normal Gait Psychological: Normal affect, Normal Mood Diagnostic/Tx/Re-eval Laboratory Tests 02/14/19 02/14/19 Range/Units 11:11 11:11 WBC 10.4 (4.4-11.0) K/mm3 RBC 4.52 (4.2-5.4) M/mm3 Hgb 12.7 (12.0-15.0) g/dL Hct 37.9 (37-47) % MCV 83.8 (81-99) fL MCH 28.1 (27.0-32.0) pg MCHC 33.5 (32-36) g/dL RDW Std Deviation 41.1 (35.1-43.9) fl RDW Coeff of Jason 13.4 (11.6-14.6) % Plt Count 252 (150-450) K/mm3 MPV 9.3 (6.2-12.0) fl Immature Gran % (Auto) 0.400 (0.0-0.9) % Neut % (Auto) 87.6 H (47-70) % Lymph % (Auto) 6.5 L (19-41) % [place] % (Auto) 4.5 (0-10) % Eos % (Auto) 0.8 (0-5) % Baso % (Auto) 0.2 (0-1) % Absolute Neuts (auto) 9.1 H (2.0-7.7) X10^3/uL Absolute Lymphs (auto) 0.68 L (0.83-4.51) X10^3/uL Absolute Nucleated RBC 0.00 (0-5) 10^3/uL Nucleated RBC % 0 (0-5) % Sodium 135 L (136-145) mmol/L Potassium 3.8 (3.5-5.1) mmol/L Chloride 106 (98-107) mmol/L Carbon Dioxide 27.0 (21.0-32.0) mmol/L Anion Gap 2 L (5-15) BUN 12 (7-18) mg/dL Creatinine 0.73 (0.55-1.02) mg/dL Estim Creat Clear Calc 92.88 ml/min Est GFR (MDRD) Af Amer 117 (>60) mL/min Est GFR (MDRD) Non-Af 96 (>60) mL/min BUN/Creatinine Ratio 16.5 (10-20) RATIO Glucose 93 (74-106) mg/dL Calcium 8.7 (8.5-10.1) mg/dL Total Bilirubin 0.40 (0.20-1.00) mg/dL AST 16 (15-37) U/L ALT 35 (13-56) U/L Alkaline Phosphatase 56 (45-117) U/L Total Protein 7.4 (6.4-8.2) g/dL Albumin 3.7 (3.2-5.0) g/dL Globulin 3.7 (2.2-4.2) g/dL Albumin/Globulin Ratio 1.0 (0.9-2.4) RATIO - Rhythm Strip Rhythm Strip: Sinus Tach Rate: 112 Ectopy: None - EKG Initial EKG Interpretation: No Acute Injury Pattern - otherwise unremarkable EKG, Sinus Tachycardia Prior: No Prior - Medical Decision Making Patient was treated with fluids and Zofran and feels much better. Her cramping is resolved as well. Her labs are unremarkable. Liver enzymes and renal function are normal, no electrolyte imbalances, her white blood count is at the high end of normal with a slight leftward shift, which is nonspecific. Given the lack of a significant leukocytosis and her symptoms without any red flags, I do not think this is an acute bacterial illness. Certainly staphylococcal. Toxin ingestion is possible but again she has no red flags here and that would be self-limiting anyway and would not be detectable with blood cultures which I do not think we need at this time. After treatment her heart rate is improved. She is comfortable with discharge with symptomatic care, encouraged to return for worsening issues and she is comfortable with that. ED Disposition - Plan for ED Patient: Disposition: Home or Assisted Living Diagnosis: Viral gastritis Instructions: GASTRITIS (Adult) Prescriptions: Dicyclomine HCl [Bentyl] 20 mg PO Q6H PRN #20 cap PRN Reason: abdominal cramping Prescription Printed Ondansetron [Zofran] 8 mg PO Q8H PRN #12 tab PRN Reason: Nausea/Vomiting Prescription Printed Referrals: Fast,Evy, DO [Primary Care Provider] - 3-5 Days if not improving
[2019-02-14 11:19] LABS: Absolute Lymphocyte Count 0.68 X10^3/uL (0.83-4.51); Absolute Neutrophil Count 9.1 X10^3/uL (2.0-7.7); Basophil# 0.02 X10^3/uL; Basophil% 0.2 % (0-1); Eosinophil# 0.08 X10^3/uL; Eosinophils% 0.8 % (0-5); Hematocrit 37.9 % (37-47); Hemoglobin 12.7 g/dL (12.0-15.0); Lymphocyte # 0.68 X10^3/ul (4.0); Lymphocyte % 6.5 % (19-41); Mean Corp Hgb Conc 33.5 g/dL (32-36); Mean Corpuscular Hgb 28.1 pg (27.0-32.0); Mean Corpuscular Volume 83.8 fL (81-99); Mean Platelet Vol. 9.3 fl (6.2-12.0); Monocyte# 0.47 X10^3/uL; Monocyte% 4.5 % (0-10); NRBC Flagged by Analyzer 0 % (0-5); Neutrophil # 9.11 X10^3/uL (2.7-7.7); Neutrophil % 87.6 % (47-70); Platelet Count 252 K/mm3 (150-450); RBC Distribution Width CV 13.4 % (11.6-14.6); RBC Distribution Width SD 41.1 fl (35.1-43.9); Red Blood Count 4.52 M/mm3 (4.2-5.4); White Blood Count 10.4 K/mm3 (4.4-11.0)
[2019-02-14] MEDS: 0.9% Normal Saline 1,000 ML 999 ML IV (11:27)
[2019-02-14] MEDS: Ondansetron 4 MG/2 ML Vial IV (11:28)
[2019-02-14 11:35] LABS: AST(SGOT) 16 U/L (15-37); Alanine Aminotransfer ALT/SGPT 35 U/L (13-56); Albumin, Serum 3.7 g/dL (3.2-5.0); Alkaline Phosphatase 56 U/L (45-117); Anion Gap 2 (5-15); BUN 12 mg/dL (7-18); BUN/Creat Ratio 16.5 RATIO (10-20); Calcium,Total 8.7 mg/dL (8.5-10.1); Chloride 106 mmol/L (98-107); Creatinine, Serum 0.73 mg/dL (0.55-1.02); EST Glomerular Filtration Rate 96 mL/min (>60); Est Glom Filt Rate - Afr Amer 117 mL/min (>60); Estimated Creatinine Clearance 92.88 ml/min; Globulin 3.7 g/dL (2.2-4.2); Glucose 93 mg/dL (74-106); Potassium 3.8 mmol/L (3.5-5.1); Protein, Total 7.4 g/dL (6.4-8.2); Sodium Level 135 mmol/L (136-145)
[2019-02-14 12:12] VITALS: BP 127/72; PULSE 99; RESP 18; TEMP 36.6; O2SAT 99
== END 2019-02-14 12:14 | disposition home or self-care (01) ==
PROVIDERS: Emergency Provider Emergency Medicine; Family Provider Internal Medicine; PCP Internal Medicine
DX: A08.4 Viral intestinal infection, unspecified (principal); F32.9 Major depressive disorder, single episode, unspecified; G43.909 Migraine, unspecified, not intractable, without status migrainosus; Z79.899 Other long term (current) drug therapy; Z87.891 Personal history of nicotine dependence
CPT/HCPCS: 80053; 85025; 93005; 96361; 96374; 99283; J7030; A4216; J2405

== ENCOUNTER → 2019-02-20 07:55 | Outpatient (CLI) | payer OTHER, SELFPAY ==
[2018-08-25 05:12] VITALS: BMI 39.1
[2019-02-14 10:43] VITALS: BMI 38.6
--- NOTE | 2019-02-20 08:10 | US_ITS ---
STUDY: THYROID ULTRASOUND REASON FOR EXAM: Female, 33 years old. Nodule TECHNIQUE: Ultrasound evaluation of the thyroid was performed with real-time and static arreguin-scale imaging. COMPARISON: 02/03/2018 FINDINGS: RIGHT LOBE: The right lobe of the thyroid gland measures 5.4 x 2.3 x 2.4 cm. There is a homogeneous echotexture. Stable complex solid/cystic 2.2 x 2.4 x 2.3 cm nodule. Stable 0.3 x 0.4 x 2.2 cm solid nodule LEFT LOBE: The left lobe of the thyroid gland measures 4.7 x 1.8 x 1.5 cm. There is a homogeneous echotexture. Stable solid 0.5 cm nodules. ISTHMUS: The isthmus measures 3 mm. The regional lymph nodes are normal. US/Thyroid IMPRESSION: Large right thyroid lobe with stable solid/cystic 2.4 cm nodule Stable solid subcentimeter nodules in both lobes Findings again suggestive of goiter, yearly follow-up recommended to assure stability Electronically Signed: Bassam Cochran MD at 10:21 EDT , Service support ,
--- NOTE | 2019-02-20 08:11 | US_ITS ---
STUDY: SUPERFICIAL ULTRASOUND - AXILLARY FULLNESS REASON FOR EXAM: Female, 33 years old. TECHNIQUE: A superficial ultrasound was performed with real-time and static arreguin-scale imaging. COMPARISON: None. FINDINGS: Ultrasound evaluation of both axilla show bilateral benign-appearing lymph nodes. The largest on the right measures 2.0 x 1.3 x 1.0 cm, largest on the left measures 3 x 1 x 0.7 cm. No sonographic evidence of hyperemia. US/Ext Non Vasc Limited/Soft Tiss IMPRESSION: Bilateral axillary adenopathy, short axis dimension suggests benignity Electronically Signed: Bassam Cochran MD at 13:15 EDT , Service support ,
== END ==
LOC: US 07:57
PROVIDERS: Family Provider Internal Medicine; PCP Internal Medicine; Referring Provider Internal Medicine; Visit Provider Internal Medicine
DX: E04.1 Nontoxic single thyroid nodule (principal)
CPT/HCPCS: 76536; 76882

== ENCOUNTER → 2019-03-08 | Outpatient (CLI) | payer OTHER, SELFPAY ==
[2018-08-25 05:12] VITALS: BMI 39.1
== END | disposition home or self-care (01) ==
LOC: SL 22:10
PROVIDERS: Family Provider Internal Medicine; PCP Internal Medicine; Referring Provider Internal Medicine; Visit Provider Internal Medicine
DX: R06.83 Snoring (principal); R45.1 Restlessness and agitation; F32.9 Major depressive disorder, single episode, unspecified; F41.9 Anxiety disorder, unspecified; I10 Essential (primary) hypertension
CPT/HCPCS: 95810

== ENCOUNTER → 2019-08-18 08:36 | Outpatient (CLI) | payer OTHER, SELFPAY ==
[2019-08-18 08:11] VITALS: BMI 38.6
[2019-08-18 10:31] LABS: Free T3 2.3 pg/mL (2.18-3.98); T4 Free Direct 1.01 ng/dL (0.76-1.46); Thyroid Stim Hormone (TSH) 0.76 uIU/mL (0.358-3.74)
[2019-08-19 15:25] LABS: Thyroid Peroxidase AB 16 IU/mL (0-34)
== END ==
PROVIDERS: PCP Internal Medicine; Referring Provider Internal Medicine Endocrinology, Diabetes & Metabolism; Visit Provider Internal Medicine Endocrinology, Diabetes & Metabolism
DX: E05.20 Thyrotoxicosis with toxic multinodular goiter without thyrotoxic crisis or storm (principal)
CPT/HCPCS: 36415; 84439; 84443; 84481; 86376

== ENCOUNTER 2019-11-24 10:35 | Emergency (ER) | payer OTHER, SELFPAY ==
[2019-08-18 08:11] VITALS: BMI 38.6
[2019-11-24 10:36] VITALS: BP 154/84; PULSE 90; RESP 17; TEMP 36.8; BMI 41.8
--- NOTE | 2019-11-24 10:54 | MRI_ITS ---
STUDY: MRI BRAIN WITHOUT CONTRAST REASON FOR EXAM: Female, 34 years old. migraine with neuro sx x 2 days (bilat arm paresthesias, episodes of aphasia) resolved now TECHNIQUE: Standardized multiplanar fat and water weighted pulse sequences were obtained. COMPARISON: 04/28/2017 FINDINGS: Normal size of the ventricles and extra-axial spaces for the patient''s age. Normal white matter tracts of the supratentorial brain. There is no evidence for recent intracranial ischemia or other cause of cytotoxic edema on diffusion weighted imaging (DWI). Normal T2* images of the brain without demonstrated susceptibility artifact. There is no demonstrated hemosiderin stain. Normal bilateral basal ganglia. Normal thalami. There is no extra-axial fluid accumulation. Normal flow voids within the major intracranial circulation suggesting patency by spin echo criteria. Normal sella turcica, pituitary gland, infundibular stalk, optic chiasm and hypothalamus. Normal tectal plate and pineal gland. Normal midbrain, quyen and medulla. Normal cerebellum. Normal basal cisterns. Normal bilateral temporal bones. Normal bilateral internal auditory canals. No demonstrated orbital abnormality, within the constraints of a routine brain study. Normal visualized paranasal sinuses. Normal calvarium and skull base. Normal visualized soft tissue structures. Normal visualized upper cervical spine. MRI/Brain without Contrast IMPRESSION: Normal unenhanced MRI of the brain. Electronically Signed: Wilian Chavarria MD at 12:16 EDT Tel , Service support ,
--- NOTE | 2019-11-24 10:56 | ED.VIS.GEN ---
History of Present Illness Chief Complaint: Headache Informant: Patient Onset: Days - 3 days Context: Gradual Onset Timing: Waxes and wanes Current Severity: Moderate Maximum Severity: Severe Narrative: Patient presents secondary to migraine headache with transient neuro symptoms. Patient has a history of migraines. She states her typical migraine involves pain in the right occiput area that then radiates up across the top of her right head. This started 2 days ago. She also has problems with her neck and takes Percocet and Skelaxin for that. Yesterday she states the headache was worse than generalized all over. Around 130 or 2 PM in the afternoon she states that she had what she describes as a paralysis. She was sitting upright in a chair at the time and states that she could not move her arms. She did not have paresthesias. She was able to slightly turn her head side to side and blink. She was able to motor yes or no, but otherwise was unable to talk. Patient states this episode lasted approximately 30 minutes and then slowly improved. She was up doing housework later in the day. She called her PCP this morning and was advised to come to the emergency room. She denies fever or chills. She has not had cough or other URI symptoms. She denies any recent head injury. - Past Medical History (1) Anxiety Status: Chronic (2) Depression Status: Chronic (3) Migraines Status: Chronic Past Medical History - Allergies and Home Meds Allergies/Adverse Reactions: Allergies nabumetone [From Relafen] Allergy (Verified 11/24/19 10:36) Hives Sulfa (Sulfonamide Antibiotics) Allergy (Verified 11/24/19 10:36) Willie Primary Care Physician: Evy Larios DO [Primary Care Provider] - Prior records reviewed: Yes Surgical History: appendectomy, - - c-sections Smoking Status: Light Smoker (<10/day) Review of Systems General: Denies: Chills, Fever Eyes: Denies: Visual changes - bilaterally ENT: Denies: Bilateral ear pain Cardiovascular: Denies: Chest pain, Palpitations Respiratory: Denies: Dyspnea, Cough Gastrointestinal: Denies: Abdominal pain, Nausea, Vomiting, Diarrhea Genitourinary: Denies: Dysuria Musculoskeletal: Denies: Extremity Pain Neurological: Reports: Headache, Weakness - Yesterday, now resolved Hematologic: Denies: Easy bruising, Easy bleeding Allergy: Denies: Uticaria Physical Exam Vital Signs/Narrative: Vital Signs Temp Pulse Resp BP 11/24/19 10:36 98.2 F 90 17 154/84 H Inital Vital Signs reviewed: Yes General: Well nourished, Well developed Head: Normocephalic ENT: Moist mucous membranes Neck: Supple Cardiovascular: Regular rate, Regular rhythm Respiratory: No distress, CTA bilaterally Abdomen: Soft, Nontender Back: Nontender Extremities: Nontender Skin: Normal color Neurological: Alert, Oriented x3, Normal Strength, Normal Sensation, - - NIH equals 0 Psychological: Normal affect Diagnostic/Tx/Re-eval Impressions Brain MRI 11/24/19 10:54 IMPRESSION: Normal unenhanced MRI of the brain. Electronically Signed: Wilian Chavarria MD at 12:16 EDT Tel , Service support , 11/24/19 10:54 MRI Brain [Brain without Contrast] [MRI] Stat Laboratory Results 11/24/19 11/24/19 11/24/19 11:00 11:00 11:00 WBC 9.5 RBC 4.63 Hgb 13.5 Hct 41.2 MCV 89.0 MCH 29.2 MCHC 32.8 RDW Std Deviation 40.7 RDW Coeff of Jason 12.5 Plt Count 313 MPV 9.5 Immature Gran % (Auto) 0.300 Neut % (Auto) 56.1 Lymph % (Auto) 28.9 [place] % (Auto) 6.8 Eos % (Auto) 7.5 H Baso % (Auto) 0.4 Absolute Neuts (auto) 5.3 Absolute Lymphs (auto) 2.73 Nucleated RBC % 0 Sodium 139 Potassium 4.4 Chloride 105 Carbon Dioxide 28.0 Anion Gap 6 BUN 12 Creatinine 0.82 Estim Creat Clear Calc 81.90 Est GFR (MDRD) Af Amer 101 Est GFR (MDRD) Non-Af 84 BUN/Creatinine Ratio 14.6 Glucose 85 Calcium 9.4 Serum , Qual NEGATIVE - Medical Decision Making Patient did take ibuprofen approximately 3 hours prior to my initial evaluation. She was given Reglan, Benadryl, and 15 mg of Toradol along with IV fluids. On repeat evaluation she reports her headache is improving. She denies any neuro symptoms at this time. Per PCPs request neuro SOC consult was obtained. No further advice from them. Patient be referred to neurology for follow-up as needed for the migraines. ED Disposition - Plan for ED Patient: Disposition: Home or Assisted Living Diagnosis: Migraine Instructions: ED, Migraine (Classical) Referrals: Evy Larios DO [Primary Care Provider] - Tate Lilly MD [STAFF PHYSICIAN] - As Needed
[2019-11-24] MEDS: 0.9% Normal Saline 1,000 ML 1000 ML IV (11:10)
[2019-11-24] MEDS: DiphenhydrAMINE 50 MG/ML Syringe 25 MG IV (11:10)
[2019-11-24] MEDS: Metoclopramide 10 MG/2 ML Vial IV (11:10)
[2019-11-24] MEDS: Ketorolac 15 MG/ML Vial IV (11:10)
[2019-11-24 11:20] LABS: Internal QC Validated? YES +Cl - CLEAR BKGD; Pregnancy, Serum, hCG Quali. NEGATIVE Negative
[2019-11-24 11:25] LABS: Anion Gap 6 (5-15); BUN 12 mg/dL (7-18); BUN/Creat Ratio 14.6 RATIO (10-20); Calcium,Total 9.4 mg/dL (8.5-10.1); Chloride 105 mmol/L (98-107); Creatinine, Serum 0.82 mg/dL (0.55-1.02); EST Glomerular Filtration Rate 84 mL/min (>60); Est Glom Filt Rate - Afr Amer 101 mL/min (>60); Glucose 85 mg/dL (74-106); Potassium 4.4 mmol/L (3.5-5.1); Sodium Level 139 mmol/L (136-145)
[2019-11-24 11:38] LABS: Absolute Lymphocyte Count 2.73 X10^3/uL (0.83-4.51); Absolute Neutrophil Count 5.3 X10^3/uL (2.0-7.7); Basophil# 0.04 X10^3/uL; Basophil% 0.4 % (0-1); Eosinophil# 0.71 X10^3/uL; Eosinophils% 7.5 % (0-5); Hematocrit 41.2 % (37-47); Hemoglobin 13.5 g/dL (12.0-15.0); Lymphocyte # 2.73 X10^3/ul (4.0); Lymphocyte % 28.9 % (19-41); Mean Corp Hgb Conc 32.8 g/dL (32-36); Mean Corpuscular Hgb 29.2 pg (27.0-32.0); Mean Platelet Vol. 9.5 fl (6.2-12.0); Monocyte# 0.64 X10^3/uL; Monocyte% 6.8 % (0-10); NRBC Flagged by Analyzer 0 % (0-5); Neutrophil % 56.1 % (47-70); Platelet Count 313 K/mm3 (150-450); RBC Distribution Width CV 12.5 % (11.6-14.6); RBC Distribution Width SD 40.7 fl (35.1-43.9); Red Blood Count 4.63 M/mm3 (4.2-5.4); White Blood Count 9.5 K/mm3 (4.4-11.0)
[2019-11-24 12:35] VITALS: BP 119/69; PULSE 69; RESP 16; O2SAT 99
[2019-11-24 13:18] VITALS: RESP 18
== END 2019-11-24 13:18 | disposition home or self-care (01) ==
PROVIDERS: Emergency Provider Emergency Medicine; PCP Internal Medicine
DX: G43.909 Migraine, unspecified, not intractable, without status migrainosus (principal); F17.200 Nicotine dependence, unspecified, uncomplicated; F32.9 Major depressive disorder, single episode, unspecified
CPT/HCPCS: 70551; 80048; 84703; 85025; 96361; 96374; 96375; 96376; 99283; J7030; A4216

== ENCOUNTER → 2020-08-16 09:50 | Outpatient (CLI) | payer BC, SELFPAY ==
[2019-12-15 14:50] VITALS: BMI 40.5
--- NOTE | 2020-08-16 09:57 | US_ITS ---
STUDY: THYROID ULTRASOUND REASON FOR EXAM: Female, 34 years old. f/u nodules TECHNIQUE: Ultrasound evaluation of the thyroid was performed with real-time and static arreguin-scale imaging. COMPARISON: Comparison is made with prior study dated 02/20/2019 and 02/03/2018. FINDINGS: RIGHT LOBE: The right lobe of the thyroid gland is enlarged and measures 5.5 cm x 2.4 cm x 2.4 cm. There is a homogeneous echotexture. There is a 2.5 cm x 2.2 cm x 2.2 cm complex solid and cystic nodule in the lower pole. This evidence of intranodular increased vascular flow. This is essentially unchanged. LEFT LOBE: The left lobe of the thyroid gland measures 4.9 cm x 2.4 cm x 1.4 cm. There is a homogeneous echotexture. There is a 3 mm x 4 mm x 2 mm hypoechoic solid nodule in the upper pole with perinodular vascularity. This is unchanged. ISTHMUS: The isthmus measures 3 mm. The regional lymph nodes are normal. US/Thyroid IMPRESSION: Stable examination. Electronically Signed: Walter Bejarano, at 13:09 EST , Service support ,
--- NOTE | 2020-08-16 10:34 | RAD_ITS ---
STUDY: X-RAY - LUMBAR SPINE REASON FOR EXAM: Female, 34 years old. constant lower back pain x years TECHNIQUE: 5 view(s) of the lumbar spine were obtained. COMPARISON: None FINDINGS: Normal lumbar lordosis. There is no substantial scoliosis. There is a normal alignment of the vertebrae. Normal vertebral bodies and endplates. Normal disc space heights. The soft tissue structures are unremarkable. RAD/L/S Spine Min 4 Views IMPRESSION: Normal x-ray examination of the lumbar spine. Electronically Signed: Wilian Chavarria MD at 16:55 EST Tel , Service support ,
[2020-08-16 10:58] LABS: Mucous, Urine 0 SEEN /hpf (<or=2+); White Blood Cells 0 SEEN /hpf (0-5)
[2020-08-16 11:28] LABS: Erythrocyte Sedimentation Rate 16 mm/hr (0-30)
[2020-08-16 11:30] LABS: Absolute Lymphocyte Count 2.44 X10^3/uL (0.83-4.51); Absolute Neutrophil Count 5.7 X10^3/uL (2.0-7.7); Basophil# 0.06 X10^3/uL; Basophil% 0.6 % (0-1); Eosinophils% 6.4 % (0-5); Hemoglobin 14.1 g/dL (12.0-15.0); Lymphocyte # 2.44 X10^3/ul (4.0); Mean Corp Hgb Conc 33.6 g/dL (32-36); Mean Corpuscular Hgb 29.2 pg (27.0-32.0); Mean Platelet Vol. 9.4 fl (6.2-12.0); Monocyte# 0.56 X10^3/uL; NRBC Flagged by Analyzer 0 % (0-5); Neutrophil # 5.68 X10^3/uL (2.7-7.7); Neutrophil % 60.7 % (47-70); Platelet Count 336 K/mm3 (150-450); RBC Distribution Width CV 12.9 % (11.6-14.6); RBC Distribution Width SD 40.7 fl (35.1-43.9); Red Blood Count 4.83 M/mm3 (4.2-5.4); White Blood Count 9.4 K/mm3 (4.4-11.0)
[2020-08-16 11:39] LABS: Color, Urine Yellow (Yellow); Glucose, Dipstick Normal (Normal); Leukocyte Esterase-Dipstick Negative /ul (Negative); Nitrite-Dipstick Negative (Negative); Occult Blood-Urine 250 /ul (Negative); Protein-Dipstick Negative (Negative); Specific Gravity, Urine 1.015 (1.002-1.030); Urine Bilirubin Dipstick Negative (Negative); Urine Clarity Sl. Cloudy (Clear); Urine Urobilinogen Normal (Normal)
[2020-08-16 11:42] LABS: Ketone-Dipstick 150 mg/dl (Negative)
[2020-08-16 11:46] LABS: Microalbumin,Random Urine 17.8 mg/L (NO RANGE EST.); Microalbumin:Creatinine Ratio 24.7 mg/g CRE (<30 mg/g CRE); Red Blood Cells-Urine 25-50 SEEN /hpf (0-5); Squamous Epithelial Cells - UA 0-5 SEEN /hpf (5-10)
[2020-08-16 11:47] LABS: Bacteria 1+ /hpf (None Seen)
[2020-08-16 12:06] LABS: Vitamin B12 503 pg/mL (211-911)
[2020-08-16 12:09] LABS: Hemoglobin A1c 5.9 % (3.8-5.6)
[2020-08-16 12:14] LABS: ALB/GLOB Ratio 1.1 RATIO (0.9-2.4); AST(SGOT) 18 U/L (15-37); Alanine Aminotransfer ALT/SGPT 45 U/L (13-56); Albumin, Serum 3.8 g/dL (3.2-5.0); Alkaline Phosphatase 47 U/L (45-117); Anion Gap 2 (5-15); BUN 14 mg/dL (7-18); BUN/Creat Ratio 18.5 RATIO (10-20); Chloride 104 mmol/L (98-107); Cholesterol 228 mg/dL (200); Creatinine, Serum 0.76 mg/dL (0.55-1.02); EST Glomerular Filtration Rate 91 mL/min (>60); Est Glom Filt Rate - Afr Amer 111 mL/min (>60); Globulin 3.6 g/dL (2.2-4.2); Glucose 84 mg/dL (74-106); High Density Lipoprotein 32 mg/dL; LDH 168 U/L (84-246); Potassium 4.4 mmol/L (3.5-5.1); Protein, Total 7.4 g/dL (6.4-8.2); Sodium Level 135 mmol/L (136-145); Thyroid Stim Hormone (TSH) 2.69 uIU/mL (0.358-3.74); Triglycerides 237 mg/dL; Very Low Density Lipoprotein 47 mg/dL (5-40)
== END ==
PROVIDERS: PCP Internal Medicine; Referring Provider Internal Medicine; Visit Provider Nurse Practitioner Family
DX: E04.1 Nontoxic single thyroid nodule (principal); R59.0 Localized enlarged lymph nodes; M54.5 Low back pain; E53.8 Deficiency of other specified B group vitamins; E78.49 Other hyperlipidemia; E55.9 Vitamin D deficiency, unspecified; R73.09 Other abnormal glucose
CPT/HCPCS: 36415; 72110; 76536; 80053; 80061; 81001; 82043; 82306; 82570; 82607; 83036; 83615; 84443; 85025; 85652; 86140

== ENCOUNTER → 2020-08-19 07:48 | Outpatient (CLI) | payer BC, SELFPAY ==
[2019-12-15 14:50] VITALS: BMI 40.5
--- NOTE | 2020-08-19 07:49 | US_ITS ---
STUDY: SUPERFICIAL ULTRASOUND - BILATERAL AXILLARY REGIONS. REASON FOR EXAM: Female, 34 years old. BILATERAL AXILLA LUMPS TECHNIQUE: A superficial ultrasound was performed with real-time and static arreguin-scale imaging. COMPARISON: None. FINDINGS: 2 benign-appearing lymph nodes are seen in the right axillary region. The larger measures 1.5 cm x 1.1 cm x 0.5 cm. These appear to be benign. 2. Lymph nodes are seen in the left axillary region. The larger measures 1.3 cm x 1.3 cm x 0.8 cm. These appear to be benign. US/Ext Non Vasc Limited/Soft Tiss IMPRESSION: Findings suggestive of mildly enlarged benign appearing bilateral axillary lymph nodes. Electronically Signed: Walter Bejarano MD at 9:26 EST , Service support ,
== END ==
PROVIDERS: PCP Internal Medicine; Referring Provider Internal Medicine; Visit Provider Internal Medicine
DX: R59.0 Localized enlarged lymph nodes (principal); E04.1 Nontoxic single thyroid nodule
CPT/HCPCS: 76882

== ENCOUNTER → 2020-08-30 10:19 | Outpatient (CLI) | payer BC, SELFPAY ==
[2019-12-15 14:50] VITALS: BMI 40.5
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
== END ==
PROVIDERS: PCP Internal Medicine; Visit Provider Anesthesiology Pain Medicine
DX: M50.30 Other cervical disc degeneration, unspecified cervical region (principal)
CPT/HCPCS: 72141

== ENCOUNTER → 2020-08-30 10:23 | Outpatient (CLI) | payer BC, SELFPAY ==
[2019-12-15 14:50] VITALS: BMI 40.5
--- NOTE | 2020-08-30 11:42 | BI_ITS ---
MAMMOGRAPHY - BILATERAL SCREENING REASON FOR EXAM: Female, 34 years old. Routine annual screening examination. PERTINENT HISTORY: Aunt with breast cancer. TECHNIQUE: Digital bilateral breast jose (3D mammographic acquisition) in the CC and MLO projections. 2-D mediolateral oblique (MLO) and craniocaudad (CC) views of both breasts were obtained. CAD: Full Field Digital Mammography with Computer Added Detection was performed. COMPARISON: None. Baseline examination. FINDINGS: Breast Composition: The breasts are heterogeneously dense, which may obscure small masses. There are no dominant masses or suspicious calcifications. No other significant abnormalities are identified. BI/SCRN MAMM (CAD)W/JOSE BILAT IMPRESSION: Negative screening mammogram. Yearly followup mammogram recommended. (A) ASSESSMENT CATEGORY: BIRADS Category 1: Negative. A letter regarding these results will be sent to the patient by the facility within 30 days. Approximately 10% of breast cancers are not detected by mammography. A normal mammogram should not delay biopsy of a clinically suspicious abnormality. [id number] Electronically Signed: Walter Bejarano MD at 13:13 EST , Service support ,
== END ==
PROVIDERS: PCP Internal Medicine; Visit Provider Internal Medicine
DX: Z12.31 Encounter for screening mammogram for malignant neoplasm of breast (principal)
CPT/HCPCS: 77063; 77067

== ENCOUNTER → 2020-12-23 10:28 | Outpatient (CLI) | payer BC, SELFPAY ==
[2019-12-15 14:50] VITALS: BMI 40.5
== END ==
PROVIDERS: PCP Internal Medicine; Referring Provider Internal Medicine; Visit Provider Internal Medicine
DX: R00.0 Tachycardia, unspecified (principal)
CPT/HCPCS: 93225; 93226

== ENCOUNTER → 2021-02-12 10:04 | Outpatient (CLI) | payer BC, SELFPAY ==
[2019-12-15 14:50] VITALS: BMI 40.5
--- NOTE | 2021-02-12 13:44 | NEURO ---
NCS and/or EMG Patient Report Ordering Doctor: Evy Larios DATE OF SERVICE: 02/12/21 Rebekah Murphy Presents for electrodiagnostic testing of the right upper limb, due to numbness and tingling Electrodiagnostic findings: Right median motor nerve demonstrates normal distal latency, amplitude and conduction velocity. Normal ulnar motor response. Normal median and ulnar F waves. Sensory responses are within normal limits.On needle EMG, muscles testedIn the right upper limb, as well as the right cervical paraspinals, showed no evidence of denervation with normal motor unit action potentials. Electrodiagnostic impression: This is a normal electrodiagnostic study of the right upper limb. There is no electrodiagnostic evidence for peripheral neuropathy or cervical radiculopathy
== END ==
PROVIDERS: PCP Internal Medicine; Referring Provider Internal Medicine; Visit Provider Internal Medicine
DX: G56.01 Carpal tunnel syndrome, right upper limb (principal)
CPT/HCPCS: 95886; 95910

== ENCOUNTER 2021-05-18 10:23 | Emergency (ER) | payer BC, SELFPAY ==
[2021-05-18 10:24] VITALS: BP 176/114; PULSE 93; RESP 14; TEMP 35.9; O2SAT 96; BMI 42.7
--- NOTE | 2021-05-18 10:46 | EKG12_ITS ---
Test Reason : HTN/CP Blood Pressure : / mmHG Vent. Rate : 087 BPM Atrial Rate : 087 BPM P-R Int : 142 ms QRS Dur : 098 ms QT Int : 364 ms P-R-T Axes : 037 014 019 degrees QTc Int : 438 ms Normal sinus rhythm Normal ECG Confirmed by ELINOR GAGE, MEGHANA ([id number]), index editor JUANCARLOS STEVENS ([id number]) on 05/20/2021 9:17:45 AM Referred By: MYRA/TYSHAWN Confirmed By:MEGHANA ALDRICH MD
--- NOTE | 2021-05-18 10:48 | EDS_ITS ---
HPI History of Present Illness Chief Complaint: Chest Pain Informant: patient Onset/Context/Timing Onset: Days Narrative Narrative: Patient presents for evaluation of intermittent left-sided chest pain for the past 2 days. Chest pain itself the last 2 minutes however would come and go. She had some this morning mild symptoms currently. States slight pressure sensation. Wednesday had pain into her left shoulder blade. Occasional nausea, occasional dyspnea, occasional sweats. Similar symptoms in the past with stress and anxiety. 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 No history of stress test. Tobacco history. No family history of MIs at a young age. Denies diabetes hypercholesterolemia, Wednesday states with symptoms took her blood pressure systolic 170s over 120s, called her PCP who called in lisinopril 10 mg for which she took 1 dose today. States her blood pressure was down to 150 systolic. Denies cough symptoms. Currently nauseated. Prior Similar Symptoms: Yes CVD Risk Factors: Positive for Smoking; Negative for Diabetes, Hypercholesterolemia and Family History 1' </=55 PE Risk Factors: Negative for Recent Travel/Surgery, Recent Immobilization, Prior DVT or PE and Cancer [facility] Medical History (Updated 05/18/21 @ 14:[address] Armani Monique, DO) Abnormal TSH Anxiety Axillary adenopathy Axillary fullness Cervical radiculopathy, chronic Dysthymic Eating disorder Elevated hemoglobin A1c Fatigue Frequent infections GERD without esophagitis Hair loss Hiatal hernia Hypertension Hyperthyroidism Ingrown toenail of both feet Insomnia Joint pain Liver function abnormality Low vitamin B12 level Migraine Myalgia Other hyperlipidemia Smoker Snoring Spasm of cervical paraspinous muscle Tachycardia Tension headache Thyroid nodule Vertigo Vitamin D deficiency Home Medications rizatriptan 10 mg PO .X1 PRN PRN 02/14/19 [History Last Taken Unknown] duloxetine 60 mg capsule,delayed release 60 mg PO DAILY 06/02/19 [History Last Taken Unknown] esomeprazole magnesium 20 mg capsule,delayed release 20 mg PO DAILY 06/02/19 [History Last Taken Unknown] milnacipran 50 mg tablet 50 mg PO BID 06/02/19 [History Last Taken Unknown] ondansetron HCl 8 mg tablet 4 mg PO BID tab 06/02/19 [History Last Taken Unknown] propranolol 80 mg tablet 80 mg PO QDAY tab 06/02/19 [History Last Taken Unknown] metaxalone 800 mg PO TID 11/24/19 [History Last Taken Unknown] oxycodone-acetaminophen 1 ea PO BID 11/24/19 [History Last Taken Unknown] hydroxyzine pamoate 25 mg capsule 25 mg PO TID PRN 12/15/19 [History Last Taken Unknown] Allergy/AdvReac Type Severity Reaction Status Date / Time nabumetone [From Relafen] Allergy Hives Verified 05/18/21 10:24 Sulfa (Sulfonamide Allergy Hives Verified 05/18/21 10:24 Antibiotics) Family History Father Hypertension Hyperlipidemia Mother Hypertension Obesity Anxiety Grandfather Prostate cancer Heart disease Aunt Breast cancer Sister Melanoma Anorexia Grandmother Thyroid cancer Surgical History History of appendectomy History of History of colonoscopy History of tonsillectomy Hx of needle biopsy Social History Smoking Status: Light Smoker (<10/day) alcohol intake: current alcohol intake frequency: a few times a month substance use type: does not use caffeine: Yes what type of physical activity do you participate in: none frequency: does not exercise ROS ROS ED Constitutional Constitutional ED: Denies chills, fever(s) or sweats Eyes Eyes: Denies change in vision ENT ENT ED: Denies dysphagia or sore throat Cardiovascular Cardiovascular: Reports chest pain; Denies leg edema, palpitations or racing heartbeat Respiratory/Chest Respiratory/Chest: Reports dyspnea; Denies cough or dyspnea on exertion Gastrointestinal Gastrointestinal: Reports nausea; Denies abdominal pain, diarrhea or vomiting Genitourinary Genitourinary ED: Denies dysuria, hematuria or urinary frequency Musculoskeletal Musculoskeletal: Denies back pain, extremity pain or neck pain Integumentary Denies rash or wounds Neurologic Neurologic: Denies headache(s), paresthesias or weakness EXAM Physical Exam Const Vital Signs: 05/18/21 10:24 05/18/21 10:46 05/18/21 11:24 Temperature 96.6 F L Temperature Source Temporal Pulse Rate 93 Respiratory Rate 14 Respiratory Effort Normal Non-Labored Normal Non-Labored Respiratory Pattern Normal Blood Pressure 176/114 H Blood Pressure Mean 134 Pulse Ox 96 Oxygen Delivery Method Room Air Room Air 05/18/21 12:12 05/18/21 13:07 05/18/21 14:40 Temperature Temperature Source Pulse Rate 72 72 69 Respiratory Rate 14 12 12 Respiratory Effort Respiratory Pattern Blood Pressure 143/91 H 141/91 H 145/84 H Blood Pressure Mean 108 107 Pulse Ox 94 96 98 Oxygen Delivery Method Room Air Room Air Positive well nourished and well developed General Appearance ED: well developed and NAD HEENT Reports moist mucous membranes normocephalic and atraumatic Eyes PERRL, EOMs intact bilaterally and conjunctivae normal General Eye ED: Yes normal appearance of both eyes Neck no lymphadenopathy and supple General: Negative for tenderness Chest Wall Chest: Negative for tenderness Resp normal respiratory effort and normal air movement Effort and Inspection: symmetric chest movement; Negative for respiratory distress Cardio regular rate, regular rhythm and no murmurs Peripheral Pulses: pulses 2+ throughout GI normal to inspection, nondistended, normoactive bowel sounds and non-tender Palpation: Negative for guarding or rebound tenderness present Back/Spine no CVA tenderness and no thoracic nor lumbar tenderness Extremity normal to inspection General Extremety ED: Negative for edema or tenderness General Extremity: Negative for edema Neuro oriented x3 and no sensory deficits noted Sensorium / Orientation: awake and alert Skin no rashes or lesions noted and no wounds Heart Score History: Slightly/Non-Suspicious ECG: Normal Age: </= 45 years Risk Factors: 1 or 2 Risk Factors Troponin: </= Normal Limit Score: 1 MDM MDM MDM Narrative Medical decision making narrative: Patient EKG chronic T wave inversions. Treated with aspirin. Initial cardiac work-up normal. Heart score is a 1. Repeat troponin at 2 hours negative at 4. Later reported she is having headache symptoms with photophobia and nausea. She has history of migraines. She is treated with Reglan Benadryl and added Toradol with improvement of symptoms. Does report increasing stress with no head traumas. Patient to follow-up with her PCP for further testing as an outpatient for chest pain symptoms. Return precautions discussed. All questions were answered. Lab Data Attestation: I reviewed the patient's lab results. Labs: Laboratory Results - last 24 hr 05/18/21 05/18/21 05/18/21 11:20 11:20 13:25 WBC 8.0 RBC 4.41 Hgb 13.3 Hct 38.8 MCV 88.0 MCH 30.2 MCHC 34.3 RDW Std Deviation 39.2 RDW Coeff of Jason 12.2 Plt Count 309 MPV 8.9 Immature Gran % (Auto) 0.200 Neut % (Auto) 66.7 Lymph % (Auto) 24.4 [place] % (Auto) 5.0 Eos % (Auto) 3.2 Baso % (Auto) 0.5 Absolute Neuts (auto) 5.4 Absolute Lymphs (auto) 1.96 Nucleated RBC % 0 Sodium 138 Potassium 4.0 Chloride 106 Carbon Dioxide 27.0 Anion Gap 5 BUN 10 Creatinine 0.65 Estim Creat Clear Calc 102.33 Est GFR (MDRD) Af Amer 131 Est GFR (MDRD) Non-Af 108 BUN/Creatinine Ratio 15.3 Glucose 92 Calcium 8.8 Troponin I High Sens < 3 L 4 Radiography Chest X-Ray - ED: 1 View, Read by ED Physician and Read by Radiologist Diagnostic Testing: Clinical Impression(s) from Imaging Studies Chest X-Ray 05/18/21 11:40 IMPRESSION: Normal x-ray examination of the chest. Electronically Signed: Mimi Gomez MD at 12:47 EDT Tel , Service support , EKG Initial EKG: Attestation: I personally reviewed and interpreted this EKG as follows: Comments: Sinus 87, no ST changes. T wave inversion lateral leads and on leads III. Similar changes back in January 2019. Prior EKG tracings: available for review Discharge Plan Triage Chief Complaint: Chest Pain Other Complaint: Hypertension ED Provider: Armani Monique Dx/Rx/DC Orders Clinical Impression: Chest pain, Headache, migraine Instructions: ED Chest Pain, Uncertain Cause, ED, Migraine (Classical) Prescriptions: No Action duloxetine 60 mg capsule,delayed release(DR/EC) 60 mg PO DAILY RF: 0 propranolol 80 mg tablet 80 mg PO QDAY RF: 0 Savella 50 mg tablet 50 mg PO BID RF: 0 ondansetron HCl 8 mg tablet 4 mg PO BID RF: 0 esomeprazole magnesium [Nexium 24HR] 20 mg capsule,delayed release(DR/EC) 20 mg PO DAILY RF: 0 hydroxyzine pamoate [Vistaril] 25 mg capsule 25 mg PO TID PRNRF: 0 rizatriptan 10 MG tablet 10 mg PO .X1 PRN PRN (Reason: Headache) RF: 0 oxycodone-acetaminophen 1 EACH tablet 1 ea PO BID RF: 0 metaxalone 800 MG tablet 800 mg PO TID RF: 0 Primary Care Provider: Evy Larios Referrals: Evy Larios DO [Primary Care Provider] - 3-5 Days Disposition Disposition: Home, Self Care Discharge Date/Time: 05/18/21 14:46
[2021-05-18] MEDS: Ondansetron 4 MG/2 ML Vial IV (11:22)
[2021-05-18] MEDS: Aspirin 81 MG TAB.CHEW 324 MG PO (11:22)
[2021-05-18 11:32] LABS: Absolute Lymphocyte Count 1.96 X10^3/uL (0.83-4.51); Absolute Neutrophil Count 5.4 X10^3/uL (2.0-7.7); Basophil# 0.04 X10^3/uL; Basophil% 0.5 % (0-1); Eosinophil# 0.26 X10^3/uL; Eosinophils% 3.2 % (0-5); Hematocrit 38.8 % (37-47); Hemoglobin 13.3 g/dL (12.0-15.0); Lymphocyte # 1.96 X10^3/ul (0.83-4.51); Lymphocyte % 24.4 % (19-41); Mean Corp Hgb Conc 34.3 g/dL (32-36); Mean Corpuscular Hgb 30.2 pg (27.0-32.0); Mean Platelet Vol. 8.9 fl (6.2-12.0); NRBC Flagged by Analyzer 0 % (0-5); Neutrophil # 5.36 X10^3/uL (2.7-7.7); Neutrophil % 66.7 % (47-70); Platelet Count 309 K/mm3 (150-450); RBC Distribution Width CV 12.2 % (11.6-14.6); RBC Distribution Width SD 39.2 fl (35.1-43.9); Red Blood Count 4.41 M/mm3 (4.2-5.4)
--- NOTE | 2021-05-18 11:40 | RAD_ITS ---
STUDY: X-RAY CHEST REASON FOR EXAM: Female, 35 years old. chest pain TECHNIQUE: Frontal portable view of the chest COMPARISON: 23 July 2015 FINDINGS: The lungs are clear and expanded. There is no demonstrated pleural abnormality. Normal size heart. Normal mediastinum and dustin. Normal visualized pulmonary arteries. Normal visualized aortic arch and descending thoracic aorta. Normal visualized thoracic spine. Normal visualized ribs, clavicles, and shoulders. There is no demonstrated abnormality of the visualized soft tissue structures of the upper abdomen. RAD/Chest 1 View (Portable) IMPRESSION: Normal x-ray examination of the chest. Electronically Signed: Mimi Gomez MD at 12:47 EDT Tel , Service support ,
[2021-05-18 11:50] LABS: Anion Gap 5 (5-15); BUN 10 mg/dL (7-18); BUN/Creat Ratio 15.3 RATIO (10-20); Calcium,Total 8.8 mg/dL (8.5-10.1); Chloride 106 mmol/L (98-107); Creatinine, Serum 0.65 mg/dL (0.55-1.02); EST Glomerular Filtration Rate 108 mL/min (>60); Est Glom Filt Rate - Afr Amer 131 mL/min (>60); Estimated Creatinine Clearance 102.33 ml/min; Glucose 92 mg/dL (74-106); Sodium Level 138 mmol/L (136-145); Troponin-I HS < 3 pg/mL (3.0-54.0)
[2021-05-18 12:12] VITALS: BP 143/91; PULSE 72; RESP 14; O2SAT 94
--- NOTE | 2021-05-18 12:12 | ED.RN ---
pt resting in room with lights out d/t migraine. bp sl better.
[2021-05-18] MEDS: 0.9% Normal Saline 1,000 ML 999 ML IV (12:57)
[2021-05-18] MEDS: Metoclopramide 10 MG/2 ML Vial IV (12:57)
[2021-05-18] MEDS: DiphenhydrAMINE 50 MG/ML Syringe 25 MG IV (12:58)
[2021-05-18 13:07] VITALS: BP 141/91; PULSE 72; RESP 12; O2SAT 96
--- NOTE | 2021-05-18 13:28 | ED.RN ---
repeat troponin drawn without difficulty. pt requests something different for pain
[2021-05-18 13:58] LABS: Troponin-I HS 4 pg/mL (3.0-54.0)
[2021-05-18] MEDS: Ketorolac 15 MG/ML Vial IV (14:02)
[2021-05-18 14:40] VITALS: BP 145/84; PULSE 69; RESP 12; O2SAT 98
== END 2021-05-18 14:46 | disposition home or self-care (01) ==
PROVIDERS: Emergency Provider Emergency Medicine; PCP Internal Medicine
DX: R07.9 Chest pain, unspecified (principal); G43.909 Migraine, unspecified, not intractable, without status migrainosus; I10 Essential (primary) hypertension; F17.200 Nicotine dependence, unspecified, uncomplicated
CPT/HCPCS: 71045; 80048; 84484; 85025; 93005; 96361; 96374; 96375; 99285; J7030; A4216; J2405

== ENCOUNTER → 2021-05-26 16:21 | Outpatient (CLI) | payer BC, SELFPAY ==
[2021-05-26 18:07] LABS: Vitamin B12 337 pg/mL (211-911)
[2021-05-26 18:37] LABS: ALB/GLOB Ratio 0.9 RATIO (0.9-2.4); AST(SGOT) 19 U/L (15-37); Alanine Aminotransfer ALT/SGPT 49 U/L (13-56); Alkaline Phosphatase 67 U/L (45-117); Anion Gap 7 (5-15); BUN 12 mg/dL (7-18); BUN/Creat Ratio 14.1 RATIO (10-20); Calcium,Total 9.8 mg/dL (8.5-10.1); Chloride 98 mmol/L (98-107); Creatinine, Serum 0.85 mg/dL (0.55-1.02); EST Glomerular Filtration Rate 80 mL/min (>60); Est Glom Filt Rate - Afr Amer 97 mL/min (>60); Globulin 4.6 g/dL (2.2-4.2); Glucose 80 mg/dL (74-106); Potassium 3.7 mmol/L (3.5-5.1); Protein, Total 8.6 g/dL (6.4-8.2); Sodium Level 137 mmol/L (136-145)
[2021-05-30 18:08] LABS: Dopamine, UR 96 ug/L (Undefined); Epinephrine, 24Ur 7 ug/24 hr (0-20); Epinephrine, Ur 3 ug/L (Undefined); Metanephrine, Ur 58 ug/L (Undefined); Norepinephrine, 24Ur 118 ug/24 hr (0-135); Norepinephrine, Ur 49 ug/L (Undefined); Normetanephrines, 24Ur 718 ug/24 hr (131-612); Normetanephrines, Ur 299 ug/L (Undefined); VMA, 24UR 2.2 mg/24 hr (0.0-7.5)
[2021-05-30 21:48] LABS: Dopamine, 24Ur 230 ug/24 hr (0-510); Metanephrines, 24Ur 139 ug/24 hr (36-209); VMA, UR 0.9 mg/L (Undefined)
[2021-06-04 00:07] LABS: Aldosterone, Serum 13.2 ng/dL (0.0-30.0)
[2021-06-04 13:35] LABS: Renin, Plasma 9.849 ng/mL/hr (0.167-5.380)
== END ==
PROVIDERS: PCP Internal Medicine; Referring Provider Internal Medicine; Visit Provider Internal Medicine
DX: I10 Essential (primary) hypertension (principal); R53.83 Other fatigue
CPT/HCPCS: 36415; 80053; 81050; 82088; 82384; 82607; 82746; 83835; 84244; 84443; 84585

== ENCOUNTER 2021-05-29 21:53 | Emergency (ER) | payer BC, SELFPAY ==
[2021-05-29 21:54] VITALS: BP 171/107; PULSE 92; RESP 20; TEMP 36.4; O2SAT 98; BMI 43.0
--- NOTE | 2021-05-29 22:12 | EKG12_ITS ---
Test Reason : CP Blood Pressure : / mmHG Vent. Rate : 087 BPM Atrial Rate : 087 BPM P-R Int : 140 ms QRS Dur : 106 ms QT Int : 362 ms P-R-T Axes : 049 021 016 degrees QTc Int : 435 ms Normal sinus rhythm Incomplete right bundle branch block T wave abnormality, consider anterior ischemia , IVCD effect, metabolic effect, medication effect Abnormal ECG Confirmed by ALYX GAGE, ANNA MARIE ([id number]), proposal editor JUANCARLOS STEVENS ([id number]) on 05/30/2021 1:50:22 PM Referred By: SUSAN Confirmed By:ANNA MARIE WISDOM MD
--- NOTE | 2021-05-29 22:21 | ED.VIS.CHEST ---
HPI History of Present Illness Chief Complaint: Chest Pain Informant: patient Onset/Context/Timing Onset: Today Activity at onset: gradual and rest Timing: Intermittent (2 episodes, current one started about 2 hrs prior to exam; prior started about 8 hrs ago and lasted several hrs) Quality: Positive for Sharp Location: Left Chest (radiated into LUE earlier but not now. also rad to left upper back.) Current Severity: 11/09 Maximum Severity: Moderate Worsened By: - (lying supine); Not Worsened By Breathing and Coughing Relieved By: Nothing Associated Symptoms: Positive for Nausea and - (anxious); Negative for Vomiting, Diaphoresis, Dyspnea, Cough, Fever, Lightheadedness and Palpitations Narrative Narrative: Patient presenting with chest discomfort. She states she has had this off and on for a week and a half and actually was seen here about 1 week ago for the same symptoms. She states now it is more constant, although she admits it has been intermittent today, and it is sharper. She states otherwise her symptoms are the same although when it radiated to her left arm earlier today during that episode, she became more concerned. When she gets chest pain she checks her blood pressure, and is noted it has been as high as 170 in the past but not today, it has been lower. Heart rate was in the 70s and she was concerned about that since she normally is around 100. She states she gets this with anxiety a lot but is here to make sure this is not her heart. Prior Similar Symptoms: Yes Recent Illness/Hospitalization: No CVD Risk Factors: Positive for Hypercholesterolemia, Family History 1' </=55 and Smoking; Negative for Hypertension and Diabetes PE Risk Factors: Negative for Recent Travel/Surgery, Recent Immobilization, Prior DVT or PE, Cancer and OCP + Smoking + >/=35 [facility] Medical History (Updated 05/29/21 @ 22:[address] Brian Santiago MD) Anxiety Cervical radiculopathy, chronic Dysthymic Eating disorder Elevated hemoglobin A1c Fibromyalgia Frequent infections GERD without esophagitis Hiatal hernia Hypertension Hyperthyroidism Ingrown toenail of both feet Low vitamin B12 level Migraines Other hyperlipidemia Tachycardia Thyroid nodule Vertigo Vitamin D deficiency Home Medications rizatriptan 10 mg PO .X1 PRN PRN 02/14/19 [History Last Taken Unknown] duloxetine 60 mg capsule,delayed release 30 mg PO DAILY 06/02/19 [History Last Taken Unknown] esomeprazole magnesium 20 mg capsule,delayed release 20 mg PO DAILY PRN 06/02/19 [History Last Taken Unknown] milnacipran 50 mg tablet 50 mg PO BID 06/02/19 [History Last Taken Unknown] ondansetron HCl 8 mg tablet 4 mg PO BID PRN tab 06/02/19 [History Last Taken Unknown] metaxalone 800 mg PO TID 11/24/19 [History Last Taken Unknown] oxycodone-acetaminophen 1 ea PO BID 11/24/19 [History Last Taken Unknown] hydroxyzine pamoate 25 mg capsule 25 mg PO TID PRN 12/15/19 [History Last Taken Unknown] buspirone [BuSpar] 30 mg PO BID 05/29/21 [History Last Taken Unknown] lisinopril-hydrochlorothiazide 1 tab PO BID 05/29/21 [History Last Taken Unknown] nebivolol [Bystolic] 20 mg PO DAILY 05/29/21 [History Last Taken Unknown] Allergy/AdvReac Type Severity Reaction Status Date / Time nabumetone [From Relafen] Allergy Hives Verified 05/29/21 21:57 Sulfa (Sulfonamide Allergy Hives Verified 05/29/21 21:57 Antibiotics) Family History Father Hypertension Hyperlipidemia Mother Hypertension Obesity Anxiety Grandfather Prostate cancer Heart disease Aunt Breast cancer Sister Melanoma Anorexia Grandmother Thyroid cancer Surgical History History of appendectomy History of History of colonoscopy History of tonsillectomy Hx of needle biopsy Social History Smoking Status: Light Smoker (<10/day) alcohol intake: current alcohol intake frequency: a few times a month substance use type: does not use caffeine: Yes what type of physical activity do you participate in: none frequency: does not exercise ROS ROS ED Constitutional Constitutional ED: Denies chills or fever(s) Eyes Eyes: Denies change in vision or diplopia ENT ENT ED: Denies rhinorrhea or sore throat Cardiovascular Cardiovascular: Reports as per HPI and chest pain; Denies palpitations Respiratory/Chest Respiratory/Chest: Denies cough or dyspnea Gastrointestinal Gastrointestinal: Reports nausea; Denies abdominal pain, diarrhea or vomiting Genitourinary Genitourinary ED: Denies dysuria or hematuria Musculoskeletal Musculoskeletal: Reports as per HPI and extremity pain; Denies back pain, myalgias or neck pain Integumentary Denies abscess or rash Neurologic Neurologic: Denies headache(s), paresthesias or weakness Psychiatric Psychiatric: Reports anxiety; Denies suicidal thoughts EXAM Physical Exam Const Vital Signs: 05/29/21 21:54 05/29/21 21:57 05/29/21 23:00 Temperature 97.5 F L Temperature Source Temporal Pulse Rate 92 75 Respiratory Rate 20 H 13 Respiratory Effort Normal Non-Labored Blood Pressure 171/107 H 134/93 H Blood Pressure Mean 128 106 Pulse Ox 98 97 Oxygen Delivery Method Room Air Positive well nourished, well developed and obese General Appearance ED: well developed and NAD Nutritional Appearance: obese HEENT Reports moist mucous membranes normocephalic and atraumatic Eyes PERRL and EOMs intact bilaterally Neck full ROM and supple Chest Wall inspection of chest normal and palpation of chest normal Chest: Negative for tenderness Resp normal respiratory effort and clear to auscultation bilaterally Cardio regular rate, regular rhythm and no murmurs GI non-tender and non-distended Auscultation: normoactive bowel sounds Palpation: soft Back/Spine no CVA tenderness General Back: other FROM Extremity normal to inspection and no calf tenderness General Extremety ED: Negative for edema, pulses abnormal or tenderness General Extremity: Negative for edema or pulses abnormal Neuro oriented x3, CN's II-XII intact bilaterally and no sensory deficits noted Sensorium / Orientation: awake and alert Motor Exam: strength 5/5 throughout Psych thought process normal, cooperative and activity/motor behavior normal Mood & Affect: anxious Skin no rashes or lesions noted and no wounds Heart Score History: Slightly/Non-Suspicious ECG: Nonspecific Repolarization Age: </= 45 years Risk Factors: >/= 3 Risk Factors or History of CAD Troponin: </= Normal Limit Score: 3 MDM MDM MDM Narrative Medical decision making narrative: I do not think these patient's symptoms likely indicate cardiac etiology. Furthermore, she has had prior work-up for the same symptoms that was negative. She does not have symptoms likely to be of of pulmonary embolus nor does she have risk factors. She did have a family member that she thinks had heart disease in their 50s. Her EKG shows some nonspecific T wave abnormalities mostly flattening with some anteroseptal inversions, these have been seen on old EKGs. Her most recent EKG a week ago showed the inversions but they were more upright and less flat. Patient's troponin returned negative, actually less than 3. Given the recent measurements, and the fact that this is atypical for cardiac discomfort, I do not think she needs a delta performed tonight. I gave her a GI cocktail, she states the pain is improved but she does not think that the GI cocktail did it. I offered her other medications for discomfort she declines and is comfortable going home and feels reassured that she is not having an WA. Discussed reasons to return. Lab Data Attestation: I reviewed the patient's lab results. Labs: Laboratory Results - last 24 hr 05/29/21 22:05 Troponin I High Sens < 3 L EKG Initial EKG: Attestation: I personally reviewed and interpreted this EKG as follows: Interpretation: Sinus Rhythm, No Acute Injury Pattern and Non-Specific ST Changes Prior EKG tracings: available for review (02/14/2019) Prior: Unchanged Discharge Plan Triage Chief Complaint: Chest Pain ED Provider: Brian Santiago Dx/Rx/DC Orders Clinical Impression: Chest pain, unspecified, Anxiety Prescriptions: No Action duloxetine 60 mg capsule,delayed release(DR/EC) 30 mg PO DAILY RF: 0 Savella 50 mg tablet 50 mg PO BID RF: 0 ondansetron HCl 8 mg tablet 4 mg PO BID PRN (Reason: Nausea) RF: 0 esomeprazole magnesium [Nexium 24HR] 20 mg capsule,delayed release(DR/EC) 20 mg PO DAILY PRN (Reason: gerd) RF: 0 hydroxyzine pamoate [Vistaril] 25 mg capsule 25 mg PO TID PRN (Reason: Anxiety) RF: 0 rizatriptan 10 MG tablet 10 mg PO .X1 PRN PRN (Reason: Headache) RF: 0 oxycodone-acetaminophen 1 EACH tablet 1 ea PO BID RF: 0 metaxalone 800 MG tablet 800 mg PO TID RF: 0 nebivolol [Bystolic] 20 mg Tablet 20 mg PO DAILY RF: 0 buspirone [BuSpar] 30 mg Tablet 30 mg PO BID RF: 0 lisinopril-hydrochlorothiazide 10-12.5 mg Tablet 1 tab PO BID RF: 0 Primary Care Provider: Evy Larios Referrals: Evy Larios, [Primary Care Provider] - 3-5 Days if not improving Disposition Disposition: Home, Self Care
[2021-05-29] MEDS: Mag Hydrox/Al Hydrox/Simeth 30 ML UDC PO (22:29)
[2021-05-29 22:56] LABS: Troponin-I HS < 3 pg/mL (3.0-54.0)
[2021-05-29 23:00] VITALS: BP 134/93; PULSE 75; RESP 13; O2SAT 97
[2021-05-30 00:16] VITALS: BP 112/78; PULSE 77; RESP 11; O2SAT 94
== END 2021-05-30 00:20 | disposition home or self-care (01) ==
PROVIDERS: Emergency Provider Emergency Medicine; PCP Internal Medicine
DX: R07.9 Chest pain, unspecified (principal); F41.9 Anxiety disorder, unspecified; F17.200 Nicotine dependence, unspecified, uncomplicated; E66.9 Obesity, unspecified; K21.9 Gastro-esophageal reflux disease without esophagitis; I10 Essential (primary) hypertension; Z79.899 Other long term (current) drug therapy
CPT/HCPCS: 84484; 93005; 99285; A4216

== ENCOUNTER → 2021-06-10 06:37 | Outpatient (CLI) | payer BC, SELFPAY ==
--- NOTE | 2021-06-10 06:45 | MRI_ITS ---
History: HEADACHE EXAMINATION: MRA Head W/O Contrast TECHNIQUE: Routine huslia of [place]/brain 3D time of flight MR angiogram protocol was performed without gadolinium. 3D reconstructions were reviewed. IV Contrast dosage and agent: COMPARISON: None FINDINGS: --Anterior circulation: ICAs: No significant stenosis at the intracranial/visualized segments. ACAs: No significant stenosis at the visualized segments. ACOM: Not identified MCAs: No significant stenosis at the visualized segments. --Posterior circulation: PCOMs: Right P-comm is present. litigator: No significant stenosis at the visualized segments. BASILAR ARTERY: No significant stenosis. VERTEBRAL ARTERIES: No significant stenosis at the intradural/visualized segments. No evidence of intracranial aneurysm or vascular malformation. MRI/MRA Head ONLY without Contrast IMPRESSION: Unremarkable MRA head. at 0911 Reported and signed by: David Cox MD Electronically Signed: David Cox MD at 9:10 EST Tel , Service support ,
--- NOTE | 2021-06-10 07:05 | MRI_ITS ---
EXAM: MR HEAD WITHOUT AND WITH INTRAVENOUS CONTRAST : 1985 CLINICAL INDICATION: HEADACHE TECHNIQUE: Multiplanar and multisequence MR images of the brain were obtained without and with intravenous contrast. This report was created using [employer] report [email or web address] technology. CONTRAST: Dotarem 22mL COMPARISON: November 24, 2019 FINDINGS: BRAIN AND EXTRA-AXIAL SPACES: Unremarkable. No intra- or extra-axial hemorrhage. No evidence of acute infarct. No intracranial mass or mass effect. There is preservation of the arreguin/white matter interface. Posterior fossa structures are unremarkable. Ventricles are appropriate for age. No hydrocephalus. Basal cisterns are patent. No abnormal contrast enhancement. SELLA: Unremarkable. Normal sella turcica, pituitary gland, infundibular stalk, optic chiasm and hypothalamus. AUDITORY SYSTEM: Unremarkable. The internal auditory canals are patent. BONES/JOINTS: Unremarkable. No discrete lytic or blastic abnormalities. SINUSES: Unremarkable as visualized. Clear. MASTOID AIR CELLS: Unremarkable as visualized. Clear. ORBITS: Unremarkable as visualized. Both globes, extraocular muscles, optic nerves and retrobulbar fat appear unremarkable. VASCULATURE: Unremarkable as visualized. Normal flow voids in the major intracranial circulation. MRI/Brain W/WO Contrast IMPRESSION: Normal MRI of the brain with and without contrast. at 0914 Reported and signed by: David Cox MD Electronically Signed: David Cox MD at 9:13 EST Tel , Service support ,
== END ==
PROVIDERS: PCP Internal Medicine; Referring Provider Internal Medicine; Visit Provider Internal Medicine
DX: R07.9 Chest pain, unspecified (principal); R51.9 Headache, unspecified; I10 Essential (primary) hypertension
CPT/HCPCS: 70544; 70553; A9575

== ENCOUNTER → 2021-06-20 10:07 | Outpatient (CLI) | payer BC, SELFPAY ==
--- NOTE | 2021-06-20 10:12 | ECHOCS_ITS ---
Reason For Study: CHEST PAIN/ HTN Procedure This was a 2D Doppler, Color Flow transthoracic echocardiogram. The study was technically difficult. Contrast injection was performed. Exam performed in department. Left Ventricle Normal LV size. The estimated ejection fraction is 60 %. Normal diastology for age. No regional wall motion abnormalities noted. Right Ventricle Normal RV size. Normal systolic function. Atria Normal left atrium. Normal right atrium. No doppler evidence for ASD. Bubble contrast study negative for right to left interatrial shunt. Mitral Valve There is no mitral valve stenosis. No mitral valve insufficiency. Tricuspid Valve There is no tricuspid stenosis. Trivial tricuspid valve insufficiency. Unable to estimate RV systolic pressure due to insufficient tricuspid regurgitant envelope. Aortic Valve Trisinus/trileaflet aortic valve. There is no aortic stenosis. No aortic valve insufficiency. Pulmonic Valve There is no pulmonic valvular stenosis. No pulmonic valve insufficiency. Great Vessels Normal aortic root. Pericardium/Pleural No pericardial effusion. Medication 22 gauge I.V. with prn adaptor inserted into right arm. Diluted definity 2.0ml given slow IV push to enhance endocardial definition. Performed a rapid injection of agitated mix of 9 cc saline and 1cc air to assess for atrial septal defect. MMode/2D Measurements & Calculations LVIDd: 3.5 cm IVSd: 1.00 cm Ao root diam: 2.9 cm LVIDs: 2.5 cm LVPWd: 1.0 cm RVDd: 2.8 cm FS: 28.6 % LAV(MOD-bp): 24.5 ml LVAd ap4: 25.2 cm2 LVAd ap2: 23.1 cm2 LAV(MOD-bp) Indexed: 11.6 ml/m2 LVLd ap4: 8.0 cm LVLd ap2: 7.7 cm LAV(MOD-sp2): 25.2 ml EDV(MOD-sp4): 66.0 ml EDV(MOD-sp2): 56.5 ml LAV(MOD-sp4): 22.5 ml EDV(sp4-el): 67.3 ml EDV(sp2-el): 58.7 ml LVAs ap4: 15.4 cm2 LVAs ap2: 14.3 cm2 LVLs ap4: 7.6 cm LVLs ap2: 7.3 cm ESV(MOD-sp4): 26.5 ml ESV(MOD-sp2): 23.2 ml ESV(sp4-el): 26.4 ml ESV(sp2-el): 24.1 ml EF(MOD-sp4): 59.9 % EF(MOD-sp2): 58.9 % EF(sp4-el): 60.8 % SV(MOD-sp4): 39.5 ml SV(MOD-sp2): 33.3 ml SV(sp4-el): 40.9 ml LA A4 area: 12.5 cm2 LA dimension(2D): 2.9 cm RA A4 area: 12.4 cm2 Doppler Measurements & Calculations MV E max moe: 57.8 cm/sec Lat Peak E' Moe: 10.7 cm/sec Med Peak E' Moe: 8.0 cm/sec MV A max moe: 46.0 cm/sec E/E' lat: 5.4 E/E' med: 7.2 MV E/A: 1.3 Ao V2 max: 121.2 cm/sec LV V1 max: 84.1 cm/sec PA V2 max: 95.2 cm/sec Ao max P.9 mmHg LV V1 max P.8 mmHg TR max moe: 199.2 cm/sec TR max P.9 mmHg ECHO/Echo Complete W/ Contrast Interpretation Summary The estimated ejection fraction is 60 %. Normal diastology for age. Ordering Physician: Evy Larios Referring Physician: Evy Larios Performed By: Ivone Barraza, XIN, RVT
--- NOTE | 2021-06-20 10:12 | RDU_ITS ---
Right Renal Artery Left Renal Artery Right renal artery ostium Left renal artery ostium 130.8/40.8 175.2/61.2 RSV/EDV. PSV/EDV. Right renal artery proximal Left renal artery proximal PSV/EDV 154.5/53.4 PSV/EDV. 135.2/40.8 . Right renal artery mid 180.4/50.8 Left renal artery mid 134.4/43.1 PSV/EDV. PSV/EDV . Right renal artery distal Left renal artery distal 148.5/48.2 163.8/62.8 PSV/EDV. PSV/EDV. Right RAR 1.98. Left RAR 1.63. Right Renal Parenchyma Left Renal Parenchyma Upper Pole Medula 31.1/12 PSV/EDV. Left upper pole medulla 31.9/11.8 Right upper pole medulla EDR 0.39 . PSV/EDV . Right upper pole medulla R.I. Left upper pole medulla EDR 0.37 . 0.41 . Left upper pole medulla R.I. 0.63 . Upper Zbigniew Cortx 23.7/9 PSV/EDV. UP Cortex 24.6/10 PSV/EDV. Right upper pole cortex EDR 0.38 . Left upper pole cortex EDR 0.41 . Right upper pole cortex R.I. 0.62 . Left upper pole cortex R.I. 0.59 . Right lower Pole medulla 29.2/11.4 Left lower Pole medulla 30/10.9 PSV/EDV . PSV/EDV . Right lower pole medulla EDR 0.39 . Left lower pole medulla EDR 0.36 . Right lower pole medulla R.I. Left lower pole medulla R.I. 0.64 . 0.61 . Lower Pole Cortx 20.9/10 PSV/EDV. Lower Pole Cortex 17.6/6.5 PSV/EDV. Left lower pole cortex EDR 0.48 . Right lower pole cortex EDR 0.37 . Left lower pole cortex R.I. 0.52 . Right lower pole cortex R.I. 0.63 . Left Renal Hilar Right Renal Hilar LT Hilar avg 106.6/30.6 PSV/EDV . Right Hilar avg 77.5/28.1 PSV/EDV. Left hilar acceleration time 50 Right hilar acceleration time 50 m/sec. m/sec. Left Renal Dimensions Right Renal Dimensions Left kidney size 11.95 cm . Right kidney size 1.61 cm . Left cortical dimension 1.67 cm . Right cortical dimension 1.64 cm . Aorta Proximal abdominal aorta 1.33 x 1.33 cm . Proximal abdominal aorta peak systolic velocity is 133 cm/sec . Distal abdominal aorta 1.24 x 1.20 cm . Distal abdominal aorta peak systolic velocity is 91.3 cm/sec . VL/Renal Artery Duplex Ultrasound Interpretation Summary Less than 60% stenosis bilateral renal arteries Maintained right renal length of 11.65 cm Maintained left renal length of 11.95 cm Proximal aortic dimension 1.33 x 1.33 cm in diameter Ordering Physician: Evy Larios Referring Physician: Evy Larios Performed By: Imelda Montez RVT
== END ==
LOC: MRI 10:11
PROVIDERS: PCP Internal Medicine; Referring Provider Internal Medicine; Visit Provider Internal Medicine
DX: R07.9 Chest pain, unspecified (principal); R51.9 Headache, unspecified; I10 Essential (primary) hypertension
CPT/HCPCS: 93306; 93975; Q9957; A4216; C8929; J3490

== ENCOUNTER → 2021-06-23 06:35 | Outpatient (CLI) | payer BC, SELFPAY ==
--- NOTE | 2021-06-23 06:51 | MRI_ITS ---
STUDY: MRI ABDOMEN WITH AND WITHOUT CONTRAST REASON FOR EXAM: Female, 35 years old. ABNORMAL LABS TECHNIQUE: Standardized fat and water weighted pulse sequences were obtained in orthogonal planes pre and post contrast administration. IV DOTAREM was administered for the contrast portion of the examination. COMPARISON: None. FINDINGS: The visualized lung bases are unremarkable. There is signal dropout on out of phase T1 sequences suggesting diffuse fat infiltration. Normal gallbladder and extrahepatic biliary system. Although there is a tiny fold at the fundus of the gallbladder. Normal spleen. Normal pancreas. Normal bilateral adrenal glands. Normal right kidney. Normal left kidney. Visualized portions of the bowel within normal limits. Normal abdominal aorta. Normal inferior vena cava. Normal retroperitoneum. Normal abdominal wall. Normal osseous structures. MRI/MRI Abd WITH and W/O Contrast IMPRESSION: There is diffuse fatty infiltration of the liver otherwise negative contrast-enhanced MRI of the abdomen. Electronically Signed: Zeus Lozano MD at 10:13 EST Tel , Service support ,
== END ==
PROVIDERS: PCP Internal Medicine; Referring Provider Internal Medicine; Visit Provider Internal Medicine
DX: R79.89 Other specified abnormal findings of blood chemistry (principal)
CPT/HCPCS: 74183; A9575; A4216

== ENCOUNTER 2022-04-02 22:17 | Emergency (ER) | payer BC, SELFPAY ==
[2022-04-02 22:17] VITALS: BP 160/95; PULSE 95; RESP 16; TEMP 36.4; O2SAT 99; BMI 42.9
--- NOTE | 2022-04-02 22:34 | US_ITS ---
STUDY: ABDOMINAL ULTRASOUND - RIGHT UPPER QUADRANT REASON FOR VISIT: Female, 36 years old PAIN-ruq TECHNIQUE: Ultrasound evaluation of the right upper quadrant was performed with real-time and static arreguin-scale imaging. TECHNICAL QUALITY: Adequate. COMPARISON: Gallbladder ultrasound 02/03/2018. FINDINGS: Liver: The liver measures 19.6 cm. There is mildly increased echogenicity of the liver. The bile ducts are within normal limits. There is hepatic color flow. The direction of portal flow is hepatopetal. There is no demonstrated mass lesion. Gallbladder: Normal size gallbladder. The gallbladder wall measures 2.8 mm. There is a negative sonographic Fernandes''s sign. There is no pericholecystic fluid. There are no gallstones. Common Bile Duct (C.B.D.): The common bile duct measures 3 mm. Pancreas: Normal size of the head, body and tail of the pancreas. There is normal echogenicity of the pancreas. There is no demonstrated pancreatic mass or cyst. Right Kidney: Normal size of the right kidney. The right kidney measures 12.2 x 4.7 x 4.1 cm. Normal renal cortex. There is no demonstrated renal mass or cyst. There is no right hydronephrosis. OTHER: No ascites is seen. US/Gallbladder IMPRESSION: Enlarged fatty liver. No gallstones or biliary ductal dilatation. Electronically Signed: Martín Olivares MD at 0:42 EDT ,
--- NOTE | 2022-04-02 22:35 | ED.VIS.GI ---
HPI <Dr. Yimi Christopher MD - Last Filed: 04/03/22 00:08> HPI - GI History of Present Illness Chief Complaint: Abd Pain Informant: patient Narrative Narrative: Patient presents with right upper quadrant pain. She states it started yesterday afternoon. She had had some ham cheese and tomatoes for lunch. It got a little worse after she ate pizza in the evening. She ate [place] fries today that caused some nausea but no vomiting. She states she does have a history of GERD. But this does not feel the same. GERD is normally in the epigastrium and up and down the sternum. This is isolated in the right upper quadrant and does radiate toward the back. She does have a family history of biliary disease. She has had 2 children. Nothing really makes this better. No urinary symptoms. She is still able to eat. She is still moving her bowels. There have been no fevers. No chest pain or trouble breathing. [facility] <Dr. Yimi Christopher MD - Last Filed: 04/03/22 00:08> [facility] Medical History Acute bronchitis, unspecified Acute maxillary sinusitis, unspecified Anxiety Cervical radiculopathy, chronic Dysthymic Eating disorder Elevated hemoglobin A1c Encounter for screening for COVID-19 Fibromyalgia Frequent infections GERD without esophagitis Hiatal hernia Hypertension Hyperthyroidism Ingrown toenail of both feet Low vitamin B12 level Migraines Other hyperlipidemia Tachycardia Thyroid nodule Vertigo Vitamin D deficiency Home Medications rizatriptan 10 mg tablet 10 mg PO .X1 PRN PRN Headache 02/14/19 [History Last Taken Unknown] duloxetine 60 mg capsule,delayed release 30 mg PO DAILY 06/02/19 [History Last Taken Unknown] esomeprazole magnesium 20 mg capsule,delayed release (Nexium 24HR) 20 mg PO DAILY PRN gerd 06/02/19 [History Last Taken Unknown] milnacipran 50 mg tablet (Savella) 50 mg PO BID 06/02/19 [History Last Taken Unknown] ondansetron HCl 8 mg tablet 4 mg PO BID PRN Nausea 06/02/19 [History Last Taken Unknown] metaxalone 800 mg tablet 800 mg PO TID 11/24/19 [History Last Taken Unknown] oxycodone-acetaminophen 5 mg-325 mg tablet 1 ea PO BID 11/24/19 [History Last Taken Unknown] hydroxyzine pamoate 25 mg capsule (Vistaril) 25 mg PO TID PRN Anxiety 12/15/19 [History Last Taken Unknown] buspirone 30 mg tablet 30 mg PO BID 05/29/21 [History Last Taken Unknown] lisinopril 10 mg-hydrochlorothiazide 12.5 mg tablet 1 tab PO BID 05/29/21 [History Last Taken Unknown] nebivolol 20 mg tablet (Bystolic) 20 mg PO DAILY 05/29/21 [History Last Taken Unknown] amoxicillin 875 mg-potassium clavulanate 125 mg tablet 1 tab PO BID #20 tabs 08/14/21 [Rx Last Taken Unknown] benzonatate 200 mg capsule 200 mg PO TID PRN cough #30 caps 08/14/21 [Rx Last Taken Unknown] dicyclomine 10 mg capsule 20 mg PO TIDAC #20 CAPSULES 04/03/22 [Rx Last Taken Unknown] Allergy/AdvReac Type Severity Reaction Status Date / Time nabumetone [From Relafen] Allergy Hives Verified 04/02/22 22:19 Sulfa (Sulfonamide Allergy Hives Verified 04/02/22 22:19 Antibiotics) Family History Father Hypertension Hyperlipidemia Mother Hypertension Obesity Anxiety Grandfather Prostate cancer Heart disease Aunt Breast cancer Sister Melanoma Anorexia Grandmother Thyroid cancer Surgical History History of appendectomy History of History of colonoscopy History of tonsillectomy Hx of needle biopsy Social History Smoking Status: Light Smoker (<10/day) alcohol intake: current alcohol intake frequency: a few times a month substance use type: does not use caffeine: Yes what type of physical activity do you participate in: none frequency: does not exercise ROS <Dr. Yimi Christopher MD - Last Filed: 04/03/22 00:08> ROS ED Constitutional Constitutional ED: Denies chills or fever(s) ENT ENT ED: Denies rhinorrhea or sore throat Cardiovascular Cardiovascular: Denies chest pain or palpitations Respiratory/Chest Respiratory/Chest: Denies cough or dyspnea Gastrointestinal Gastrointestinal: Reports abdominal pain, nausea, vomiting and other Details: Patient did vomit once this morning. But just nausea since. ; Denies constipation, diarrhea or melena Genitourinary Genitourinary ED: Denies dysuria or hematuria Musculoskeletal Musculoskeletal: Reports back pain and other Details: Pain does refer to her lower right back Integumentary Denies rash Neurologic Neurologic: Denies headache(s), paresthesias or weakness Endocrine Endocrinology: Denies polydipsia or polyuria Allergic/Immunologic Allergic/Immunologic ED: Denies urticaria EXAM <Dr. Yimi Christopher MD - Last Filed: 04/03/22 00:08> Physical Exam Const Vital Signs: 04/02/22 22:17 04/03/22 00:17 Temperature 97.5 F L Temperature Source Oral Pulse Rate 95 89 Respiratory Rate 16 17 Blood Pressure 160/95 H Blood Pressure Mean 116 Pulse Ox 99 99 Oxygen Delivery Method Room Air Room Air Positive well nourished, well developed and obese General Appearance ED: well developed and NAD Nutritional Appearance: obese HEENT Reports moist mucous membranes Eyes General Eye ED: Negative for scleral icterus Resp normal respiratory effort and clear to auscultation bilaterally Cardio regular rate and regular rhythm GI GI Narrative: Abdomen is soft. Bowel sounds are normal. She does have reproducible right upper quadrant tenderness. Mild Fernandes sign. No CVA tenderness. No rash or vesicles Palpation: soft Back/Spine no CVA tenderness Extremity full ROM General Extremety ED: Negative for tenderness Neuro Sensorium / Orientation: alert Psych mental status grossly normal Skin no wounds <Dr. Chacho Mclain DO - Last Filed: 04/03/22 00:50> Physical Exam Const Vital Signs: 04/02/22 22:17 04/03/22 00:17 Temperature 97.5 F L Temperature Source Oral Pulse Rate 95 89 Respiratory Rate 16 17 Blood Pressure 160/95 H Blood Pressure Mean 116 Pulse Ox 99 99 Oxygen Delivery Method Room Air Room Air MDM <Dr. Yimi Christopher MD - Last Filed: 04/03/22 00:08> [facility] Narrative Medical decision making narrative: Patient CBC including white count hemoglobin hematocrit and platelets are normal. Electrolytes are normal. Glucose is normal. Liver function test and lipase are normal. test is negative. Urine is clean. Patient is rechecked. She was having still some pain and nausea she was redosed with meds and is doing much better now. Her pain is isolated the right upper quadrant. But she has less tenderness now. She looks better. Her exam is more benign. We are pending ultrasound. I explained that unless the ultrasound shows marked abnormalities, we can probably get her home for close follow-up. She is already on routine pain meds. We can certainly add Bentyl. She is also already on a PPI. Lab Data Attestation: I reviewed the patient's lab results. Labs: Laboratory Results - last 24 hr 04/02/22 04/02/22 04/02/22 22:42 22:42 22:42 WBC 10.9 RBC 4.57 Hgb 13.8 Hct 40.2 MCV 88.0 MCH 30.2 MCHC 34.3 RDW Std Deviation 43.8 RDW Coeff of Jason 13.7 Plt Count 365 MPV 9.4 Immature Gran % (Auto) 1.000 H Neut % (Auto) 54.2 Lymph % (Auto) 33.4 Perkins % (Auto) 5.8 Eos % (Auto) 4.9 Baso % (Auto) 0.7 Absolute Neuts (auto) 5.9 Absolute Lymphs (auto) 3.64 Nucleated RBC % 0 Sodium 138 Potassium 3.6 Chloride 101 Carbon Dioxide 30.0 Anion Gap 7 BUN 9 Creatinine 0.98 Estim Creat Clear Calc 67.21 Est GFR (MDRD) Af Amer 81 Est GFR (MDRD) Non-Af 67 BUN/Creatinine Ratio 9.2 L Glucose 98 Calcium 9.7 Total Bilirubin 0.20 AST 20 ALT 39 Alkaline Phosphatase 60 Total Protein 7.6 Albumin 3.8 Globulin 3.8 Albumin/Globulin Ratio 1.0 Lipase 188 Serum , Qual NEGATIVE Urine Color Urine Clarity Urine pH Ur Specific [place] Urine Protein Urine Glucose (UA) Urine Ketones Urine Occult Blood Urine Nitrite Urine Bilirubin Urine Urobilinogen Ur Leukocyte Esterase Urine RBC Urine WBC Ur Squamous Epith Cells Urine Bacteria Urine Mucus 04/02/22 22:42 WBC RBC Hgb Hct MCV MCH MCHC RDW Std Deviation RDW Coeff of Jason Plt Count MPV Immature Gran % (Auto) Neut % (Auto) Lymph % (Auto) Perkins % (Auto) Eos % (Auto) Baso % (Auto) Absolute Neuts (auto) Absolute Lymphs (auto) Nucleated RBC % Sodium Potassium Chloride Carbon Dioxide Anion Gap BUN Creatinine Estim Creat Clear Calc Est GFR (MDRD) Af Amer Est GFR (MDRD) Non-Af BUN/Creatinine Ratio Glucose Calcium Total Bilirubin AST ALT Alkaline Phosphatase Total Protein Albumin Globulin Albumin/Globulin Ratio Lipase Serum , Qual Urine Color Yellow Urine Clarity Clear Urine pH 6.0 Ur Specific [place] 1.010 Urine Protein Negative Urine Glucose (UA) Normal Urine Ketones Negative Urine Occult Blood Negative Urine Nitrite Negative Urine Bilirubin Negative Urine Urobilinogen Normal Ur Leukocyte Esterase Negative Urine RBC 0 SEEN Urine WBC 0 SEEN Ur Squamous Epith Cells 0-5 SEEN Urine Bacteria 0 SEEN Urine Mucus 0 SEEN Radiography Diagnostic Testing: Clinical Impression(s) from Imaging Studies Gallbladder Ultrasound 04/02/22 22:34 IMPRESSION: Enlarged fatty liver. No gallstones or biliary ductal dilatation. Electronically Signed: Martín Olivares MD at 0:42 EDT , <Dr. Chacho Mclain, DO - Last Filed: 04/03/22 00:50> [facility] Lab Data Labs: Laboratory Results - last 24 hr 04/02/22 04/02/22 04/02/22 22:42 22:42 22:42 WBC 10.9 RBC 4.57 Hgb 13.8 Hct 40.2 MCV 88.0 MCH 30.2 MCHC 34.3 RDW Std Deviation 43.8 RDW Coeff of Jason 13.7 Plt Count 365 MPV 9.4 Immature Gran % (Auto) 1.000 H Neut % (Auto) 54.2 Lymph % (Auto) 33.4 Perkins % (Auto) 5.8 Eos % (Auto) 4.9 Baso % (Auto) 0.7 Absolute Neuts (auto) 5.9 Absolute Lymphs (auto) 3.64 Nucleated RBC % 0 Sodium 138 Potassium 3.6 Chloride 101 Carbon Dioxide 30.0 Anion Gap 7 BUN 9 Creatinine 0.98 Estim Creat Clear Calc 67.21 Est GFR (MDRD) Af Amer 81 Est GFR (MDRD) Non-Af 67 BUN/Creatinine Ratio 9.2 L Glucose 98 Calcium 9.7 Total Bilirubin 0.20 AST 20 ALT 39 Alkaline Phosphatase 60 Total Protein 7.6 Albumin 3.8 Globulin 3.8 Albumin/Globulin Ratio 1.0 Lipase 188 Serum , Qual NEGATIVE Urine Color Urine Clarity Urine pH Ur Specific [place] Urine Protein Urine Glucose (UA) Urine Ketones Urine Occult Blood Urine Nitrite Urine Bilirubin Urine Urobilinogen Ur Leukocyte Esterase Urine RBC Urine WBC Ur Squamous Epith Cells Urine Bacteria Urine Mucus 04/02/22 22:42 WBC RBC Hgb Hct MCV MCH MCHC RDW Std Deviation RDW Coeff of Jason Plt Count MPV Immature Gran % (Auto) Neut % (Auto) Lymph % (Auto) Perkins % (Auto) Eos % (Auto) Baso % (Auto) Absolute Neuts (auto) Absolute Lymphs (auto) Nucleated RBC % Sodium Potassium Chloride Carbon Dioxide Anion Gap BUN Creatinine Estim Creat Clear Calc Est GFR (MDRD) Af Amer Est GFR (MDRD) Non-Af BUN/Creatinine Ratio Glucose Calcium Total Bilirubin AST ALT Alkaline Phosphatase Total Protein Albumin Globulin Albumin/Globulin Ratio Lipase Serum , Qual Urine Color Yellow Urine Clarity Clear Urine pH 6.0 Ur Specific [place] 1.010 Urine Protein Negative Urine Glucose (UA) Normal Urine Ketones Negative Urine Occult Blood Negative Urine Nitrite Negative Urine Bilirubin Negative Urine Urobilinogen Normal Ur Leukocyte Esterase Negative Urine RBC 0 SEEN Urine WBC 0 SEEN Ur Squamous Epith Cells 0-5 SEEN Urine Bacteria 0 SEEN Urine Mucus 0 SEEN Radiography Diagnostic Testing: Clinical Impression(s) from Imaging Studies Gallbladder Ultrasound 04/02/22 22:34 IMPRESSION: Enlarged fatty liver. No gallstones or biliary ductal dilatation. Electronically Signed: Martín Olivares MD at 0:42 EDT , Treatment and Re-Evaluation Narrative: Care of the patient was turned over to me pending ultrasound. Ultrasound shows an enlarged fatty liver but no gallstones or biliary ductal dilatation. There is a negative sonographic Fernandes sign. There is no pericholecystic fluid. Patient was advised of her findings. Patient was given a prescription for Bentyl. Patient was instructed to follow-up with her primary care physician in 3 to 5 days. Patient understood and was agreeable with the plan. All questions were answered. Discharge Plan Triage Chief Complaint: Abd Pain ED Provider: Yimi Christopher Dx/Rx/DC Orders Clinical Impression: Abdominal pain, Morbid obesity with BMI of 40.0-44.9, adult Instructions: ED Abdominal Pain Unkn Cause Fem Prescriptions: New dicyclomine 10 mg capsule 20 mg PO TIDAC Qty: 20 0RF No Action duloxetine 60 mg capsule,delayed release(DR/EC) 30 mg PO DAILY Savella 50 mg tablet 50 mg PO BID ondansetron HCl 8 mg tablet 4 mg PO BID PRN (Reason: Nausea) esomeprazole magnesium [Nexium 24HR] 20 mg capsule,delayed release(DR/EC) 20 mg PO DAILY PRN (Reason: gerd) hydroxyzine pamoate [Vistaril] 25 mg capsule 25 mg PO TID PRN (Reason: Anxiety) amoxicillin-pot clavulanate 875-125 mg tablet 1 tab PO BID Qty: 20 0RF benzonatate 200 mg capsule 200 mg PO TID PRN (Reason: cough) Qty: 30 0RF rizatriptan 10 MG tablet 10 mg PO .X1 PRN PRN (Reason: Headache) oxycodone-acetaminophen 1 EACH tablet 1 ea PO BID metaxalone 800 MG tablet 800 mg PO TID nebivolol [Bystolic] 20 mg Tablet 20 mg PO DAILY buspirone [BuSpar] 30 mg Tablet 30 mg PO BID lisinopril-hydrochlorothiazide 10-12.5 mg Tablet 1 tab PO BID Primary Care Provider: Evy Larios Referrals: Evy Larios DO [Primary Care Provider] - 3-5 Days Whitney Melton MD [Med Staff - Active Staff] - As soon as possible Disposition Disposition: Home, Self Care
[2022-04-02] MEDS: 0.9% Normal Saline 1,000 ML 1000 ML IV (22:50)
[2022-04-02] MEDS: Ondansetron 4 MG/2 ML Vial IV (22:50)
[2022-04-02] MEDS: Ketorolac 15 MG/ML Vial IV (22:50)
[2022-04-02 23:03] LABS: Bacteria 0 SEEN /hpf (None Seen); Mucous, Urine 0 SEEN /hpf (<or=2+); Red Blood Cells-Urine 0 SEEN /hpf (0-5); White Blood Cells 0 SEEN /hpf (0-5)
[2022-04-02 23:09] LABS: Color, Urine Yellow (Yellow); Glucose, Dipstick Normal (Normal); Ketone-Dipstick Negative (Negative); Leukocyte Esterase-Dipstick Negative /ul (Negative); Nitrite-Dipstick Negative (Negative); Occult Blood-Urine Negative /ul (Negative); Protein-Dipstick Negative (Negative); Urine Bilirubin Dipstick Negative (Negative); Urine Clarity Clear (Clear); Urine Urobilinogen Normal (Normal)
[2022-04-02 23:18] LABS: Squamous Epithelial Cells - UA 0-5 SEEN /hpf (5-10)
[2022-04-02 23:23] LABS: Absolute Lymphocyte Count 3.64 X10^3/uL (0.83-4.51); Absolute Neutrophil Count 5.9 X10^3/uL (2.0-7.7); Basophil# 0.08 X10^3/uL; Basophil% 0.7 % (0-1); Eosinophil# 0.53 X10^3/uL; Eosinophils% 4.9 % (0-5); Hematocrit 40.2 % (37-47); Hemoglobin 13.8 g/dL (12.0-15.0); Internal QC Validated? YES +Cl - CLEAR BKGD; Lymphocyte # 3.64 X10^3/ul (0.83-4.51); Lymphocyte % 33.4 % (19-41); Mean Corp Hgb Conc 34.3 g/dL (32-36); Mean Corpuscular Hgb 30.2 pg (27.0-32.0); Mean Platelet Vol. 9.4 fl (6.2-12.0); Monocyte# 0.63 X10^3/uL; Monocyte% 5.8 % (0-10); NRBC Flagged by Analyzer 0 % (0-5); Neutrophil # 5.92 X10^3/uL (2.7-7.7); Neutrophil % 54.2 % (47-70); Platelet Count 365 K/mm3 (150-450); Pregnancy, Serum, hCG Quali. NEGATIVE Negative; RBC Distribution Width CV 13.7 % (11.6-14.6); RBC Distribution Width SD 43.8 fl (35.1-43.9); Red Blood Count 4.57 M/mm3 (4.2-5.4); White Blood Count 10.9 K/mm3 (4.4-11.0)
[2022-04-02 23:27] LABS: AST(SGOT) 20 U/L (15-37); Alanine Aminotransfer ALT/SGPT 39 U/L (13-56); Albumin, Serum 3.8 g/dL (3.2-5.0); Alkaline Phosphatase 60 U/L (45-117); Anion Gap 7 (5-15); BUN 9 mg/dL (7-18); BUN/Creat Ratio 9.2 RATIO (10-20); Calcium,Total 9.7 mg/dL (8.5-10.1); Chloride 101 mmol/L (98-107); Creatinine, Serum 0.98 mg/dL (0.55-1.02); EST Glomerular Filtration Rate 67 mL/min (>60); Est Glom Filt Rate - Afr Amer 81 mL/min (>60); Estimated Creatinine Clearance 67.21 ml/min; Globulin 3.8 g/dL (2.2-4.2); Glucose 98 mg/dL (74-106); Lipase 188 U/L (73-393); Potassium 3.6 mmol/L (3.5-5.1); Protein, Total 7.6 g/dL (6.4-8.2); Sodium Level 138 mmol/L (136-145)
[2022-04-02] MEDS: HYDROmorphone 1 MG/ML Syringe IV (23:39)
[2022-04-02] MEDS: proMETHazine 25 MG/ML Syringe 12.5 MG IM (23:41)
[2022-04-03 00:17] VITALS: PULSE 89; RESP 17; O2SAT 99
[2022-04-03 00:54] VITALS: PULSE 85; RESP 18; O2SAT 97
== END 2022-04-03 00:59 | disposition home or self-care (01) ==
PROVIDERS: Emergency Provider Emergency Medicine; PCP Internal Medicine; Visit Provider Emergency Medicine
DX: R10.11 Right upper quadrant pain (principal); E66.01 Morbid (severe) obesity due to excess calories; Z68.41 Body mass index [BMI] 40.0-44.9, adult; F17.200 Nicotine dependence, unspecified, uncomplicated
CPT/HCPCS: 76705; 80053; 81001; 83690; 84703; 85025; 96361; 96372; 96374; 96375; 99283; J7030; A4216; J2405

== ENCOUNTER 2022-09-09 14:47 | Emergency (ER) | payer BC, SELFPAY ==
[2022-09-09 14:47] VITALS: BP 144/86; PULSE 84; RESP 16; TEMP 36.3; O2SAT 100; BMI 42.9
--- NOTE | 2022-09-09 15:18 | ED.RN ---
pt states she is going to leave and not wait for ED room at this time.
== END 2022-09-09 15:18 | disposition left against medical advice (07) ==
LOC: ED 15:39
PROVIDERS: PCP Internal Medicine
DX: Z53.21 Procedure and treatment not carried out due to patient leaving prior to being seen by health care provider (principal)

== ENCOUNTER → 2022-10-26 | Outpatient (CLI) | payer BC, SELFPAY ==
--- NOTE | 2022-10-26 12:28 | BI_ITS ---
MAMMOGRAPHY - BILATERAL SCREENING REASON FOR EXAM: Female, 36 years old. Routine annual screening examination. PERTINENT HISTORY: Aunt with breast cancer. TECHNIQUE: Digital bilateral breast jose (3D mammographic acquisition) in the CC and MLO projections. 2-D mediolateral oblique (MLO) and craniocaudad (CC) views of both breasts were obtained. CAD: Full Field Digital Mammography with Computer Added Detection was performed. COMPARISON: Comparison is made with prior examination dated January 28, 2021. FINDINGS: Breast Composition: The breasts are heterogeneously dense, which may obscure small masses. There are no dominant masses or suspicious calcifications. Stable benign-appearing bilateral axillary lymph nodes. No other significant abnormalities are identified. There has been no significant change since the prior study. BI/SCRN MAMM (CAD)W/JOSE BILAT IMPRESSION: Stable bilateral screening mammogram. Yearly follow-up mammogram recommended. (A) ASSESSMENT CATEGORY: BIRADS Category 2: Benign. A letter regarding these results will be sent to the patient by the facility within 30 days. Approximately 10% of breast cancers are not detected by mammography. A normal mammogram should not delay biopsy of a clinically suspicious abnormality. [id number] Electronically Signed: Walter Bejarano MD at 14:15 EDT ,
--- NOTE | 2022-10-26 12:28 | US_ITS ---
STUDY: THYROID ULTRASOUND REASON FOR EXAM: Female, 36 years old. History of thyroid nodule. TECHNIQUE: Ultrasound evaluation of the thyroid was performed with real-time and static arreguin-scale imaging. COMPARISON: Comparison is made with prior examination dated August 16, 2020. FINDINGS: RIGHT LOBE: The right lobe of the thyroid gland is enlarged and measures 5.8 cm x 2.2 cm x 2.5 cm. There is a homogeneous echotexture. There is a dominant complex solid and cystic nodule in the lower pole measuring 2.8 cm x 2.5 cm x 2.2 cm. This is essentially unchanged. A biopsy is recommended if not already performed. Stable 4 mm x 4 mm x 2 mm hypoechoic solid nodule. LEFT LOBE: The left lobe of the thyroid gland measures 4.8 cm x 1.5 cm x 1.6 cm. There is a homogeneous echotexture. There are no demonstrated solid, cystic or complex lesions. ISTHMUS: The isthmus measures 1.5 mm. The regional lymph nodes are normal. US/Thyroid IMPRESSION: Stable examination with a dominant complex nodule in the right lobe of the thyroid as described. A biopsy is recommended if not already performed. Electronically Signed: Walter Bejarano MD at 18:16 EDT ,
== END | disposition home or self-care (01) ==
LOC: OPUS 12:19
PROVIDERS: PCP Internal Medicine; Visit Provider Internal Medicine
DX: Z12.31 Encounter for screening mammogram for malignant neoplasm of breast (principal); E04.1 Nontoxic single thyroid nodule
CPT/HCPCS: 76536; 77063; 77067

== ENCOUNTER → 2023-01-13 | Outpatient (CLI) | payer BC, SELFPAY ==
--- NOTE | 2023-01-17 14:31 | STRESSREP_ITS ---
Stress Test Report Date: 01/13/2023 Procedure: Exercise tolerance test/imaging study Indications: Chest pain Consent: Per the patient Procedure: The patient exercised on a Erick protocol for 7 minutes achieving a peak heart rate of 160 bpm (88% predicted maximal heart rate) with a peak blood pressure 178/86 mmHg and a peak MET capacity of 10.1 METs. The baseline ECG demonstrated normal sinus rhythm, nonspecific ST-T changes. The peak exercise ECG demonstrated no significant ischemic changes. EKG during recovery revealed no significant ischemic changes [There were no cardiac dysrhythmias pretest, during exercise, or recovery]. The functional capacity was considered normal for age. There was [no complaint of chest discomfort during exercise or recovery]. The examination was discontinued secondary to dyspnea, achieving target heart rate. Impression: 1. Technically adequate (percent predicted maximal heart rate greater than 85%) exercise tolerance test 2. Stress test is negative for exercise-induced EKG changes of ischemia 3. The test test is negative for exercise-induced chest pain 4. Functional capacity is normal for age 5. Nuclear images pending Myocardial perfusion imaging study: Technique: The patient was injected with 14.5 mCi of technetium 99m Cardiolite and subsequently rest SPECT Cardiolite nuclear imaging was obtained in the horizontal long, vertical long, and short axis views. The patient exercised on a Erick protocol. Please see above for details. The patient was injected with 44.4 mCi of technetium 99m Cardiolite and subsequently stress SPECT Cardiolite nuclear imaging was obtained in the horizontal long, vertical long, and short axis views. A gated Cardiolite study at peak stress was obtained. Interpretation: Rest and stress SPECT Cardiolite nuclear imaging status post realignment, normalization, and attenuation correction, demonstrates no evidence of significant ischemia or infarction. The gated Cardiolite study demonstrates no significant regional wall motion abnormalities. The reported LVEF is greater than 70%. Impression: 1. There is no evidence of significant ischemia or infarction. 2. The gated Cardiolite study reports an LVEF of greater than 70%. This note was generated with Scrap[employer] software. It may contain incorrect words, spelling, and punctuation that were not noted in checking the note before signing.
== END | disposition home or self-care (01) ==
LOC: CVS 07:09
PROVIDERS: PCP Internal Medicine; Referring Provider Internal Medicine; Visit Provider Internal Medicine
DX: R07.9 Chest pain, unspecified (principal)
CPT/HCPCS: 78452; 93017; A9500; A4216

== ENCOUNTER → 2023-11-04 | Outpatient (CLI) | payer OTHER, SELFPAY ==
--- NOTE | 2023-11-04 06:38 | MRI_ITS ---
EXAM: MR HEAD WITHOUT AND WITH INTRAVENOUS CONTRAST CLINICAL INDICATION: CHRONIC MIGRAINE TECHNIQUE: Multiplanar and multisequence MR images of the brain were obtained without and with intravenous contrast. CONTRAST: IV 21ml clariscan COMPARISON: 06.10.21 FINDINGS: BRAIN AND EXTRA-AXIAL SPACES: Unremarkable. No intra- or extra-axial hemorrhage. No evidence of acute infarct. No intracranial mass or mass effect. There is preservation of the arreguin/white matter interface. Posterior fossa structures are unremarkable. Ventricles are appropriate for age. No hydrocephalus. Basal cisterns are patent. SELLA: Unremarkable. Normal sella turcica, pituitary gland, infundibular stalk, optic chiasm and hypothalamus. AUDITORY SYSTEM: Unremarkable. The internal auditory canals are patent. BONES/JOINTS: Unremarkable. No discrete lytic or blastic abnormalities. SINUSES: Unremarkable as visualized. Clear. MASTOID AIR CELLS: Unremarkable as visualized. Clear. ORBITS: Unremarkable as visualized. Both globes, extraocular muscles, optic nerves and retrobulbar fat appear unremarkable. VASCULATURE: Unremarkable as visualized. Normal flow voids in the major intracranial circulation. MRI/Brain W/WO Contrast IMPRESSION: Negative MRI brain without and with intravenous contrast. Electronically Signed: Maciej Baker MD at 16:03 EDT ,
[2023-11-04 07:02] LABS: CREATININE FINGERSTICK < 1.0 mg/dL (0.55-1.02); EGFR FINGERSTICK > 60.0000 mL/min (>60)
== END | disposition home or self-care (01) ==
PROVIDERS: PCP Internal Medicine
DX: G43.709 Chronic migraine without aura, not intractable, without status migrainosus (principal)
CPT/HCPCS: 70553; A9575

== ENCOUNTER → 2025-01-19 | Outpatient (CLI) | payer OTHER, SELFPAY ==
[2025-01-19 17:42] LABS: Absolute Neutrophil Count 6.6 X10^3/uL (2.0-7.7); Basophil# 0.05 X10^3/uL; Basophil% 0.5 % (0-1); Eosinophils% 2.8 % (0-5); Hematocrit 38.2 % (37-47); Lymphocyte % 30.5 % (19-41); Mean Corpuscular Hgb 28.4 pg (27.0-32.0); Mean Corpuscular Volume 83.4 fL (81-99); Mean Platelet Vol. 9.5 fl (6.2-12.0); Monocyte# 0.49 X10^3/uL; Monocyte% 4.5 % (0-10); NRBC Flagged by Analyzer 0 % (0-5); Neutrophil # 6.63 X10^3/uL (2.7-7.7); Neutrophil % 61.1 % (47-70); Platelet Count 402 K/mm3 (150-450); RBC Distribution Width CV 14.4 % (11.6-14.6); RBC Distribution Width SD 43.4 fl (35.1-43.9); Red Blood Count 4.58 M/mm3 (4.2-5.4); White Blood Count 10.8 K/mm3 (4.4-11.0)
[2025-01-19 18:09] LABS: ALB/GLOB Ratio 1.5 RATIO (0.9-2.4); AST(SGOT) 23 U/L (<=31); Alanine Aminotransfer ALT/SGPT 37 U/L (<=34); Albumin, Serum 4.2 g/dL (3.5-5.0); Alkaline Phosphatase 58 U/L (35-104); Anion Gap 11 (5-15); BUN 10 mg/dL (4-19); BUN/Creat Ratio 13.6 RATIO (10-20); Calcium,Total 9.7 mg/dL (7.6-11.0); Carbon Dioxide 21.9 mmol/L (21.0-32.0); Chloride 105 mmol/L (98-108); Cholesterol 220 mg/dL (<=200); Creatinine, Serum 0.74 mg/dL (0.70-1.20); EST Glomerular Filtration Rate 104 (>60); Globulin 2.7 g/dL (2.2-4.2); Glucose 86 mg/dL (70-99); High Density Lipoprotein 37 mg/dL; Low Density Lipoprotein Calc. 146 mg/dL; Potassium 3.9 mmol/L (3.3-5.1); Protein, Total 6.9 g/dL (5.9-8.4); Sodium Level 138 mmol/L (133-145); Triglycerides 186 mg/dL; Very Low Density Lipoprotein 37 mg/dL (5-40); Vitamin B12 228 pg/mL (180-914); Vitamin D,25 Hydroxy 22.6 ng/mL (30-100); cholesterol:hdl ratio screen 5.98
== END | disposition home or self-care (01) ==
LOC: BFHLAB 15:46
PROVIDERS: PCP Nurse Practitioner Family; Visit Provider Nurse Practitioner Family
DX: Z00.01 Encounter for general adult medical examination with abnormal findings (principal); E04.9 Nontoxic goiter, unspecified; E55.9 Vitamin D deficiency, unspecified; E53.8 Deficiency of other specified B group vitamins
CPT/HCPCS: 36415; 80053; 80061; 82306; 82607; 84439; 84443; 85025